=== PATIENT | female | born 1935 | race Caucasian/White ===

== ENCOUNTER → 2016-09-21 | Outpatient (CLI) | payer OTHER ==
[~2016-09-21] MED LIST: ASPI81TA28 PO; ATEN50TA8 PO; BRIM0.1S OPB; SIMV20TA2 PO; [UNRECOGNIZED DRUG - CODE] PO
--- NOTE | 2016-09-21 16:56 | MAMMOGRAPHY REPORT ---
BILATERAL DIGITAL SCREENING MAMMOGRAM WITH CAD: 09/21/2016 CLINICAL HISTORY: Routine screening. Patient has no complaints. TECHNIQUE: Current study was also evaluated with a Computer Aided Detection (CAD) system. Bilatera l CC and MLO views were obtained. COMPARISON: Comparison is made to exams dated: 08/14/2015 mammogram, 08/21/2014 mammogram, 4 mammogram, 08/07/2013 mammogram, 08/02/2012 mammogram, and 08/01/2011 mammogram - [facility]. BREAST COMPOSITION: The tissue of both breasts is heterogeneously dense, which may obscure small ma sses. FINDINGS: No suspicious masses, calcifications, or areas of architectural distortion are noted in e ither breast. There has been no significant interval change compared to prior exams. Bilateral leida gn vascular calcifications are again noted. Asymmetry in the left lateral breast on the cc view is stable compared to prior exams including the 2011 exam. IMPRESSION: ACR BI-RADS CATEGORY 2: BENIGN There is no mammographic evidence of malignancy. A 1 year screening mammogram is recommended. The p atient will receive written notification of the results. Approximately 10% of breast cancers are not detected with mammography. A negative mammographic repor t should not delay biopsy if a clinically suggestive mass is present. Chastity Alvarez M.D. /:09/21/2016 15:22:52 Food Aide: Estelita MCRAE(R)(Julieth)(BD), [facility] letter sent: Normal 1/2 BI-RADS Code: ACR BI-RADS Category 2: Benign
== END | disposition home or self-care (01) ==
LOC: C.MAMM 13:11
PROVIDERS: ATTEND Family Medicine
DX: Z12.31 Encounter for screening mammogram for malignant neoplasm of breast (principal)

== ENCOUNTER → 2017-11-30 | Outpatient (CLI) | payer OTHER ==
--- NOTE | 2017-12-01 07:20 | MAMMOGRAPHY REPORT ---
BILATERAL DIGITAL SCREENING MAMMOGRAM TOMOSYNTHESIS WITH CAD: 11/30/2017 CLINICAL HISTORY: Routine screening. TECHNIQUE: Breast tomosynthesis in addition to standard 2D mammography was performed. Current study was also evaluated with a Computer Aided Detection (CAD) system. COMPARISON: Comparison is made to exams dated: 09/21/2016 mammogram, 08/14/2015 mammogram, 08/11/2014 mammogram, 08/07/2013 mammogram, 08/02/2012 mammogram, and 08/01/2011 mammogram - [facility]. BREAST COMPOSITION: The tissue of both breasts is heterogeneously dense, which may obscure small mas ses. FINDINGS: No suspicious masses, calcifications, or areas of architectural distortion are noted in ei ther breast. No suspicious mass, architectural distortion or cluster of microcalcifications is seen. IMPRESSION: ACR BI-RADS CATEGORY 1: NEGATIVE There is no mammographic evidence of malignancy. A 1 year screening mammogram is recommended. The pa tient will receive written notification of the results. Approximately 10% of breast cancers are not detected with mammography. A negative mammographic report should not delay biopsy if a clinically suggestive mass is present. Chastity jewell/penrafi:11/30/2017 15:40:33 Clinical Director: Mya MCRAE(R)(M), [facility] letter sent: Normal 1/2 BI-RADS Code: ACR BI-RADS Category 1: Negative
== END | disposition home or self-care (01) ==
LOC: C.MAMM 11:15
PROVIDERS: ATTEND Family Medicine
DX: Z12.31 Encounter for screening mammogram for malignant neoplasm of breast (principal)

== ENCOUNTER 2023-09-10 20:56 | Inpatient (IN) ==
--- OUTSIDE RECORDS SUMMARY | 2023-09-10 21:01 | External Medical Summary | Summary of Care ---
Author Name Unknown Organization [facility] Address [address] [place] [address] Phone [phone] Care Team Providers Care Floor Attendant Name Role Phone Ricardo Chen MD Primary Care Provider [phone]- [phone] Reason for Visit * Reason Comments eRx-Medication Refill Encounter Details Date Type Department Care Team Description 05/20/2023 Refill [facility] [address] [place] [address] Ricardo Chen MD [address] [place] [address] Dyslipidemia Allergies No known active allergiesdocumented as of this encounter (statuses as of 05/21/2023) Medications Medication Sig Dispensed Refills Start Date End Date Status ASPIRIN 81 MG PO TABS One tablet daily 0 Active fish oil concentrate (OMEGA-3) 1000 MG CAPSIndications:P t states she is currently taking 500 mg daily Take 1 Capsule by mouth once. 60 Cap 5 03/15/2016 Active Cholecalciferol (VITAMIN D) 1000 units TabletIndications :Vitamin D deficiency 2 per day 60 Tab 0 06/23/2017 Active Promethazine HCl 25 MG Oral Tablet (PHENERGAN) Take 1 tab by mouth every 12 hours as needed for nausea and headache 4 Tab 0 06/17/2020 Active Meclizine HCl 25 MG Oral Tablet (Antivert) Take 1 Tab by mouth 3 times a day as needed for Dizziness. 30 Tab 0 03/15/2021 Active Allopurinol 300 MG Oral Tablet (Zyloprim)Indicat ions:Gout, unspecified cause, unspecified chronicity, unspecified site TAKE BY MOUTH 1 TABLET IN THE MORNING. 90 Tablet 3 08/12/2022 Active Omeprazole 20 MG Oral Capsule Delayed Release (PriLOSEC)Indicat ions:Encounter for long-term (current) use of medications,Gastr oesophageal reflux disease without esophagitis TAKE BY MOUTH 1 CAPSULE IN THE MORNING. 90 Capsule 3 08/12/2022 Active Furosemide 20 MG Oral Tablet (Lasix) Take 1 Tablet by mouth in the morning. 90 Tablet 1 01/31/2023 Active Potassium Chloride ER 10 MEQ Oral Capsule Extended Release Take 1 Capsule by mouth in the morning. 90 Capsule 1 01/31/2023 Active Levothyroxine Sodium 50 MCG Oral Tablet (Levoxyl) TAKE 1 TABLET BY MOUTH EVERY DAY AT LEAST 30 MIN BEFORE BREAKFAST OR OTHER MEDICATION 90 Tablet 0 02/16/2023 Active Atenolol 25 MG Oral Tablet (Tenormin)Indicat ions:HTN, goal below 150/90 Take 1 Tablet by mouth in the morning and 1 Tablet in the evening. 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 09/21/2022 Type 2 diabetes mellitus with hemoglobin A1c goal of less than 8.0% 02/05/2021 Benign hypertension with stage 3b chroni c kidney disease 01/12/2021 Overview: Per CKD protocol Primary open-angle glaucoma, bilateral, moderate stage 10/04/2019 Gastroesophageal reflux disease without esophagitis 10/04/2019 Acquired hypothyroidism 07/04/2019 History of nonmelanoma skin cancer 02/05 Overview: BCC on the left nose 2015 Vitamin D deficiency 06/23/2017 High risk for fracture due to osteoporos is by DEXA scan 10/06/2015 HTN, goal below 150/90 09/08/2015 Dyslipidemia 09/08/2015 documented as of this encounter (statuses as of 05/21/2023) Resolved Problems Problem Noted Date Resolved Date Glaucoma 06/21/2022 01/23/2023 Chronic kidney disease, stage 3b 02/16/2021 09/22/2021 Overview: Per CKD protocol Duplicate Type 2 diabetes mellitus wit h stage 3b chronic kidney disease 01/12/2021 06/14/2021 Overview: Per CKD protocol Diabetes mellitus with stage 3 chronic kidney di sease 07/13/2020 01/14/2021 Overview: Per CKD protocol Type 2 diabetes mellitus with stage 3 chronic ki dney disease 07/16/2019 07/16/2020 Overview: Per CKD protocol Benign hypertension with chronic kidney disease, stage III 06/23/2017 01/14/2021 Overview: Per CKD protocol History of gout 06/23/2017 10/29/2018 Primary open-angle glaucoma, moderate stage 06/0502/20/2020 Overview: history Acute gout involving toe of left foot 12/20/2016 06/23/2017 Kidney disease, chronic, stage III (GFR 30-59 ml /min) 09/12/2016 12/15/2017 Overview: Per CKD protocol #1 documented as of this encounter (statuses as of 05/21/2023) Immunizations Name Administration Dates Next Due COVID-19 mRNA, LNP-s, No Pre serve, 2-Dose Series (Hidden Radio) 01/06/2021,12/16/2020 Pneumococcal Conjugate Vacc, 13 Valent (Prevnar) 12/15/2015 Pneumococcal Polysaccharide PPV23 (Pneumovax) Season Influenza, Quad, PF, Adjuvanted, 65+ Yrs, IM (FLUAD) 05/15/2020 Seasonal Influenza, PF, 6 mo ns & Above, IM , (Flulaval) 08/01/2018,06/23/2017 06/23/2018 Seasonal Influenza, Quadrivalent Hd (Fluzone Hd) 06/21/2022,05/27/2021 Seasonal Influenza, Quadrivalent, No Preserve, I M 06/17/2016,2015 Seasonal Influenza, Trivalent, Adjuvanted, 65+ y rs 07/04/2019 TD - Tetanus/Diptheria (ADULT) 03/30/2005 Varicella Zoster Vaccine (Adult) 06/04/2010 Zoster Vaccine Recombinant (Shingrix) 08/01/2018 ,03/27/2018 documented as of this encounter Social History Tobacco Use Types Packs/Day Years Used Date Smoking Tobacco: Never Smokeless Tobacco: Never Alcohol Use Standard Drinks/Week Comments No 0 (1 standard drink = 0.6 oz pur e alcohol) Food Insecurity Answer Date Recorded Within the past 12 months, y ou worried that your food would run out before you got money to buy more. Never true 07/16/2019 Within the past 12 months, t he food you bought just didn't last and you didn't have money to get more. Never true 07/16/2019 Sex Assigned at Date Recorded Female 11/22/2018 11:38 AM EDT Job Start Date Occupation Industry Not on file Not on file Not on file documented as of this encounter Miscellaneous Notes * Telephone Encounter - Alberto Dobbins RPh - 05/21/2023 2:36 PM EDT Signed Prescriptions: Disp Refills Atorvastatin Calcium 40 MG Oral Tablet (Li*90 Tab*1 Sig: TAKE 1 TABLET BY MOUTH EVERY DAY IN THE MORNINGAuthorizing Provider: RICARDO CHEN User: ALBERTO DOBBINS documented in this encounter Plan of Treatment Upcoming Encounters Date Type Specialty Care Team Description 08/16/2023 Office Visit Family Medicine Ricardo Chen MD [address] [place] [address] Health Maintenance Due Date Last Done Comments DTaP,Tdap,and Td Vaccines (1 - Tdap) 03/31/2005 03/30/2005 DIABETES-EYE EXAM 07/12/2012 07/12/2011, , 06/01/2011 *BISPHONATE OR OTHER ACCEPTABLE MEDICATION NEEDED FOR OSTEOPOROSIS (REFER TO SMARTSET #1146) 10/08/2015 COVID-19 Vaccine (3 - Pfizer series) 03/03/2021 01/06/2021, 12/16/2020 DXA Scan 08/31/2022 08/31/2020, 02/2018, 09/11/2015 Diabetic Foot Exam 03/21/2023 03/21/2022, 10/04/2019 Influenza Vaccine (FLU shot) (#1) 2023 06/21/2022, 05/27/2021, 05/15/2020, Additional history exists HbA1c 08/18/2023 02/16/2023, 03/04, 10/25/2021, Additional history exists Depression Screening 09/21/2023 09/21/2022 CKD HGB USE SMARTSET 06680 02/17/202402/16, 03/21/2022, 02/05/2021, Additional history exists CKD PHOS USE SMARTSET 49610 02/17/202402/02, 03/21/2022, 02/05/2021, Additional history exists TSH 02/17/2024 02/16/2023, 01/2023, 10/25/2021, Additional history exists Albumin/Creatinine Ratio 02/18/2024 02/17/2023, 03/04 Pneumococcal Vaccine: 65+ Years Completed 12/15/2015, 05/29/2001 Zoster Vaccines Completed 08/01/2018, 03/05, 06/04/2010 VITAMIN D LEVEL ONCE IN A LIFETIME-USE SMARTSET# 08143 Completed 03/21/2022, 02/05/2021, 03/02/2020, Additional history exists GARDASIL-HPV IMMUNIZATION SERIES Aged Out No longer eligible based on patient's age to complete this topic Hepatitis B Aged Out No longer eligi ble based on patient's age to complete this topic MENINGOCOCCAL (MENACTRA/MENVEO) Aged Out No longer eligible based on patient's age to complete this topic documented as of this encounter Medical Devices Not on filedocumented as of this encounter Visit Diagnoses Diagnosis Dyslipidemia Other and unspecified hyperlipidemia documented in this encounter Care Teams Floor Attendant Relationship Specialty Start Date End Date Ricardo Chen MD [address], [place] [phone] PCP - General Family Medicine 08/24/15 documented as of this encounter
--- OUTSIDE RECORDS SUMMARY | 2023-09-10 21:01 | External Medical Summary | Summary of Care ---
Author Name Unknown Organization [facility] Address [address] [place] [address] Phone [phone] Care Team Providers Care Sleeper Cutter Name Role Phone Ricardo Chen MD Primary Care Provider [phone]- [phone] Reason for Visit * Reason Comments eRx-Medication Refill Encounter Details Date Type Department Care Team ([facility] st Contact Info) Description 07/27/2023 Refill [facility] [address] [place] [address] Chano Guo MD [address] [place] [address] Allergies No known active allergiesdocumented as of this encounter (statuses as of 07/28/2023) Medications Medication Sig Dispensed Refills Start Date [...] THE MORNING. 90 Capsule 3 08/12/2022 Active Atenolol 25 MG Oral Tablet (Tenormin)Indicat [...] THE MORNING 90 Tablet 1 05/21/2023 Active Levothyroxine Sodium 50 MCG Oral Tablet (Levoxyl) TAKE 1 TABLET BY MOUTH EVERY DAY AT LEAST 30 MIN BEFORE BREAKFAST OR OTHER MEDICATION 90 Tablet 1 06/30/2023 Active Potassium Chloride ER 10 MEQ Oral Capsule Extended Release TAKE 1 CAPSULE BY MOUTH EVERY MORNING 90 Capsule 1 07/28/2023 Active Furosemide 20 MG Oral Tablet (Lasix) TAKE 1 TABLET BY MOUTH EVERY DAY IN THE MORNING 90 Tablet 1 07/28/2023 Active Furosemide 20 MG Oral Tablet (Lasix) Take 1 Tablet by mouth in the morning. 90 Tablet 1 01/31/2023 3 Discontinued Potassium Chloride ER 10 MEQ Oral Capsule Extended Release Take 1 Capsule by mouth in the morning. 90 Capsule 1 01/31/2023 3 Discontinued documented as of this encounter (statuses as of 07/28/2023) Active Problems Problem Noted Date Diagnosed Date Type 2 diabetes mellitus wit h stage 3b chronic kidney disease 09/21/2022 Type 2 diabetes mellitus wit h hemoglobin A1c goal of less than 8.0% 02/05/2021 Benign hypertension with stage 3b chronic kidney disease 01/12/2021 Overview: Per CKD protocol Primary open-angle glaucoma, bilateral, moderate stage 10/04/2019 Gastroesophageal reflux disease without esophagi tis 10/04/2019 Acquired hypothyroidism 07/04/2019 History of nonmelanoma skin cancer 02/05/2018 Overview: BCC on the left nose 2015 Vitamin D deficiency 06/23/2017 High risk for fracture due to osteoporosis by DE XA scan 10/06/2015 HTN, goal below 150/90 09/08/2015 Dyslipidemia 09/08/2015 documented as of this encounter (statuses as of 07/28/2023) Resolved Problems Problem Noted Date Diagnosed Date Resolved Date Glaucoma 06/21/2022 01/23/2023 Chronic kidney disease, stage 3b 02/16/2021 09/22/2021 Overview: Per CKD protocol Duplicate Type 2 diabetes mellitus wit h stage 3b chronic kidney disease 01/12/2021 06/14/2021 Overview: Per CKD protocol Diabetes mellitus with stage 3 chronic kidney disease 07/13/2020 01/14/2021 Overview: Per CKD protocol Type 2 diabetes mellitus wit h stage 3 chronic kidney disease 07/16/2019 07/16/2020 Overview: Per CKD protocol Benign hypertension with chr onic kidney disease, stage III 06/23/2017 01/14/2021 Overview: Per CKD protocol History of gout 06/23/2017 10/29/2018 Primary open-angle glaucoma, moderate stage 06/23/2017 02/20/2020 Overview: history Acute gout involving toe of left foot 12/20/2016 06/23/2017 Kidney disease, chronic, sta ge III (GFR 30-59 ml/min) 09/12/2016 12/15/2017 Overview: Per CKD protocol #1 documented as of this encounter (statuses as of 07/28/2023) Immunizations Name Administration Dates Next Due COVID-19 mRNA, LNP-s, No Pre serve, 2-Dose Series (Pfizer) 01/06/2021,12/16/2020 Pneumococcal Conjugate Vacc, 13 Valent (Prevnar) 12/15/2015 Pneumococcal Polysaccharide PPV23 (Pneumovax) SEASONAL INFLUENZA, PF, 6 M & Above, IM , (FLULAVAL or FLUZONE) 08/01/2018,06/23/2017 06/23/2018 Season Influenza, Quad, PF, Adjuvanted, 65+ Yrs, IM (FLUAD) 05/15/2020 Seasonal Influenza, Quadrivalent Hd (Fluzone Hd) 06/21/2022,05/27/2021 [...] drink = 0.6 oz pur e alcohol) PHQ-2 Answer Date Recorded PHQ Adult Total Score 0 09/21/2022 Hunger Vital Sign Answer Date Recorded Within the past 12 months, y ou worried that your food would run out before you got the money to buy more. Never true 05/11/20 23 Within the past 12 months, t he food you bought just didn't last and you didn't have money to get more. Never true 05/11/2023 Sex and Gender Information Value Date Recorded Sex Assigned at Female 11/22/2018 11:38 AM EDT Gender Identity Female 11/22/2018 11:38 AM EDT Sexual Orientation Straight 11/22/2018 11 :38 AM EDT Job Start Date Occupation Industry Not on file Not on file Not on file documented as of this encounter Miscellaneous Notes * Telephone Encounter - Jovanni Shrestha [facility] - 07/28/2023 10:38 AM EST Signed Prescriptions: Disp Refills Potassium Chloride ER 10 MEQ Oral Capsule *90 Cap*1 Sig: TAKE 1 CAPSULE BY MOUTH EVERY MORNINGAuthorizing Provider: RICARDO CHEN User: JOVANNI SHRESTHA Furosemide 20 MG Oral Tablet (Lasix) 90 Tab*1 Sig: TAKE 1 TABLET BY MOUTH EVERY DAY IN THE [facility]Authorizing Provider: RICARDO CHEN User: JOVANNI SHRESTHA documented in this encounter Plan of Treatment Upcoming Encounters Date Type Department Care Team (Late st Contact Info) Description 08/16/2023 9:20 AM EST Office Visit [facility] [address] [place] [address] Ricardo Chen MD [address] [place] [address] Health Maintenance Due Date Last Done Comments Hepatitis B (1 of 3 - Risk 3-dose series) 1995 DTaP,Tdap,and Td Vaccines (1 - Tdap) 03/31/2005 03/30/2005 Diabetic Eye Exam 07/12/2012 07/12/2011, , 06/01/2011 *BISPHONATE OR OTHER ACCEPTABLE MEDICATION NEEDED FOR OSTEOPOROSIS (REFER TO SMARTSET #1146) 10/08/2015 DXA Scan 08/31/2022 08/31/2020, 06/0 02/2018, 09/11/2015 Diabetic Foot Exam 03/21/2023 03/21/2022, 10/04/2019 COVID-19 Vaccine (3 - season) 2023 01/06/2021, 12/16/2020 Influenza Vaccine (FLU shot) (#1) 2023 06/21/2022, 05/27/2021, 05/15/2020, Additional history exists *NEPHROLOGY REFERRAL DUE TO RESISTANT HTN 05/31/2023 HbA1c 08/18/2023 02/16/2023, 03/04, 10/25/2021, Additional history exists Depression Screening 09/21/2023 09/21/2022 CKD HGB USE SMARTSET 07573 02/17/202402/16, 03/21/2022, 02/05/2021, Additional history exists CKD PHOS USE SMARTSET 12744 02/17/202402/02, 03/21/2022, 02/05/2021, Additional history exists TSH 02/17/2024 02/16/2023, 01/2023, 10/25/2021, Additional history exists Albumin/Creatinine Ratio 02/18/2024 02/17/2023, 03/04 Pneumococcal Vaccine: 65+ Years Completed 12/15/2015, 05/29/2001 Zoster Vaccines Completed 08/01/2018, 03/05, 06/04/2010 VITAMIN D LEVEL ONCE IN A LIFETIME-USE SMARTSET# 21336 Completed 03/21/2022, 02/05/2021, 03/02/2020, Additional history exists GARDASIL-HPV IMMUNIZATION SERIES Aged Out No longer eligible based on patient's age to complete this topic MENINGOCOCCAL (MENACTRA/MENVEO) Aged Out No longer eligible based on patient's age to complete this topic documented as of this encounter Medical Devices Not on filedocumented as of this encounter Care Teams Sleeper Cutter Relationship Specialty Start Date End Date Ricardo Chen MD [address] [place] [address] PCP - General Family Medicine 08/24/15 documented as of this encounter
--- OUTSIDE RECORDS SUMMARY | 2023-09-10 21:01 | External Medical Summary | Summary of Care ---
Author Name Unknown Organization [facility] Address [address] [place] [facility] [place] [address] Phone [phone] Care Team Providers Care Drawbridge Tender Name Role Phone Ricardo Guerra MD Primary Care Provider +1- [phone] Encounter Details Date Type Department Care Team (Late st Contact Info) Description 05/11/2023 Population Health External Data Unspecified Department Allergies No known active allergiesdocumented as of this encounter (statuses as of 07/17/2023) Medications Medication Sig Dispensed Refills Start Date End Date Status ASPIRIN 81 MG PO TABS One tablet daily 0 Active fish oil concentrate (OMEGA-3) 1000 MG CAPSIndications:Pt states she is currently taking 500 mg daily Take 1 Capsule by mouth once. 60 Cap 5 03/15/2016 Active Cholecalciferol (VITAMIN D) 1000 units TabletIndications:Vi tamin D deficiency 2 per day 60 Tab [...] 03/15/2021 Active Allopurinol 300 MG Oral Tablet (Zyloprim)Indication s:Gout, unspecified cause, unspecified chronicity, unspecified site TAKE BY MOUTH 1 TABLET IN THE MORNING. 90 Tablet 3 08/12/2022 Active Omeprazole 20 MG Oral Capsule Delayed Release (PriLOSEC)Indication s:Encounter for long-term (current) use of medications,Gastroes ophageal reflux disease without esophagitis TAKE BY MOUTH 1 CAPSULE IN THE MORNING. 90 Capsule 3 08/12/2022 Active Furosemide 20 MG Oral Tablet (Lasix) Take 1 Tablet by mouth in the morning. 90 Tablet 1 01/31/2023 Active Potassium Chloride ER 10 MEQ Oral Capsule Extended Release Take 1 Capsule by mouth in the morning. 90 Capsule 1 01/31/2023 Active Atenolol 25 MG Oral Tablet (Tenormin)Indication s:HTN, goal below 150/90 Take 1 Tablet by mouth in the morning and 1 Tablet in the evening. 180 Tablet 3 03/06/2023 Active Lisinopril-hydroCHLO ROthiazide 20-25 MG Oral TabletIndications:HT N, goal below 150/90 TAKE 1 TABLET BY MOUTH EVERY DAY 90 Tablet 3 04/06/2023 Active documented as of this encounter (statuses as of 07/17/2023) Active Problems Problem Noted Date Diagnosed Date [...] as of this encounter (statuses as of 07/17/2023) Resolved Problems Problem Noted Date Diagnosed Date [...] as of this encounter (statuses as of 07/17/2023) Immunizations Name Administration Dates Next Due COVID-19 mRNA, LNP-s, No Pre serve, 2-Dose Series ([employer]) 01/06/2021,12/16/2020 Pneumococcal Conjugate Vacc, 13 Valent (Prevnar) [...] 09/21/2022 Hunger Vital Sign Answer Date Recorded Worried About Running Out of Food in the Last Ye ar Never true 07/16/2019 Ran Out of Food in the Last Year Never true 07/16/2019 Sex and Gender Information Value Date Recorded Sex Assigned at Female 11/22/2018 11:38 AM EDT Gender Identity Female 11/22/2018 11:38 AM EDT Sexual Orientation Straight 11/22/2018 11 :38 AM EDT Job Start Date Occupation Industry Not on file Not on file Not on file documented as of this encounter Plan of Treatment Upcoming Encounters Date Type Department Care Team (Late st Contact Info) Description 08/16/2023 9:20 AM EST Office Visit [facility] [address] [place] [address] Ricardo Guerra MD [address] [place] [address] Health Maintenance Due Date Last Done Comments Hepatitis B (1 of 3 - Risk 3-dose series) 1995 DTaP,Tdap,and Td Vaccines (1 - Tdap) 03/31/2005 03/30/2005 Diabetic Eye Exam 07/12/2012 07/12/2011, , 06/01/2011 *BISPHONATE OR OTHER ACCEPTABLE MEDICATION NEEDED FOR OSTEOPOROSIS (REFER TO SMARTSET #1146) 10/08/2015 DXA Scan 08/31/2022 08/31/2020, 0602/2018, 09/11/2015 Diabetic Foot Exam 03/21/2023 03/21/2022, 10/04/2019 COVID-19 Vaccine ( - season) 2023 01/06/2021, 12/16/2020 Influenza Vaccine (FLU shot) (#1) 2023 06/21/2022, 05/27/2021, 05/15/2020, Additional history exists *NEPHROLOGY REFERRAL DUE TO RESISTANT HTN 05/31/2023 HbA1c 08/18/2023 02/16/2023, 03/04, 10/25/2021, Additional history exists Depression Screening 09/21/2023 09/21/2022 CKD HGB USE SMARTSET 38012 02/17/202402/16, 03/21/2022, 02/05/2021, Additional history exists CKD PHOS USE SMARTSET 51479 02/17/202402/02, 03/21/2022, 02/05/2021, Additional history exists TSH 02/17/2024 02/16/2023, 06/01/2023, 10/25/2021, Additional history exists Albumin/Creatinine Ratio 02/18/2024 02/17/2023, 03/04 Pneumococcal Vaccine: 65+ Years Completed 12/15/2015, 05/29/2001 Zoster Vaccines Completed 08/01/2018, 03/05, 06/04/2010 VITAMIN D LEVEL ONCE IN A LIFETIME-USE SMARTSET# 60483 Completed 03/21/2022, 02/05/2021, 03/02/2020, Additional history exists GARDASIL-HPV IMMUNIZATION SERIES Aged Out No longer eligible based on patient's age to complete this topic MENINGOCOCCAL (MENACTRA/MENVEO) Aged Out No longer eligible based on patient's age to complete this topic documented as of this encounter Medical Devices Not on filedocumented as of this encounter Care Teams Drawbridge Tender Relationship Specialty Start Date End Date Ricardo Guerra MD [address] [place] [address] PCP - General Family Medicine 08/24/15 documented as of this encounter
--- OUTSIDE RECORDS SUMMARY | 2023-09-10 21:01 | External Medical Summary | Summary of Care ---
Author Name Unknown Organization [facility] Address [address] [place] [address] Phone [phone] Care Team Providers Care Literacy Education Professor Name Role Phone Ricardo Chen MD Primary Care Provider +1- [phone] Reason for Visit * Reason Comments eRx-Medication Refill Encounter Details Date Type Department Care Team (Late st Contact Info) Description 08/20/2023 Refill [facility] [address] [place] [address] Ricardo Chen MD [address] [place] [address] Encounter for long-term (current) use of medications; Gastroesophageal reflux disease without esophagitis; Gout, unspecified cause, unspecified chronicity, unspecified site Allergies No known active allergiesdocumented as of this encounter (statuses as of 08/21/2023) Medications Medication Sig Dispensed Refills Start Date [...] for Dizziness. 30 Tab 0 03/15/2021 Active Atenolol 25 MG Oral Tablet (Tenormin)Indicat [...] THE MORNING 90 Tablet 1 07/28/2023 Active Omeprazole 20 MG Oral Capsule Delayed Release (PriLOSEC)Indicat ions:Encounter for long-term (current) use of medications,Gastr oesophageal reflux disease without esophagitis TAKE 1 CAPSULE BY MOUTH EVERY DAY IN THE MORNING 90 Capsule 1 08/21/2023 Active Allopurinol 300 MG Oral Tablet (Zyloprim)Indicat ions:Gout, unspecified cause, unspecified chronicity, unspecified site TAKE 1 TABLET BY MOUTH EVERY DAY IN THE MORNING 90 Tablet 1 08/21/2023 Active Allopurinol 300 MG Oral Tablet (Zyloprim)Indicat ions:Gout, unspecified cause, unspecified chronicity, unspecified site TAKE BY MOUTH 1 TABLET IN THE MORNING. 90 Tablet 3 08/12/2022 3 Discontinued Omeprazole 20 MG Oral Capsule Delayed Release (PriLOSEC)Indicat ions:Encounter for long-term (current) use of medications,Gastr oesophageal reflux disease without esophagitis TAKE BY MOUTH 1 CAPSULE IN THE MORNING. 90 Capsule 3 08/12/2022 3 Discontinued documented as of this encounter (statuses as of 08/21/2023) Active Problems Problem Noted Date Diagnosed Date [...] as of this encounter (statuses as of 08/21/2023) Resolved Problems Problem Noted Date Diagnosed Date [...] as of this encounter (statuses as of 08/21/2023) Immunizations Name Administration Dates Next Due COVID-19 mRNA, LNP-s, No Pre serve, 2-Dose Series (Pfizer) 01/06/2021,12/16/2020 Pneumococcal Conjugate Vacc, 13 Valent (Prevnar) 12/15/2015 Pneumococcal Polysaccharide PPV23 (Pneumovax) Season Influenza, Quad, PF, Adjuvanted, 65+ Yrs, IM (FLUAD) 05/15/2020 Seasonal Influenza, PF, 6 M & above, IM , (FluLaval or Fluzone) 08/01/2018,06/23/2017 06/23/2018 Seasonal Influenza, Quadrivalent Hd (Fluzone [...] encounter Miscellaneous Notes * Telephone Encounter - Maicol Babb, [facility] - 08/21/2023 10:28 AM ESTSigned Prescriptions: Disp Refills Omeprazole 20 MG Oral Capsule Delayed Rele*90 Cap*1 Sig: TAKE 1CAPSULE BY MOUTH EVERY DAY IN THE MORNINGAuthorizing Provider: RICARDO CHEN User: MAICOL BABB Allopurinol 300 MG Oral Tablet (Zyloprim) 90 Tab*1 Sig: TAKE 1 TABLET BY MOUTH EVERY DAY IN THE MORNINGAuthorizing Provider: RICARDO CHEN User: MAICOL BABB documented in this encounter Plan of Treatment Upcoming Encounters Date Type Department Care Team (Late st Contact Info) Description 10/31/2023 6:00 PM EST Office Visit [facility] [address] [place] [address] Ricardo Chen MD [address] [place] [address] Health Maintenance Due Date Last [...] Screening 09/21/2023 09/21/2022 CKD HGB USE SMARTSET 06686 02/17/202402/16, 03/21/2022, 02/05/2021, Additional history exists CKD PHOS USE SMARTSET 44918 02/17/202402/02, 03/21/2022, 02/05/2021, Additional history exists TSH 02/17/2024 02/16/2023, 01/2023, 10/25/2021, Additional history exists Albumin/Creatinine Ratio 02/18/2024 02/17/2023, 03/04 Pneumococcal Vaccine: 65+ Years Completed 12/15/2015, 05/29/2001 Zoster Vaccines Completed 08/01/2018, 03/05, 06/04/2010 VITAMIN D LEVEL ONCE IN A LIFETIME-USE SMARTSET# 22620 Completed 03/21/2022, 02/05/2021, 03/02/2020, Additional history exists GARDASIL-HPV IMMUNIZATION SERIES Aged Out No longer eligible based on patient's age to complete this topic MENINGOCOCCAL (MENACTRA/MENVEO) Aged Out No longer eligible based on patient's age to complete this topic documented as of this encounter Medical Devices Not on filedocumented as of this encounter Visit Diagnoses Diagnosis Encounter for long-term (current) use of medications Encounter for long-term (current) use of other medications Gastroesophageal reflux disease without esophagitis Esophageal reflux Gout, unspecified cause, unspecified chronicity, unspecified site documented in this encounter Care Teams Literacy Education Professor Relationship Specialty Start Date End Date Ricardo Chen MD [address] [place] [address] PCP - General Family Medicine 08/24/15 documented as of this encounter
--- OUTSIDE RECORDS SUMMARY | 2023-09-10 21:01 | External Medical Summary | Summary of Care ---
Author Name Unknown Organization [facility] Address [address] [place] [address] Phone [phone] Care Team Providers Care Power Saw Mechanic Name Role Phone Ricardo Guerra MD Primary Care Provider [phone]- [phone] Encounter Details Date Type Department Care Team Description [facility] [address] [place] [address] Vin Moya MD [address] [place] [address] Arachnoid cyst* Allergies No known active allergiesdocumented as of this encounter (statuses as of 04/10/2023) Medications Medication Sig Dispensed Refills Start Date End Date Status ASPIRIN 81 MG PO TABS One tablet daily 0 Active fish oil concentrate (OMEGA-3) 1000 MG CAPSIndications:Pt states she is currently taking 500 mg daily Take 1 Capsule by mouth once. 60 Cap 5 03/15/2016 Active Cholecalciferol (VITAMIN D) 1000 units TabletIndications:V itamin D deficiency 2 per day 60 Tab [...] 03/15/2021 Active Allopurinol 300 MG Oral Tablet (Zyloprim)Indicatio ns:Gout, unspecified cause, unspecified chronicity, unspecified site TAKE BY MOUTH 1 TABLET IN THE MORNING. 90 Tablet 3 08/12/2022 Active Omeprazole 20 MG Oral Capsule Delayed Release (PriLOSEC)Indicatio ns:Encounter for long-term (current) use of medications,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 TAKE BY MOUTH 1 CAPSULE IN THE MORNING. 90 Capsule 3 08/12/2022 Active Atorvastatin Calcium 40 MG Oral Tablet (Lipitor)Indication s:Dyslipidemia TAKE 1 TABLET BY MOUTH EVERY DAY IN THE MORNING 90 Tablet 1 11/21/2022 Active Furosemide 20 MG Oral Tablet (Lasix) [...] 02/16/2023 Active Atenolol 25 MG Oral Tablet (Tenormin)Indicatio ns:HTN, goal below 150/90 Take 1 Tablet by mouth in the morning and 1 Tablet in the evening. 180 Tablet 3 03/06/2023 Active Lisinopril-hydroCHL OROthiazide 20-25 MG Oral TabletIndications:H TN, goal below 150/90 TAKE 1 TABLET BY MOUTH EVERY DAY 90 Tablet 3 04/06/2023 Active documented as of this encounter (statuses as of 04/10/2023) Active Problems Problem Noted Date Type 2 [...] as of this encounter (statuses as of 04/10/2023) Resolved Problems Problem Noted Date Resolved Date [...] as of this encounter (statuses as of 04/10/2023) Immunizations Name Administration Dates Next Due COVID-19 mRNA, LNP-s, No Pre serve, 2-Dose Series (Pfizer) 01/06/2021,12/16/2020 Pneumococcal Conjugate Vacc, 13 Valent (Prevnar) 12/15/2015 Pneumococcal Polysaccharide PPV23 (Pneumovax) Seasonal Influenza, Quadrivalent Hd (Fluzone Hd) 06/21/2022,05/27/2021 Seasonal Influenza, Quadriva lent, No Preserve, 6 Mons & Above, IM 08/01/2018,06/23/2017 06/23/2018 Seasonal Influenza, Quadriva lent, No Preserve, Adjuvanted, 65+ Yrs, IM 05/15/2020 Seasonal Influenza, Quadrivalent, No Preserve, I M [...] on file documented as of this encounter Progress Notes * Vin Moya MD - 04/10/2023 8:31 AM EDT After connecting to the patient via telephone, the patient was identified by name and date of . Patient was then informed that this was a telephone call only visit. The patient agreed to participate. Visit Disposition: Routine follow-up Total call duration was 5 minutes. NEUROSURGERY ATTENDING CLINIC NOTE Name: Raquel Purcell Date: 04/10/2023 Time: 8:32 AM Chief complaint: Left parietal arachnoid cyst Ricardo Guerra MD, thank you very much for referring Raquel Purcell to my clinic. As you recall she is a 87 year old female with an incidental finding on MRI a left parietal arachnoid cyst. At our previous in-person clinic visit, she was neurologically intact. We discussed that arachnoid cystsoften do not require treatment assuming that they do not progressively enlarge and cause neurologic symptoms. She obtained a repeat MRI which did not demonstrate any growth or change within the lesion. She states that she has no new neurologic symptoms, including headaches, speech difficulties, or right-sided weakness. 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 Nuñez REMOVE CATARACT, INSERT LENS PROSTH Right Eye--Dr. Carrasquillo Medications Current Outpatient Medications Medication Sig Dispense Refill ASPIRIN 81 MG PO TABS One tablet daily fish oil concentrate (OMEGA-3) 1000 MG CAPS Take 1 Capsule by mouth once. 60 Cap 5 Cholecalciferol (VITAMIN D) 1000 units Tablet 2 per day 60 Tab 0 Promethazine HCl 25 MG Oral Tablet (PHENERGAN) Take 1 tab by mouth every 12 hours as needed fornausea and headache 4 Tab 0 Meclizine HCl 25 MG Oral Tablet (Antivert) Take 1 Tab by mouth 3 times a day as needed for Dizziness. 30 Tab 0 Allopurinol 300 MG Oral Tablet (Zyloprim) TAKE BY MOUTH 1 TABLET IN THE MORNING. 90 Tablet 3 Omeprazole 20 MG Oral Capsule Delayed Release (PriLOSEC) TAKE BY MOUTH 1 CAPSULE IN THE MORNING. 90 Capsule 3 Atorvastatin Calcium 40 MG Oral Tablet (Lipitor) TAKE 1 TABLET BY MOUTH EVERY DAY IN THE MORNING 90 Tablet 1 Furosemide 20 MG Oral Tablet (Lasix) Take 1 Tablet by mouth in the morning. 90 Tablet 1 Potassium Chloride ER 10 MEQ Oral Capsule Extended Release Take 1 Capsule by mouth in the morning. 90 Capsule 1 Levothyroxine Sodium 50 MCG Oral Tablet (Levoxyl) TAKE 1 TABLET BY MOUTH EVERY DAY AT LEAST 30 MIN BEFORE BREAKFAST OR OTHER MEDICATION 90 Tablet 0 Atenolol 25 MG Oral Tablet (Tenormin) Take 1 Tablet by mouth in the morning and 1 Tablet in theevening. 180 Tablet 3 Lisinopril-hydroCHLOROthiazide 20-25 MG Oral Tablet TAKE 1 TABLET BY MOUTH EVERY DAY 90 Tablet 3 No current facility-administered medications for this visit. Allergies: Patient has no known allergies. Family Hx: Family History Problem Relation Age of Onset Eye Problems None Denies family hx of retinal problems Glaucoma None Cancer Brother Diabetes Sister Diabetes Brother Heart Disorder Mother Hypertension Mother Stroke Father Hx of TIA Social Hx: Social History Socioeconomic History Marital status: Spouse name: Not on file Number of children: Not on file Years of education: Not on file Highest education level: Not on file Occupational History Not on file Tobacco Use Smoking status: Never Smokeless tobacco: Never Vaping Use Vaping Use: Never used Substance and Sexual Activity Alcohol use: No Drug use: No Sexual activity: Not on file Other Topics Concern Not on file Social History Narrative Not on file Social Determinants of Health Financial Resource Strain: Not on file Food Insecurity: Not on file Transportation Needs: Not on file Physical Activity: Not on file Stress: Not on file Social Connections: Not on file Intimate Partner Violence: Not on file Housing Stability: Not on file Review of Systems Negative except as per HPI MRI BRAIN W WO CONTRAST Narrative: EXAM: MRI BRAIN W WO CONTRAST - 03/17/2023 HISTORY: 87 y/o F, Brain Cyst TECHNIQUE: Multisequence multiplanar MRI of the brain was performed prior to and following the intravenous administration of 6.5 cc Gadavist contrast. COMPARISON: MRI of the brain dated 02/17/2023 FINDINGS: There is redemonstration of a large extra-axial cystic mass along the left parietal convexity whichfollows CSF fluid on all sequences, 52 x 43 x 49 mm, previously 56 x 42 x 48 mm. There is mass effect upon the adjacent sulci and mild effacement of the left lateral ventricle. No midline shift. No associated abnormal enhancement or restricted diffusion. No acute infarct or hemorrhage. Scattered periventricular and subcortical T2/FLAIR hyperintense signal is nonspecific but likely the sequela chronic microvascular ischemic change. No abnormal enhancement. The ventricles and sulci are symmetric, but enlarged. No hydrocephalus or extra- axial fluid collections. No significant mucosal thickening. Mastoid cells are clear bilaterally. Impression: IMPRESSION: 1. No acute intracranial abnormality. 2. Redemonstration of large left parietal convexity arachnoid cyst, without significant change fromthe prior examination when allowing for differences in technique. Vital signs There were no vitals taken for this visit. Neurologic examination Alert and cooperative. No aphasia or dysarthria. Speech intact Remainder of neurological exam not performed due to phone interaction Assessment and plan Arachnoid cyst (Primary) 87-year-old female with an incidental finding of left parietal arachnoid cyst which is asymptomatic. We discussed signs and symptoms which might trigger concern for enlargement of this cyst, including speech difficulties, right-sided weakness, right facial droop. Acute onset of the symptoms would require emergent workup for stroke. However, an indolent course of progression would be concerning for symptom onset due to this lesion. We discussed a return clinic visit in 1 year's time with a repeat MRI to further evaluate. Vin Moya MD Staff Neurosurgeon Endovascular and Cerebrovascular Neurosurgery [facility] [place], [place] documented in this encounter Plan of Treatment Upcoming Encounters Date Type Specialty Care Team Description 08/16/2023 Office Visit Family Medicine Ricardo Guerra MD [facility] [address], [place] [id number] Health Maintenance Due Date Last Done Comments DTaP,Tdap,and Td Vaccines (1 - Tdap) 03/31/2005 03/30/2005 DIABETES-EYE EXAM 07/12/2012 07/12/2011, , 06/01/2011 *BISPHONATE OR OTHER ACCEPTABLE MEDICATION NEEDED FOR OSTEOPOROSIS (REFER TO SMARTSET #1146) 10/08/2015 COVID-19 Vaccine (3 - Pfizer series) 03/03/2021 01/06/2021, 12/16/2020 DXA Scan 08/31/2022 08/31/2020, 0602/2018, 09/11/2015 DIABETES-FOOT EXAM 03/21/2023 03/21/2022, 10/04/2019 Influenza Vaccine (FLU shot) (#1) 2023 06/21/2022, 05/27/2021, 05/15/2020, Additional history exists HbA1c 08/18/2023 02/16/2023, 03/04, 10/25/2021, Additional history exists Depression Screening, Annual for Pts 12 and Over 09/21/2023 09/21/2022 CKD HGB USE SMARTSET 82984 02/17/202402/16, 03/21/2022, 02/05/2021, Additional history exists CKD PHOS USE SMARTSET 90085 02/17/202402/02, 03/21/2022, 02/05/2021, Additional history exists TSH 02/17/2024 02/16/2023, 01/2023, 10/25/2021, Additional history exists Albumin/Creatinine Ratio 02/18/2024 02/17/2023, 03/04 Pneumococcal Vaccine: 65+ Years Completed 12/15/2015, 05/29/2001 Zoster Vaccines Completed 08/01/2018, 03/05, 06/04/2010 VITAMIN D LEVEL ONCE IN A LIFETIME-USE SMARTSET# 32277 Completed 03/21/2022, 02/05/2021, 03/02/2020, Additional history exists [...] as of this encounter Visit Diagnoses Diagnosis Arachnoid cyst- Primary Cerebral cysts documented in this encounter Care Teams Power Saw Mechanic Relationship Specialty Start Date End Date Ricardo Guerra MD [address] [place] [address] PCP - General Family Medicine 08/24/15 documented as of this encounter
--- OUTSIDE RECORDS SUMMARY | 2023-09-10 21:01 | External Medical Summary | Summary of Care ---
Author Name Unknown Organization [facility] Address [address] [place] [address] Phone [phone] Care Team Providers Care Director Consumer Affairs Name Role Phone Ricardo Chen MD Primary Care Provider +1- [phone] Reason for Visit * Reason Comments eRx-Medication Refill Encounter Details Date Type Department Care Team ([facility] st Contact Info) Description 06/30/2023 Refill [facility] [address] [place] [address] Ricardo Chen MD [address] [place] [address] Allergies No known active allergiesdocumented as of this encounter (statuses as of 06/30/2023) Medications Medication Sig Dispensed Refills Start Date [...] 01/31/2023 Active Atenolol 25 MG Oral Tablet (Tenormin)Indicat [...] OTHER MEDICATION 90 Tablet 1 06/30/2023 Active Levothyroxine Sodium 50 MCG Oral Tablet (Levoxyl) TAKE 1 TABLET BY MOUTH EVERY DAY AT LEAST 30 MIN BEFORE BREAKFAST OR OTHER MEDICATION 90 Tablet 0 02/16/2023 3 Discontinued documented as of this encounter (statuses as of 06/30/2023) Active Problems Problem Noted Date Diagnosed Date [...] as of this encounter (statuses as of 06/30/2023) Resolved Problems Problem Noted Date Diagnosed Date [...] as of this encounter (statuses as of 06/30/2023) Immunizations Name Administration Dates Next Due COVID-19 mRNA, LNP-s, No Pre serve, 2-Dose Series ([employer]) 01/06/2021,12/16/2020 Pneumococcal Conjugate Vacc, 13 Valent (Prevnar) [...] Recorded PHQ Adult Total Score 0 09/21/2022 Sex and Gender Information Value Date Recorded Sex Assigned at Female 11/22/2018 11:38 AM EDT Gender Identity Female 11/22/2018 11:38 AM EDT Sexual Orientation Straight 11/22/2018 11 :38 AM EDT Job Start Date Occupation Industry Not on file Not on file Not on file documented as of this encounter Miscellaneous Notes * Telephone Encounter - Miguelina Leblanc RPh - 06/30/2023 10:36 AM EDTSigned Prescriptions: Disp Refills Levothyroxine Sodium 50 MCG Oral Tablet (L*90 Tab*1 Sig: TAKE 1TABLET BY MOUTH EVERY DAY AT LEAST 30 MIN BEFORE BREAKFAST OR OTHER MEDICATIONAuthorizing Provider:RICARDO CHEN User: MIGUELINA LEBLANC documented in this encounter Plan of Treatment Upcoming Encounters Date Type Department Care Team (Late st Contact Info) Description 08/16/2023 9:20 AM EST Office Visit [facility] [address] [facility] [address] Ricardo Chen MD [address] [place] [address] Health Maintenance Due Date Last Done Comments Hepatitis B (1 of 3 - Risk 3-dose series) 1995 DTaP,Tdap,and Td Vaccines (1 - Tdap) 03/31/2005 03/30/2005 DIABETES-EYE EXAM 07/12/2012 07/12/2011, , 06/01/2011 *BISPHONATE OR OTHER ACCEPTABLE MEDICATION NEEDED FOR OSTEOPOROSIS (REFER TO SMARTSET #1146) 10/08/2015 DXA Scan 08/31/2022 08/31/2020, 02/2018, 09/11/2015 Diabetic Foot Exam 03/21/2023 03/21/2022, 10/04/2019 COVID-19 Vaccine ( season) 2023 01/06/2021, 12/16/2020 Influenza Vaccine (FLU shot) (#1) 2023 06/21/2022, 05/27/2021, 05/15/2020, Additional history exists *NEPHROLOGY REFERRAL DUE TO RESISTANT HTN 05/31/2023 HbA1c 08/18/2023 02/16/2023, 03/04, 10/25/2021, Additional history exists Depression Screening 09/21/2023 09/21/2022 CKD HGB USE SMARTSET 53687 02/17/202402/16, 03/21/2022, 02/05/2021, Additional history exists CKD PHOS USE SMARTSET 16774 02/17/202402/02, 03/21/2022, 02/05/2021, Additional history exists TSH 02/17/2024 02/16/2023, 06/0 01/2023, 10/25/2021, Additional history exists Albumin/Creatinine Ratio 02/18/2024 02/17/2023, 03/04 Pneumococcal Vaccine: 65+ Years Completed 12/15/2015, 05/29/2001 Zoster Vaccines Completed 08/01/2018, 03/05, 06/04/2010 VITAMIN D LEVEL ONCE IN A LIFETIME-USE SMARTSET# 61374 Completed 03/21/2022, 02/05/2021, 03/02/2020, Additional history exists GARDASIL-HPV IMMUNIZATION SERIES Aged Out No longer eligible based on patient's age to complete this topic MENINGOCOCCAL (MENACTRA/MENVEO) Aged Out No longer eligible based on patient's age to complete this topic documented as of this encounter Medical Devices Not on filedocumented as of this encounter Care Teams Director Consumer Affairs Relationship Specialty Start Date End Date Ricardo Chen MD [address] [place] [address] PCP - General Family Medicine 08/24/15 documented as of this encounter
--- OUTSIDE RECORDS SUMMARY | 2023-09-10 21:02 | External Medical Summary ---
Author Name Unknown Address Unknown Organization K01:[facility] [address] [place] [address] Laboratory Report Ordering Provider Test Date Status GUSTAVO INGRAM 03/21/2023 11:34:40 Final Observation Date Value Abnormality Reference (Units ) Status Magnesium 03/21/2023 11:34:40 1.4 Below low normal 1.5 -2.6 (mg/dL) Final Performing Location [facility] [address] [place] [address]
--- OUTSIDE RECORDS SUMMARY | 2023-09-10 21:02 | External Medical Summary | Summary of Care ---
Author Name Unknown Organization [facility] Address [address] [facility] [place] [address] Phone [phone] Care Team Providers Care Testing Consultant Name Role Phone Ricardo Guerra MD Primary Care Provider +1- [phone] Reason for Visit * Reason Onset Date Comments Blood Pressure Check 03/17/2023 03/17/23 LMT Encounter Details Date Type Department Care Team Description 03/17/2023 Telephone Family Practice [facility] [address] [place] [address] Rajan Pantoja MD [address] [place] [address] Blood Pressure Check (03/17/23 LMTR) Allergies No known active allergiesdocumented as of this encounter (statuses as of 03/21/2023) Medications Medication Sig Dispensed Refills Start Date [...] THE MORNING. 90 Capsule 3 08/12/2022 Active Lisinopril-hydroCHL OROthiazide 20-25 MG Oral TabletIndications:H TN, goal below 150/90 TAKE 1 TABLET BY MOUTH EVERY DAY 90 Tablet 1 10/13/2022 Active Atorvastatin Calcium 40 MG Oral Tablet [...] the evening. 180 Tablet 3 03/06/2023 Active documented as of this encounter (statuses as of 03/21/2023) Active Problems Problem Noted Date Type 2 [...] 02/05 Overview: BCC on the left nose 2016 Vitamin D deficiency 06/23/2017 High risk for fracture due to osteoporos is by DEXA scan 10/06/2015 HTN, goal below 150/90 09/08/2015 Dyslipidemia 09/08/2015 documented as of this encounter (statuses as of 03/21/2023) Resolved Problems Problem Noted Date Resolved Date [...] as of this encounter (statuses as of 03/21/2023) Immunizations Name Administration Dates Next Due COVID-19 [...] encounter Miscellaneous Notes * Telephone Encounter - Gunjan Farley LPN - 03/17/2023 4:46 PM EDT Provider to address: Ricardo Guerra MD Reason for Call: Blood Pressure Check (03/17/23 [facility]) Contact: Telephone Call Contact Type: Information Outcome: Patient is aware and verbalizes understanding. She does have BP cuff at home. She was unable to do her BP while on the phone she stated that the cuff was in the other room. She will take her BP and call back with a reading. Total Time including non face to face (minutes): 5 * Telephone Encounter - Madhavi Briggs LPN - 03/17/2023 1:47 PM EDT Provider to address: n/a Reason for Call: No chief complaint on file. Contact: Telephone Call Contact Type: Follow-up Outcome: Called, left message for patient to return call. Total Time including non face to face (minutes): 5 * Telephone Encounter - Ricardo Guerra MD - 03/17/2023 1:00 PM EDT Noted - thanks. Please contact pt t make sure that she is continuing to feel better. If she is able to check bp at home, can we make sure that it has improved? If she is not able to check at home, please offer a nurse visit for recheck in the clinic. * Telephone Encounter - Darlyn Rivas LPN - 03/17/2023 11:21 AM EDT Pt here at [facility] for MRI of brain w wo contrast. legal technician came into FP to get a nurse. legal technician stated that patient was shaky before the MRI, once she was in the MRI the shaking was worse. Theyfinished the MRI on patient and brought her over to Family Practice to be checked out. Vital signs were taken on patient. P-62, R-16, BP-192/86, 02-98% ra, BG-102. BP recheck was 193/81. Patient stated she was starting to feel better and her shakes were starting to go away. Patient drank water and ate a snack. After roughly 10 minutes patient reported she felt much better. After discussion with patients family and MRI staff, pt's family felt that this was related to anxiety and not the IV contrast since patient had these symptoms before an IV was placed. Patient stated she was very anxious tohave the MRI done because she is claustrophobic. Doc of the day (Dr. Pantoja) reviewed VS and stated that patient was okay to go if she was feeling back to normal. Pt stated she felt great and was okay with going home. Pt encouraged to follow up with PCP. documented in this encounter Plan of Treatment Upcoming Encounters Date Type Specialty Care Team Description 04/05/2023 Telemedicine Neurological Surgery Kayla Marrero PA-C [address] [facility] [place] [address] 08/16/2023 Office Visit Family Medicine Ricardo Guerra MD [address] [place] [address] Health Maintenance Due Date Last Done Comments DTaP,Tdap,and Td Vaccines (1 - Tdap) 03/31/2005 03/30/2005 DIABETES-EYE EXAM 07/12/2012 07/12/2011, , 06/01/2011 *BISPHONATE OR OTHER ACCEPTABLE MEDICATION NEEDED FOR OSTEOPOROSIS (REFER TO SMARTSET #1146) 10/08/2015 COVID-19 Vaccine (3 - Pfizer series) 03/03/2021 01/06/2021, 12/16/2020 DXA Scan 08/31/2022 08/31/2020, 02/2018, 09/11/2015 DIABETES-FOOT EXAM 03/21/2023 03/21/2022, 10/04/2019 Influenza Vaccine (FLU shot) (#1) 2023 06/21/2022, 05/27/2021, 05/15/2020, Additional history exists HbA1c 08/18/2023 02/16/2023, 03/04, 10/25/2021, Additional history exists Depression Screening, Annual for Pts 12 and Over 09/21/2023 09/21/2022 CKD HGB USE SMARTSET 36246 02/17/202402/16, 03/21/2022, 02/05/2021, Additional history exists CKD PHOS USE SMARTSET 52715 02/17/202402/02, 03/21/2022, 02/05/2021, Additional history exists TSH 02/17/2024 02/16/2023, 01/2023, 10/25/2021, Additional history exists Albumin/Creatinine Ratio 02/18/2024 02/17/2023, 03/04 Pneumococcal Vaccine: 65+ Years Completed 12/15/2015, 05/29/2001 Zoster Vaccines Completed 08/01/2018, 03/05, 06/04/2010 VITAMIN D LEVEL ONCE IN A LIFETIME-USE SMARTSET# 69620 Completed 03/21/2022, 02/05/2021, 03/02/2020, Additional history exists [...] filedocumented as of this encounter Care Teams Testing Consultant Relationship Specialty Start Date End Date Ricardo Guerra MD [address] [place] [address] PCP - General Family Medicine 08/24/15 documented as of this encounter
--- OUTSIDE RECORDS SUMMARY | 2023-09-10 21:02 | External Medical Summary | Summary of Care ---
Author Name Unknown Organization [facility] Address [address] [place] [address] Phone [phone] Care Team Providers Care Target Aircraft Technician Name Role Phone Ricardo Guerra MD Primary Care Provider +1- [phone] Encounter Details Date Type Department Care Team Description [facility] [address] [place] [address] Kayla Marrero PA-C [address] [place] [address] Arachnoid cyst* Allergies No known active allergiesdocumented as of this encounter (statuses as of 04/04/2023) Medications Medication Sig Dispensed Refills Start Date [...] as of this encounter (statuses as of 04/04/2023) Active Problems Problem Noted Date Type 2 [...] as of this encounter (statuses as of 04/04/2023) Resolved Problems Problem Noted Date Resolved Date [...] as of this encounter (statuses as of 04/04/2023) Immunizations Name Administration Dates Next Due COVID-19 [...] as of this encounter Progress Notes * Kayla Marrero PA-C - 04/04/2023 10:00 AM EDT PROGRESS NOTE - Cerebrovascular Surgery [facility] [address] After connecting to the patient via telephone, the patient was identified by name and date of . Patient was then informed that this was a telephone call only visit. The patient agreed to participate. Visit Disposition: Routine follow-up Total call duration was 10 minutes. Name: Raquel Purcell Date of service:04/04/2023 Time: 10:20 AM Primary Care Provider: Ricardo Guerra MD Referring Provider: Tamar Horton DO OUTPATIENT CONSULTATION Chief complaint: Arachnoid cyst History of Present Illness: Raquel Purcell is a 87 year old female that presents to the clinic via telephone appointment for further evaluation of a large left parietal arachnoid cyst. The arachnoid cyst was found incidentally during workup for headaches that caused some cognitive changes. Raquel does have a pertinent past medical history of previous skin cancer that was removed approximately 2 y ears ago. Patient and family believe that this can cancer was melanoma. She returns to the clinic today with an updated MRI with and without contrast that showed no underlying cancerous lesions or other abnormalities. During the phone call today both her and her family agree that she is doing much better than when she saw us in February. 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 She is currently taking 81 mg of aspirin daily. The patient denies DAILEY, nausea, vomiting, dizziness, double vision, numbness or tingling in the arms or legs, change in bowel or bladder, chest pain, and SOB. 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 Nuñez REMOVE CATARACT, INSERT LENS PROSTH Right Eye--Dr. Carrasquillo SOCIAL HISTORY: Social History Socioeconomic History Marital status: Spouse [...] on file Housing Stability: Not on file FAMILY HISTORY: Family History Problem Relation Age of Onset Eye Problems None Denies family hx of retinal problems Glaucoma None Cancer Brother Diabetes Sister Diabetes Brother Heart Disorder Mother Hypertension Mother Stroke Father Hx of TIA MEDICATIONS: Current Outpatient Medications Medication Sig Dispense Refill [...] CAPSULE IN THE MORNING. 90 Capsule 3 Lisinopril-hydroCHLOROthiazide 20-25 MG Oral Tablet TAKE 1 TABLET BY MOUTH EVERY DAY 90 Tablet 1 Atorvastatin Calcium 40 MG Oral Tablet (Lipitor) [...] 1 Tablet in theevening. 180 Tablet 3 No current facility-administered medications for this visit. 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 Limited due to telephone appointment No acute distress Awake, alert, oriented Respirations unlabored IMAGES: MRI brain without contrast 02/17/2023 IMPRESSION Large extra-axial CSF intensity mass along the left parietal convexity consistent with an arachnoidcyst. Extensive white matter signal abnormalities. These are nonspecific but most consistent with chronicsmall vessel disease in this age group. Other white matter abnormalities cannot be excluded. MRI Brain w/wo contrast 03/17/2023 IMPRESSION: 1. No acute intracranial abnormality. 2. Redemonstration of large left parietal convexity arachnoid cyst, without significant change fromthe prior examination when allowing for differences in technique. VISIT DIAGNOSIS/PRE-OP ORDERS: Arachnoid cyst (Primary) IMPRESSION: Raquel Purcell is a 87 year old female that presents to the clinic via telephone appointment for further evaluation of a large left parietal arachnoid cyst. The arachnoid cyst was found incidentally during workup for headaches that caused some cognitive changes. Raquel does have a pertinent past medical history of previous skin cancer that was removed approximately 2 years ago. Patient and family believe that this can cancer was melanoma. She returns to the clinic today with an updated MRI with and without contrast that showed no underlying cancerous lesions or other abnormalities. During the phone call today both her and her family agree that she is doing much better than when she saw us in February. 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 She is currently taking 81 mg of aspirin daily. PLAN: All questions and concerns addressed Imaging reviewed Return to clinic via phone with Dr. Moya on Monday April 10, 2023 Encouraged to call with any questions or concerns Patient to be discussed with Dr. Griffin Marrero PA-C [facility] [address] [facility] [place] [address] 04/04/2023 10:22 AM documented in this encounter Plan of Treatment Upcoming Encounters Date Type Specialty Care Team Description 04/10/2023 Telemedicine Neurological Surgery Vin Moya MD [address] [place] [address] 08/16/2023 Office Visit Family Medicine Oesterling, Ricardo R, MD [address] [place] [address] Health Maintenance Due Date Last Done Comments [...] Over 09/21/2023 09/21/2022 CKD HGB USE SMARTSET 47500 02/17/202402/16, 03/21/2022, 02/05/2021, Additional history exists CKD PHOS USE SMARTSET 45104 02/17/202402/02, 03/21/2022, 02/05/2021, Additional history exists TSH 02/17/2024 02/16/2023, 01/2023, 10/25/2021, Additional history exists Albumin/Creatinine Ratio 02/18/2024 02/17/2023, 03/04 Pneumococcal Vaccine: 65+ Years Completed 12/15/2015, 05/29/2001 Zoster Vaccines Completed 08/01/2018, 03/05, 06/04/2010 VITAMIN D LEVEL ONCE IN A LIFETIME-USE SMARTSET# 44495 Completed 03/21/2022, 02/05/2021, 03/02/2020, Additional history exists [...] cysts documented in this encounter Care Teams Target Aircraft Technician Relationship Specialty Start Date End Date Ricardo Guerra MD [address] [place] [address] PCP - General Family Medicine 08/24/15 documented as of this encounter
--- OUTSIDE RECORDS SUMMARY | 2023-09-10 21:02 | External Medical Summary | Summary of Care ---
Author Name Unknown Organization [facility] Address [address] [place] [address] Phone [phone] Care Team Providers Care City Designer Name Role Phone Ricardo Guerra MD Primary Care Provider +1- [phone] Reason for Visit * Reason Comments Outpatient Testing Encounter Details Date Type Department Care Team Description 03/21/2023 Laboratory Laboratory, [place] [address] [place] [address] [facility] [address] [place] [address] Hypomagnesemia Allergies No known active allergiesdocumented as of [...] Team Description 04/05/2023 Telemedicine Neurological Surgery Kayla Marrero, PA-C [address] [place] [address] 08/16/2023 Office Visit Family Medicine Ricardo Guerra MD [address] [place], [place] [address] Pending Results Name Type Priority Associated Diagnoses Date /Time MAGNESIUM Lab Routine Hypomagnesemia 03/21/2023 11:34 AM EDT Health Maintenance Due Date Last Done Comments [...] Over 09/21/2023 09/21/2022 CKD HGB USE SMARTSET 11451 02/17/202402/16, 03/21/2022, 02/05/2021, Additional history exists CKD PHOS USE SMARTSET 01242 02/17/202402/02, 03/21/2022, 02/05/2021, Additional history exists TSH 02/17/2024 02/16/2023, 01/2023, 10/25/2021, Additional history exists Albumin/Creatinine Ratio 02/18/2024 02/17/2023, 03/04 Pneumococcal Vaccine: 65+ Years Completed 12/15/2015, 05/29/2001 Zoster Vaccines Completed 08/01/2018, 03/05, 06/04/2010 VITAMIN D LEVEL ONCE IN A LIFETIME-USE SMARTSET# 59903 Completed 03/21/2022, 02/05/2021, 03/02/2020, Additional history exists [...] as of this encounter Visit Diagnoses Diagnosis Hypomagnesemia Disorders of magnesium metabolism documented in this encounter Care Teams City Designer Relationship Specialty Start Date End Date Ricardo Guerra MD [address] [place] [address] PCP - General Family Medicine 08/24/15 documented as of this encounter
--- OUTSIDE RECORDS SUMMARY | 2023-09-10 21:02 | External Medical Summary | Summary of Care ---
Author Name Unknown Organization [facility] Address [address] [place] [address] Phone [phone] Care Team Providers Care Hand Wrapper Operator Name Role Phone Juan Jose Chen MD Primary Care Provider +1- [phone] Reason for Visit * Reason Comments eRx-Medication Refill Encounter Details Date Type Department Care Team Description 04/05/2023 Refill [facility] [address] [place] [address] Juan Jose Chen MD [address] [place] [address] HTN, goal below 150/90 Allergies No known active allergiesdocumented as of this encounter (statuses as of 04/06/2023) Medications Medication Sig Dispensed Refills Start Date [...] EVERY DAY 90 Tablet 3 04/06/2023 Active Lisinopril-hydroC HLOROthiazide 20-25 MG Oral TabletIndications :HTN, goal below 150/90 TAKE 1 TABLET BY MOUTH EVERY DAY 90 Tablet 1 10/13/2022 3 Discontinued documented as of this encounter (statuses as of 04/06/2023) Active Problems Problem Noted Date Type 2 [...] as of this encounter (statuses as of 04/06/2023) Resolved Problems Problem Noted Date Resolved Date [...] as of this encounter (statuses as of 04/06/2023) Immunizations Name Administration Dates Next Due COVID-19 [...] encounter Miscellaneous Notes * Telephone Encounter - Juan Jose Chen MD - 04/06/2023 5:17 PM EDTSigned Prescriptions: Disp Refills Lisinopril-hydroCHLOROthiazide 20-25 MG Or*90 Tab*3 Sig: TAKE 1TABLET BY MOUTH EVERY DAYAuthorizing Provider: JUAN JOSE CHEN * Telephone Encounter - Steven Joy RPh - 04/06/2023 9:35 AM EDT Pending Prescriptions: Disp Refills Lisinopril-hydroCHLOROthiazide 20-25 MG Or*90 Tab*1 Sig: TAKE 1 TABLET BY MOUTH EVERY DAY * Telephone Encounter - Steven Joy [facility] - 04/06/2023 9:35 AM EDT Pending Prescriptions: Disp Refills Lisinopril-hydroCHLOROthiazide 20-25 MG Or*90 Tab*1 Sig: TAKE 1 TABLET BY MOUTH EVERY DAY * Telephone Encounter - Steven Joy [facility] - 04/06/2023 9:35 AM EDT Unable to authorize medication refills for pended medication(s) at this time. Part of the protocol criteria used for refill authorization was not satisfied. Patient needs creatinine within protocol parameters. Basic Panel Results: Results for orders placed or performed in visit on 02/20/23 BASIC METABOLIC PANEL Result Value Ref Range BUN 47 (H) 6 - 20 mg/dL Creatinine 1.4 (H) 0.5 - 1.0 mg/dL Estimated Glomerular Filtration Rate 35 (L) >=60 mL/min Sodium 136 135 - 146 mmol/L Potassium 3.5 3.5 - 5.1 mmol/L Chloride 97 (L) 98 - 107 mmol/L CO2 25 22 - 32 mmol/L Anion Gap 14 7 - 15 mmol/L Glucose 185 (H) 70 - 120 mg/dL Calcium 9.1 8.4 - 10.2 mg/dL Please approve if appropriate. Thanks, Steven Joy PharmD Clinical Pharmacist [facility](formerly telepharmacy) [phone] 04/06/2023, 9:35 AM * Telephone Encounter - KALPESH Watson Tech - 04/05/2023 12:27 PM EDT Did you pend patient's preferred pharmacy and medication before forwarding?yes Pharmacy: [id number] [id number] [facility] Pending Prescriptions: Disp Refills Lisinopril-hydroCHLOROthiazide 20-25 MG O*90 Tab*1 Sig: TAKE 1 TABLET BY MOUTH EVERY DAY Last Visit: 02/10/2023 (in office), 09/17/2020 (telemedicine) Next Visit: 08/16/2023 If no future appointments scheduled, and last appointment is greater than a year ago, please schedule patient for a follow-up appointment Last date the medication was ordered: 10/13/2022 Is this request for a controlled substance?No Urine Drug Screen:No results found for this or any previous visit. Patient Phone Numbers Labs: Lab Results Component Value Date/Time CREAT 1.4 (H) 03/21/2023 11:34 AM CREAT 1.4 (H) 06/17/2020 08:22 AM POTASSIUM 3.5 03/21/2023 11:34 AM POTASSIUM 4.5 06/17/2020 08:22 AM TSH 5.20 (H) 02/16/2023 12:00 PM TSH 1.05 10/04/2019 08:56 AM LDLCALC UNINTERPRETABLE RESULT 03/05/2019 09:41 AM LDLDIRECT 40 02/16/2023 12:00 PM LDLDIRECT 63 10/04/2019 08:56 AM ALT 23 09/21/2022 08:51 AM ALT 26 03/02/2020 09:49 AM HGBA1C 6.9 (H) 02/16/2023 12:00 PM HGBA1C 7.9 (H) 06/17/2020 08:22 AM documented in this encounter Plan of Treatment Upcoming Encounters Date Type Specialty Care Team Description 04/10/2023 Telemedicine Neurological Surgery Vin Moya MD [address] [place] [address] 08/16/2023 Office Visit Family Medicine Juan Jose Chen MD [address] [place] [address] Health Maintenance Due Date Last Done Comments [...] Over 09/21/2023 09/21/2022 CKD HGB USE SMARTSET 26204 02/17/202402/16, 03/21/2022, 02/05/2021, Additional history exists CKD PHOS USE SMARTSET 31175 02/17/202402/02, 03/21/2022, 02/05/2021, Additional history exists TSH 02/17/2024 02/16/2023, 060 01/2023, 10/25/2021, Additional history exists Albumin/Creatinine Ratio 02/18/2024 02/17/2023, 03/04 Pneumococcal Vaccine: 65+ Years Completed 12/15/2015, 05/29/2001 Zoster Vaccines Completed 08/01/2018, 03/05, 06/04/2010 VITAMIN D LEVEL ONCE IN A LIFETIME-USE SMARTSET# 46015 Completed 03/21/2022, 02/05/2021, 03/02/2020, Additional history exists [...] as of this encounter Visit Diagnoses Diagnosis HTN, goal below 150/90 documented in this encounter Care Teams Hand Wrapper Operator Relationship Specialty Start Date End Date Juan Jose Chen MD [address] [place] [address] PCP - General Family Medicine 08/24/15 documented as of this encounter
--- OUTSIDE RECORDS SUMMARY | 2023-09-10 21:02 | External Medical Summary ---
Author Name Unknown Address Unknown Organization K01:LABORATORY [facility] - [address] [place] [address] Laboratory Report Ordering Provider Test Date Status PETER ROSEN 03/21/2023 11:34:40 Final Observation Date Value Abnormality Reference (Units ) Status BUN 03/21/2023 11:34:40 47 Above high normal 6-20 (mg/dL) Final Creatinine 03/21/2023 11:34:40 1.4 Above high normal 0.5-1.0 (mg/dL) Final Glomerular filtration rate/1.73 sq M.predicted [Volume Rate/Area] in Serum, Plasma or Blood by Creatinine-based formula (CKD-EPI) 03/21/2023 11:34:40 35 Below low normal >=60 (mL/min) Final eGFR is calculated based on the CKD-EPI 2020 equation SODIUM 03/21/2023 11:34:40 136 135-146 (m mol/L) Final Potassium 03/21/2023 11:34:40 3.5 3.5-5.1 (m mol/L) Final Cl 03/21/2023 11:34:40 97 Below low normal 98- 107 (mmol/L) Final CO2 03/21/2023 11:34:40 25 22-32 (mmo l/L) Final Anion gap 03/21/2023 11:34:40 14 7-15 (mmol /L) Final Glucose 03/21/2023 11:34:40 185 Above high normal 70 -120 (mg/dL) Final Calcium 03/21/2023 11:34:40 9.1 8.4-10.2 ( mg/dL) Final Performing Location LABORATORY [facility] - [address] [place] [address]
[2023-09-10 21:34] LABS: Basophils # (auto) 0.05 K/uL (0.00-0.20); Basophils % (auto) 0.5 %; Eosinophils # (auto) 0.34 K/uL (0.00-0.50); Eosinophils % (auto) 3.2 %; Hematocrit (blood only) 34.1 % (37.0-47.0); Hemoglobin 11.5 g/dl (12.0-16.0); Immature Granulocytes # (auto) 0.06 K/uL (0.01-0.20); Immature Granulocytes % (auto) 0.6 %; Lymphocytes % (auto) 25.3 %; Mean Corpuscular Hemoglobin 32.3 pg (25.0-34.0); Mean Corpuscular Hgb Conc 33.7 g/dL (32.0-36.0); Mean Corpuscular Volume 95.8 fL (80.0-100.0); Mean Platelet Volume 10.6 fL (9.4-12.4); Monocytes # (auto) 0.86 K/uL (0.11-0.59); Monocytes % (auto) 8.1 %; Neutrophils # (auto) 6.66 K/uL (1.40-6.50); Neutrophils % (auto) 62.3 %; Platelet Count 308 K/uL (130-400); RDW Coefficient of Variation 14.3 % (11.5-14.5); RDW Standard Deviation 49.7 fL (36.4-46.3); Red Blood Count 3.56 M/uL (4.20-5.40); White Blood Count 10.67 K/ul (4.8-10.8)
[2023-09-10 21:46] LABS: Alanine Aminotransferase 17 U/L (7-52); Albumin Globulin Ratio 1.5 (0.9-2); Albumin Level 4.6 gm/dl (3.4-5.0); Alkaline Phosphatase 60 U/L (34-104); Anion Gap 10 (3-11); Aspartate Aminotransferase 29 U/L (13-39); BUN Creatinine Ratio 28.4 (10-20); Bilirubin,Total 0.4 mg/dl (0.2-1.0); Blood Urea Nitrogen 55 mg/dl (6-23); Calcium 9.6 mg/dl (8.6-10.3); Carbon Dioxide 25 mmol/L (21-32); Chloride 93 mmol/L (98-107); Est GFR (African American) 26.1 ml/min; Est GFR (Non-African American) 22.6 ml/min; Glucose 119 mg/dl (70-99(Fasting)); Potassium 4.4 mmol/L (3.5-5.1); Sodium 128 mmol/L (136-145); Total Protein 7.6 gm/dl (6.0-8.3)
[2023-09-10 22:04] LABS: Influenza A virus by PCR Negative (Neg); Influenza B virus by PCR Negative (Neg); RSV by PCR Negative (Neg); SARS CoV2 RNA(COVID-19) Ceph NEGATIVE (Negative)
--- NOTE | 2023-09-10 22:11 | CT Scan Report ---
Exam(s): CT HEAD Without Contrast EXAM: CT Head Without Intravenous Contrast CLINICAL HISTORY: Reason for exam: bee. TECHNIQUE: Axial computed tomography images of the head/brain without intravenous contrast. Automated exposure control was utilized for the study. A dose lowering technique was utilized adhering to the principles of ALARA. COMPARISON: 02/09/23 FINDINGS: Brain: Stable cystic extra-axial mass along the left parietal convexity measuring 5.4 x 3.3 x 3.8 cm, possibly convexity arachnoid cyst. Generalized parenchymal volume loss. Chronic small vessel ischemic changes. Alanis-white matter differentiation maintained. No acute intracranial hemorrhage, mass-effect, or edema. Ventricles: Unremarkable. No hydrocephalus. Bones/joints: Unremarkable. No acute fracture. Soft tissues: Unremarkable. Vasculature: Intracranial atherosclerosis. Sinuses: Unremarkable as visualized. No acute sinusitis. Mastoid air cells: Unremarkable as visualized. No mastoid effusion. Orbits: Right-sided intraocular lens replacement. IMPRESSION: No acute intracranial process. Electronically signed by: Aime Boland M.D. 09/10/23 22:10 PM
[2023-09-10] MEDS ORDERED: METOCLOPRAMIDE HCL INJ 5 MG/ML 2 ML VIAL IV ONE (22:20)
[2023-09-10] MEDS ORDERED: diphenhydrAMINE 50 MG/ML VIAL IV STA (22:20)
[2023-09-10] MEDS ORDERED: ACETAMINOPHEN 1,000 MG/100 ML VIAL IV STA (22:27)
[2023-09-10] MEDS ORDERED: SODIUM CHLORIDE 0.9% 1,000 ML IV SCH (22:30)
--- NOTE | 2023-09-10 23:00 | Emergency Department Note ---
History of Present Illness General Chief Complaint: Headache Stated Complaint: HEADACHE Time Seen by Provider: 09/10/23 21:29 History of Present Illness Provider complaint: + headache Time: 17:00 Onset description: + sudden Location: + diffuse Severity: moderate Maximum Pain Intensity: 8 Current Pain Intensity: 8 Quality: + throbbing and + dull Relieved By: + nothing Exacerbated By: + none Context: + occurred at rest; no recent head injury, no known CO exposure or no recent URI Associated symptoms: no fever, no nausea, no vomiting, no neck stiffness, no photophobia, no sensitivity to sound, no rash, no seizure, no eye pain, no eye redness, no syncope, no near syncope, no vision loss, no scotoma, no tingling, no numbness, no chest pain, no cough or no shortness of breath Home Medications Medication Instructions Recorded Confirmed Type atenolol 50 mg tablet 50 mg PO BID 07/14/19 02/07/23 History atorvastatin 40 mg tablet (Lipitor) 40 mg PO QAM 07/14/19 02/07/23 History levothyroxine 50 mcg tablet 50 mcg PO DAILYBB 07/14/19 02/07/23 History lisinopril 20 1 tab PO QAM 07/14/19 02/07/23 History mg-hydrochlorothiazide 25 mg tablet (Zestoretic) omega 6-yov-fvu-fish oil 1,000 mg 1 cap PO QAM 07/14/19 02/07/23 History (120 mg-180 mg) capsule (Fish Oil) omeprazole 20 mg capsule,delayed 20 mg PO QAM 07/14/19 02/07/23 History release allopurinol 300 mg tablet 300 mg PO QAM 12/18/22 02/07/23 History aspirin 81 mg tablet,delayed 81 mg PO DAILY 12/18/22 02/07/23 History release cholecalciferol (vitamin D3) 25 50 mcg PO DAILY 12/18/22 02/07/23 History mcg (1,000 unit) capsule (Vitamin D3) furosemide 20 mg tablet 20 mg PO QAM 02/07/23 02/07/23 History potassium chloride 10 mEq 10 meq PO QAM 02/07/23 02/07/23 History capsule,extended release Allergies Allergy/AdvReac Type Severity Reaction Status Date / Time No Known Allergies Allergy Verified 02/07/23 16:17 Past Med/Surg History Medical History Left-sided headache Thyroid disease Gout High blood pressure Social History Smoking Status: Never smoker Preferred Language: Lithuanian Feels Safe at Home: Yes Physical Exam Vital Signs Vital Signs - 24 hr 09/10/23 20:59 Temperature 36.9 C Temperature Source Temporal Artery Scan Pulse Rate 74 Pulse Rhythm Regular Pulse Strength Normal Respiratory Rate 20 Respiratory Effort / Characteristics Non-Labored Spontaneous Respiratory Depth Normal Blood Pressure 184/76 H Blood Pressure Mean 112 Blood Pressure Position Sitting Pulse Oximetry 94 Oxygen Delivery Method Room Air Sepsis Recent Fever Within 48 Hours No Sepsis New/Unexplained Change in Mental Status N/A Sepsis Action Taken by Nursing No Action Required Physical Exam HENT: Exam performed. -Head: Normocephalic and atraumatic. -Right Ear: External ear normal. No mastoid erythema -Left Ear: External ear normal. No mastoid erythema -Mouth/Throat: The oropharynx is clear and moist. No trismus in the jaw. No dental abscesses or uvula swelling. No oropharyngeal exudate or tonsillar abscesses. EYES: Conjunctivae and EOM are normal. Pupils are equal, round, and reactive to light. Right eye exhibits no discharge. Left eye exhibits no discharge. No scleral icterus. Funduscopic exam showed no AV nicking or papilledema bilaterally. NECK: Normal range of motion. Neck supple. No JVD present. No spinous process tenderness present. No rigidity. No tracheal deviation and normal range of motion present. No Brudzinski's sign and no Kernig's sign noted. CV: Normal rate, regular rhythm, normal heart sounds and intact distal pulses. There is no peripheral edema. Palpable radial pulses bue. PULM/CHEST: Effort normal and breath sounds normal. No respiratory distress. No stridor. She has no wheezes. She has no rales. MUSC/SKEL: Normal range of motion. There is no peripheral edema, tenderness or deformity. NEURO: She is alert and oriented to person, place, and time. She has normal strength. No cranial nerve deficit or sensory deficit. Coordination and gait normal. GCS eye subscore is 4. GCS verbal subscore is 5. GCS motor subscore is 6. Cerebellar tests wnl. No clonus. SKIN: Skin is warm and dry. She is not diaphoretic. PSYCH: She has a normal mood and affect. Behavior is normal. Judgment and thought content normal. Course Course 2128: The patient was evaluated in room D1A. A complete history and physical exam was performed 2234: Vital signs stable. CT of the head shows no acute intracranial process. CT of the head conducted within 6 hours of symptom onset and essentially ruling out SAH. Labs were conducted and incidentally the patient's creatinine is 1.91. EMR reviewed and the patient usually has normal creatinines. Daughter reports no history of any kidney disease. She does report that the patient does not drink enough fluid. Given the AVA, patient will need to be admitted. Ultrasound and urinalysis added. Patient is not reporting any abdominal pain flank pain dysuria or hematuria. No fevers. No abdominal or complaints to explain the patient's AVA. Spoke with [facility] hospitalist Dr. Lassiter Administered Medications Sodium Chloride (Nss) 1,000 mls @ 80 mls/hr IV .[id number] CLIFF Stop: 10/10/23 22:29 Last Admin: 09/10/23 22:39 Dose: 80 mls/hr Documented By: CARMITA Discontinued Medications Diphenhydramine HCl (Diphenhydramine 50 Mg/Ml Vial) 25 mg IV NOW STA Stop: 09/10/23 22:21 Last Admin: 09/10/23 22:41 Dose: Not Given Documented By: CARMITA Acetaminophen (Ofirmev) 1,000 mg in 100 mls @ 400 mls/hr IV NOW STA Stop: 09/10/23 22:41 Last Admin: 09/10/23 22:39 Dose: 400 mls/hr Documented By: CARMITA Metoclopramide HCl (Metoclopramide Hcl Inj 5 Mg/Ml 2 Ml Vial) 2.5 mg IV ONE ONE Stop: 09/10/23 22:21 Last Admin: 09/10/23 22:41 Dose: Not Given Documented By: CARMITA Medical Decision Making Laboratory Data Attestation: I reviewed the patient's lab results. 09/10/23 21:15 09/10/23 21:15 Lab Results 09/10/23 09/10/23 Range/Units 21:09 21:15 WBC 10.67 (4.8-10.8) K/ul RBC 3.56 L (4.20-5.40) M/uL Hgb 11.5 L (12.0-16.0) g/dl Hct 34.1 L (37.0-47.0) % MCV 95.8 (80.0-100.0) fL MCH 32.3 (25.0-34.0) pg MCHC 33.7 (32.0-36.0) g/dL RDW Std Deviation 49.7 H (36.4-46.3) fL RDW Coeff of Adolfo 14.3 (11.5-14.5) % Plt Count 308 (130-400) K/uL MPV 10.6 (9.4-12.4) fL Immature Gran % (Auto) 0.6 % Neut % (Auto) 62.3 % Lymph % (Auto) 25.3 % [place] % (Auto) 8.1 % Eos % (Auto) 3.2 % Baso % (Auto) 0.5 % Neut # (Auto) 6.66 H (1.40-6.50) K/uL Lymph # (Auto) 2.70 (1.20-3.40) K/uL [place] # (Auto) 0.86 H (0.11-0.59) K/uL Eos # (Auto) 0.34 (0.00-0.50) K/uL Baso # (Auto) 0.05 (0.00-0.20) K/uL Immature Gran # (Auto) 0.06 (0.01-0.20) K/uL Sodium 128 L (136-145) mmol/L Potassium 4.4 (3.5-5.1) mmol/L Chloride 93 L (98-107) mmol/L Carbon Dioxide 25 (21-32) mmol/L Anion Gap 10 (3-11) BUN 55 H (6-23) mg/dl Creatinine 1.94 H (0.6-1.2) mg/dl Est Cr Clr Drug Dosing Not Reportable Est GFR ( Amer) 26.1 ml/min Est GFR (Non-Af Amer) 22.6 ml/min BUN/Creatinine Ratio 28.4 H (10-20) Glucose 119 H (70-99(Fasting)) mg/dl Calcium 9.6 (8.6-10.3) mg/dl Total Bilirubin 0.4 (0.2-1.0) mg/dl AST 29 (13-39) U/L ALT 17 (7-52) U/L Alkaline Phosphatase 60 (34-104) U/L Total Protein 7.6 (6.0-8.3) gm/dl Albumin 4.6 (3.4-5.0) gm/dl Globulin 3.0 (2.5-4.0) gm/dl Albumin/Globulin Ratio 1.5 (0.9-2) SARS-CoV-2 (PCR) NEGATIVE (Negative) Influenza Type A (PCR) Negative (Neg) Influenza Type B (PCR) Negative (Neg) RSV (RT-PCR) Negative (Neg) Imaging Data Radiologist's Impression: Head CT 09/10/23 21:30 Exam(s): CT HEAD Without Contrast EXAM: CT Head Without Intravenous Contrast CLINICAL HISTORY: Reason for exam: bee. TECHNIQUE: Axial computed tomography images of the head/brain without intravenous contrast. Automated exposure control was utilized for the study. A dose lowering technique was utilized adhering to the principles of ALARA. COMPARISON: 02/09/23 FINDINGS: Brain: Stable cystic extra-axial mass along the left parietal convexity measuring 5.4 x 3.3 x 3.8 cm, possibly convexity arachnoid cyst. Generalized parenchymal volume loss. Chronic small vessel ischemic changes. Alanis-white matter differentiation maintained. No acute intracranial hemorrhage, mass-effect, or edema. Ventricles: Unremarkable. No hydrocephalus. Bones/joints: Unremarkable. No acute fracture. Soft tissues: Unremarkable. Vasculature: Intracranial atherosclerosis. Sinuses: Unremarkable as visualized. No acute sinusitis. Mastoid air cells: Unremarkable as visualized. No mastoid effusion. Orbits: Right-sided intraocular lens replacement. IMPRESSION: No acute intracranial process. Electronically signed by: Aime Boland M.D. 09/10/23 22:10 PM MDM Narrative Vital signs stable. CT of the head shows no acute intracranial process. CT of the head conducted within 6 hours of symptom onset and essentially ruling out SAH. Labs were conducted and incidentally the patient's creatinine is 1.91. EMR reviewed and the patient usually has normal creatinines. Daughter reports no history of any kidney disease. She does report that the patient does not drink enough fluid. Given the AVA, patient will need to be admitted. Ultrasound and urinalysis added. Patient is not reporting any abdominal pain flank pain dysuria or hematuria. No fevers. No abdominal or complaints to explain the patient's AVA. Spoke with [facility] hospitalist Dr. Lassiter Impression & Plan AVA (acute kidney injury), Headache Discharge Plan Visit Data Chief Complaint: Headache Stated Complaint: HEADACHE ED Provider: Willi Purvis Discharge Problem: AVA (acute kidney injury), Headache Patient Disposition: Admitted As Inpatient Forms Stand Alone Forms: My [facility] Prescriptions Prescriptions: No Action atorvastatin [Lipitor] 40 mg tablet 40 mg PO QAM levothyroxine 50 mcg tablet 50 mcg PO DAILYBB omeprazole 20 mg capsule,delayed release(DR/EC) 20 mg PO QAM lisinopril-hydrochlorothiazide [Zestoretic] 20-25 mg tablet 1 tab PO QAM atenolol 50 mg tablet 50 mg PO BID omega 3-qpa-ves-fish oil [Fish Oil] 1,000 mg (120 mg-180 mg) Capsule 1 cap PO QAM potassium chloride 10 mEq capsule, extended release 10 meq PO QAM furosemide 20 mg tablet 20 mg PO QAM aspirin 81 mg Tablet,Delayed Release (Dr/Ec) 81 mg PO DAILY allopurinol 300 mg tablet 300 mg PO QAM cholecalciferol (vitamin D3) [Vitamin D3] 25 mcg (1,000 unit) Capsule 50 mcg PO DAILY Referrals Referrals: iRcardo Guerra MD [Primary Care Provider] - Discharge Problem: Headache Qualifiers: Headache type: unspecified Headache chronicity pattern: unspecified pattern I ntractability: not intractable Qualified Code(s): R51.9 - Headache, unspecified
--- NOTE | 2023-09-10 23:33 | Ultrasound Report ---
Exam(s): US RENAL EXAM: US Retroperitoneal Limited, Renal CLINICAL HISTORY: Reason for exam: jackie. TECHNIQUE: Real-time limited ultrasound of the retroperitoneum with image documentation. COMPARISON: No relevant prior studies available. FINDINGS: Right kidney: Echogenic, atrophic right kidney measuring 8.9 cm. No hydronephrosis, mass, or stone. Multiple simple cysts, largest 1.8 cm; no further follow-up required. Left kidney: Echogenic, atrophic left kidney measuring 9.2 cm. Pelviectasis without denisse hydronephrosis. No mass or stone. Multiple simple cysts, largest 1.8 cm; no further follow-up required. Bladder: Urinary bladder appears unremarkable. Ureteral jets not visualized during the course of exam. IMPRESSION: Findings compatible with medical renal disease. No hydronephrosis. Electronically signed by: Aime Boland M.D. 09/10/23 23:32 PM
--- NOTE | 2023-09-11 02:23 | History & Physical Report ---
Date of Service September 11, 2023 Assessment & Plan (1) Headache: Plan: 88-year-old female with past medical history significant for type 2 diabetes, hyperlipidemia, hypothyroidism, CKD stage III, hypertension, GERD, primary open- angle glaucoma bilateral, who lives alone at home ambulates with a walker ,daughter lives close by was brought in because of headaches. Patient is somewhat hard of hearing. But answering appropriately. States she came for headache. Says headaches are better now. Denies any chest pain or shortness of breath. No cough. No fevers. No abdominal pain. Normal bowel and bladder movements. Daughter also says there was no recent illness of the patient. As per daughter patient is on soft diet. Headache started yesterday. Headaches CT head is okay Currently improving Tylenol as needed Patient has history of headaches in the past Workup showed arachnoid cyst Followed up with neurosurgery and MRI scan 03/2023 showed large left bilateral convexity arachnoid cyst without significant change from prior exams Will monitor AVA on CKD stage III Presented with creatinine 1.9 Baseline creatinine around 1 Holding Lasix with potassium supplements Holding lisinopril hydrochlorothiazide Renal ultrasound okay Getting gentle fluids Follow repeat labs Type 2 diabetes Not on medications Diabetic diet Insulin sliding scale Follow HbA1c levels Hypertension Continue atenolol Holding Lasix and lisinopril hydrochlorothiazide IV hydralazine as needed Will monitor Hypothyroidism On Synthyroid Follow TSH Hyperlipidemia On statin GERD On omeprazole DVT prophylaxis Heparin subcu Disposition Medical floor PT OT for discharge DVT prophylaxis. Full code if there is chance of recovery as per my discussion with the daughter (2) AVA (acute kidney injury): History of Present Illness Chief Complaint: Headaches Primary Care Provider: Ricardo Guerra MD 88-year-old female with past medical history significant for type 2 diabetes, hyperlipidemia, hypothyroidism, CKD stage III, hypertension, GERD, primary open- angle glaucoma bilateral, who lives alone at home ambulates with a walker ,daughter lives close by was brought in because of headaches. Patient is somewhat hard of hearing. But answering appropriately. States she came for headache. Says headaches are better now. Denies any chest pain or shortness of breath. No cough. No fevers. No abdominal pain. Normal bowel and bladder movements. Daughter also says there was no recent illness of the patient. As per daughter patient is on soft diet. Headache started yesterday. Past medical history. As mentioned above Past surgical history. EGD. Ligation of oviducts. Partial removal of eye fluid. Cataracts. Social history. . No smoking. No alcohol use. No drug use. Family history. Father had stroke. Mother had hypertension and heart disorder. Brother had cancer. Diabetes. Sister had diabetes. Allergies Allergy/AdvReac Type Severity Reaction Status Date / Time No Known Allergies Allergy Verified 02/07/23 16:17 Home Medications Medication Instructions Recorded Confirmed Type allopurinol 300 mg tablet 300 mg PO DAILY 09/11/23 09/11/23 History atenolol 25 mg tablet 25 mg PO BID 09/11/23 09/11/23 History atorvastatin 40 mg tablet 40 mg PO DAILY 09/11/23 09/11/23 History furosemide 20 mg tablet 20 mg PO DAILY 09/11/23 09/11/23 History levothyroxine 50 mcg tablet 50 mcg PO DAILY 09/11/23 09/11/23 History lisinopril 20 1 tab PO DAILY 09/11/23 09/11/23 History mg-hydrochlorothiazide 25 mg tablet omeprazole 20 mg capsule,delayed 20 mg PO DAILY 09/11/23 09/11/23 History release potassium chloride 10 mEq 10 meq PO DAILY 09/11/23 09/11/23 History capsule,extended release Past Med/Surg History Medical History Left-sided headache Thyroid disease Gout High blood pressure Social History Smoking Status: Never smoker Preferred Language: Maori Feels Safe at Home: Yes Review of Systems Review of Systems: All systems reviewed & are unremarkable except as noted in HPI & below Physical Exam Physical Exam: General- Not in distress. hard of hearing. Head- atraumatic Eyes- PERRL. ENT- oropharynx clear Neck- supple, no JVD. Lungs- clear to auscultation no wheezing or crackles Heart- regular rhythm; no murmur, no gallop. Abdomen- normal bowel sounds, soft, nontender, no distension. Extremities- no pretibial edema, no erythema seen. Neuro- alert, oriented PERRL,; no facial palsy; no dysarthria; obeys simple commands. Skin- warm & dry Results & Data Results & Data Vital Signs (Past 12 Hours) Vital Signs Temp Pulse Pulse Resp BP BP Pulse Ox 09/11/23 01:15 71 20 138/71 96 09/10/23 23:18 73 20 160/76 H 93 09/10/23 20:59 36.9 C 74 20 184/76 H 94 O2 Del Method O2 Flow Rate 09/11/23 01:15 Room Air 2 09/10/23 23:18 Room Air 09/10/23 20:59 Room Air Diagnostic Findings Laboratory Results WBC 10.67 K/ul (4.8-10.8) 09/10/23 21:15 RBC 3.56 M/uL (4.20-5.40) L 09/10/23 21:15 Hgb 11.5 g/dl (12.0-16.0) L 09/10/23 21:15 Hct 34.1 % (37.0-47.0) L 09/10/23 21:15 MCV 95.8 fL (80.0-100.0) 09/10/23 21:15 MCH 32.3 pg (25.0-34.0) 09/10/23 21:15 MCHC 33.7 g/dL (32.0-36.0) 09/10/23 21:15 RDW Std Deviation 49.7 fL (36.4-46.3) H 09/10/23 21:15 RDW Coeff of Adolfo 14.3 % (11.5-14.5) 09/10/23 21:15 Plt Count 308 K/uL (130-400) 09/10/23 21:15 MPV 10.6 fL (9.4-12.4) 09/10/23 21:15 Immature Gran % (Auto) 0.6 % 09/10/23 21:15 Neut % (Auto) 62.3 % 09/10/23 21:15 Lymph % (Auto) 25.3 % 09/10/23 21:15 [place] % (Auto) 8.1 % 09/10/23 21:15 Eos % (Auto) 3.2 % 09/10/23 21:15 Baso % (Auto) 0.5 % 09/10/23 21:15 Neut # (Auto) 6.66 K/uL (1.40-6.50) H 09/10/23 21:15 Lymph # (Auto) 2.70 K/uL (1.20-3.40) 09/10/23 21:15 [place] # (Auto) 0.86 K/uL (0.11-0.59) H 09/10/23 21:15 Eos # (Auto) 0.34 K/uL (0.00-0.50) 09/10/23 21:15 Baso # (Auto) 0.05 K/uL (0.00-0.20) 09/10/23 21:15 Immature Gran # (Auto) 0.06 K/uL (0.01-0.20) 09/10/23 21:15 Sodium 128 mmol/L (136-145) L 09/10/23 21:15 Potassium 4.4 mmol/L (3.5-5.1) 09/10/23 21:15 Chloride 93 mmol/L (98-107) L 09/10/23 21:15 Carbon Dioxide 25 mmol/L (21-32) 09/10/23 21:15 Anion Gap 10 (3-11) 09/10/23 21:15 BUN 55 mg/dl (6-23) H 09/10/23 21:15 Creatinine 1.94 mg/dl (0.6-1.2) H 09/10/23 21:15 Est Cr Clr Drug Dosing Not Reportable 09/10/23 21:15 Est GFR ( Amer) 26.1 ml/min 09/10/23 21:15 Est GFR (Non-Af Amer) 22.6 ml/min 09/10/23 21:15 BUN/Creatinine Ratio 28.4 (10-20) H 09/10/23 21:15 Glucose 119 mg/dl (70-99(Fasting)) H 09/10/23 21:15 Calcium 9.6 mg/dl (8.6-10.3) 09/10/23 21:15 Total Bilirubin 0.4 mg/dl (0.2-1.0) 09/10/23 21:15 AST 29 U/L (13-39) 09/10/23 21:15 ALT 17 U/L (7-52) 09/10/23 21:15 Alkaline Phosphatase 60 U/L (34-104) 09/10/23 21:15 Total Protein 7.6 gm/dl (6.0-8.3) 09/10/23 21:15 Albumin 4.6 gm/dl (3.4-5.0) 09/10/23 21:15 Globulin 3.0 gm/dl (2.5-4.0) 09/10/23 21:15 Albumin/Globulin Ratio 1.5 (0.9-2) 09/10/23 21:15 SARS-CoV-2 (PCR) NEGATIVE (Negative) 09/10/23 21:09 Influenza Type A (PCR) Negative (Neg) 09/10/23 21:09 Influenza Type B (PCR) Negative (Neg) 09/10/23 21:09 RSV (RT-PCR) Negative (Neg) 09/10/23 21:[address] 09/10/23 21:30 Exam(s): CT HEAD Without Contrast EXAM: CT Head Without Intravenous Contrast CLINICAL HISTORY: Reason for exam: bee. TECHNIQUE: Axial computed tomography images of the head/brain without intravenous contrast. Automated exposure control was utilized for the study. A dose lowering technique was utilized adhering to the principles of ALARA. COMPARISON: 02/09/23 FINDINGS: Brain: Stable cystic extra-axial mass along the left parietal convexity measuring 5.4 x 3.3 x 3.8 cm, possibly convexity arachnoid cyst. Generalized parenchymal volume loss. Chronic small vessel ischemic changes. Alanis-white matter differentiation maintained. No acute intracranial hemorrhage, mass-effect, or edema. Ventricles: Unremarkable. No hydrocephalus. Bones/joints: Unremarkable. No acute fracture. Soft tissues: Unremarkable. Vasculature: Intracranial atherosclerosis. Sinuses: Unremarkable as visualized. No acute sinusitis. Mastoid air cells: Unremarkable as visualized. No mastoid effusion. Orbits: Right-sided intraocular lens replacement. IMPRESSION: No acute intracranial process. Electronically signed by: Aime Boland M.D. 09/10/23 22:10 PM Renal Ultrasound 09/10/23 22:26 Exam(s): US RENAL EXAM: US Retroperitoneal Limited, Renal CLINICAL HISTORY: Reason for exam: ava. TECHNIQUE: Real-time limited ultrasound of the retroperitoneum with image documentation. COMPARISON: No relevant prior studies available. FINDINGS: Right kidney: Echogenic, atrophic right kidney measuring 8.9 cm. No hydronephrosis, mass, or stone. Multiple simple cysts, largest 1.8 cm; no further follow-up required. Left kidney: Echogenic, atrophic left kidney measuring 9.2 cm. Pelviectasis without denisse hydronephrosis. No mass or stone. Multiple simple cysts, largest 1.8 cm; no further follow-up required. Bladder: Urinary bladder appears unremarkable. Ureteral jets not visualized during the course of exam. IMPRESSION: Findings compatible with medical renal disease. No hydronephrosis. Electronically signed by: Aime Boland M.D. 09/10/23 23:32 PM Code Status & VTE Plan VTE Prophylaxis Plan VTE Prophylaxis will be ordered: Yes (1) Headache Headache chronicity pattern: unspecified pattern Headache type: unspecified Intractability: not intractable Qualified Code(s): R51.9 - Headache, unspecified
[2023-09-11] MEDS ORDERED: POLYETHYLENE (MIRALAX) 17 GM PACK PO PRN (02:54)
[2023-09-11] MEDS ORDERED: GLUCOSE 40% GEL 15 GM TUBE PO PRN (02:54)
[2023-09-11] MEDS ORDERED: CARBOHYDRATES FOR HYPOGLYCEMIA PO PRN (02:54)
[2023-09-11] MEDS ORDERED: GLUCOSE 10 TAB/TUBE PO PRN (02:54)
[2023-09-11] MEDS ORDERED: GLUCAGON FOR INJ 1 MG VIAL SQ PRN (02:54)
[2023-09-11] MEDS ORDERED: DEXTROSE 50% 50 ML SYRINGE IV PRN (02:54)
[2023-09-11] MEDS ORDERED: ACETAMINOPHEN 325 MG TAB PO PRN (02:54)
[2023-09-11] MEDS: SODIUM CHLORIDE 0.9% 1,000 ML IV SCH ×2 (03:52→16:50)
[2023-09-11 07:27] LABS: Basophils # (auto) 0.04 K/uL (0.00-0.20); Basophils % (auto) 0.4 %; Eosinophils # (auto) 0.06 K/uL (0.00-0.50); Eosinophils % (auto) 0.6 %; Hematocrit (blood only) 27.7 % (37.0-47.0); Hemoglobin 9.7 g/dl (12.0-16.0); Immature Granulocytes # (auto) 0.05 K/uL (0.01-0.20); Immature Granulocytes % (auto) 0.5 %; Lymphocytes # (auto) 2.92 K/uL (1.20-3.40); Lymphocytes % (auto) 27.7 %; Mean Corpuscular Hemoglobin 32.6 pg (25.0-34.0); Mean Platelet Volume 10.7 fL (9.4-12.4); Monocytes # (auto) 0.86 K/uL (0.11-0.59); Monocytes % (auto) 8.2 %; Neutrophils % (auto) 62.6 %; Platelet Count 245 K/uL (130-400); RDW Coefficient of Variation 14.1 % (11.5-14.5); RDW Standard Deviation 47.5 fL (36.4-46.3); Red Blood Count 2.98 M/uL (4.20-5.40); White Blood Count 10.53 K/ul (4.8-10.8)
[2023-09-11 07:39] LABS: BUN Creatinine Ratio 32.9 (10-20); Calcium 8.6 mg/dl (8.6-10.3); Creatinine Clr Calc Pharmacy 22.6 ml/min; Est GFR (African American) 34.3 ml/min; Est GFR (Non-African American) 29.6 ml/min; Magnesium 1.2 mg/dl (1.7-2.4); Potassium 4.2 mmol/L (3.5-5.1)
[2023-09-11 07:50] LABS: Estimated Average Glucose 163 mg/dl; Hemoglobin A1C 7.3 % (4.5-5.6)
[2023-09-11] MEDS: allopurinoL 300 MG TAB PO SCH (08:45)
[2023-09-11] MEDS: PANTOprazole 40 MG TAB PO SCH (08:45)
[2023-09-11] MEDS: ATORVASTATIN 40 MG TAB PO SCH (08:45)
[2023-09-11] MEDS: INSULIN ASPART PER UNIT CHARGE SC SCH ×4 (08:51→20:19)
[2023-09-11] MEDS: MAGNESIUM SULFATE / D5W 1 GM/100 ML BAG IV SCH ×3 (08:54→14:14)
[2023-09-11] MEDS ORDERED: ATENOLOL 25 MG TABLET PO SCH (09:00)
[2023-09-11] MEDS: LEVOTHYROXINE SODIUM 50 MCG TABLET PO SCH (11:40)
[2023-09-11 11:55] LABS: Appearance Urine Clear (Clear); Bilirubin Urine Negative (Negative); Blood Urine Negative (Negative); Color Urine Yellow; Glucose Urine UA Negative (Negative); Ketones Urine Negative (Negative); Leukocyte Esterase Urine Negative (Negative); Nitrite Urine Negative (Negative); Protein Urine Negative (Negative); Specific Gravity Urine 1.011 (1.000-1.030); Urobilinogen Urine Negative (Negative); pH Urine 6.5 (4.5-7.5)
--- NOTE | 2023-09-11 13:52 | Electrocardiogram Report ---
Test Reason : Blood Pressure : / mmHG Vent. Rate : 051 BPM Atrial Rate : 051 BPM P-R Int : 202 ms QRS Dur : 094 ms QT Int : 490 ms P-R-T Axes : 045 008 042 degrees QTc Int : 451 ms Sinus bradycardia with sinus arrhythmia Poor R wave progression, consider anterior [place] vs. lead placement vs. LVH Abnormal ECG When compared with ECG of 09-FEB-2023 10:51, Premature atrial complexes are no longer Present Criteria for Inferior infarct no longer present Confirmed by Steven Rivera ([id number]) on 09/11/2023 1:51:49 PM Referred By: REFERRED SELF Confirmed By:Steven Rivera
--- NOTE | 2023-09-11 14:33 | Cardiology Consultation ---
Date of Consultation September 11, 2023 Assessment & Plan (1) Bradycardia: -Currently patient is asymptomatic from a bradycardia standpoint but does note recent lightheadedness at home. She is on atenolol 25 mg twice daily for treatment of chronic hypertension along with lisinopril/HCTZ. For now we will hold the atenolol. Proceed with an echocardiogram to evaluate for underlying structural heart disease. Agree with admission to telemetry unit for further observation. Patient to be kept n.p.o. after midnight for possible pacemaker depending upon how her hospital stay develops. Questions answered to patient and her family's satisfaction. History of Present Illness Attending Physician: aDria Santana MD History of Present Illness Raquel Purcell is an 88-year-old female seen in cardiology consultation per the request of Dr. Santana for the evaluation of bradycardia. Patient is accompanied by her daughter and son-in-law at the bedside. She presents today with chief complaint of headache. On review of systems she notes occasional recent lightheadedness. At present she is sitting still, and is comfortable. At the time of my assessment at 2:15 PM in emergency department room C11 B the patient was comfortable. She states her headache was resolved. She denies any lightheadedness, chest pain or shortness of breath. Telemetry revealed sinus rhythm in the 50s at the time my assessment, however per review of telemetry, she has had occasional sinus bradycardia in the upper 30s to 40s, and had a brief episode down to 28 bpm at 12:39 PM. The patient denies any recent syncope. Allergies Allergy/AdvReac Type Severity Reaction Status Date / Time No Known Allergies Allergy Verified 02/07/23 16:17 Home Medications Medication Instructions Recorded Confirmed Type allopurinol 300 mg tablet 300 mg PO DAILY 09/11/23 09/11/23 History atenolol 25 mg tablet 25 mg PO BID 09/11/23 09/11/23 History atorvastatin 40 mg tablet 40 mg PO DAILY 09/11/23 09/11/23 History furosemide 20 mg tablet 20 mg PO DAILY 09/11/23 09/11/23 History levothyroxine 50 mcg tablet 50 mcg PO DAILY 09/11/23 09/11/23 History lisinopril 20 1 tab PO DAILY 09/11/23 09/11/23 History mg-hydrochlorothiazide 25 mg tablet omeprazole 20 mg capsule,delayed 20 mg PO DAILY 09/11/23 09/11/23 History release potassium chloride 10 mEq 10 meq PO DAILY 09/11/23 09/11/23 History capsule,extended release Patient History Medical History Left-sided headache Thyroid disease Gout High blood pressure Social History Smoking Status: Never smoker Preferred Language: [place] Feels Safe at Home: Yes Review of Systems Review of Systems: All systems reviewed & are unremarkable except as noted in HPI & below Physical Exam Constitutional: WD/WN, vitals as above Eyes: PERRL, conjunctivae normal, anicteric sclerae ENMT: Mouth: + edentulous Respiratory: normal respiratory effort, lungs clear to auscultation Cardiovascular: RRR, no murmur, no edema Neurologic: PERRL, EOMI, accommodation nl, no face palsy, no dysarthria Results & Data Vital Signs (Past 12 Hours) Vital Signs Pulse Pulse Resp BP Pulse Ox O2 Del Method O2 Flow Rate 09/11/23 10:11 27 L 09/11/23 10:06 65 20 163/75 H 95 Nasal Cannula 09/11/23 08:42 60 15 139/64 98 Nasal Cannula 2 09/11/23 08:12 61 09/11/23 03:00 67 14 150/68 H 97 Nasal Cannula 2 09/11/23 03:00 69 Laboratory Results Cardiac Enzymes 09/10/23 Range/Units 21:15 AST 29 (13-39) U/L CBC 09/10/23 09/11/23 Range/Units 21:15 06:56 WBC 10.67 10.53 (4.8-10.8) K/ul RBC 3.56 L 2.98 L (4.20-5.40) M/uL Hgb 11.5 L 9.7 L (12.0-16.0) g/dl Hct 34.1 L 27.7 L (37.0-47.0) % Plt Count 308 245 (130-400) K/uL Neut # (Auto) 6.66 H 6.60 H (1.40-6.50) K/uL Lymph # (Auto) 2.70 2.92 (1.20-3.40) K/uL [place] # (Auto) 0.86 H 0.86 H (0.11-0.59) K/uL Eos # (Auto) 0.34 0.06 (0.00-0.50) K/uL Baso # (Auto) 0.05 0.04 (0.00-0.20) K/uL Comprehensive Metabolic Panel 09/10/23 09/11/23 Range/Units 21:15 06:56 Sodium 128 L 130 L (136-145) mmol/L Potassium 4.4 4.2 (3.5-5.1) mmol/L Chloride 93 L 98 (98-107) mmol/L Carbon Dioxide 25 25 (21-32) mmol/L BUN 55 H 51 H (6-23) mg/dl Creatinine 1.94 H 1.55 H D (0.6-1.2) mg/dl Glucose 119 H 106 H (70-99(Fasting)) mg/dl Calcium 9.6 8.6 (8.6-10.3) mg/dl AST 29 (13-39) U/L ALT 17 (7-52) U/L Alkaline Phosphatase 60 (34-104) U/L Total Protein 7.6 (6.0-8.3) gm/dl Albumin 4.6 (3.4-5.0) gm/dl Diagnostic Findings EKG performed today 09/11/2023 at 9:58 AM and interpret independently: Sinus bradycardia with sinus arrhythmia at 51 bpm, first-degree AV block. Poor R wave progression noted in lead V3. Compared to the previous tracing performed 02/09/2023, sinus bradycardia at 56 bpm with PACs observed at that time. Summary of radiology report of CT of the brain performed 09/10/2023: Stable cystic extra-axial mass along the left parietal convexity measuring 5.4 x 3.3 x 3.8 cm possibly an arachnoid cyst. No acute intracranial process, with no significant change compared to prior CT dated 02/07/2023
--- NOTE | 2023-09-11 17:56 | Hospitalist Progress Note ---
Date of Service September 11, 2023 Assessment & Plan (1) Headache: Plan: 88-year-old female with past medical history significant for type 2 diabetes, hyperlipidemia, hypothyroidism, CKD stage III, hypertension, GERD, primary open- angle glaucoma bilateral, who lives alone at home ambulates with a walker ,daughter lives close by was brought in because of headaches. Patient is somewhat hard of hearing. But answering appropriately. States she came for headache. Says headaches are better now. Denies any chest pain or shortness of breath. No cough. No fevers. No abdominal pain. Normal bowel and bladder movements. Daughter also says there was no recent illness of the patient. As per daughter patient is on soft diet. Headache started yesterday. Acute bradycardia arrhythmia Heart rate went down as low as 29 EKG did not show sinus bradycardia with arrhythmia Patient remains asymptomatic Appreciate cardiology input and recommendation Echo of the heart showed: Moderate concentric LVH, LV wall motion is normal, LV systolic function is normal with EF 60 to 65%, mild to moderate mitral regurgitation, grade 1 diastolic dysfunction, pulmonary artery systolic pressure is estimated to be 51 mmHg. Will monitor overnight and and decide pacemaker requirements Headaches-admitted with headache without any neurological symptoms CT head is okay Currently improving Tylenol as needed Patient has history of headaches in the past Workup showed arachnoid cyst Followed up with neurosurgery and MRI scan 03/2023 showed large left bilateral convexity arachnoid cyst without significant change from prior exams Headache seems to be improving AVA on CKD stage III Presented with creatinine 1.9 Baseline creatinine around 1 Holding Lasix with potassium supplements Holding lisinopril hydrochlorothiazide Renal ultrasound okay Getting gentle fluids Creatinine shows minimal improvement at 1.55 from 1.94 Strongly advised to drink more fluid-sinew intravenous fluid as well Type 2 diabetes Not on medications Diabetic diet Insulin sliding scale Follow HbA1c levels-remains mildly elevated and 7.3 Hypertension Continue atenolol Holding Lasix and lisinopril hydrochlorothiazide IV hydralazine as needed Will monitor Hypothyroidism On Synthyroid Follow TSH Hyperlipidemia On statin GERD On omeprazole DVT prophylaxis Heparin subcu Disposition Medical floor PT OT for discharge DVT prophylaxis. Full code if there is chance of recovery as per my discussion with the daughter Discussed with the daughter and the son (2) AVA (acute kidney injury): Admission and Anticipated Discharge Date Admission Date: September 11, 2023 Subjective 09/11/2023 The patient was seen and examined in emergency room in presence of the family members She was admitted with headache which is subsiding Her headache is bifrontal and does not have any other associated neurological symptoms with it Denies any chest pain or palpitation She was noted to have bradycardia as low as around 29 without any symptoms EKG showed sinus bradycardia arrhythmia Review of Systems Review of Systems: All systems reviewed and are unremarkable except as noted below Physical Exam Physical Exam: Lying in bed comfortably Constitutional: well developed, well nourished, + ill appearing and + obese Eyes: PERRL, conjunctivae normal, anicteric sclerae ENMT: external ear and nose normal, oropharynx normal Neck: trachea midline, no thyromegaly Respiratory: no respiratory distress Auscultation: + diminished lung sounds and + crackles (Minimal crackles at the bases) Cardiovascular: Rate/Rhythm: regular rate, regular rhythm and + bradycardic Heart Sounds: normal S1 and normal S2 Extremities: no edema Gastrointestinal (Abdomen): Inspection/Auscultation: normal bowel sounds; abdomen not distended Percussion/Palpation: abdomen soft; abdomen nontender Musculoskeletal: No acute arthritis involving any of the joint Neurologic: normal touch/pain/proprioception; + does not move all extremities and no focal motor deficits Lymphatic: no cervical or axillary lymphadenopathy Results & Data Results & Data Vital Signs (Past 12 Hours) Vital Signs Pulse Pulse Resp BP BP Pulse Ox O2 Del Method 09/11/23 17:00 151/67 H 09/11/23 17:00 45 L 16 96 09/11/23 16:30 46 L 13 98 09/11/23 16:00 39 L 17 09/11/23 16:00 124/62 09/11/23 15:59 34 L 15 09/11/23 15:30 44 L 16 09/11/23 15:00 36 L 13 09/11/23 15:00 154/70 H 09/11/23 14:30 46 L 21 97 09/11/23 14:01 132/53 L 09/11/23 14:01 32 L 15 09/11/23 14:00 36 L 19 09/11/23 13:30 46 L 18 09/11/23 13:01 94/70 L 09/11/23 13:01 56 L 18 09/11/23 13:00 39 L 19 09/11/23 12:30 43 L 18 96 09/11/23 12:00 141/68 H 09/11/23 12:00 51 L 13 95 09/11/23 11:46 131/69 09/11/23 11:46 51 L 15 94 09/11/23 11:30 59 L 18 99 09/11/23 11:00 56 L 16 09/11/23 10:30 58 L 13 93 09/11/23 10:11 27 L 09/11/23 10:06 65 20 163/75 H 95 Nasal Cannula 09/11/23 10:00 55 L 16 09/11/23 09:59 163/75 H 09/11/23 09:59 48 L 17 09/11/23 09:30 52 L 18 09/11/23 09:00 60 14 09/11/23 08:42 60 15 139/64 98 Nasal Cannula 09/11/23 08:41 139/64 09/11/23 08:41 61 18 99 09/11/23 08:30 61 14 99 09/11/23 08:12 61 09/11/23 08:00 60 15 96 09/11/23 07:30 63 17 95 09/11/23 07:00 69 16 99 O2 Flow Rate 09/11/23 17:00 09/11/23 17:00 09/11/23 16:30 09/11/23 16:00 09/11/23 16:00 09/11/23 15:59 09/11/23 15:30 09/11/23 15:00 09/11/23 15:00 09/11/23 14:30 09/11/23 14:01 09/11/23 14:01 09/11/23 14:00 09/11/23 13:30 09/11/23 13:01 09/11/23 13:01 09/11/23 13:00 09/11/23 12:30 09/11/23 12:00 09/11/23 12:00 09/11/23 11:46 09/11/23 11:46 09/11/23 11:30 09/11/23 11:00 09/11/23 10:30 09/11/23 10:11 09/11/23 10:06 09/11/23 10:00 09/11/23 09:59 09/11/23 09:59 09/11/23 09:30 09/11/23 09:00 09/11/23 08:42 2 09/11/23 08:41 09/11/23 08:41 09/11/23 08:30 09/11/23 08:12 09/11/23 08:00 09/11/23 07:30 09/11/23 07:00 Laboratory Results Short CBC 09/10/23 09/11/23 Range/Units 21:15 06:56 WBC 10.67 10.53 (4.8-10.8) K/ul Hgb 11.5 L 9.7 L (12.0-16.0) g/dl Hct 34.1 L 27.7 L (37.0-47.0) % Plt Count 308 245 (130-400) K/uL BMP 09/10/23 09/11/23 21:15 06:56 Sodium 128 L 130 L Potassium 4.4 4.2 Chloride 93 L 98 Carbon Dioxide 25 25 BUN 55 H 51 H Creatinine 1.94 H 1.55 H D Glucose 119 H 106 H Calcium 9.6 8.6 Liver Function 09/10/23 Range/Units 21:15 Total Bilirubin 0.4 (0.2-1.0) mg/dl AST 29 (13-39) U/L ALT 17 (7-52) U/L Alkaline Phosphatase 60 (34-104) U/L Albumin 4.6 (3.4-5.0) gm/dl Urine 09/11/23 Range/Units Unknown Urine Color Yellow Urine Appearance Clear (Clear) Urine pH 6.5 (4.5-7.5) Ur Specific [place] 1.011 (1.000-1.030) Urine Protein Negative (Negative) Urine Glucose (UA) Negative (Negative) Medications Administered Current Inpatient Medications Acetaminophen (Acetaminophen 325 Mg Tab) 650 mg PO Q4H PRN PRN Reason: pain/fever Stop: 10/11/23 02:53 Allopurinol (Allopurinol 300 Mg Tab) 300 mg PO DAILY [facility] Stop: 10/11/23 08:59 Last Admin: 09/11/23 08:45 Dose: 300 mg Atenolol (Atenolol 25 Mg Tablet) 25 mg PO BID [facility] Stop: 10/11/23 08:59 Last Admin: 09/11/23 08:45 Dose: 25 mg Atorvastatin Calcium (Atorvastatin 40 Mg Tab) 40 mg PO DAILY [facility] Stop: 10/11/23 08:59 Last Admin: 09/11/23 08:45 Dose: 40 mg Dextrose (Dextrose 50% 50 Ml Syringe) 25 - 50 ml IV UD PRN; Protocol PRN Reason: Hypoglycemia Protocol Stop: 10/11/23 02:53 Glucagon (Glucagon For Inj 1 Mg Vial) 1 mg SQ UD PRN; Protocol PRN Reason: Hypoglycemia Protocol Stop: 10/11/23 02:53 Glucose (Glucose 10 Tab/Tube) 4 - 8 tab PO UD PRN; Protocol PRN Reason: Hypoglycemia Treatment Stop: 10/11/23 02:53 Glucose (Glucose 40% Gel 15 Gm Tube) 15 - 30 gm PO UD PRN; Protocol PRN Reason: Hypoglycemia Protocol Stop: 10/11/23 02:53 Hydralazine HCl (Hydralazine Hcl 20 Mg/Ml Vial) 5 mg IV Q6H PRN PRN Reason: Hypertension PRN SBP > 170 Stop: 10/11/23 07:42 Sodium Chloride (Nss) 1,000 mls @ 75 mls/hr IV .[id number] [facility] Stop: 10/11/23 02:53 Last Admin: 09/11/23 16:50 Dose: 75 mls/hr Insulin Aspart (Insulin Aspart Per Unit Charge) 0 units SC ACHS [facility] Stop: 10/11/23 07:29 Last Admin: 09/11/23 16:40 Dose: Not Given Levothyroxine Sodium (Levothyroxine Sodium 50 Mcg Tablet) 50 mcg PO DAILYBB [facility] Stop: 10/11/23 06:29 Last Admin: 09/11/23 11:40 Dose: Not Given Miscellaneous (Carbohydrates For Hypoglycemia ) 15 - 30 gm PO UD PRN PRN Reason: Hypoglycemia Protocol Stop: 10/11/23 02:53 Pantoprazole Sodium (Pantoprazole 40 Mg Tab) 40 mg PO DAILY [facility] Stop: 10/11/23 08:59 Last Admin: 09/11/23 08:45 Dose: 40 mg Polyethylene Glycol (Polyethylene (Miralax) 17 Gm Pack) 17 gm PO DAILY PRN PRN Reason: Constipation Stop: 10/11/23 02:53 (1) Headache Headache chronicity pattern: unspecified pattern Headache type: unspecified Intractability: not intractable Qualified Code(s): R51.9 - Headache, unspecified
[2023-09-12 03:41] LABS: Appearance Urine Clear (Clear); Bacteria Urine Automated Negative (Negative); Bilirubin Urine Negative (Negative); Blood Urine Negative (Negative); Cast Urine Automated 0 /lpf (0-5); Color Urine Yellow; Glucose Urine UA Negative (Negative); Ketones Urine Negative (Negative); Leukocyte Esterase Urine Trace (Negative); Nitrite Urine Negative (Negative); Protein Urine Negative (Negative); RBC Urine Automated 0-4 /hpf (0-4); Urobilinogen Urine Negative (Negative)
[2023-09-12] MEDS: SODIUM CHLORIDE 0.9% 1,000 ML IV SCH ×2 (05:42→20:12)
[2023-09-12] MEDS: LEVOTHYROXINE SODIUM 50 MCG TABLET PO SCH (06:05)
[2023-09-12 06:38] LABS: Basophils # (auto) 0.05 K/uL (0.00-0.20); Basophils % (auto) 0.6 %; Eosinophils # (auto) 0.56 K/uL (0.00-0.50); Eosinophils % (auto) 6.3 %; Hematocrit (blood only) 30.4 % (37.0-47.0); Hemoglobin 10.3 g/dl (12.0-16.0); Immature Granulocytes # (auto) 0.04 K/uL (0.01-0.20); Immature Granulocytes % (auto) 0.5 %; Lymphocytes # (auto) 2.93 K/uL (1.20-3.40); Lymphocytes % (auto) 33.2 %; Mean Corpuscular Hemoglobin 32.6 pg (25.0-34.0); Mean Corpuscular Hgb Conc 33.9 g/dL (32.0-36.0); Mean Corpuscular Volume 96.2 fL (80.0-100.0); Mean Platelet Volume 10.5 fL (9.4-12.4); Monocytes # (auto) 0.96 K/uL (0.11-0.59); Monocytes % (auto) 10.9 %; Neutrophils # (auto) 4.28 K/uL (1.40-6.50); Neutrophils % (auto) 48.5 %; Platelet Count 240 K/uL (130-400); RDW Coefficient of Variation 14.3 % (11.5-14.5); RDW Standard Deviation 49.7 fL (36.4-46.3); Red Blood Count 3.16 M/uL (4.20-5.40); White Blood Count 8.82 K/ul (4.8-10.8)
[2023-09-12 06:55] LABS: BUN Creatinine Ratio 30.4 (10-20); Calcium 8.7 mg/dl (8.6-10.3); Creatinine Clr Calc Pharmacy 30.6 ml/min; Est GFR (African American) 50.8 ml/min; Est GFR (Non-African American) 43.8 ml/min; Magnesium 1.7 mg/dl (1.7-2.4); Phosphorus 2.9 mg/dl (2.5-4.9); Potassium 4.1 mmol/L (3.5-5.1)
[2023-09-12] MEDS: ATORVASTATIN 40 MG TAB PO SCH (08:16)
[2023-09-12] MEDS: PANTOprazole 40 MG TAB PO SCH (08:16)
[2023-09-12] MEDS: allopurinoL 300 MG TAB PO SCH (08:17)
[2023-09-12] MEDS: INSULIN ASPART PER UNIT CHARGE SC SCH ×4 (09:12→20:12)
--- NOTE | 2023-09-12 09:39 | Cardiology Progress Note ---
Date of Service September 12, 2023 Assessment & Plan (1) Bradycardia: Plan: -Sinus bradycardia with heart rates in the 30s noted transiently on 09/11/2023 at 12-12:30 PM. Patient without symptoms at that time other than headache, but does have a vague recent history of dizziness. -Patient has not had any low blood pressure episodes. -Atenolol as well as her other antihypertensives have been held on presentation. -Continue to hold atenolol -No indication for pacemaker at present. Will continue to observe for she increases her activity off of atenolol. -Consider resuming lisinopril/HCTZ. -Advance diet. Admission and Anticipated Discharge Date Admission Date: September 11, 2023 Subjective Patient seen in cardiology follow-up. She notes feeling well. She states her headache is completely resolved. Telemetry reveals sinus bradycardia in the 50s at present. The lowest heart rate she had overnight last night was 45 bpm while sleeping. Physical Exam Constitutional: WD/WN, vitals as above Eyes: PERRL, conjunctivae normal, anicteric sclerae ENMT: Mouth: + edentulous Respiratory: normal respiratory effort, lungs clear to auscultation Cardiovascular: RRR, no murmur, no edema Neurologic: PERRL, EOMI, accommodation nl, no face palsy, no dysarthria Results & Data Vital Signs (Past 12 Hours) Vital Signs Temp Pulse Pulse Resp BP BP Pulse Ox 09/12/23 08:04 36.8 C 54 L 16 156/73 H 93 09/12/23 07:16 49 L 09/12/23 02:33 36.7 C 52 L 16 150/70 H 91 09/11/23 23:23 36.8 C 57 L 16 176/78 H 95 09/11/23 23:23 09/11/23 23:02 56 L 09/11/23 22:57 36.8 C 57 L 16 176/68 H 95 O2 Del Method 09/12/23 08:04 Room Air 09/12/23 07:16 09/12/23 02:33 Room Air 09/11/23 23:23 Room Air 09/11/23 23:23 Room Air 09/11/23 23:02 09/11/23 22:57 Room Air Diagnostic Findings Transthoracic echocardiogram performed 09/11/2023: Mild concentric left ventricular hypertrophy, normal LV wall motion LV ejection fraction in the range of 60- 65% Mild to moderate mitral gravitation Pulmonary artery systolic pressure mildly elevated at 51 mmHg. Grade 1 diastolic dysfunction
--- NOTE | 2023-09-12 14:58 | Hospitalist Progress Note ---
Date of Service September 12, 2023 Assessment & Plan (1) Headache: Plan: 88-year-old female with past medical history significant for type 2 diabetes, hyperlipidemia, hypothyroidism, CKD stage III, hypertension, GERD, primary open- angle glaucoma bilateral, who lives alone at home ambulates with a walker ,daughter lives close by was brought in because of headaches. Patient is somewhat hard of hearing. But answering appropriately. States she came for headache. Says headaches are better now. Denies any chest pain or shortness of breath. No cough. No fevers. No abdominal pain. Normal bowel and bladder movements. Daughter also says there was no recent illness of the patient. As per daughter patient is on soft diet. Headache started yesterday. Acute bradycardia arrhythmia Heart rate went down as low as 29 EKG did not show sinus bradycardia with arrhythmia Patient remains asymptomatic Appreciate cardiology input and recommendation Echo of the heart showed: Moderate concentric LVH, LV wall motion is normal, LV systolic function is normal with EF 60 to 65%, mild to moderate mitral regurgitation, grade 1 diastolic dysfunction, pulmonary artery systolic pressure is estimated to be 51 mmHg. Will monitor overnight and and decide pacemaker requirements The monitor did not show any bradycardia arrhythmia Discussed with supervisor stave cutting-no requirement of any pacemaker Will discontinue atenolol Will get PT OT evaluation and possible discharge tomorrow Headaches-admitted with headache without any neurological symptoms CT head is okay Currently improving Tylenol as needed Patient has history of headaches in the past Workup showed arachnoid cyst Followed up with neurosurgery and MRI scan 03/2023 showed large left bilateral convexity arachnoid cyst without significant change from prior exams Headache is completely gone AVA on CKD stage III Presented with creatinine 1.9 Baseline creatinine around 1 Holding Lasix with potassium supplements Holding lisinopril hydrochlorothiazide Renal ultrasound okay Getting gentle fluids Creatinine shows minimal improvement at 1.55 from 1.94 Strongly advised to drink more fluid-sinew intravenous fluid as well With hydration creatinine has been normalized Strongly advised to drink more fluid Type 2 diabetes Not on medications Diabetic diet Insulin sliding scale Follow HbA1c levels-remains mildly elevated and 7.3 Hypertension Continue atenolol Holding Lasix and lisinopril hydrochlorothiazide IV hydralazine as needed Will monitor Hypothyroidism On Synthyroid Follow TSH Hyperlipidemia On statin GERD On omeprazole DVT prophylaxis Heparin subcu Disposition Medical floor PT OT for discharge DVT prophylaxis. Full code if there is chance of recovery as per my discussion with the daughter Discussed with the daughter and the son (2) AVA (acute kidney injury): Admission and Anticipated Discharge Date Admission Date: September 11, 2023 Subjective 09/11/2023 The patient was seen and examined in emergency room in presence of the family members She was admitted with headache which is subsiding Her headache is bifrontal and does not have any other associated neurological s ymptoms with it Denies any chest pain or palpitation She was noted to have bradycardia as low as around 29 without any symptoms EKG showed sinus bradycardia arrhythmia 09/12/2023 The patient was seen and examined in medical telemetry unit She has been feeling much better and denies any more headache No more bradycardia arrhythmia she does not need any pacemaker now Her atenolol was stopped completely Review of Systems Review of Systems: All systems reviewed and are unremarkable except as noted below Physical Exam Physical Exam: Lying in bed comfortably Constitutional: well developed, well nourished, + ill appearing and + obese Eyes: PERRL, conjunctivae normal, anicteric sclerae ENMT: external ear and nose normal, oropharynx normal Neck: trachea midline, no thyromegaly Respiratory: no respiratory distress Auscultation: + diminished lung sounds and + crackles (Minimal crackles at the bases) Cardiovascular: Rate/Rhythm: regular rate, regular rhythm and + bradycardic Heart Sounds: normal S1 and normal S2 Extremities: no edema Gastrointestinal (Abdomen): Inspection/Auscultation: normal bowel sounds; abdomen not distended Percussion/Palpation: abdomen soft; abdomen nontender Neurologic: normal touch/pain/proprioception; + does not move all extremities and no focal motor deficits Lymphatic: no cervical or axillary lymphadenopathy Results & Data Results & Data Vital Signs (Past 12 Hours) Vital Signs Temp Pulse Pulse Resp BP Pulse Ox O2 Del Method 09/12/23 13:03 36.8 C 72 16 150/64 H 96 Room Air 09/12/23 08:04 36.8 C 54 L 16 156/73 H 93 Room Air 09/12/23 07:16 49 L Laboratory Results Short CBC 09/12/23 Range/Units 06:06 WBC 8.82 (4.8-10.8) K/ul Hgb 10.3 L (12.0-16.0) g/dl Hct 30.4 L (37.0-47.0) % Plt Count 240 (130-400) K/uL BMP 09/12/23 06:06 Sodium 134 L Potassium 4.1 Chloride 103 Carbon Dioxide 25 BUN 34 H Creatinine 1.12 D Glucose 92 Calcium 8.7 Urine 09/12/23 Range/Units 03:28 Urine Color Yellow Urine Appearance Clear (Clear) Urine pH 7.0 (4.5-7.5) Ur Specific [place] 1.010 (1.000-1.030) Urine Protein Negative (Negative) Urine Glucose (UA) Negative (Negative) Medications Administered Current Inpatient Medications Acetaminophen (Acetaminophen 325 Mg Tab) 650 mg PO Q4H PRN PRN Reason: pain/fever Stop: 10/11/23 02:53 Allopurinol (Allopurinol 300 Mg Tab) 300 mg PO DAILY [facility] Stop: 10/11/23 08:59 Last Admin: 09/12/23 08:17 Dose: 300 mg Atenolol (Atenolol 25 Mg Tablet) 25 mg PO BID [facility] Stop: 10/11/23 08:59 Last Admin: 09/11/23 08:45 Dose: 25 mg Atorvastatin Calcium (Atorvastatin 40 Mg Tab) 40 mg PO DAILY [facility] Stop: 10/11/23 08:59 Last Admin: 09/12/23 08:16 Dose: 40 mg Dextrose (Dextrose 50% 50 Ml Syringe) 25 - 50 ml IV UD PRN; Protocol PRN Reason: Hypoglycemia Protocol Stop: 10/11/23 02:53 Glucagon (Glucagon For Inj 1 Mg Vial) 1 mg SQ UD PRN; Protocol PRN Reason: Hypoglycemia Protocol Stop: 10/11/23 02:53 Glucose (Glucose 10 Tab/Tube) 4 - 8 tab PO UD PRN; Protocol PRN Reason: Hypoglycemia Treatment Stop: 10/11/23 02:53 Glucose (Glucose 40% Gel 15 Gm Tube) 15 - 30 gm PO UD PRN; Protocol PRN Reason: Hypoglycemia Protocol Stop: 10/11/23 02:53 Hydralazine HCl (Hydralazine Hcl 20 Mg/Ml Vial) 5 mg IV Q6H PRN PRN Reason: Hypertension PRN SBP > 170 Stop: 10/11/23 07:42 Sodium Chloride (Nss) 1,000 mls @ 75 mls/hr IV .[id number] [facility] Stop: 10/11/23 02:53 Last Admin: 09/12/23 05:42 Dose: 75 mls/hr Insulin Aspart (Insulin Aspart Per Unit Charge) 0 units SC ACHS [facility] Stop: 10/11/23 07:29 Last Admin: 09/12/23 13:03 Dose: Not Given Levothyroxine Sodium (Levothyroxine Sodium 50 Mcg Tablet) 50 mcg PO DAILYBB [facility] Stop: 10/11/23 06:29 Last Admin: 09/12/23 06:05 Dose: 50 mcg Miscellaneous (Carbohydrates For Hypoglycemia ) 15 - 30 gm PO UD PRN PRN Reason: Hypoglycemia Protocol Stop: 10/11/23 02:53 Pantoprazole Sodium (Pantoprazole 40 Mg Tab) 40 mg PO DAILY [facility] Stop: 10/11/23 08:59 Last Admin: 09/12/23 08:16 Dose: 40 mg Polyethylene Glycol (Polyethylene (Miralax) 17 Gm Pack) 17 gm PO DAILY PRN PRN Reason: Constipation Stop: 10/11/23 02:53 (1) Headache Headache chronicity pattern: unspecified pattern Headache type: unspecified Intractability: not intractable Qualified Code(s): R51.9 - Headache, unspecified
[2023-09-12] MEDS: hydrALAZINE HCL 20 MG/ML VIAL IV PRN (17:40)
[2023-09-13] MEDS: hydrALAZINE HCL 20 MG/ML VIAL IV PRN (02:51)
[2023-09-13] MEDS: LEVOTHYROXINE SODIUM 50 MCG TABLET PO SCH (04:57)
[2023-09-13 07:52] LABS: BUN Creatinine Ratio 29.3 (10-20); Calcium 8.4 mg/dl (8.6-10.3); Creatinine Clr Calc Pharmacy 42.1 ml/min; Est GFR (Non-African American) 63.9 ml/min; Magnesium 1.3 mg/dl (1.7-2.4); Potassium 3.8 mmol/L (3.5-5.1)
[2023-09-13] MEDS: SODIUM CHLORIDE 0.9% 1,000 ML IV SCH (08:33)
[2023-09-13] MEDS: INSULIN ASPART PER UNIT CHARGE SC SCH ×4 (08:36→21:54)
[2023-09-13] MEDS: ATORVASTATIN 40 MG TAB PO SCH (08:55)
[2023-09-13] MEDS: MAGNESIUM SULFATE / D5W 1 GM/100 ML BAG IV SCH ×2 (08:55→12:31)
[2023-09-13] MEDS: PANTOprazole 40 MG TAB PO SCH (08:55)
[2023-09-13] MEDS: allopurinoL 300 MG TAB PO SCH (08:55)
[2023-09-13] MEDS: MAGNESIUM OXIDE 400 MG TAB PO SCH ×2 (08:56→22:08)
--- NOTE | 2023-09-13 14:06 | Cardiology Progress Note ---
Date of Service September 13, 2023 Assessment & Plan (1) Bradycardia: Plan: -Sinus bradycardia with heart rates in the 30s noted transiently on 09/11/2023 at 12-12:30 PM. Patient without symptoms at that time other than headache, but does have a vague recent history of dizziness. -At 10:30 this am patient had brief episode of sinus bradycardia with rates in the 40s, with occasional junctional beats. At present at 2 pm, SR in the 60s noted on telemetry. -I spoke to pt and her nurse, and pt did not have any subjective symptoms of bradycardia this am. -Pt still reluctant to have a pacemaker, and at present , I am not sure it is indicated. -I was unable to reach pt's daughter by phone x 1 try on 09/12/23. I tried again on 09/13/23. -Atenolol held this admission / DC'd from orders -BP stable. Agree with Magnesium supplementation -Add back lisinopril first , then HCTZ. Perhaps no furosemide at DC. Admission and Anticipated Discharge Date Admission Date: September 11, 2023 Subjective Raquel is seen in cardiology follow up of bradycardia. She is sitting in the bedside chair and notes no subjective complaints. Physical Exam Constitutional: WD/WN, vitals as above Eyes: PERRL, conjunctivae normal, anicteric sclerae ENMT: Mouth: + edentulous Respiratory: normal respiratory effort, lungs clear to auscultation Cardiovascular: RRR, no murmur, no edema Neurologic: PERRL, EOMI, accommodation nl, no face palsy, no dysarthria Results & Data Vital Signs (Past 12 Hours) Vital Signs Temp Pulse Pulse Resp BP BP Pulse Ox 09/13/23 11:24 37.2 C 66 18 139/71 95 09/13/23 07:57 36.8 C 56 L 17 154/54 H 96 09/13/23 07:14 49 L 09/13/23 02:40 36.7 C 57 L 16 175/68 H 92 O2 Del Method 09/13/23 11:24 Room Air 09/13/23 07:57 Room Air 09/13/23 07:14 09/13/23 02:40 Room Air
--- NOTE | 2023-09-13 15:39 | Communication Note ---
Date of Service: September 13, 2023 Spoke to pt together with her daughter and son. Family is very concerns with recent dizziness at home which is likely related to the recently observed bradycardia. Pt family elect to proceed with pacemaker which will be on 09/15/23.
--- NOTE | 2023-09-13 16:17 | Hospitalist Progress Note ---
Date of Service September 13, 2023 Assessment & Plan (1) Bradycardia: Plan: per admitting service notes with addendum: (1) Headache: Plan: 88-year-old female with past medical history significant for type 2 diabetes, hyperlipidemia, hypothyroidism, CKD stage III, hypertension, GERD, primary open- angle glaucoma bilateral, who lives alone at home ambulates with a walker ,daughter lives close by was brought in because of headaches. Patient is somewhat hard of hearing. But answering appropriately. States she came for headache. Says headaches are better now. Denies any chest pain or shortness of breath. No cough. No fevers. No abdominal pain. Normal bowel and bladder movements. Daughter also says there was no recent illness of the patient. As per daughter patient is on soft diet. Headache started yesterday. ACUTE BRADYCARDIA Heart rate went down as low as 29 EKG did not show sinus bradycardia with arrhythmia Patient remains asymptomatic Appreciate cardiology input and recommendation Echo of the heart showed: Moderate concentric LVH, LV wall motion is normal, LV systolic function is normal with EF 60 to 65%, mild to moderate mitral regurgitation, grade 1 diastolic dysfunction, pulmonary artery systolic pressure is estimated to be 51 mmHg. Will monitor overnight and and decide pacemaker requirements The monitor did not show any bradycardia arrhythmia Discussed with needle maker-no requirement of any pacemaker Will discontinue atenolol Will get PT OT evaluation and possible discharge tomorrow 09/13 for Pacemaker placement on September 15 Atenolol discontinued Headaches-admitted with headache without any neurological symptoms CT head is okay Currently improving Tylenol as needed Patient has history of headaches in the past Workup showed arachnoid cyst Followed up with neurosurgery and MRI scan 03/2023 showed large left bilateral convexity arachnoid cyst without significant change from prior exams Headache is completely gone 09/13 resolved AVA ON CKD STAGE III Presented with creatinine 1.9 Baseline creatinine around 1 Holding Lasix with potassium supplements Holding lisinopril hydrochlorothiazide Renal ultrasound okay Getting gentle fluids Creatinine shows minimal improvement at 1.55 from 1.94 Strongly advised to drink more fluid-sinew intravenous fluid as well With hydration creatinine has been normalized Strongly advised to drink more fluid 1/10 crea back to baseline TYPE 2 DIABETES Not on medications Diabetic diet Insulin sliding scale Follow HbA1c levels-remains mildly elevated and 7.3 HYPERTENSION Continue atenolol Holding Lasix and lisinopril hydrochlorothiazide IV hydralazine as needed Will monitor HYPOTHYROIDISM On Synthroid Follow TSH HYPERLIPIDEMIA On statin GERD On omeprazole DVT prophylaxis Heparin subcu Disposition Medical floor PT OT for discharge Admission and Anticipated Discharge Date Admission Date: September 11, 2023 Subjective ff up for bradycardia, etc seen resting in chair, comfortable children at bedside no chest pain, dyspnea, palpitations, dizziness was having HR 30s in the morning denies dizziness, presyncope no other new symptoms Review of Systems Review of Systems: all noted and negative except for above Physical Exam Physical Exam: General- oriented x 2, not in distress, speaks in sentences with no effort or accessory muscle use Eyes- anicteric Neck- no JVD Lungs- clear breath sounds bilaterally, no crackles/wheezing Heart- normal rate, regular rhythm; no murmurs Abdomen- normal bowel sounds, nondistended, soft, nontender Extremities- no pretibial edema, no calf tenderness Neuro- alert, oriented x 2; no gross focal neurologic deficits Skin- warm & dry Results & Data Results & Data Vital Signs (Past 12 Hours) Vital Signs Temp Pulse Pulse Resp BP BP Pulse Ox 09/13/23 11:24 37.2 C 66 18 139/71 95 09/13/23 07:57 36.8 C 56 L 17 154/54 H 96 09/13/23 07:14 49 L O2 Del Method 09/13/23 11:24 Room Air 09/13/23 07:57 Room Air 09/13/23 07:14 all noted and reviewed including below
[2023-09-14] MEDS: LEVOTHYROXINE SODIUM 50 MCG TABLET PO SCH (06:11)
[2023-09-14] MEDS: INSULIN ASPART PER UNIT CHARGE SC SCH ×4 (08:33→20:20)
[2023-09-14] MEDS: ATORVASTATIN 40 MG TAB PO SCH (09:13)
[2023-09-14] MEDS: MAGNESIUM OXIDE 400 MG TAB PO SCH ×2 (09:13→20:21)
[2023-09-14] MEDS: allopurinoL 300 MG TAB PO SCH (09:13)
[2023-09-14] MEDS: PANTOprazole 40 MG TAB PO SCH (09:13)
[2023-09-14 09:48] LABS: BUN Creatinine Ratio 23.1 (10-20); Calcium 8.9 mg/dl (8.6-10.3); Creatinine Clr Calc Pharmacy 38.1 ml/min; Est GFR (African American) 65.3 ml/min; Est GFR (Non-African American) 56.3 ml/min; Magnesium 1.6 mg/dl (1.7-2.4); Potassium 3.9 mmol/L (3.5-5.1)
[2023-09-14] MEDS: lisinopril 20 MG TAB PO SCH (09:52)
--- NOTE | 2023-09-14 13:46 | Cardiology Progress Note ---
Date of Service September 14, 2023 Assessment & Plan (1) Bradycardia: Plan: -Sinus node dysfunction. -Plan for permanent pacemaker 09/15/2023 -Continue to hold atenolol. -Antihypertensives held at discharge. Lisinopril reinitiated today as her blood pressures have rebounded and are now hypertensive. May need to reinitiate her HCTZ next. NPO after Midnight. Admission and Anticipated Discharge Date Admission Date: September 11, 2023 Subjective Patient seen in cardiology follow-up. No complaints at present. Sinus rhythm in the 50s to 60s noted for the most part, however transient bradycardia down to the 30s with appearance of sinus arrhythmia observed earlier today. No acute symptoms. Physical Exam Constitutional: WD/WN, vitals as above Eyes: PERRL, conjunctivae normal, anicteric sclerae ENMT: Mouth: + edentulous Respiratory: normal respiratory effort, lungs clear to auscultation Cardiovascular: RRR, no murmur, no edema Neurologic: PERRL, EOMI, accommodation nl, no face palsy, no dysarthria Results & Data Vital Signs (Past 12 Hours) Vital Signs Temp Pulse Pulse Resp BP Pulse Ox O2 Del Method 09/14/23 11:44 36.8 C 64 20 181/80 H 99 Room Air 09/14/23 07:52 36.7 C 59 L 20 164/83 H 95 Room Air 09/14/23 07:44 Room Air 09/14/23 07:22 49 L 09/14/23 04:00 36.7 C 67 18 162/75 H 93 Room Air
--- NOTE | 2023-09-14 14:20 | Hospitalist Progress Note ---
Date of Service September 14, 2023 Assessment & Plan (1) Bradycardia: Plan: per admitting service notes with addendum: (1) Headache: Plan: 88-year-old female with past medical history significant for type 2 diabetes, hyperlipidemia, hypothyroidism, CKD stage III, hypertension, GERD, primary open- angle glaucoma bilateral, who lives alone at home ambulates with a walker ,daughter lives close by was brought in because of headaches. Patient is somewhat hard of hearing. But answering appropriately. States she came for headache. Says headaches are better now. Denies any chest pain or shortness of breath. No cough. No fevers. No abdominal pain. Normal bowel and bladder movements. Daughter also says there was no recent illness of the patient. As per daughter patient is on soft diet. Headache started yesterday. ACUTE BRADYCARDIA Heart rate went down as low as 29 EKG did not show sinus bradycardia with arrhythmia Patient remains asymptomatic Appreciate cardiology input and recommendation Echo of the heart showed: Moderate concentric LVH, LV wall motion is normal, LV systolic function is normal with EF 60 to 65%, mild to moderate mitral regurgitation, grade 1 diastolic dysfunction, pulmonary artery systolic pressure is estimated to be 51 mmHg. Will monitor overnight and and decide pacemaker requirements The monitor did not show any bradycardia arrhythmia Discussed with facility administrator-no requirement of any pacemaker Will discontinue atenolol Will get PT OT evaluation and possible discharge tomorrow 09/14 for Pacemaker placement on September 15 Atenolol discontinued Headaches-admitted with headache without any neurological symptoms CT head is okay Currently improving Tylenol as needed Patient has history of headaches in the past Workup showed arachnoid cyst Followed up with neurosurgery and MRI scan 03/2023 showed large left bilateral convexity arachnoid cyst without significant change from prior exams Headache is completely gone 09/14 resolved AVA ON CKD STAGE III Presented with creatinine 1.9 Baseline creatinine around 1 Holding Lasix with potassium supplements Holding lisinopril hydrochlorothiazide Renal ultrasound okay Getting gentle fluids Creatinine shows minimal improvement at 1.55 from 1.94 Strongly advised to drink more fluid-sinew intravenous fluid as well With hydration creatinine has been normalized Strongly advised to drink more fluid 09/14 crea back to baseline TYPE 2 DIABETES Not on medications Diabetic diet Insulin sliding scale Follow HbA1c levels-remains mildly elevated and 7.3 HYPERTENSION Continue atenolol Lisinopril resumed Holding Lasix and hydrochlorothiazide IV hydralazine as needed Will monitor HYPOTHYROIDISM On Synthroid HYPERLIPIDEMIA On statin GERD On omeprazole DVT prophylaxis Heparin subcu Disposition lives at home PT OT Admission and Anticipated Discharge Date Admission Date: September 11, 2023 Subjective ff up for bradycardia, etc seen resting in bed, comfortable in good spirits no chest pain, dyspnea, palpitations, dizziness no other new symptoms Review of Systems Review of Systems: all noted and negative except for above Physical Exam Physical Exam: General- oriented x 3, not in distress, speaks in sentences with no effort or accessory muscle use Eyes- anicteric Neck- no JVD Lungs- clear breath sounds bilaterally Heart- normal rate, regular rhythm; no murmurs Abdomen- normal bowel sounds, nondistended, soft, nontender Extremities- no pretibial edema, no calf tenderness Neuro- alert, oriented x 3; no gross focal neurologic deficits Skin- warm & dry Results & Data Results & Data Vital Signs (Past 12 Hours) Vital Signs Temp Pulse Pulse Resp BP Pulse Ox O2 Del Method 09/14/23 11:44 36.8 C 64 20 181/80 H 99 Room Air 09/14/23 07:52 36.7 C 59 L 20 164/83 H 95 Room Air 09/14/23 07:44 Room Air 09/14/23 07:22 49 L 09/14/23 04:00 36.7 C 67 18 162/75 H 93 Room Air all noted and reviewed including below
[2023-09-14 15:43] LABS: Thyroid Stimulating Hormone 4.106 uIu/ml (0.300-4.500)
[2023-09-15] MEDS: LEVOTHYROXINE SODIUM 50 MCG TABLET PO SCH (06:11)
[2023-09-15] MEDS ORDERED: BUPIVACAINE 0.25% PF 30 ML VIAL ONE (06:58)
[2023-09-15] MEDS ORDERED: LIDOCAINE 1% LOCAL 20 ML VIAL ONE (06:58)
[2023-09-15] MEDS ORDERED: VANCOMYCIN HCL 1000MG/20ML VIAL ONE (06:58)
[2023-09-15] MEDS ORDERED: WATER, STERILE FOR INJ 10 ML VIAL ONE (06:58)
[2023-09-15] MEDS ORDERED: MIDAZOLAM HCL 5 MG/ML 1 ML VIAL ONE (07:43)
[2023-09-15] MEDS ORDERED: fentaNYL citrate PF 100 MCG/2 ML VIAL ONE (07:44)
[2023-09-15] MEDS ORDERED: ceFAZolin 330 MG/ML 1 GM VIAL ONE (07:45)
--- NOTE | 2023-09-15 08:10 | History & Physical Bridge Note ---
Date of Service September 15, 2023 History & Physical Bridge Note I have examined the patient, reviewed the History & Physical and in the interval since the performance of the History & Physical I have noted the following changes of clinical significance: pt with irreversible symptomatic sinus bradycardia-recommend a dual chamber pacemaker; discussed the risks and the procedure with the patient and her daughter-they expressed an understanding and consents signed.
--- NOTE | 2023-09-15 08:11 | Pre Anesthesia Assessment ---
Date of Service September 15, 2023 Pre Sedation Assessment Vital Signs Temp Pulse Pulse Resp BP BP Pulse Ox 09/15/23 07:39 83 18 194/93 H 97 09/15/23 03:55 36.7 C 64 18 162/86 H 95 09/14/23 23:47 54 L 09/14/23 22:32 36.9 C 55 L 18 160/74 H 99 09/14/23 19:00 36.9 C 66 18 171/80 H 96 09/14/23 15:32 36.9 C 65 20 184/79 H 96 09/14/23 15:10 65 09/14/23 11:44 36.8 C 64 20 181/80 H 99 O2 Del Method 09/15/23 07:39 Room Air 09/15/23 03:55 Room Air 09/14/23 23:47 09/14/23 22:32 Room Air 09/14/23 19:00 Room Air 09/14/23 15:32 Room Air 09/14/23 15:10 09/14/23 11:44 Room Air Cardiovascular RRR, no murmur, no edema Respiratory normal respiratory effort, lungs clear to auscultation Pre-Sedation Airway Assessment Smoking Status: Never smoker Hx Sleep Apnea: No Short, Thick Neck: No Thyromental Distance: > or= 3.5 Finger Breadths Oral Cavity: + WNL Mallampati Class: II ASA: ASA3 NPO Status Date of Last Intake of Fluids: 09/14/23 Time of Last Intake of Fluids: 22:00 Date of Last Intake of Solid Food: 09/14/23 Time of Last Intake of Solid Foods: 22:00 Procedure Planning Contraindications for Sedation: none Current Medications Reviewed: Yes Notes The planned sedation has been discussed with the patient. Informed Consent was obtained. I have identified the patient, determined the appropriateness of sedation and have assessed the patient immediately prior to the procedure. All medicine(s) and interventions are by my order.
--- NOTE | 2023-09-15 09:42 | Post Anesthesia Assessment ---
Date of Service September 15, 2023 Post Sedation Assessment Vital Signs Temp Pulse Pulse Resp BP BP Pulse Ox 09/15/23 07:39 83 18 194/93 H 97 09/15/23 03:55 36.7 C 64 18 162/86 H 95 09/14/23 23:47 54 L 09/14/23 22:32 36.9 C 55 L 18 160/74 H 99 09/14/23 19:00 36.9 C 66 18 171/80 H 96 09/14/23 15:32 36.9 C 65 20 184/79 H 96 09/14/23 15:10 65 09/14/23 11:44 36.8 C 64 20 181/80 H 99 O2 Del Method 09/15/23 07:39 Room Air 09/15/23 03:55 Room Air 09/14/23 23:47 09/14/23 22:32 Room Air 09/14/23 19:00 Room Air 09/14/23 15:32 Room Air 09/14/23 15:10 09/14/23 11:44 Room Air Recovery Score Activity: Moves 4 extremities Respiration: Deep Breath/Cough Circulation: +/-20% PreAnes Value Consciousness: Fully Awake Oxygen Saturation: > 92% On Room Air Discharge Sedation Level of Care: Fast Track Phase II Post Sedation Plan On clinical assessment, the patient appears to have tolerated the sedation without complications. Patient is recovering as anticipated. Patient will continue to be monitored by nursing and may be discharged when sedation discharge criteria are met per below protocol. Upon Completions of procedure up to 15 minutes continue every 5 minute vital signs and the P.A.R. score; then discharge to a Phase I or Fast Track to Phase II per the following guidelines: * Discharge Patient to appropriate Phase II area if PAR is 8 or greater or return to pre- procedure baseline. The post - procedure orders will be as directed. * If PAR score is less than 8 or not return to pre-procedure baseline then patient will follow Phase I monitoring till PAR is reached for Phase II. The Phase I may be done in procedure room or may call to secure a Phase I area. * If naloxone or flumazenil are used for reversal, hold in Phase I for continued monitoring from when last reversal dose was given for a minimum of 60 minutes or longer pending the nurse and/or physician discretion of patient condition before discharge to Phase II. Please call the Sedation Physician to re-evaluate and complete post-note for discharge to Phase II area. Do NOT discharge from procedure sedation or Phase 1 until post- sedation evaluation note is complete by procedure /sedation MD Sedation Discharge Instructions to be given to the patient at discharge to home.
--- NOTE | 2023-09-15 09:52 | Operative Report ---
Post Operative Report DICTATED BY:Stephany Castrejon D.O. DATE OF PROCEDURE: 09/15/2023. PREOPERATIVE DIAGNOSES: SSS/irreversible symptomatic sinus bradycardia POSTOPERATIVE DIAGNOSIS: Same PROCEDURE: A dual-chamber rate responsive permanent pacemaker and intracardiac electrogram His bundle recordings, along with a peripheral venogram under fluoroscopic guidance. SURGEON: Stephany Castrejon DO ASSISTANTS: None. ANESTHESIA: Monitored conscious sedation administered under my supervision by Candido De Santiago. Start time 8:32, end time 9:39, a total of 3 mg of Versed and 75 mcg of fentanyl. INTRAVENOUS FLUIDS: 75 mL. CONTRAST: 12 mL. ANTIBIOTICS: 1 grams of Ancef. ADDITIONAL MEDICATIONS: N/A BLOOD LOSS: 50 mL. URINE OUTPUT: Not applicable. SPECIMENS: None. FINDINGS: See below. DRAINS: None. COMPLICATIONS: None. CONDITION: Stable. INDICATIONS: This is a 88-year-old female who has a past medical history HTN, HLD, Gout, hypothyroidism. She was admitted to [facility] and continued to have irreversible symptomatic sinus bradycardia so she was recommended a ppm prior to hospital discharge. CONSENT: Consent was obtained prior to the patient going into the electrophysiology lab. The patient was informed of the risks, benefits, and alternatives to the procedure. Risks include, but not limited to, sudden cardiac , cardiac arrhythmias, cerebrovascular accident, myocardial infarction, injury to his blood vessels, chamber of the heart and lung, bleeding and infection. The patient understood these risks and agreed to the procedure as planned. Informed consent was obtained. DESCRIPTION OF PROCEDURE: The patient was brought into electrophysiology lab in a fasting state. She was connected to continuous cardiac monitoring. A timeout was performed to ensure the patient's identity and procedure correctly. She was prepped and draped in the left infraclavicular space in normal surgical standard fashion. Monitored conscious sedation was given throughout the procedure for the patient's comfort level. [place] precautions were maintained throughout the procedure. Prophylactic antibiotics were given prior to incision. A 20 mL of 1% lidocaine and bupivacaine mixture were given in the left deltopectoral groove. An incision was made in the left deltopectoral groove. Blunt dissection was performed down to the pectoralis muscle. Then, using blunt dissection over the pectoralis muscle within the pectoral fascia, a pacemaker pocket was created. Then, a peripheral venogram was performed to identify the axillary vein. Venous axillary access was obtained through a needlestick without any problems. A guidewire was inserted without any resistance. A 6-Chilean sheath was inserted over the guidewire without any resistance. Dilator was removed and a second guidewire was inserted through the sheath to allow for retained venous access. Then a 9 [place]an sheath was inserted over one of the guidewires. The guidewire and dilator were removed. Then, the [employer]visor 3D medium sheath was inserted through the 9-Chilean sheath over a Glidewire into the right ventricle. The Glidewire and dilator were removed. Then, the left bundle lead was advanced through the sheath and intracardiac electrogram His bundle recordings were performed when the camera was in PETERSON 10. Once I found where the His bundle is, see below for results, I then moved the camera to PETERSON 30 and marked where the His bundle was on my fluoroscopy screen. I came down about 2 cm from this in a line that would extend out to the apex and then started coming on pacing. Once I found an area where I had a nice W formed pace complex in my lead V1, I then moved the camera to [place] 30. Then the helix was extended into the septum. Then the helix locking tool was placed. Then the lead was screwed further into the septum while pacing by giving slow clockwise turns. The paced complex changed to a nice R' in V1 and the pacing stim to peak QRS in V6 was good. I then gave contrast through the sheath to see how far the lead was into the septum and then I slit the [employer] Supervisor 3D medium sheath under fluoroscopic guidance and left the 9-Chilean sheath in while I positioned the right atrial lead. A 6-Chilean sheath was inserted over the retained guidewire, the guidewire and dilator removed. The right atrial lead was then advanced into right atrium and positioned into right atrial appendage under fluoroscopic guidance. There was adequate pacing and sensing thresholds and no diaphragmatic stimulation with high output pacing. The 6-Chilean sheath was peeled away and the lead was fixated to the pectoralis muscle using 0 silk suture. The 9-Chilean sheath around the left bundle lead was peeled away and the lead was fixated to pectoralis muscle using 0 silk suture. The pocket was flushed with copious amounts of vancomycin and saline wash and inspected for hemostasis. The leads were then attached to the pulse generator making sure the pins were in appropriate position, passed set screws, and set screws were all tightened. Pulse generator was then placed in the pocket, making sure the leads were lying flat beneath the device. The incision was closed in a 3-layer fashion using 2-0 Vicryl interrupted suture, followed by 3-0 Vicryl interrupted suture, followed by 4-0 Monocryl running stitch. Then a primaseal dressing was placed EQUIPMENT: 1. Pulse generator is a A [employer] Pleasure MRI Model Number [id number] SN: [id number]. 2. Right atrial lead, Heredia SJM Tendril STS 8TC SN: [id number] 3. Left bundle lead, Heredia SJM Tendril STS 8TC SN: [id number] INTRAPROCEDURAL FINDINGS: 1. Intracardiac electrogram His bundle recordings, AH is 74 milliseconds, HV is 80 milliseconds. 2. Right atrial lead, P waves 3.4 millivolts, impedance 680 ohms, threshold 1.1 volts at 0.4 milliseconds. 3. Left bundle lead, R waves 8.3 millivolts, impedance 680 ohms, threshold 0.8 volts at 0.4 milliseconds. FINAL MEASUREMENTS THROUGH THE DEVICE: 1. Right atrial lead, P waves 4.7 millivolts, impedance 780 ohms, threshold 0.75 volt at 0.4 milliseconds. 2. Left bundle lead, R waves 6.9 millivolts, impedance 630 ohms, threshold 0.5 volts at 0.4 milliseconds. FINAL PARAMETERS: DDD 60/120, right atrial amplitude 3.5 volts, pulse width 0.4 milliseconds, sensitivity 0.5 millivolts. Left bundle lead amplitude 3.5 volts, pulse width 0.4 milliseconds, sensitivity 2 millivolts. IMPRESSION: Successful dual chamber rate responsive permanent pacemaker under fluoroscopic guidance along with peripheral venogram and intracardiac electrogram His bundle recordings, all under fluoroscopic guidance secondary to SSS/irreversible symptomatic sinus bradycardia. PLAN: Monitor the patient post-procedure. A 12-lead ECG, chest x-ray. She is not to lift the left elbow or left shoulder for 1 month. She cannot lift more than 10 pounds with the left arm for 2 weeks. She is to keep the dressing on and dry until his wound check next week.
--- NOTE | 2023-09-15 13:58 | XRay Report ---
SINGLE VIEW CHEST CLINICAL HISTORY: Pacemaker implantation. FINDINGS: An AP, portable, upright chest radiograph is compared to study dated 02/07/2023. The examinat ion is degraded by portable technique and apical lordotic positioning. A 2-lead cardiac pacemaker has been implanted. Leads project over the right atrial appendage and the right ventricle. The heart is enlarged noting atherosclerotic calcification of the thoracic aorta. The pulmonary vasculature is non congested. Chronic reticular thickening similar to previous. There is bibasilar scarring/atelectasis. No airspace consolidation or large pleural effusion is identified. No pneumothorax is seen. The skel etal structures are osteopenic. The bony thorax is grossly intact. IMPRESSION: 1. A 2-lead cardiac pacemaker has been implanted as above. No pneumothorax is identified post procedu re. 2. Cardiomegaly without radiographic evidence of congestive failure. 3. No airspace consolidation or pleural effusion is identified. ACT 112: Negative or not required by law. Electronically signed by: Reid Tucker M.D. 09/15/2023 1:57 PM
--- NOTE | 2023-09-15 14:51 | Electrocardiogram Report ---
Test Reason : Blood Pressure : / mmHG Vent. Rate : 073 BPM Atrial Rate : 073 BPM P-R Int : 164 ms QRS Dur : 108 ms QT Int : 452 ms P-R-T Axes : 051 010 022 degrees QTc Int : 497 ms Normal sinus rhythm Possible Old Inferior infarct , age undetermined Poor R wave progression, consider anterior MA vs. lead placement vs. LVH Abnormal ECG When compared with ECG of 11-SEP-2023 09:58, Borderline criteria for Inferior infarct are now Present Confirmed by Steven Rivera ([id number]) on 09/15/2023 2:50:39 PM Referred By: REFERRED SELF Confirmed By:Steven Rivera
[2023-09-15] MEDS: INSULIN ASPART PER UNIT CHARGE SC SCH ×4 (15:02→22:56)
[2023-09-15] MEDS: allopurinoL 300 MG TAB PO SCH (15:05)
[2023-09-15] MEDS: ATORVASTATIN 40 MG TAB PO SCH (15:05)
[2023-09-15] MEDS: PANTOprazole 40 MG TAB PO SCH (15:05)
[2023-09-15] MEDS: MAGNESIUM OXIDE 400 MG TAB PO SCH ×2 (15:05→20:46)
[2023-09-15] MEDS: lisinopril 20 MG TAB PO SCH (15:05)
[2023-09-15] MEDS: hydroCHLOROthiazide 25 MG TAB PO SCH (15:06)
--- NOTE | 2023-09-15 18:45 | Hospitalist Progress Note ---
Date of Service September 15, 2023 Assessment & Plan (1) Bradycardia: Plan: per admitting service notes with addendum: (1) Headache: Plan: 88-year-old female with past medical history significant for type 2 diabetes, hyperlipidemia, hypothyroidism, CKD stage III, hypertension, GERD, primary open- angle glaucoma bilateral, who lives alone at home ambulates with a walker ,daughter lives close by was brought in because of headaches. Patient is somewhat hard of hearing. But answering appropriately. States she came for headache. Says headaches are better now. Denies any chest pain or shortness of breath. No cough. No fevers. No abdominal pain. Normal bowel and bladder movements. Daughter also says there was no recent illness of the patient. As per daughter patient is on soft diet. Headache started yesterday. ACUTE BRADYCARDIA Heart rate went down as low as 29 EKG did not show sinus bradycardia with arrhythmia Patient remains asymptomatic Appreciate cardiology input and recommendation Echo of the heart showed: Moderate concentric LVH, LV wall motion is normal, LV systolic function is normal with EF 60 to 65%, mild to moderate mitral regurgitation, grade 1 diastolic dysfunction, pulmonary artery systolic pressure is estimated to be 51 mmHg. Will monitor overnight and and decide pacemaker requirements The monitor did not show any bradycardia arrhythmia Discussed with polishing wheel repairer-no requirement of any pacemaker Will discontinue atenolol Will get PT OT evaluation and possible discharge tomorrow 09/14 for Pacemaker placement on September 15 Atenolol discontinued 09/15 s/p pacemaker placement stable overall continue to monitor Headaches-admitted with headache without any neurological symptoms CT head is okay Currently improving Tylenol as needed Patient has history of headaches in the past Workup showed arachnoid cyst Followed up with neurosurgery and MRI scan 03/2023 showed large left bilateral convexity arachnoid cyst without significant change from prior exams Headache is completely gone 09/15 resolved AVA ON CKD STAGE III Presented with creatinine 1.9 Baseline creatinine around 1 Holding Lasix with potassium supplements Holding lisinopril hydrochlorothiazide Renal ultrasound okay Getting gentle fluids Creatinine shows minimal improvement at 1.55 from 1.94 Strongly advised to drink more fluid-sinew intravenous fluid as well With hydration creatinine has been normalized Strongly advised to drink more fluid 09/15 crea back to baseline TYPE 2 DIABETES Not on medications Diabetic diet Insulin sliding scale Follow HbA1c levels-remains mildly elevated and 7.3 HYPERTENSION Continue atenolol Lisinopril resumed HCTZ resumed monitor closely HYPOTHYROIDISM On Synthroid HYPERLIPIDEMIA On statin GERD On omeprazole DVT prophylaxis Heparin subcu Disposition hopefully can be discharged tomorrow Admission and Anticipated Discharge Date Admission Date: September 11, 2023 Subjective ff up for sinus bradycardia, etc s/p pacemaker placement resting in bed, comfortable states she feels fine overall no chest pain, dyspnea, palpitations, dizziness no other symptoms Review of Systems Review of Systems: all noted and negative except for above Physical Exam Physical Exam: General- oriented x 3, not in distress, speaks in sentences with no effort or accessory muscle use Eyes- anicteric Neck- no JVD Lungs- clear BS BL, no rales/wheezing Heart- normal rate, regular rhythm; no murmurs pacemaker site: no hematoma, bleeding Abdomen- normal bowel sounds, nondistended, soft, nontender Extremities- no pretibial edema, no calf tenderness Neuro- alert, oriented x 3; no gross focal neurologic deficits Skin- warm & dry Results & Data Results & Data Vital Signs (Past 12 Hours) Vital Signs Pulse Resp BP Pulse Ox O2 Del Method 09/15/23 15:15 60 18 167/52 H 97 Room Air 09/15/23 14:45 60 18 177/95 H 97 Room Air 09/15/23 14:15 60 18 159/71 H 97 Room Air 09/15/23 13:45 60 18 161/79 H 97 Room Air 09/15/23 13:15 61 18 164/90 H 97 Room Air 09/15/23 12:45 64 18 147/71 H 97 Room Air 09/15/23 12:30 66 18 146/82 H 97 Room Air 09/15/23 12:15 71 18 176/76 H 97 Room Air 09/15/23 12:00 69 18 121/98 97 Room Air 09/15/23 11:45 76 18 163/101 H 97 Room Air 09/15/23 11:30 73 18 142/96 H 97 Room Air 09/15/23 11:15 60 18 166/89 H 97 Room Air 09/15/23 11:00 60 18 157/87 H 96 Room Air 09/15/23 10:43 64 18 142/81 H 96 Room Air 09/15/23 10:30 60 18 163/98 H 97 Room Air 09/15/23 10:15 74 14 164/72 H 93 Room Air 09/15/23 09:59 77 14 157/81 H 93 Room Air 09/15/23 07:39 83 18 194/93 H 97 Room Air all noted and reviewed including below
--- NOTE | 2023-09-15 18:48 | Cardiology Progress Note ---
Date of Service September 15, 2023 Assessment & Plan (1) Bradycardia: Plan: -Sinus node dysfunction. Patient underwent implantation of a dual-chamber rate responsive pacemaker for symptomatic bradycardia, [employer]ia device. Post procedure chest x-ray within normal limits. Plan for discharge to home 09/16/2023 feeling well. Wound check, device clinic follow-up arranged. Admission and Anticipated Discharge Date Admission Date: September 11, 2023 Subjective Patient seen in cardiology follow-up, feeling well post pacemaker. Telemetry reveals sinus rhythm in 60s to 70s with occasional atrial pacing. Physical Exam Constitutional: WD/WN, vitals as above Eyes: PERRL, conjunctivae normal, anicteric sclerae ENMT: Mouth: + edentulous Respiratory: normal respiratory effort, lungs clear to auscultation Cardiovascular: RRR, no murmur, no edema Neurologic: PERRL, EOMI, accommodation nl, no face palsy, no dysarthria Results & Data Vital Signs (Past 12 Hours) Vital Signs Pulse Resp BP Pulse Ox O2 Del Method 09/15/23 15:15 60 18 167/52 H 97 Room Air 09/15/23 14:45 60 18 177/95 H 97 Room Air 09/15/23 14:15 60 18 159/71 H 97 Room Air 09/15/23 13:45 60 18 161/79 H 97 Room Air 09/15/23 13:15 61 18 164/90 H 97 Room Air 09/15/23 12:45 64 18 147/71 H 97 Room Air 09/15/23 12:30 66 18 146/82 H 97 Room Air 09/15/23 12:15 71 18 176/76 H 97 Room Air 09/15/23 12:00 69 18 121/98 97 Room Air 09/15/23 11:45 76 18 163/101 H 97 Room Air 09/15/23 11:30 73 18 142/96 H 97 Room Air 09/15/23 11:15 60 18 166/89 H 97 Room Air 09/15/23 11:00 60 18 157/87 H 96 Room Air 09/15/23 10:43 64 18 142/81 H 96 Room Air 09/15/23 10:30 60 18 163/98 H 97 Room Air 09/15/23 10:15 74 14 164/72 H 93 Room Air 09/15/23 09:59 77 14 157/81 H 93 Room Air 09/15/23 07:39 83 18 194/93 H 97 Room Air Diagnostic Findings Post procedure chest x-ray performed 09/15/2023, no pneumothorax, no pulmonary congestion
[2023-09-16] MEDS: LEVOTHYROXINE SODIUM 50 MCG TABLET PO SCH (05:38)
[2023-09-16] MEDS: INSULIN ASPART PER UNIT CHARGE SC SCH ×2 (09:03→11:45)
[2023-09-16] MEDS: hydroCHLOROthiazide 25 MG TAB PO SCH (09:04)
[2023-09-16] MEDS: PANTOprazole 40 MG TAB PO SCH (09:04)
[2023-09-16] MEDS: allopurinoL 300 MG TAB PO SCH (09:04)
[2023-09-16] MEDS: lisinopril 20 MG TAB PO SCH (09:04)
[2023-09-16] MEDS: ATORVASTATIN 40 MG TAB PO SCH (09:04)
[2023-09-16] MEDS: MAGNESIUM OXIDE 400 MG TAB PO SCH (09:04)
--- NOTE | 2023-09-16 11:27 | Cardiology Progress Note ---
Date of Service September 16, 2023 Assessment & Plan (1) Bradycardia: Plan: (2) MRI safe cardiac pacemaker in situ: Plan Dual-chamber pacemaker implanted without complication 09/15/2023. No evidence of pneumothorax per postprocedural chest x-ray. Continue current medications including lisinopril, hydrochlorothiazide, and atorvastatin. Outpatient wound check and device interrogation scheduled. No further inpatient cardiac testing or intervention recommended at this time. Patient may be discharged from a cardiovascular perspective. Admission and Anticipated Discharge Date Admission Date: September 11, 2023 Subjective Patient seen and examined at the bedside. Feeling well today. Dual-chamber pacemaker implanted yesterday without complication. Telemetry reveals sinus rhythm and atrial pacing at 60 bpm. Patient reports mild left shoulder discomfort. No significant ecchymosis or hematoma. Denies chest pain, heaviness, or shortness of breath. Review of Systems Review of Systems: All systems reviewed & are unremarkable except as noted in Subjective Physical Exam Constitutional: well nourished; no acute distress Respiratory: no respiratory distress and no labored breathing Auscultation: lungs clear to auscultation bilaterally; no crackles, no rales, no rhonchi and no wheezes Cardiovascular: Rate/Rhythm: regular rate and regular rhythm Heart Sounds: normal S1 and normal S2; no murmur Extremities: no edema Gastrointestinal (Abdomen): Inspection/Auscultation: abdomen normal to inspection; abdomen not distended Percussion/Palpation: abdomen soft; abdomen nontender, no guarding and abdomen not rigid Neurologic: CN's II-XI intact bilaterally and moves all extremities; no focal motor deficits Results & Data Vital Signs (Past 12 Hours) Vital Signs Temp Pulse Pulse Resp BP BP Pulse Ox 09/16/23 10:40 37.1 C 66 17 154/68 H 92 09/16/23 07:42 67 09/16/23 07:20 37.2 C 72 18 144/74 H 93 09/16/23 03:00 36.6 C 71 16 136/73 96 O2 Del Method 09/16/23 10:40 Room Air 09/16/23 07:42 09/16/23 07:20 Room Air 09/16/23 03:00 Room Air Laboratory Results Intake and Output 09/15/23 09/16/23 09/16/23 22:59 06:59 14:59 Other: # Unmeasured Voids 1 2 Weight 65.9 kg Weight Measurement Method Built in [facility]
--- NOTE | 2023-09-16 19:38 | Discharge Summary ---
Discharge Summary Date of Service September 16, 2023 Notes For Next Care Provider Medication Changes From Visit Atenolol discontinued Lasix changed to as needed Admission HPI Per Admitting Provider 88-year-old female with past medical history significant for type 2 diabetes, hyperlipidemia, hypothyroidism, CKD stage III, hypertension, GERD, primary open- angle glaucoma bilateral, who lives alone at home ambulates with a walker ,daughter lives close by was brought in because of headaches. Patient is somewhat hard of hearing. But answering appropriately. States she came for he adache. Says headaches are better now. Denies any chest pain or shortness of breath. No cough. No fevers. No abdominal pain. Normal bowel and bladder movements. Daughter also says there was no recent illness of the patient. As per daughter patient is on soft diet. Headache started yesterday. Past medical history. As mentioned above Past surgical history. EGD. Ligation of oviducts. Partial removal of eye fluid. Cataracts. Social history. . No smoking. No alcohol use. No drug use. Family history. Father had stroke. Mother had hypertension and heart disorder. Brother had cancer. Diabetes. Sister had diabetes. Admission Exam Per Admitting Provider General- Not in distress. hard of hearing. Head- atraumatic Eyes- PERRL. ENT- oropharynx clear Neck- supple, no JVD. Lungs- clear to auscultation no wheezing or crackles Heart- regular rhythm; no murmur, no gallop. Abdomen- normal bowel sounds, soft, nontender, no distension. Extremities- no pretibial edema, no erythema seen. Neuro- alert, oriented PERRL,; no facial palsy; no dysarthria; obeys simple commands. Skin- warm & dry Principal Dx & Hospital Course #1 = Principal Diagnosis (1) Bradycardia: per admitting service notes with addendum: (1) Headache: Plan: 88-year-old female with past medical history significant for type 2 diabetes, hyperlipidemia, hypothyroidism, CKD stage III, hypertension, GERD, primary open- angle glaucoma bilateral, who lives alone at home ambulates with a walker ,daughter lives close by was brought in because of headaches. Patient is somewhat hard of hearing. But answering appropriately. States she came for headache. Says headaches are better now. Denies any chest pain or shortness of breath. No cough. No fevers. No abdominal pain. Normal bowel and bladder movements. Daughter also says there was no recent illness of the patient. As per daughter patient is on soft diet. Headache started yesterday. ACUTE BRADYCARDIA Heart rate went down as low as 29 EKG did not show sinus bradycardia with arrhythmia Echo of the heart showed: Moderate concentric LVH, LV wall motion is normal, LV systolic function is normal with EF 60 to 65%, mild to moderate mitral r egurgitation, grade 1 diastolic dysfunction, pulmonary artery systolic pressure is estimated to be 51 mmHg. 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 09/15 s/p pacemaker placement Remains stable overall Atenolol discontinued Pacemaker check in 1 week at cardiology clinic Headaches-admitted with headache without any neurological symptoms CT head: Workup showed arachnoid cyst Followed up with neurosurgery and MRI scan 03/2023 showed large left bilateral convexity arachnoid cyst without significant change from prior exams Resolved AVA ON CKD STAGE III Presented with creatinine 1.9 Baseline creatinine around 1 Renal ultrasound okay Given IV fluids 09/15 crea back to baseline TYPE 2 DIABETES Not on medications Diabetic diet Follow HbA1c levels-remains mildly elevated and 7.3 Outpatient follow-up HYPERTENSION Continue lisinopril, HCTZ HYPOTHYROIDISM On Synthroid HYPERLIPIDEMIA On statin GERD On omeprazole Discharge home PCP follow-up in 1 week Cardiology follow-up in 1 week Discharge Exam General- oriented x 3, not in distress, speaks in sentences with no effort or accessory muscle use Eyes- anicteric Neck- no JVD Lungs- clear breath sounds bilaterally, no rales/wheezes Heart- normal rate, regular rhythm; no murmurs Pacemaker site: No hematoma, bleeding Abdomen- normal bowel sounds, nondistended, soft, nontender Extremities- no pretibial edema, no calf tenderness Neuro- alert, oriented x 3; no gross focal neurologic deficits Skin- warm & dry Updated Medication List Medication Instructions Recorded Confirmed Type allopurinol 300 mg tablet 300 mg PO DAILY 09/11/23 09/11/23 History atorvastatin 40 mg tablet 40 mg PO DAILY 09/11/23 09/11/23 History levothyroxine 50 mcg tablet 50 mcg PO DAILY 09/11/23 09/11/23 History lisinopril 20 1 tab PO DAILY 09/11/23 09/11/23 History mg-hydrochlorothiazide 25 mg tablet omeprazole 20 mg capsule,delayed 20 mg PO DAILY 09/11/23 09/11/23 History release furosemide 20 mg tablet 20 mg PO DAILY PRN leg swelling 09/16/23 09/11/23 Rx #30 tabs magnesium oxide 400 mg (241.3 mg 400 mg PO BID 7 days #14 tabs 09/16/23 Rx magnesium) tablet potassium chloride 10 mEq 10 meq PO DAILY PRN take with 09/16/23 09/11/23 Rx capsule,extended release Lasix #30 caps Hospital Stay Data Consultations 09/10/23 22:31 ED Decision to Admit Stat 09/11/23 13:28 Consult Cardiology Routine Procedures Performed Operation Date: 09/15/23 08:00 Actual Procedures p Pacer with A/V Leads (Dual) - DO sophia Flaherty Bundle of his Recording - DO sophia Flaherty Venogram, Unilateral - Stephany Castrejon DO Diagnostic Imagining Performed Laboratory Results WBC 8.82 K/ul (4.8-10.8) 09/12/23 06:06 RBC 3.16 M/uL (4.20-5.40) L 09/12/23 06:06 Hgb 10.3 g/dl (12.0-16.0) L 09/12/23 06:06 Hct 30.4 % (37.0-47.0) L 09/12/23 06:06 MCV 96.2 fL (80.0-100.0) 09/12/23 06:06 MCH 32.6 pg (25.0-34.0) 09/12/23 06:06 MCHC 33.9 g/dL (32.0-36.0) 09/12/23 06:06 RDW Std Deviation 49.7 fL (36.4-46.3) H 09/12/23 06:06 RDW Coeff of Adolfo 14.3 % (11.5-14.5) 09/12/23 06:06 Plt Count 240 K/uL (130-400) 09/12/23 06:06 MPV 10.5 fL (9.4-12.4) 09/12/23 06:06 Immature Gran % (Auto) 0.5 % 09/12/23 06:06 Neut % (Auto) 48.5 % 09/12/23 06:06 Lymph % (Auto) 33.2 % 09/12/23 06:06 [place] % (Auto) 10.9 % 09/12/23 06:06 Eos % (Auto) 6.3 % 09/12/23 06:06 Baso % (Auto) 0.6 % 09/12/23 06:06 Neut # (Auto) 4.28 K/uL (1.40-6.50) 09/12/23 06:06 Lymph # (Auto) 2.93 K/uL (1.20-3.40) 09/12/23 06:06 [place] # (Auto) 0.96 K/uL (0.11-0.59) H 09/12/23 06:06 Eos # (Auto) 0.56 K/uL (0.00-0.50) H 09/12/23 06:06 Baso # (Auto) 0.05 K/uL (0.00-0.20) 09/12/23 06:06 Immature Gran # (Auto) 0.04 K/uL (0.01-0.20) 09/12/23 06:06 ESR 9 mm/hr (0-30) 09/11/23 06:56 Sodium 130 mmol/L (136-145) L 09/14/23 09:06 Potassium 3.9 mmol/L (3.5-5.1) 09/14/23 09:06 Chloride 99 mmol/L (98-107) 09/14/23 09:06 Carbon Dioxide 23 mmol/L (21-32) 09/14/23 09:06 Anion Gap 8 (3-11) 09/14/23 09:06 BUN 21 mg/dl (6-23) 09/14/23 09:06 Creatinine 0.91 mg/dl (0.6-1.2) 09/14/23 09:06 Est Cr Clr Drug Dosing 38.1 ml/min 09/14/23 09:06 Est GFR ( Amer) 65.3 ml/min 09/14/23 09:06 Est GFR (Non-Af Amer) 56.3 ml/min 09/14/23 09:06 BUN/Creatinine Ratio 23.1 (10-20) H 09/14/23 09:06 Glucose 130 mg/dl (70-99(Fasting)) H 09/14/23 09:06 POC Glucose 96 mg/dl (70-99) 09/16/23 11:11 Estimat Average Glucose 163 mg/dl 09/11/23 06:56 Hemoglobin A1c 7.3 % (4.5-5.6) H 09/11/23 06:56 Calcium 8.9 mg/dl (8.6-10.3) 09/14/23 09:06 Phosphorus 2.9 mg/dl (2.5-4.9) 09/12/23 06:06 Magnesium 1.6 mg/dl (1.7-2.4) L 09/14/23 09:06 Total Bilirubin 0.4 mg/dl (0.2-1.0) 09/10/23 21:15 AST 29 U/L (13-39) 09/10/23 21:15 ALT 17 U/L (7-52) 09/10/23 21:15 Alkaline Phosphatase 60 U/L (34-104) 09/10/23 21:15 Total Protein 7.6 gm/dl (6.0-8.3) 09/10/23 21:15 Albumin 4.6 gm/dl (3.4-5.0) 09/10/23 21:15 Globulin 3.0 gm/dl (2.5-4.0) 09/10/23 21:15 Albumin/Globulin Ratio 1.5 (0.9-2) 09/10/23 21:15 TSH 4.106 uIu/ml (0.300-4.500) 09/14/23 09:06 Urine Color Yellow 09/12/23 03:28 Urine Appearance Clear (Clear) 09/12/23 03:28 Urine pH 7.0 (4.5-7.5) 09/12/23 03:28 Ur Specific [place] 1.010 (1.000-1.030) 09/12/23 03:28 Urine Protein Negative (Negative) 09/12/23 03:28 Urine Glucose (UA) Negative (Negative) 09/12/23 03:28 Urine Ketones Negative (Negative) 09/12/23 03:28 Urine Blood Negative (Negative) 09/12/23 03:28 Urine Nitrite Negative (Negative) 09/12/23 03:28 Urine Bilirubin Negative (Negative) 09/12/23 03:28 Urine Urobilinogen Negative (Negative) 09/12/23 03:28 Ur Leukocyte Esterase Trace (Negative) H 09/12/23 03:28 Urine WBC (Auto) 1-5 /hpf (0-5) 09/12/23 03:28 Urine RBC (Auto) 0-4 /hpf (0-4) 09/12/23 03:28 U Hyaline Cast (Auto) 0 /lpf (0-5) 09/12/23 03:28 U Epithel Cells (Auto) 5-10 /lpf (0-5) H 09/12/23 03:28 Urine Bacteria (Auto) Negative (Negative) 09/12/23 03:28 SARS-CoV-2 (PCR) NEGATIVE (Negative) 09/10/23 21:09 Influenza Type A (PCR) Negative (Neg) 09/10/23 21:09 Influenza Type B (PCR) Negative (Neg) 09/10/23 21:09 RSV (RT-PCR) Negative (Neg) 09/10/23 21:[address] 09/10/23 21:30 Exam(s): CT HEAD Without Contrast EXAM: CT Head Without Intravenous Contrast CLINICAL HISTORY: Reason for exam: bee. TECHNIQUE: Axial computed tomography images of the head/brain without intravenous contrast. Automated exposure control was utilized for the study. A dose lowering technique was utilized adhering to the principles of ALARA. COMPARISON: 02/09/23 FINDINGS: Brain: Stable cystic extra-axial mass along the left parietal convexity measuring 5.4 x 3.3 x 3.8 cm, possibly convexity arachnoid cyst. Generalized parenchymal volume loss. Chronic small vessel ischemic changes. Alanis-white matter differentiation maintained. No acute intracranial hemorrhage, mass-effect, or edema. Ventricles: Unremarkable. No hydrocephalus. Bones/joints: Unremarkable. No acute fracture. Soft tissues: Unremarkable. Vasculature: Intracranial atherosclerosis. Sinuses: Unremarkable as visualized. No acute sinusitis. Mastoid air cells: Unremarkable as visualized. No mastoid effusion. Orbits: Right-sided intraocular lens replacement. IMPRESSION: No acute intracranial process. Electronically signed by: Aime Boland M.D. 09/10/23 22:10 PM Renal Ultrasound 09/10/23 22:26 Exam(s): US RENAL EXAM: US Retroperitoneal Limited, Renal CLINICAL HISTORY: Reason for exam: ava. TECHNIQUE: Real-time limited ultrasound of the retroperitoneum with image documentation. COMPARISON: No relevant prior studies available. FINDINGS: Right kidney: Echogenic, atrophic right kidney measuring 8.9 cm. No hydronephrosis, mass, or stone. Multiple simple cysts, largest 1.8 cm; no further follow-up required. Left kidney: Echogenic, atrophic left kidney measuring 9.2 cm. Pelviectasis without denisse hydronephrosis. No mass or stone. Multiple simple cysts, largest 1.8 cm; no further follow-up required. Bladder: Urinary bladder appears unremarkable. Ureteral jets not visualized during the course of exam. IMPRESSION: Findings compatible with medical renal disease. No hydronephrosis. Electronically signed by: Aime Boland M.D. 09/10/23 23:32 PM Chest X-Ray 09/15/23 12:00 SINGLE VIEW CHEST CLINICAL HISTORY: Pacemaker implantation. FINDINGS: An AP, portable, upright chest radiograph is compared to study dated 02/07/2023. The examination is degraded by portable technique and apical lordotic positioning. A 2-lead cardiac pacemaker has been implanted. Leads project over the right atrial appendage and the right ventricle. The heart is enlarged noting atherosclerotic calcification of the thoracic aorta. The pulmonary vasculature is noncongested. Chronic reticular thickening similar to previous. There is bibasilar scarring/atelectasis. No airspace consolidation or large pleural effusion is identified. No pneumothorax is seen. The skeletal structures are osteopenic. The bony thorax is grossly intact. IMPRESSION: 1. A 2-lead cardiac pacemaker has been implanted as above. No pneumothorax is identified post procedure. 2. Cardiomegaly without radiographic evidence of congestive failure. 3. No airspace consolidation or pleural effusion is identified. ACT 112: Negative or not required by law. Electronically signed by: Reid Tucker M.D. 09/15/2023 1:57 PM Pending Results Patient Have Any Pending Studies at Discharge: No Discharge Instructions Given to Patient (Per Discharging Provider) STOP ATENOLOL THIS CAN CAUSE SLOW HEART RATE. Use Lasix only as needed for leg swelling. Continue the rest of her usual medications PLEASE CALL YOUR PRIMARY CARE PHYSICIAN OR RETURN TO THE ER IF WITH WORSENING OF SYMPTOMS, INCLUDING Dizziness, weakness, lightheadedness, chest pain, shortness of breath, palpitations, etc. FOLLOW UP WITH PRIMARY CARE PHYSICIAN OUTLINED ABOVE. FOLLOW-UP WITH THE MEDICAL MANAGEMENT TRAINER IN 1 WEEK FOR PACEMAKER CHECK. THE CLINIC WILL BE CALLING YOU SOON FOR THE APPOINTMENT Total Time Total Time Spent Total Time Spent (In Minutes): >30 minutes
== END 2023-09-16 15:41 | disposition home or self-care (01) | DRG 982 ==
LOC: ED 20:56 → SUATTDRO 09-11 01:59 → EDINP 09-11 01:59 → 2N 09-11 02:54 → 2E 09-15 15:56

== ENCOUNTER 2023-09-21 16:19 | Inpatient (IN) ==
--- NOTE | 2023-09-21 16:29 | Emergency Department Note ---
History of Present Illness General Chief complaint: Cardiac Assessment Stated complaint: PALPITATIONS Time Seen by Provider: 09/21/23 16:20 History of Present Illness 88-year-old female presents to the emergency department via EMS reportedly had palpitations that started at noon today. Patient states they started while she was at rest. Patient denies any chest pain shortness of breath nausea vomiting diarrhea. Patient of note had a pacemaker placed on the 15 September 2023. Patient denies any current shortness of breath denies chest pain denies any other complaints. There are no other mitigating or alleviating factors. Per EMS she was given 4 baby aspirin prior to hospital arrival Home Medications Medication Instructions Recorded Confirmed Type allopurinol 300 mg tablet 300 mg PO DAILY 09/11/23 09/21/23 History atorvastatin 40 mg tablet 40 mg PO DAILY 09/11/23 09/21/23 History levothyroxine 50 mcg tablet 50 mcg PO DAILY 09/11/23 09/21/23 History lisinopril 20 1 tab PO DAILY 09/11/23 09/21/23 History mg-hydrochlorothiazide 25 mg tablet omeprazole 20 mg capsule,delayed 20 mg PO DAILY 09/11/23 09/21/23 History release magnesium oxide 400 mg (241.3 mg 400 mg PO BID 7 days #14 tabs 09/16/23 09/21/23 Rx magnesium) tablet furosemide 20 mg tablet 20 mg PO DAILY 09/21/23 09/21/23 History potassium chloride 10 mEq 10 meq PO DAILY 09/21/23 09/21/23 History capsule,extended release Allergies Allergy/AdvReac Type Severity Reaction Status Date / Time No Known Allergies Allergy Verified 09/21/23 17:16 Past Med/Surg History Medical History (Updated 09/21/23 @ 18:56 by Naeem Davis DO) Pacemaker CKD (chronic kidney disease) Palpitations Left-sided headache Thyroid disease Gout High blood pressure Social History Smoking Status: Never smoker Hx Alcohol Use: No Hx Substance Use: No Preferred Language: Maori Communication Ability: Effective Cheese Cutter Required: No Beliefs That Will Affect Care: None Current Living Situation: Alone Feels Safe at Home: Yes Assistive Devices: Glasses and Walker Review of Systems A total of 10 systems reviewed and were otherwise negative Cardiovascular: + palpitations Physical Exam Vital Signs Vital Signs - 24 hr 09/21/23 16:28 09/21/23 16:47 09/21/23 17:16 Temperature 36.8 C Temperature Source Temporal Artery Scan Pulse Rate 116 H 101 H 98 H Pulse Rate [Apical] Pulse Rhythm Regular Pulse Rhythm [Apical] Pulse Strength [Apical] Respiratory Rate 19 20 Respiratory Effort / Characteristics Non-Labored Spontaneous Respiratory Depth Normal Respiratory Pattern Blood Pressure 200/99 H Blood Pressure [Right Arm] Blood Pressure Mean 132 Blood Pressure Mean [Right Arm] Blood Pressure Position [Right Arm] Pulse Oximetry 97 95 Oxygen Delivery Method Room Air Room Air Sepsis Recent Fever Within 48 Hours No Sepsis New/Unexplained Change in Mental Status No Sepsis Action Taken by Nursing No Action Required 09/21/23 17:16 09/21/23 17:16 Temperature Temperature Source Pulse Rate Pulse Rate [Apical] 98 H Pulse Rhythm Pulse Rhythm [Apical] Regular Pulse Strength [Apical] Normal Respiratory Rate 20 Respiratory Effort / Characteristics Non-Labored Spontaneous Respiratory Depth Normal Respiratory Pattern Regular Blood Pressure Blood Pressure [Right Arm] 173/91 H Blood Pressure Mean Blood Pressure Mean [Right Arm] 118 Blood Pressure Position [Right Arm] Semi-fowlers Pulse Oximetry 95 Oxygen Delivery Method Room Air Room Air Sepsis Recent Fever Within 48 Hours Sepsis New/Unexplained Change in Mental Status Sepsis Action Taken by Nursing GENERAL: Patient is awake alert in no acute distress patient is resting comfortably and showing no signs of anxiety EYES: The conjunctivae are clear. The pupils are round and reactive. EARS, NOSE, MOUTH AND THROAT: The nose is without any evidence of any deformity. Mucous membranes are moist. Tongue is midline. NECK: The neck is nontender and supple. RESPIRATORY: Normal respiratory effort is noted there is no evidence of wheezing rhonchi or rales Chest exam reveals a new pacemaker pocket present with an area of ecchymosis there is no drainage from the site CARDIOVASCULAR: Regular rate and rhythm noted there no murmurs rubs or gallops normal S1 normal S2. GASTROINTESTINAL: The abdomen is soft. Abdomen is nontender. BACK: No midline tenderness or or step-off noted range of motion in flexion extension as well as rotation no signs of muscle spasm noted MUSCULOSKELETAL/EXTREMITIES: There is no evidence of gross deformity full range of motion is noted in the hips and shoulders. SKIN: There is no obvious evidence of any rash. There are no petechiae, pallor or cyanosis noted. NEUROLOGIC: Patient is awake alert and oriented x2 strength is symmetric Course Reevaluation(s) Reevaluation #1: Patient is resting in no distress on repeat examination. Time: 18:00 Consultations Consultation #1: Case was discussed with the [facility] for admission Time: 18:55 Medical Decision Making Medical Records Attestation: I reviewed the patient's medical records. Home Medications Current Medication List: was personally reviewed by me Laboratory Data Attestation: I reviewed the patient's lab results. Lab results interpreted by me patient has a mild leukocytosis, patient has a mildly elevated troponin 09/21/23 16:30 09/21/23 16:30 Lab Results 09/21/23 Range/Units 16:30 WBC 12.36 H (4.8-10.8) K/ul RBC 3.18 L (4.20-5.40) M/uL Hgb 10.3 L (12.0-16.0) g/dl Hct 29.5 L (37.0-47.0) % MCV 92.8 (80.0-100.0) fL MCH 32.4 (25.0-34.0) pg MCHC 34.9 (32.0-36.0) g/dL RDW Std Deviation 47.7 H (36.4-46.3) fL RDW Coeff of Adolfo 13.9 (11.5-14.5) % Plt Count 275 (130-400) K/uL MPV 10.2 (9.4-12.4) fL Immature Gran % (Auto) 0.3 % Neut % (Auto) 63.3 % Lymph % (Auto) 20.2 % [place] % (Auto) 12.7 % Eos % (Auto) 3.1 % Baso % (Auto) 0.4 % Neut # (Auto) 7.82 H (1.40-6.50) K/uL Lymph # (Auto) 2.50 (1.20-3.40) K/uL [place] # (Auto) 1.57 H (0.11-0.59) K/uL Eos # (Auto) 0.38 (0.00-0.50) K/uL Baso # (Auto) 0.05 (0.00-0.20) K/uL Immature Gran # (Auto) 0.04 (0.01-0.20) K/uL PT 10.9 (9.0-12.0) Seconds INR 1.0 (0.9-1.1) APTT 33 H (21-31) Seconds PTT Ratio 1.2 Sodium 130 L (136-145) mmol/L Potassium 3.9 (3.5-5.1) mmol/L Chloride 95 L (98-107) mmol/L Carbon Dioxide 26 (21-32) mmol/L Anion Gap 9 (3-11) BUN 25 H (6-23) mg/dl Creatinine 1.11 (0.6-1.2) mg/dl Est Cr Clr Drug Dosing 31.8 ml/min Est GFR ( Amer) 51.3 ml/min Est GFR (Non-Af Amer) 44.3 ml/min BUN/Creatinine Ratio 22.5 H (10-20) Glucose 130 H (70-99(Fasting)) mg/dl Calcium 9.1 (8.6-10.3) mg/dl Total Bilirubin 0.6 (0.2-1.0) mg/dl AST 20 (13-39) U/L ALT 14 (7-52) U/L Alkaline Phosphatase 64 (34-104) U/L Troponin I High Sens 31.2 H (0-14) pg/ml Total Protein 7.0 (6.0-8.3) gm/dl Albumin 4.0 (3.4-5.0) gm/dl Globulin 3.0 (2.5-4.0) gm/dl Albumin/Globulin Ratio 1.3 (0.9-2) Imaging Data Attestation: I personally reviewed and interpreted this imaging study as follows: My Impression: Chest x-ray interpreted by me the pacemaker is in good position the wires are intact there is no pneumothorax there is no obvious infiltrate Radiologist's Impression: Chest X-Ray 09/21/23 16:21 SINGLE VIEW CHEST CLINICAL HISTORY: Atypical chest pain FINDINGS: An AP, portable, upright chest radiograph is compared to study dated 09/15/2023. The examination is degraded by portable technique and patient rotation. A 2-lead cardiac pacemaker is unchanged in position. The heart is enlarged noting atherosclerotic calcification of the thoracic aorta. The pulmonary vasculature is noncongested. Chronic interstitial thickening similar to previous. There is mild bibasilar scarring/atelectasis. The lungs and pleural spaces are otherwise clear. No pneumothorax is seen. The skeletal structures are osteopenic. The bony thorax is grossly intact. IMPRESSION: 1. Cardiomegaly and cardiac pacemaker without radiographic evidence of congestive failure. 2. No airspace consolidation or large pleural effusion is identified.. ACT 112: Negative or not required by law. Electronically signed by: Reid Tucker M.D. 09/21/2023 5:13 PM ECG Data Attestation: I personally reviewed and interpreted this ECG as follows: Additional Comments: EKG interpreted by me, sinus tachycardia rate of 113 age-indeterminate inferior wall SC, left axis deviation, no obvious ST segment elevation or depression Telemetry was ordered by me, interpreted as sinus tachycardia rate of 107 MDM Narrative Medical decision making differential diagnosis includes cardiac dysrhythmia, pacemaker dysfunction, electrolyte abnormality, metabolic derangement, anxiety Plan is to check labs, EKG, chest x-ray I have reviewed the cardiology notes of 09/15/[address] Brandt in which the patient received a dual-chamber pacemaker it is an [employer] brand for sinus node dysfunction and bradycardia Patient has a heart score 4 Will admit the patient for an elevated troponin tachycardia and post pacemaker insertion Case was discussed with the [facility] hospitalist for admission Impression & Plan Chest pain, Palpitations Discharge Plan Visit Data Chief Complaint: Cardiac Assessment Stated Complaint: PALPITATIONS ED Provider: Naeem Davis Discharge Problem: Chest pain, Palpitations Patient Disposition: Admitted As Inpatient Forms Stand Alone Forms: My [facility] Prescriptions Prescriptions: No Action atorvastatin 40 mg tablet 40 mg PO DAILY levothyroxine 50 mcg tablet 50 mcg PO DAILY omeprazole 20 mg capsule,delayed release(DR/EC) 20 mg PO DAILY lisinopril-hydrochlorothiazide 20-25 mg tablet 1 tab PO DAILY allopurinol 300 mg tablet 300 mg PO DAILY magnesium oxide 400 mg (241.3 mg magnesium) Tablet 400 mg PO BID 7 Days Qty: 14 0RF potassium chloride 10 mEq capsule, extended release 10 meq PO DAILY furosemide 20 mg tablet 20 mg PO DAILY Referrals Referrals: Ricardo Guerra MD [Primary Care Provider] -
[2023-09-21 16:56] LABS: Basophils # (auto) 0.05 K/uL (0.00-0.20); Basophils % (auto) 0.4 %; Eosinophils # (auto) 0.38 K/uL (0.00-0.50); Eosinophils % (auto) 3.1 %; Hematocrit (blood only) 29.5 % (37.0-47.0); Hemoglobin 10.3 g/dl (12.0-16.0); Immature Granulocytes # (auto) 0.04 K/uL (0.01-0.20); Immature Granulocytes % (auto) 0.3 %; Lymphocytes % (auto) 20.2 %; Mean Corpuscular Hemoglobin 32.4 pg (25.0-34.0); Mean Corpuscular Hgb Conc 34.9 g/dL (32.0-36.0); Mean Corpuscular Volume 92.8 fL (80.0-100.0); Mean Platelet Volume 10.2 fL (9.4-12.4); Monocytes # (auto) 1.57 K/uL (0.11-0.59); Monocytes % (auto) 12.7 %; Neutrophils # (auto) 7.82 K/uL (1.40-6.50); Neutrophils % (auto) 63.3 %; Platelet Count 275 K/uL (130-400); RDW Coefficient of Variation 13.9 % (11.5-14.5); RDW Standard Deviation 47.7 fL (36.4-46.3); Red Blood Count 3.18 M/uL (4.20-5.40); White Blood Count 12.36 K/ul (4.8-10.8)
[2023-09-21 17:08] LABS: Albumin Globulin Ratio 1.3 (0.9-2); BUN Creatinine Ratio 22.5 (10-20); Bilirubin,Total 0.6 mg/dl (0.2-1.0); Calcium 9.1 mg/dl (8.6-10.3); Creatinine Clr Calc Pharmacy 31.8 ml/min; Est GFR (African American) 51.3 ml/min; Est GFR (Non-African American) 44.3 ml/min; Potassium 3.9 mmol/L (3.5-5.1)
[2023-09-21 17:14] LABS: Troponin I High Sensitivity 31.2 pg/ml (0-14)
--- NOTE | 2023-09-21 17:15 | XRay Report ---
SINGLE VIEW CHEST CLINICAL HISTORY: Atypical chest pain FINDINGS: An AP, portable, upright chest radiograph is compared to study dated 09/15/2023. The examina tion is degraded by portable technique and patient rotation. A 2-lead cardiac pacemaker is unchanged in position. The heart is enlarged noting atherosclerotic calcification of the thoracic aorta. The pu lmonary vasculature is noncongested. Chronic interstitial thickening similar to previous. There is mi ld bibasilar scarring/atelectasis. The lungs and pleural spaces are otherwise clear. No pneumothorax is seen. The skeletal structures are osteopenic. The bony thorax is grossly intact. IMPRESSION: 1. Cardiomegaly and cardiac pacemaker without radiographic evidence of congestive failure. 2. No airspace consolidation or large pleural effusion is identified.. ACT 112: Negative or not required by law. Electronically signed by: Reid Tucker M.D. 09/21/2023 5:13 PM
[2023-09-21 17:29] LABS: Partial Thromboplastin Ratio 1.2; Partial Thromboplastin Time 33 Seconds (21-31); Prothrombin Time 10.9 Seconds (9.0-12.0)
[2023-09-21] MEDS ORDERED: ONDANSETRON INJ 2 MG/ML 2 ML VIAL IV PRN (17:58)
[2023-09-21] MEDS ORDERED: ALUMINUM/MAGNESIUM SUSP 30 ML UDC PO PRN (17:58)
[2023-09-21] MEDS ORDERED: POLYETHYLENE (MIRALAX) 17 GM PACK PO PRN (17:58)
[2023-09-21] MEDS ORDERED: MAGNESIUM HYDROXIDE SUSP 30 ML UDC PO PRN (17:58)
[2023-09-21] MEDS ORDERED: ACETAMINOPHEN 325 MG TAB PO PRN (17:58)
--- NOTE | 2023-09-21 18:01 | History & Physical Report ---
Date of Service September 21, 2023 Assessment & Plan (1) Palpitations: (2) Pacemaker: (3) Diarrhea: (4) High blood pressure: (5) Thyroid disease: (6) CKD (chronic kidney disease): Plan Ms. Purcell is an 88 year old female that presented to the ED with complaints of dizziness and chest pain that radiated to her back that started today at noon while she was eating lunch and lasted until her arrival in the ED. She also reports having liquid diarrhea twice today. 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 Today, EMS provided ASA x4. ECG in the ED ST 113 without ischemia. Mild leukocytosis 12.36, Troponin 31.2. CXR was negative for acute cardiopulmonary disease; pacer wires are present and intact. Most recent ECHO 09/2023: EF 60-65%, mild to moderate MR, Grade I DDX, normal LV wall motion. Patient denies DAILEY, current chest pain, N/V/D, hematochezia, dysuria, abdominal pain or tenderness, recent falls or trauma. Denies tobacco, alcohol use, or recreational drug use. She is sitting upright in her hospital bed in no apparent distress. She is [place], but able to answer all questions appropriately. Will admit patient for further review of interrogation of pacemaker, trending of troponin, hold Lasix, NPO after midnight, Check stool for infection, including CD, and Cardiology consultation. 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/bradycardia Received ASA x4 via EMS; currently chest pain and palpitation free ECG ST without ischemia Initial Troponin 31.2; do not suspect ACS; will trend Troponin Most recent ECHO 09/2023: EF 60-65%, mild to moderate MR, Grade I DDX, normal LV wall motion CXR negative for acute cardiopulmonary disease; pacer wires are present and intact Interrogation of pacer done in ED; awaiting results NPO after [place] Cardiology consult placed Diarrhea: Acute Occured x2 today Will check stool culture and CD HTN: Chronic Takes Lisinopril/HCTZ; continue Takes Lasix and K+ supplements; hold for now HLD: Chronic Takes Atorvastatin;continue Hypothyroidism: Chronic Takes Levothyroxine;continue GERD: Chronic Takes Omeprazole;continue Disposition: PCP: Dr. Guerra Code Status: Full Code VTE Prophylaxis: Teds and SCDs for now I spent a total of 87 minutes coordinating, documenting, and providing care for this patient excluding time spent in the performance of separately billed services. All of the aforementioned completed while collaborating with the assigned attending physician for a full treatment plan. Please see their addendum for further details. History of Present Illness Chief Complaint: chest pain Primary Care Provider: Ricardo Guerra MD Ms. Purcell is an 88 year old female that presented to the ED with complaints of dizziness and pain in the back that started today at noon while she was eating lunch and lasted until her arrival in the ED. She also reports having liquid diarrhea twice today. 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 Today, EMS provided ASA x4. ECG in the ED ST 113 without ischemia. Mild leukocytosis 12.36, Troponin 31.2. CXR was negative for acute cardiopulmonary disease; pacer wires are present and intact. Most recent ECHO 09/2023: EF 60-65%, mild to moderate MR, Grade I DDX, normal LV wall motion. Patient denies DAILEY, current chest pain, N/V/D, hematochezia, dysuria, abdominal pain or tenderness, recent falls or trauma. Denies tobacco, alcohol use, or recreational drug use. She is sitting upright in her hospital bed in no apparent distress. She is [place], but able to answer all questions appropriately. Will admit patient for further review of interrogation of pacemaker, trending of troponin, hold Lasix, NPO after midnight, Check stool for infection, including CD, and Cardiology consultation. Patient will be admitted for further evaluation and management. Please see A/P for further details. Allergies Allergy/AdvReac Type Severity Reaction Status Date / Time No Known Allergies Allergy Verified 09/21/23 17:16 Home Medications Medication Instructions Recorded Confirmed Type allopurinol 300 mg tablet 300 mg PO DAILY 09/11/23 09/21/23 History atorvastatin 40 mg tablet 40 mg PO DAILY 09/11/23 09/21/23 History levothyroxine 50 mcg tablet 50 mcg PO DAILY 09/11/23 09/21/23 History lisinopril 20 1 tab PO DAILY 09/11/23 09/21/23 History mg-hydrochlorothiazide 25 mg tablet omeprazole 20 mg capsule,delayed 20 mg PO DAILY 09/11/23 09/21/23 History release magnesium oxide 400 mg (241.3 mg 400 mg PO BID 7 days #14 tabs 09/16/23 09/21/23 Rx magnesium) tablet furosemide 20 mg tablet 20 mg PO DAILY 09/21/23 09/21/23 History potassium chloride 10 mEq 10 meq PO DAILY 09/21/23 09/21/23 History capsule,extended release Past Med/Surg History Medical History (Updated 09/21/23 @ 19:25 by MARIANO Chaudhari) Diarrhea Pacemaker CKD (chronic kidney disease) Palpitations Left-sided headache Thyroid disease Gout High blood pressure Social History Smoking Status: Never smoker Hx Alcohol Use: No Hx Substance Use: No Preferred Language: Portuguese Communication Ability: Effective 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 Art's addendum for physical examination Results & Data Results & Data Vital Signs (Past 12 Hours) Vital Signs Temp Pulse Pulse Resp BP BP Pulse Ox 09/21/23 17:16 98 H 20 173/91 H 95 09/21/23 17:16 09/21/23 17:16 98 H 20 95 09/21/23 16:47 101 H 09/21/23 16:28 36.8 C 116 H 19 200/99 H 97 O2 Del Method 09/21/23 17:16 Room Air 09/21/23 17:16 Room Air 09/21/23 17:16 Room Air 09/21/23 16:47 09/21/23 16:28 Room Air Laboratory Results Short CBC 09/21/23 Range/Units 16:30 WBC 12.36 H (4.8-10.8) K/ul Hgb 10.3 L (12.0-16.0) g/dl Hct 29.5 L (37.0-47.0) % Plt Count 275 (130-400) K/uL BMP 09/21/23 16:30 Sodium 130 L Potassium 3.9 Chloride 95 L Carbon Dioxide 26 BUN 25 H Creatinine 1.11 Glucose 130 H Calcium 9.1 Liver Function 09/21/23 Range/Units 16:30 Total Bilirubin 0.6 (0.2-1.0) mg/dl AST 20 (13-39) U/L ALT 14 (7-52) U/L Alkaline Phosphatase 64 (34-104) U/L Albumin 4.0 (3.4-5.0) gm/dl Diagnostic Findings Chest X-Ray 09/21/23 16:21 SINGLE VIEW CHEST CLINICAL HISTORY: Atypical chest pain FINDINGS: An AP, portable, upright chest radiograph is compared to study dated 09/15/2023. The examination is degraded by portable technique and patient rotation. A 2-lead cardiac pacemaker is unchanged in position. The heart is enlarged noting atherosclerotic calcification of the thoracic aorta. The pulmonary vasculature is noncongested. Chronic interstitial thickening similar to previous. There is mild bibasilar scarring/atelectasis. The lungs and pleural spaces are otherwise clear. No pneumothorax is seen. The skeletal structures are osteopenic. The bony thorax is grossly intact. IMPRESSION: 1. Cardiomegaly and cardiac pacemaker without radiographic evidence of congestive failure. 2. No airspace consolidation or large pleural effusion is identified.. ACT 112: Negative or not required by law. Electronically signed by: Reid Tucker M.D. 09/21/2023 5:13 PM Code Status & VTE Plan Code Status Full code in the event of cardiac or respiratory arrest VTE Prophylaxis Plan VTE Prophylaxis will be ordered: Yes Supervising Physician Co-Signing Physician Notes 88 year old woman with h/o type 2 diabetes, hyperlipidemia, hypothyroidism, CKD stage III, hypertension, GERD, primary open-angle glaucoma bilateral, recent PPM on 09/15/23 that presented to the ED with complaints of dizziness and pain in the back of her shoulders that started today at noon while she was eating lunch and lasted until her arrival in the ED Reported an episode of diarrhea before episode started and another afterwards General: Elderly woman in no distress Eyes: PERRL, conjunctivae normal, not pale, anicteric sclerae, EOM intact bilaterally ENMT: +hearing deficits, Has hearing aid Respiratory: Normal respiratory effort, no respiratory distress, lungs clear to auscultation, no crackles and no wheezes Cardiovascular: RRR S1 S2 Chest: Clean dressing over PPM site Gastrointestinal (Abdomen): Abdomen is not distended, soft, non-tender to palpation, no guarding, no palpable hepatosplenomegaly, normal bowel sounds Musculoskeletal: No pedal edema Neurologic: Alert and oriented x 3, No focal weakness, sensation grossly intact Psychiatric: Euthymic affect Labs notable for WBC of 12, Hb 10.3, Na 130, trop 31.2 EKG reviewed. Showed sinus tachycardia Trend trop No complaints at this time NPO PMN Interrogate PPM Cards consult Stool test if diarrhea recurs I spent a total of 45 minutes coordinating, documenting and providing care for this patient excluding time spent in performance of separately billed services
--- OUTSIDE RECORDS SUMMARY | 2023-09-22 03:46 | External Medical Summary | Summary of Care ---
Author Name Unknown Organization [facility] Address [address] [facility] [place] [address] Phone [phone] Care Team Providers Care Dye Penetrant Testing Technician Name Role Phone Ricardo Guerra MD Primary Care Provider +1- [phone] Reason for Visit * Reason Onset Date Comments Advice 09/19/2023 Encounter Details Date Type Department Care Team ([facility] st Contact Info) Description 09/19/2023 Telephone Cardiology [place] [address] [place] [address] Stephany Castrejon, [address] [place] [place] [address] Advice Allergies No known active allergiesdocumented as of this encounter (statuses as of 09/20/2023) Medications Medication Sig Dispensed Refills Start Date [...] for Dizziness. 30 Tab 0 03/15/2021 Active Lisinopril-hydroC HLOROthiazide 20-25 MG Oral TabletIndications [...] THE MORNING 90 Tablet 1 08/21/2023 Active Atenolol 25 MG Oral Tablet (Tenormin)Indicat ions:HTN, goal below 150/90 Take 1 Tablet by mouth in the morning and 1 Tablet in the evening. 180 Tablet 3 03/06/2023 4 Discontinue d(Adverse reaction) documented as of this encounter (statuses as of 09/20/2023) Active Problems Problem Noted Date Diagnosed Date Type 2 diabetes mellitus wit h stage 3b chronic kidney disease, without long-term current use of insulin 09/19/2023 Type 2 diabetes mellitus wit h stage [...] as of this encounter (statuses as of 09/20/2023) Resolved Problems Problem Noted Date Diagnosed Date [...] as of this encounter (statuses as of 09/20/2023) Immunizations Name Administration Dates Next Due COVID-19 mRNA, LNP-s, No Pre serve, 2-Dose Series (Chatosity) 01/06/2021,12/16/2020 Pneumococcal Conjugate Vacc, 13 Valent (Prevnar) [...] encounter Miscellaneous Notes * Telephone Encounter - Claudia Jones OSA - 09/20/2023 11:22 AM EST Spoke with Pt, wound check scheduled for 09/22. * Telephone Encounter - Dayana Alamo LPN - 09/19/2023 2:55 PM EST Pacer placed 09/15/23. Does not have 1 week f/u wound check on schedule. Please assist pt. Attempted to call dtr Diana back and confirm pt does need f/u visit. No answer, voice mail box was full. Unable to leave message. * Telephone Encounter - Lena Mak OSA - 09/19/2023 9:18 AM EST Person calling: Luli Relationship to patient: dtr Number to return call: Home phone Reason for call: dtr was asking when will appt follow up be for after getting pacemaker placed on Monday pt was asking how soon she needs to be seen after Provider Name:Dr Castrejon Thank you RAYMUNDO Pena documented in this encounter Plan of Treatment Upcoming Encounters Date Type Department Care Team (Late st Contact Info) Description 09/22/2023 11:15 AM EST Cardiac Studies Cardiology, [facility] [address] [place] [address] [facility] [address] [facility] [place] [address] 09/29/2023 10:45 AM EST Office Visit Cardiology, [facility] [address] [facility] [place] [address] Stephany Castrejon, DO [address] [place], [place] [address] [address] 10/31/2023 6:00 PM EST Office Visit [facility] [address] [facility] [phone] Ricardo Guerra MD [address] [facility] [place] [address] Health Maintenance Due Date Last Done Comments [...] Screening 09/21/2023 09/21/2022 CKD HGB USE SMARTSET 67073 02/17/202402/16, 03/21/2022, 02/05/2021, Additional history exists CKD PHOS USE SMARTSET 88069 02/17/202402/02, 03/21/2022, 02/05/2021, Additional history exists TSH 02/17/2024 02/16/2023, 0601/2023, 10/25/2021, Additional history exists Albumin/Creatinine Ratio 02/18/2024 02/17/2023, 03/04 Pneumococcal Vaccine: 65+ Years Completed 12/15/2015, 05/29/2001 Zoster Vaccines Completed 08/01/2018, 03/05, 06/04/2010 VITAMIN D LEVEL ONCE IN A LIFETIME-USE SMARTSET# [id number] Completed 03/21/2022, 02/05/2021, 03/02/2020, Additional history exists GARDASIL-HPV IMMUNIZATION SERIES Aged Out No longer eligible based on patient's age to complete this topic MENINGOCOCCAL (MENACTRA/MENVEO) Aged Out No longer eligible based on patient's age to complete this topic documented as of this encounter Medical Devices Not on filedocumented as of this encounter Care Teams Dye Penetrant Testing Technician Relationship Specialty Start Date End Date Ricardo Guerra MD [address] [place] [address] PCP - General Family Medicine 08/24/15 documented as of this encounter
--- OUTSIDE RECORDS SUMMARY | 2023-09-22 03:46 | External Medical Summary | Summary of Care ---
Author Name Unknown Organization [facility] Address [address] [place] [address] Phone [phone] Care Team Providers Care Wood Last Maker Name Role Phone Ricardo Guerra MD Primary Care Provider +1- [phone] Reason for Referral * Evaluate & Treat - Unlimited Visits (Within 10 days (routine)) - Authorized Specialty Diagnoses / Procedures Referred By Contact Referred To Contact Cardiovascular Medicine / Cardiology Diagnoses Bradycardia S/P placement of cardiac pacemaker Ricardo Guerra MD [address] [place] [address] Referral ID Status Reason Start Date Expiration Date Visits Requested Visits Authorized [id number] Authorized Specialty Services Required 09/19/2023 999 999 Question Answer Referral Priority Within 10 days (routine) Where should this appointment be scheduled? [facility] To which of the following clinics are you referring your patient? Arrhythmia/Electrophysiology Clinic * Evaluate & Treat - Unlimited Visits (Within 30 days (routine)) - Authorized Specialty Diagnoses / Procedures Referred By Contac t Referred To Contact Physical Therapy / Physical Medicine And Rehab Diagnoses Generalized weakness Ambulatory dysfunction Ricardo Guerra MD [address] [place] [address] Referral ID Status Reason Start Date Expiration Date Visits Requested Visits Authorized [id number] Authorized Specialty Services Required 09/19/2023 999 999 Question Answer Referral Priority Within 30 days (routine) Where should this appointment be scheduled? [facility] Reason for Visit * Reason Onset Date Comments Hospital Follow-Up Hospital Follow-Up 09/19/2023 Encounter Details Date Type Department Care Team (Late st Contact Info) Description 09/19/2023 11:00 AM EST [facility] [address] [facility] [address] Ricardo Guerra MD [address] [place] [facility] [place] [address] Bradycardia*; S/P placement of cardiac pacemaker; Generalized weakness; Ambulatory dysfunction; Type 2 diabetes mellitus with stage 3b chronic kidney disease, without long-term current use of insulin (HCC); Benign hypertension with stage 3b chronic kidney disease (HCC); Primary open-angle glaucoma, bilateral, moderate stage; Acquired hypothyroidism; High risk for fracture due to osteoporosis by DEXA scan; Dyslipidemia; Hospital discharge follow-up Allergies No known active allergiesdocumented as of this encounter (statuses as of 09/19/2023) Medications Medication Sig Dispensed Refills Start Date [...] as of this encounter (statuses as of 09/19/2023) Active Problems Problem Noted Date Diagnosed Date [...] as of this encounter (statuses as of 09/19/2023) Resolved Problems Problem Noted Date Diagnosed Date [...] as of this encounter (statuses as of 09/19/2023) Immunizations Name Administration Dates Next Due COVID-19 mRNA, LNP-s, No Pre serve, 2-Dose Series (WTFast) 01/06/2021,12/16/2020 Pneumococcal Conjugate Vacc, 13 Valent (Prevnar) [...] Date Smoking Tobacco: Never Smokeless Tobacco: Never Tobacco Cessation:Counseling Given: Not Answered Alcohol Use Standard Drinks/Week Comments No 0 [...] on file documented as of this encounter Last Filed Vital Signs Vital Sign Reading Time Taken Comments Blood Pressure 142/78 09/19/2023 11:04 AM EST Pulse 115 09/19/2023 11:04 AM EST Temperature 35.9 C (96.6 F) 09/19/2023 11:[address] Respiratory Rate 16 09/19/2023 11:04 AM EST Oxygen Saturation 96% 09/19/2023 11:04 AM EST Inhaled Oxygen Concentration - - Weight - - Height 157.5 cm (5' 2") 09/19/2023 11:04 AM EST Body Mass Index - - documented in this encounter Progress Notes * Ricardo Guerra MD - 09/19/2023 12:59 PM EST Subjective: Raquel Purcell is a 88 year old female here today for Chief Complaint Patient presents with Hospital Follow-Up Hospital Follow-Up Patient presents for hospital follow-up. [facility] through September 16, 2023. She was taken to the emergency department because of difficulties with headaches. CT scan of the brain revealed known arachnoid cyst but no new or acute issues. While in the emergency department on the lodging house keeper she was bradycardic down to 29 beats per minute. She was admitted for further evaluation and treatment. Seen by Cardiology. Had a pacemaker placed. No apparent complications. Atenolol was held. Kidney function was initially elevated but improved her baseline by discharge. Other than holding the atenolol, no changes made to medication. She was evaluated by Physical therapy and felt that she did not need any further therapy on discharge. Patient and daughter both believeshe needs to significantly improve her strength. She does not feel safe or comfortable ambulating. She is afraid she is going to fall. She does use a walker for assistance. They are requesting physical therapy in the home. She is home bound related to her conditions. Also need follow-up with Cardiology to be arranged. She does feel better since the pacemaker placement. Past Medical History: Diagnosis Date Dyslipidemia, goal to be determined HTN, goal to be determined Past Surgical History: Procedure Laterality Date EGD, FLEXIBLE, DIAGNOSTIC 04/27/2015 chiara Acevedo /ESOPHAGOGASTRODUODENOSCOPY (EGD), FLEXIBLE, TRANSORAL, DIAGNOSTIC performed byDebbie Skinner DO at ENDOSCOPY [facility] IMPLANT DENTURE EDENTULOUS LIGATE/CUT OVIDUCT(S) PARTIAL REMOVAL OF EYE FLUID 06/13/2011 23G PPV/MP/EL/SF6 for FTMH w/ lattice and operculated hole OD, Dr. Nuñez REMOVE CATARACT, INSERT LENS PROSTH Right Eye--Dr. Carrasquillo Review of patient's allergies indicates: No Known Allergies Current Outpatient Medications Medication Sig Dispense Refill [...] for nausea and headache 4 Tab 0 Meclizine HCl 25 MG Oral Tablet (Antivert) Take 1 Tab by mouth 3 times a day as needed for Dizziness. 30 Tab 0 Lisinopril-hydroCHLOROthiazide 20-25 MG Oral Tablet TAKE 1 TABLET BY MOUTH EVERY DAY 90 Tablet 3 Atorvastatin Calcium 40 MG Oral Tablet (Lipitor) TAKE 1 TABLET BY MOUTH EVERY DAY IN THE MORNING 90Tablet 1 Levothyroxine Sodium 50 MCG Oral Tablet (Levoxyl) TAKE 1 TABLET BY MOUTH EVERY DAY AT LEAST 30 MIN BEFORE BREAKFAST OR OTHER MEDICATION 90 Tablet 1 Potassium Chloride ER 10 MEQ Oral Capsule Extended Release TAKE 1 CAPSULE BY MOUTH EVERY MORNING 90Capsule 1 Furosemide 20 MG Oral Tablet (Lasix) TAKE 1 TABLET BY MOUTH EVERY DAY IN THE MORNING 90 Tablet 1 Omeprazole 20 MG Oral Capsule Delayed Release (PriLOSEC) TAKE 1 CAPSULE BY MOUTH EVERY DAY IN THE MORNING 90 Capsule 1 Allopurinol 300 MG Oral Tablet (Zyloprim) TAKE 1 TABLET BY MOUTH EVERY DAY IN THE MORNING 90 Tablet1 No current facility-administered medications for this visit. Objective: BP 142/78 | Pulse 115 | Temp 35.9 C (96.6 F) (Temporal Artery) | Resp 16 | Ht 1.575 m (5' 2") | SpO2 96% | BMI 26.52 kg/m | BSA 1.7 m GEN: NAD HEENT: Benign NECK: Supple with no LAD, TM, JVD CHEST: CTA B CV: RRR ABD: Soft, NT/ND, No HSM, NABS EXT: No c,c,e Assessment and Plan: Bradycardia (Primary) S/P placement of cardiac pacemaker - CARDIOLOGY REFERRAL OP -doing better. Call for new or worsening symptoms. Generalized weakness Ambulatory dysfunction - PHYSICAL THERAPY REFERRAL OP Type 2 diabetes mellitus with stage 3b chronic kidney disease, without long-term current use of insulin (HCC) Benign hypertension with stage 3b chronic kidney disease (HCC) Primary open-angle glaucoma, bilateral, moderate stage Acquired hypothyroidism High risk for fracture due to osteoporosis by DEXA scan Dyslipidemia -stable, continue all same treatments Hospital discharge follow-up - DISCH MED RECON CUR MED LIS Check-out note: Should see cardiology for hosp follow up and pacemaker placement end of this week or next week. Would like PT in the home. If [facility] can work with pt, please set up. If they cannot, send back to me for Home Health Nursing referral. 40 min with pt and documentation Ricardo Guerra MD documented in this encounter Nursing Notes * Sho Overton CCMA - 09/19/2023 11:04 AM EST Raquel Purcell is a 88 year old female who presents today for Chief Complaint Patient presents with Hospital Follow-Up documented in this encounter Plan of Treatment Upcoming Encounters Date Type Department Care Team (Late st Contact Info) Description 10/31/2023 6:00 PM EST Office Visit [facility] [address] [place] [address] Ricardo Guerra MD [address] [place] [address] Scheduled Referrals Name Type Priority Associated Diagnoses Orde r Schedule PHYSICAL THERAPY REFERRAL OP Referral Within 30 days (routine) Generalized weakness Ambulatory dysfunction Ordered: 09/19/2023 CARDIOLOGY REFERRAL OP Referral Within 10 days (routine) Bradycardia S/P placement of cardiac pacemaker Ordered: 09/19/2023 Health Maintenance Due Date Last Done Comments [...] Screening 09/21/2023 09/21/2022 CKD HGB USE SMARTSET 57836 02/17/202402/16, 03/21/2022, 02/05/2021, Additional history exists CKD PHOS USE SMARTSET 57055 02/17/202402/02, 03/21/2022, 02/05/2021, Additional history exists TSH 02/17/2024 02/16/2023, 06/0 01/2023, 10/25/2021, Additional history exists Albumin/Creatinine Ratio 02/18/2024 02/17/2023, 03/04 Pneumococcal Vaccine: 65+ Years Completed 12/15/2015, 05/29/2001 Zoster Vaccines Completed 08/01/2018, 03/05, 06/04/2010 VITAMIN D LEVEL ONCE IN A LIFETIME-USE SMARTSET# [id number] Completed 03/21/2022, 02/05/2021, 03/02/2020, Additional history exists GARDASIL-HPV IMMUNIZATION SERIES Aged Out No longer eligible based on patient's age to complete this topic MENINGOCOCCAL (MENACTRA/MENVEO) Aged Out No longer eligible based on patient's age to complete this topic documented as of this encounter Medical Devices Not on filedocumented as of this encounter Visit Diagnoses Diagnosis Bradycardia- Primary Other specified cardiac dysrhythmias S/P placement of cardiac pacemaker Cardiac pacemaker in situ Generalized weakness Other malaise and fatigue Ambulatory dysfunction Type 2 diabetes mellitus with stage 3b chronic kidney disease, without long-term current use of insulin (HCC) Benign hypertension with stage 3b chronic kidney disease (HCC) Primary open-angle glaucoma, bilateral, moderate stage Acquired hypothyroidism Unspecified hypothyroidism High risk for fracture due to osteoporosis by DEXA scan Osteoporosis, unspecified Dyslipidemia Other and unspecified hyperlipidemia Hospital discharge follow-up Other follow-up examination documented in this encounter Care Teams Wood Last Maker Relationship Specialty Start Date End Date Ricardo Guerra MD [address] [place] [address] PCP - General Family Medicine 08/24/15 documented as of this encounter
--- OUTSIDE RECORDS SUMMARY | 2023-09-22 03:46 | External Medical Summary | Summary of Care ---
Author Name Unknown Organization [facility] Address [address] [facility] [place] [address] Phone [phone] Care Team Providers Care Grades 1 6 Tutor Name Role Phone Ricardo Guerra MD Primary Care Provider +1- [phone] Encounter Details Date Type Department Care Team (Late st Contact Info) Description 09/11/2023 Result Scan Unspecified Department Uriah Brandt, DO [address] [place] [address] <No scans attached> Allergies No known active allergiesdocumented as of this encounter (statuses as of 09/13/2023) Medications Medication Sig Dispensed Refills Start Date [...] 03/15/2021 Active Atenolol 25 MG Oral Tablet (Tenormin)Indicatio [...] medications,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 TAKE 1 CAPSULE BY MOUTH EVERY DAY IN THE MORNING 90 Capsule 1 08/21/2023 Active Allopurinol 300 MG Oral Tablet (Zyloprim)Indicatio ns:Gout, unspecified cause, unspecified chronicity, unspecified site TAKE 1 TABLET BY MOUTH EVERY DAY IN THE MORNING 90 Tablet 1 08/21/2023 Active documented as of this encounter (statuses as of 09/13/2023) Active Problems Problem Noted Date Diagnosed Date [...] as of this encounter (statuses as of 09/13/2023) Resolved Problems Problem Noted Date Diagnosed Date [...] as of this encounter (statuses as of 09/13/2023) Immunizations Name Administration Dates Next Due COVID-19 mRNA, LNP-s, No Pre serve, 2-Dose Series ([employer] Plan) 01/06/2021,12/16/2020 Pneumococcal Conjugate Vacc, 13 Valent (Prevnar) [...] Description 10/31/2023 6:00 PM EST Office Visit [facility] [address] [place] [address] Ricardo Guerra MD [address] [place] [facility] [place] [address] Health Maintenance Due Date Last Done Comments [...] Screening 09/21/2023 09/21/2022 CKD HGB USE SMARTSET 34810 02/17/202402/16, 03/21/2022, 02/05/2021, Additional history exists CKD PHOS USE SMARTSET 57197 02/17/202402/02, 03/21/2022, 02/05/2021, Additional history exists TSH 02/17/2024 02/16/2023, 01/2023, 10/25/2021, Additional history exists Albumin/Creatinine Ratio 02/18/2024 02/17/2023, 03/04 Pneumococcal Vaccine: 65+ Years Completed 12/15/2015, 05/29/2001 Zoster Vaccines Completed 08/01/2018, 03/05, 06/04/2010 VITAMIN D LEVEL ONCE IN A LIFETIME-USE SMARTSET# [id number] Completed 03/21/2022, 02/05/2021, 03/02/2020, Additional history exists GARDASIL-HPV IMMUNIZATION SERIES Aged Out No longer eligible based on patient's age to complete this topic MENINGOCOCCAL (MENACTRA/MENVEO) Aged Out No longer eligible based on patient's age to complete this topic documented as of this encounter Medical Devices Not on filedocumented as of this encounter Procedures Procedure Name Priority Date/Time Associated Diagnosis Comments ECHOCARDIOLOGY SCANNED RESULT 09/11/2023 documented in this encounter Results * ECHOCARDIOLOGY SCANNED RESULT (09/11/2023) 09/11/2023 Uriah Brandt DO ECHOCARDIOLOGY documented in this encounter Care Teams Grades 1 6 Tutor Relationship Specialty Start Date End Date Ricardo Guerra MD [address] [place] [address] PCP - General Family Medicine 08/24/15 documented as of this encounter
--- OUTSIDE RECORDS SUMMARY | 2023-09-22 03:46 | External Medical Summary | Summary of Care ---
Author Name Unknown Organization [facility] Address [address] [facility] [place] [address] Phone [phone] Care Team Providers Care Bariatric Program Coordinator Name Role Phone Ricardo Guerra MD Primary Care Provider +1- [phone] Encounter Details Date Type Department Care Team (Late st Contact Info) Description 09/18/2023 Orders Only Cardiology [place] [address] [place] [address] Stephany Castrejon, [address] [facility] [place] [id number] Allergies No known active allergiesdocumented as of this encounter (statuses as of 09/18/2023) Medications Medication Sig Dispensed Refills Start Date [...] as of this encounter (statuses as of 09/18/2023) Active Problems Problem Noted Date Diagnosed Date [...] as of this encounter (statuses as of 09/18/2023) Resolved Problems Problem Noted Date Diagnosed Date [...] as of this encounter (statuses as of 09/18/2023) Immunizations Name Administration Dates Next Due COVID-19 [...] Description 09/19/2023 11:00 AM EST Office Visit [facility] [place] [address] [facility] [place] [address] Ricardo Guerra MD [address] [place] [address] 10/31/2023 6:00 PM EST Office Visit [facility] [place] [address] [place] [phone] Ricardo Guerra MD [address] [facility] [place] [address] Pending Results Name Type Priority Associated Diagnoses Date /Time XR CHEST 1 VIEW Medical Imaging Routine 09/04 Health Maintenance Due Date Last Done Comments [...] Screening 09/21/2023 09/21/2022 CKD HGB USE SMARTSET 86438 02/17/202402/16, 03/21/2022, 02/05/2021, Additional history exists CKD PHOS USE SMARTSET 17083 02/17/202402/02, 03/21/2022, 02/05/2021, Additional history exists TSH 02/17/2024 02/16/2023, 01/2023, 10/25/2021, Additional history exists Albumin/Creatinine Ratio 02/18/2024 02/17/2023, 03/04 Pneumococcal Vaccine: 65+ Years Completed 12/15/2015, 05/29/2001 Zoster Vaccines Completed 08/01/2018, 03/05, 06/04/2010 VITAMIN D LEVEL ONCE IN A LIFETIME-USE SMARTSET# [id number] Completed 03/21/2022, 02/05/2021, 03/02/2020, Additional history exists GARDASIL-HPV IMMUNIZATION SERIES Aged Out No longer eligible based on patient's age to complete this topic MENINGOCOCCAL (MENACTRA/MENVEO) Aged Out No longer eligible based on patient's age to complete this topic documented as of this encounter Medical Devices Not on filedocumented as of this encounter Care Teams Bariatric Program Coordinator Relationship Specialty Start Date End Date Ricardo Guerra MD [address] [place] [facility] [facility] [place] [address] PCP - General Family Medicine 08/24/15 documented as of this encounter
--- OUTSIDE RECORDS SUMMARY | 2023-09-22 03:46 | External Medical Summary | Summary of Care ---
Author Name Unknown Organization [facility] Address [address] [facility] [place] [address] Phone [phone] Care Team Providers Care Marketing Designer Name Role Phone Ricardo Guerra MD Primary Care Provider +1- [phone] Reason for Visit * Reason Onset Date Comments Advice 09/19/2023 Encounter Details Date Type Department Care Team ([facility] st Contact Info) Description 09/19/2023 Telephone Cardiology [place] [address] [place] [address] Stephany Castrejon, [address] [place] [address] Advice Allergies No known [...] 02/05/2018 Overview: BCC on the left nose 2016 [...] encounter Miscellaneous Notes * Telephone Encounter - Lena Mak OSA [...] Description 09/19/2023 11:00 AM EST Office Visit [facility] [address] [facility] [place] [address] Ricardo [facility]erra MD [address] [facility] [address] 10/31/2023 6:00 PM EST Office Visit [facility] [address] [facility] [place] [address] Ricardo Guerra MD [address] [facility] [address] Health Maintenance Due Date Last Done [...] Screening 09/21/2023 09/21/2022 CKD HGB USE SMARTSET 98707 02/17/202402/16, 03/21/2022, 02/05/2021, Additional history exists CKD PHOS USE SMARTSET 72416 02/17/202402/02, 03/21/2022, 02/05/2021, Additional history exists TSH 02/17/2024 02/16/2023, 01/2023, 10/25/2021, Additional history exists Albumin/Creatinine Ratio 02/18/2024 02/17/2023, 03/04 Pneumococcal Vaccine: 65+ Years Completed 12/15/2015, 05/29/2001 Zoster Vaccines Completed 08/01/2018, 03/05, 06/04/2010 VITAMIN D LEVEL ONCE IN A LIFETIME-USE SMARTSET# [id number] Completed 03/21/2022, 02/05/2021, 03/02/2020, Additional history exists GARDASIL-HPV IMMUNIZATION SERIES Aged Out No longer eligible based on patient's age to complete this topic MENINGOCOCCAL (MENACTRA/MENVEO) Aged Out No longer eligible based on patient's age to complete this topic documented as of this encounter Medical Devices Not on filedocumented as of this encounter Care Teams Marketing Designer Relationship Specialty Start Date End Date Ricardo Guerra MD [address] [place] [address] PCP - General Family Medicine 08/24/15 documented as of this encounter
--- OUTSIDE RECORDS SUMMARY | 2023-09-22 03:46 | External Medical Summary | Summary of Care ---
Author Name Unknown Organization [facility] Address [address] [facility] [place] [address] Phone [phone] Care Team Providers Care Line Driver Name Role Phone Ricardo Guerra MD Primary Care Provider +1- [phone] Reason for Visit * Reason Onset Date Comments Advice 09/19/2023 Encounter Details Date Type Department Care Team ([facility] st Contact Info) Description 09/19/2023 Telephone Cardiology [place] [address] [place] [address] Stephany Castrejon, [address] [place] [address] Advice Allergies No known [...] mRNA, LNP-s, No Pre serve, 2-Dose Series (Discera) 01/06/2021,12/16/2020 Pneumococcal Conjugate Vacc, 13 Valent (Prevnar) [...] Description 10/31/2023 6:00 PM EST Office Visit [facility] [address] [place] [facility] [address] Ricardo Guerra MD [address] [place] [facility] [place] [address] Health Maintenance Due Date Last Done [...] Screening 09/21/2023 09/21/2022 CKD HGB USE SMARTSET 20649 02/17/202402/16, 03/21/2022, 02/05/2021, Additional history exists CKD PHOS USE SMARTSET 55555 02/17/202402/02, 03/21/2022, 02/05/2021, Additional history exists TSH 02/17/2024 02/16/2023, 01/2023, 10/25/2021, Additional history exists Albumin/Creatinine Ratio 02/18/2024 02/17/2023, 03/04 Pneumococcal Vaccine: 65+ Years Completed 12/15/2015, 05/29/2001 Zoster Vaccines Completed 08/01/2018, 03/05, 06/04/2010 VITAMIN D LEVEL ONCE IN A LIFETIME-USE SMARTSET# [id number] Completed 03/21/2022, 02/05/2021, 03/02/2020, Additional history exists GARDASIL-HPV IMMUNIZATION SERIES Aged Out No longer eligible based on patient's age to complete this topic MENINGOCOCCAL (MENACTRA/MENVEO) Aged Out No longer eligible based on patient's age to complete this topic documented as of this encounter Medical Devices Not on filedocumented as of this encounter Care Teams Line Driver Relationship Specialty Start Date End Date Ricardo Guerra MD [address] [place] [address] PCP - General Family Medicine 08/24/15 documented as of this encounter
--- OUTSIDE RECORDS SUMMARY | 2023-09-22 03:46 | External Medical Summary | Summary of Care ---
Author Name Unknown Organization [facility] Address [address] [facility] [place] [address] Phone [phone] Care Team Providers Care Gang Sawyer Name Role Phone Ricardo Guerra MD Primary Care Provider +1- [phone] Reason for Visit * Reason Onset Date Comments Advice 09/19/2023 Encounter Details Date Type Department Care Team ([facility] st Contact Info) Description 09/19/2023 Telephone Cardiology [place] Banks [address] [place] [address] Stephany Castrejon, [address] [place] [address] Advice Allergies No known [...] mRNA, LNP-s, No Pre serve, 2-Dose Series (Taulia) 01/06/2021,12/16/2020 Pneumococcal Conjugate Vacc, 13 Valent (Prevnar) [...] encounter Miscellaneous Notes * Telephone Encounter - Dayana Alamo LPN [...] Description 10/31/2023 6:00 PM EST Office Visit [facility] [address] [place] [address] Ricardo Guerra MD [address] [place] [address] Health Maintenance Due Date Last [...] Screening 09/21/2023 09/21/2022 CKD HGB USE SMARTSET 32090 02/17/202402/16, 03/21/2022, 02/05/2021, Additional history exists CKD PHOS USE SMARTSET 24408 02/17/202402/02, 03/21/2022, 02/05/2021, Additional history exists TSH 02/17/2024 02/16/2023, 01/2023, 10/25/2021, Additional history exists Albumin/Creatinine Ratio 02/18/2024 02/17/2023, 03/04 Pneumococcal Vaccine: 65+ Years Completed 12/15/2015, 05/29/2001 Zoster Vaccines Completed 08/01/2018, 03/05, 06/04/2010 VITAMIN D LEVEL ONCE IN A LIFETIME-USE SMARTSET# [id number] Completed 03/21/2022, 02/05/2021, 03/02/2020, Additional history exists GARDASIL-HPV IMMUNIZATION SERIES Aged Out No longer eligible based on patient's age to complete this topic MENINGOCOCCAL (MENACTRA/MENVEO) Aged Out No longer eligible based on patient's age to complete this topic documented as of this encounter Medical Devices Not on filedocumented as of this encounter Care Teams Gang Sawyer Relationship Specialty Start Date End Date Ricardo Guerra MD [address] [place] [address] PCP - General Family Medicine 08/24/15 documented as of this encounter
--- OUTSIDE RECORDS SUMMARY | 2023-09-22 03:46 | External Medical Summary | Summary of Care ---
Author Name Unknown Organization [facility] Address [address] [facility] [place] [address] Phone [phone] Care Team Providers Care Order Selector Name Role Phone Ricardo Guerra MD Primary Care Provider +1- [phone] Reason for Visit * Reason Onset Date Comments Advice 09/19/2023 Encounter Details Date Type Department Care Team ([facility] st Contact Info) Description 09/19/2023 Telephone Cardiology [place] [address] [place] [address] Stephany Castrejon, [address] [place] [address] Advice Allergies No known [...] mRNA, LNP-s, No Pre serve, 2-Dose Series ([employer]) 01/06/2021,12/16/2020 Pneumococcal Conjugate Vacc, 13 Valent (Prevnar) [...] encounter Miscellaneous Notes * Telephone Encounter - Lnea Mak OSA - 09/19/2023 9:18 AM EST [...] Upcoming Encounters Date Type Department Care Team ([facility] Contact Info) Description 10/31/2023 6:00 PM EST Office Visit [facility] [place] [address] [place] [address] Ricardo Guerra MD [address] [facility] [place] [id number] Health Maintenance Due Date Last Done Comments [...] Screening 09/21/2023 09/21/2022 CKD HGB USE SMARTSET 37496 02/17/202402/16, 03/21/2022, 02/05/2021, Additional history exists CKD PHOS USE SMARTSET 56524 02/17/202402/02, 03/21/2022, 02/05/2021, Additional history exists TSH 02/17/2024 02/16/2023, 01/2023, 10/25/2021, Additional history exists Albumin/Creatinine Ratio 02/18/2024 02/17/2023, 03/04 Pneumococcal Vaccine: 65+ Years Completed 12/15/2015, 05/29/2001 Zoster Vaccines Completed 08/01/2018, 03/05, 06/04/2010 VITAMIN D LEVEL ONCE IN A LIFETIME-USE SMARTSET# [id number] Completed 03/21/2022, 02/05/2021, 03/02/2020, Additional history exists GARDASIL-HPV IMMUNIZATION SERIES Aged Out No longer eligible based on patient's age to complete this topic MENINGOCOCCAL (MENACTRA/MENVEO) Aged Out No longer eligible based on patient's age to complete this topic documented as of this encounter Medical Devices Not on filedocumented as of this encounter Care Teams Order Selector Relationship Specialty Start Date End Date Ricardo Guerra MD [address] [place] [address] PCP - General Family Medicine 08/24/15 documented as of this encounter
[2023-09-22] MEDS: LEVOTHYROXINE SODIUM 50 MCG TABLET PO SCH (05:40)
[2023-09-22 06:21] LABS: Hematocrit (blood only) 27.6 % (37.0-47.0); Hemoglobin 9.7 g/dl (12.0-16.0); Mean Corpuscular Hemoglobin 32.4 pg (25.0-34.0); Mean Corpuscular Hgb Conc 35.1 g/dL (32.0-36.0); Mean Corpuscular Volume 92.3 fL (80.0-100.0); Mean Platelet Volume 9.9 fL (9.4-12.4); Platelet Count 266 K/uL (130-400); RDW Coefficient of Variation 13.7 % (11.5-14.5); RDW Standard Deviation 46.5 fL (36.4-46.3); Red Blood Count 2.99 M/uL (4.20-5.40); White Blood Count 9.72 K/ul (4.8-10.8)
[2023-09-22 06:43] LABS: Albumin Globulin Ratio 1.4 (0.9-2); Albumin Level 3.6 gm/dl (3.4-5.0); BUN Creatinine Ratio 22.9 (10-20); Bilirubin,Total 0.5 mg/dl (0.2-1.0); Calcium 8.8 mg/dl (8.6-10.3); Est GFR (African American) 52.5 ml/min; Est GFR (Non-African American) 45.3 ml/min; Globulin 2.6 gm/dl (2.5-4.0); Magnesium 1.4 mg/dl (1.7-2.4); Potassium 3.9 mmol/L (3.5-5.1); Total Protein 6.2 gm/dl (6.0-8.3)
[2023-09-22] MEDS ORDERED: MAGNESIUM SULFATE / D5W 1 GM/100 ML BAG IV SCH (07:00)
[2023-09-22] MEDS: MAGNESIUM SULFATE / D5W 1 GM/100 ML BAG IV SCH ×4 (08:39→13:12)
[2023-09-22] MEDS: ATORVASTATIN 40 MG TAB PO SCH (08:41)
[2023-09-22] MEDS: PANTOprazole 40 MG TAB PO SCH (08:41)
[2023-09-22] MEDS: allopurinoL 300 MG TAB PO SCH (08:41)
[2023-09-22] MEDS ORDERED: LISINOPRIL/HCTZ 20/25MG 1 TAB PO SCH (09:00)
[2023-09-22] MEDS ORDERED: METOPROLOL SUCC 25MG EXT REL TAB PO ONE (10:25)
--- NOTE | 2023-09-22 12:25 | Cardiology Consultation ---
Date of Consultation September 22, 2023 Assessment & Plan (1) Paroxysmal atrial fibrillation: (2) HTN (hypertension): (3) MRI safe cardiac pacemaker in situ: Plan 88-year-old female presenting with palpitations. Pacemaker interrogation demonstrates paroxysmal atrial fibrillation. Echocardiogram revealing preserved LV systolic function, no evidence of pericardial effusion. Recommend addition of beta-edita therapy and oral anticoagulation with Eliquis. Risk vs benefit of oral anticoagulation discussed with patient at bedside and daughter via telephone. She will receive first dose of Eliquis this afternoon. With BID dosing starting 1/20 in AM. Minimally elevated high-sensitivity troponin in the setting of recent pacemaker implantation. Patient denies chest pain or anginal symptoms. No ischemic ECG changes or regional wall motion abnormality per echocardiogram. History of Present Illness Reason for Consultation: Palpitations status post pacemaker insertion Requesting Physician: Jennifer QUINTANA Attending Physician: Atilio Galeano MD History of Present Illness 88-year-old female presented to the emergency department due to palpitations. Reports intermittent palpitations described as irregular heartbeats over the past 48 hours. Yesterday, the episode of palpitations was sustained which scared her. She told her daughter about symptoms who prompted her to come to the ER. Asymptomatic since arrival. Telemetry reveals sinus rhythm. Pacemaker recently implanted 09/15/2023 due to sick sinus syndrome. Patient treated with atenolol prior to hospitalization, however, beta-edita was not restarted at discharge. Pacemaker interrogation revealing paroxysmal atrial fibrillation. Allergies Allergy/AdvReac Type Severity Reaction Status Date / Time No Known Allergies Allergy Verified 09/21/23 17:16 Home Medications Medication Instructions Recorded Confirmed Type allopurinol 300 mg tablet 300 mg PO DAILY 09/11/23 09/21/23 History atorvastatin 40 mg tablet 40 mg PO DAILY 09/11/23 09/21/23 History levothyroxine 50 mcg tablet 50 mcg PO DAILY 09/11/23 09/21/23 History lisinopril 20 1 tab PO DAILY 09/11/23 09/21/23 History mg-hydrochlorothiazide 25 mg tablet omeprazole 20 mg capsule,delayed 20 mg PO DAILY 09/11/23 09/21/23 History release magnesium oxide 400 mg (241.3 mg 400 mg PO BID 7 days #14 tabs 09/16/23 09/21/23 Rx magnesium) tablet furosemide 20 mg tablet 20 mg PO DAILY 09/21/23 09/21/23 History potassium chloride 10 mEq 10 meq PO DAILY 09/21/23 09/21/23 History capsule,extended release Patient History Medical History Diarrhea Pacemaker CKD (chronic kidney disease) Palpitations Left-sided headache Thyroid disease Gout High blood pressure Social History Smoking Status: Never smoker Hx Alcohol Use: No Hx Substance Use: No Preferred Language: Uruguayan Communication Ability: Effective Distribution Center Supervisor Required: No Beliefs That Will Affect Care: None Current Living Situation: Family Current Living Situation Comment: daughter stays with pt Feels Safe at Home: Yes Safety Concerns: Feels Safe At This Time Assistive Devices: Walker Assistive Devices Comment: walker at home Review of Systems Review of Systems: All systems reviewed & are unremarkable except as noted in Subjective Physical Exam Constitutional: well nourished; no acute distress Respiratory: normal respiratory effort; no respiratory distress and no labored breathing Auscultation: lungs clear to auscultation bilaterally; no crackles, no rales, no rhonchi and no wheezes Cardiovascular: Rate/Rhythm: regular rate and regular rhythm Heart Sounds: normal S1, normal S2 and + murmur (1/6 midsystolic murmur heard at the left sternal border) Vessels: radial pulses present; no JVD Gastrointestinal (Abdomen): Inspection/Auscultation: abdomen normal to inspection; abdomen not distended and + abnormal bowel sounds Percussion/Pa lpation: abdomen soft; abdomen nontender, no guarding and abdomen not rigid Neurologic: CN's II-XI intact bilaterally and moves all extremities; no focal motor deficits Results & Data Vital Signs (Past 12 Hours) Vital Signs Temp Pulse Pulse Resp BP Pulse Ox O2 Del Method 09/22/23 11:17 36.6 C 68 18 164/67 H 94 Room Air 09/22/23 07:40 36.6 C 78 18 172/71 H 95 Room Air 09/22/23 06:40 74 09/22/23 04:13 36.8 C 72 20 148/73 H 94 Room Air 09/22/23 01:38 36.7 C 70 20 157/63 H 98 Room Air Laboratory Results Cardiac Enzymes 0109/21/23 09/21/23 Range/Units 16:30 19:14 22:38 AST 20 (13-39) U/L Troponin I High Sens 31.2 H 46.1 H D 50.3 H* (0-14) pg/ml 09/22/23 09/22/23 Range/Units 05:52 07:43 AST 15 (13-39) U/L Troponin I High Sens 38.1 H D (0-14) pg/ml Coagulation 09/21/23 Range/Units 16:30 PT 10.9 (9.0-12.0) Seconds APTT 33 H (21-31) Seconds CBC 09/21/23 09/22/23 Range/Units 16:30 05:52 WBC 12.36 H 9.72 (4.8-10.8) K/ul RBC 3.18 L 2.99 L (4.20-5.40) M/uL Hgb 10.3 L 9.7 L (12.0-16.0) g/dl Hct 29.5 L 27.6 L (37.0-47.0) % Plt Count 275 266 (130-400) K/uL Neut # (Auto) 7.82 H (1.40-6.50) K/uL Lymph # (Auto) 2.50 (1.20-3.40) K/uL [place] # (Auto) 1.57 H (0.11-0.59) K/uL Eos # (Auto) 0.38 (0.00-0.50) K/uL Baso # (Auto) 0.05 (0.00-0.20) K/uL Comprehensive Metabolic Panel 09/21/23 09/22/23 Range/Units 16:30 05:52 Sodium 130 L 130 L (136-145) mmol/L Potassium 3.9 3.9 (3.5-5.1) mmol/L Chloride 95 L 95 L (98-107) mmol/L Carbon Dioxide 26 28 (21-32) mmol/L BUN 25 H 25 H (6-23) mg/dl Creatinine 1.11 1.09 (0.6-1.2) mg/dl Glucose 130 H 100 H (70-99(Fasting)) mg/dl Calcium 9.1 8.8 (8.6-10.3) mg/dl AST 20 15 (13-39) U/L ALT 14 12 (7-52) U/L Alkaline Phosphatase 64 47 (34-104) U/L Total Protein 7.0 6.2 (6.0-8.3) gm/dl Albumin 4.0 3.6 (3.4-5.0) gm/dl Intake and Output 09/21/23 09/22/23 09/22/23 22:59 06:59 14:59 Intake Total 100 / 100 138.334 / 138.334 Balance 100 / 100 138.334 / 138.334 Intake: IV 138.334 / 138.334 Magnesium Sulfate / D5w 1 gm In 138.334 / 138.334 100 ml @ 50 mls/hr IV Q2H [facility] Rx#:[id number] Oral 100 / 100 Other: Other Intake Source sips Weight 64.909 kg 66.9 kg 66.088 kg Weight Measurement Method Built in [facility] Built in [facility] Patient Weight 09/23/23 06:59 Weight 66.088 kg (2) HTN (hypertension) Hypertension type: primary hypertension Qualified Code(s): I10 - Essential (primary) hypertension
--- NOTE | 2023-09-22 14:14 | Hospitalist Progress Note ---
Date of Service September 22, 2023 Assessment & Plan (1) Paroxysmal atrial fibrillation: (2) Palpitations: (3) Pacemaker: (4) Diarrhea: (5) High blood pressure: (6) Thyroid disease: (7) CKD (chronic kidney disease): Plan Ms. Purcell is an 88 year old female that presented to the ED with complaints of palpitation, dizziness and chest pain. 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 T Paroxysmal A-fib History of sick sinus syndrome status post pacemaker in September 15, 2023 Demand ischemia Patient presents with palpitations, dizziness and chest pain dual-chamber pacemaker implanted without complication 09/15/2023 after experiencing SSS/bradycardia Pacemaker interrogation shows paroxysmal atrial fibrillation High sensitive troponin elevated with flat trend Echocardiogram shows EF of 60 to 65%. CXR personally reviewed negative for acute cardiopulmonary disease; pacer wires are present and intact Started on metoprolol as per cardiology recommendation. Also on Eliquis for stroke prophylaxis. Sent to the pharmacy to check on the murdock. Diarrhea: Acute Multiple episode on the day of the admission Will follow-up on the stool culture and C. difficile. No diarrhea presently HTN: Chronic Takes Lisinopril/HCTZ; will discontinue hydrochlorothiazide due to hyponatremia and with addition of metoprolol. Takes Lasix and K+ supplements; hold for now HLD: Chronic Takes Atorvastatin;continue Hypothyroidism: Chronic Takes Levothyroxine;continue GERD: Chronic Takes Omeprazole;continue Disposition: PCP: Dr. Guerra Code Status: Full Code VTE Prophylaxis: Eliquis Dispositionpatient admitted to the hospital with paroxysmal atrial fibrillation. Continue to monitor on telemetry overnight. Possible DC in a.m. depending on clinical status. Time spent evaluating patient, direct bedside care, chart review, placing orders, interpretation of diagnostic studies, discussion with consultants, patie nt, and family members, as well as other required patient management activities is 50 minutes Please note the above document was generated using voice recognition software. It may contain grammatical, syntax or spelling errors. Any formal questions or concerns about the content, text or information contained within the body of this dictation should be directly addressed to the provider for clarification Admission and Anticipated Discharge Date Admission Date: September 21, 2023 Subjective Patient seen and examined at bedside. Comfortable; not in distress. Denies palpitation today. Denies fever, chills, chest pain, shortness of breath, abdominal pain or urinary symptoms. No significant overnight events Review of Systems Review of Systems: All systems reviewed & are unremarkable except as noted in Subjective Physical Exam Physical Exam: Constitutional: WD/WN, vitals as above, NAD, sitting up in bed, pleasant, conversing easily Respiratory: normal respiratory effort, lungs clear to auscultation, no wheeze, rales, rhonchi. Normal insp/exp effort, no accessory muscle use Cardiovascular: RRR, no murmur, no edema Vessels: no JVD or carotid bruit Chest: Pacemaker site dressing looks clean dry and intact. Abdomen: normal bowel sounds, soft, nontender, no hepatosplenomegaly Musculoskeletal: no cyanosis or clubbing, extremities motor strength 5/5 Skin: no rashes, warm and dry normal turgor Neurologic: PERRL, EOMI, accommodation nl, no face palsy, no dysarthria CN's II- XI intact bilaterally and moves all extremities Psychiatric: A+Ox3, euthymic affect Results & Data Results & Data Vital Signs (Past 12 Hours) Vital Signs Temp Pulse Pulse Resp BP Pulse Ox O2 Del Method 09/22/23 11:17 36.6 C 68 18 164/67 H 94 Room Air 09/22/23 07:40 36.6 C 78 18 172/71 H 95 Room Air 09/22/23 06:40 74 09/22/23 04:13 36.8 C 72 20 148/73 H 94 Room Air
[2023-09-22] MEDS ORDERED: APIXABAN 5 MG TABLET PO ONE (16:00)
[2023-09-22] MEDS: METOPROLOL SUCC 25MG EXT REL TAB PO SCH (20:20)
[2023-09-23] MEDS: LEVOTHYROXINE SODIUM 50 MCG TABLET PO SCH (06:00)
--- NOTE | 2023-09-23 06:49 | Electrocardiogram Report ---
Test Reason : Blood Pressure : / mmHG Vent. 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 rate has increased BY 40 BPM QRS axis Shifted left Minimal criteria for Anterior infarct are now Present Questionable change in initial forces of Inferior leads Confirmed by Adis Up ([id number]) on 09/23/2023 6:48:21 AM Referred By: Confirmed By:Adis Up
--- NOTE | 2023-09-23 06:50 | Electrocardiogram Report ---
Test Reason : Blood Pressure : / mmHG Vent. Rate : 086 BPM Atrial Rate : 086 BPM P-R Int : 168 ms QRS Dur : 098 ms QT Int : 404 ms P-R-T Axes : 044 -06 022 degrees QTc Int : 484 ms Sinus rhythm with occasional Premature ventricular complexes Incomplete right bundle branch block Possible Inferior infarct (cited on or before 14-JUL-2019) Prolonged QT Abnormal ECG When compared with ECG of 21-SEP-2023 16:28, Premature ventricular complexes are now Present Minimal criteria for Anterior infarct are no longer Present Confirmed by Adis Up ([id number]) on 09/23/2023 6:49:55 AM Referred By: REFERRED SELF Confirmed By:Adis Up
--- NOTE | 2023-09-23 07:08 | Electrocardiogram Report ---
Test Reason : Blood Pressure : / mmHG Vent. Rate : 080 BPM Atrial Rate : 080 BPM P-R Int : 174 ms QRS Dur : 096 ms QT Int : 416 ms P-R-T Axes : 057 -27 018 degrees QTc Int : 479 ms Normal sinus rhythm Incomplete right bundle branch block possible Inferior infarct (cited on or before 14-JUL-2019) Abnormal ECG When compared with ECG of 22-SEP-2023 05:35, (unconfirmed) Premature ventricular complexes are no longer Present Confirmed by Ronny Yeh ([id number]) on 09/23/2023 7:08:08 AM Referred By: REFERRED SELF Confirmed By:Ian Yeh
--- NOTE | 2023-09-23 07:18 | Electrocardiogram Report ---
Test Reason : Blood Pressure : / mmHG Vent. Rate : 067 BPM Atrial Rate : 067 BPM P-R Int : 192 ms QRS Dur : 098 ms QT Int : 452 ms P-R-T Axes : 054 -08 020 degrees QTc Int : 477 ms Normal sinus rhythm Possible Inferior infarct (cited on or before 14-JUL-2019) Abnormal ECG When compared with ECG of 22-SEP-2023 20:05, (unconfirmed) No significant change was found Confirmed by Ronny Yeh ([id number] on 09/23/2023 7:18:00 AM Referred By: REFERRED SELF Confirmed By:Ian Yeh
[2023-09-23] MEDS: PANTOprazole 40 MG TAB PO SCH (08:28)
[2023-09-23] MEDS: allopurinoL 300 MG TAB PO SCH (08:28)
[2023-09-23] MEDS: ATORVASTATIN 40 MG TAB PO SCH (08:28)
[2023-09-23] MEDS: METOPROLOL SUCC 25MG EXT REL TAB PO SCH (08:28)
[2023-09-23] MEDS ORDERED: lisinopril 20 MG TAB PO SCH (09:00)
[2023-09-23] MEDS ORDERED: APIXABAN 5 MG TABLET PO SCH (09:00)
[2023-09-23 09:35] LABS: Basophils # (auto) 0.06 K/uL (0.00-0.20); Basophils % (auto) 0.7 %; Eosinophils # (auto) 0.65 K/uL (0.00-0.50); Eosinophils % (auto) 7.1 %; Hematocrit (blood only) 33.2 % (37.0-47.0); Immature Granulocytes # (auto) 0.04 K/uL (0.01-0.20); Immature Granulocytes % (auto) 0.4 %; Lymphocytes # (auto) 2.82 K/uL (1.20-3.40); Mean Corpuscular Hemoglobin 31.9 pg (25.0-34.0); Mean Corpuscular Hgb Conc 33.1 g/dL (32.0-36.0); Mean Corpuscular Volume 96.2 fL (80.0-100.0); Mean Platelet Volume 9.9 fL (9.4-12.4); Monocytes % (auto) 8.8 %; Neutrophils # (auto) 4.73 K/uL (1.40-6.50); Platelet Count 348 K/uL (130-400); RDW Coefficient of Variation 14.2 % (11.5-14.5); RDW Standard Deviation 49.4 fL (36.4-46.3); Red Blood Count 3.45 M/uL (4.20-5.40)
[2023-09-23 09:43] LABS: BUN Creatinine Ratio 24.8 (10-20); Calcium 9.6 mg/dl (8.6-10.3); Est GFR (African American) 54.9 ml/min; Est GFR (Non-African American) 47.4 ml/min
--- NOTE | 2023-09-23 11:30 | Discharge Summary ---
Date of Service September 23, 2023 Admission HPI Per Admitting Provider Ms. Purcell is an 88 year old female that presented to the ED with complaints of dizziness and pain in the back that started today at noon while she was eating lunch and lasted until her arrival in the ED. She also reports having liquid diarrhea twice today. 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 Today, EMS provided ASA x4. ECG in the ED ST 113 without ischemia. Mild leukocytosis 12.36, Troponin 31.2. CXR was negative for acute cardiopulmonary disease; pacer wires are present and intact. Most recent ECHO 09/2023: EF 60-65%, mild to moderate MR, Grade I DDX, normal LV wall motion. Patient denies DAILEY, current chest pain, N/V/D, hematochezia, dysuria, abdominal pain or tenderness, recent falls or trauma. Denies tobacco, alcohol use, or recreational drug use. She is sitting upright in her hospital bed in no apparent distress. She is KAW, but able to answer all questions appropriately. Will admit patient for further review of interrogation of pacemaker, trending of troponin, hold Lasix, NPO after midnight, Check stool for infection, including CD, and Cardiology consultation. Patient will be admitted for further evaluation and management. Please see A/P for further details. Admission Exam Per Admitting Provider General: Elderly woman in no distress Eyes: PERRL, conjunctivae normal, not pale, anicteric sclerae, EOM intact bilaterally ENMT: +hearing deficits, Has hearing aid Respiratory: Normal respiratory effort, no respiratory distress, lungs clear to auscultation, no crackles and no wheezes Cardiovascular: RRR S1 S2 Chest: Clean dressing over PPM site Gastrointestinal (Abdomen): Abdomen is not distended, soft, non-tender to palpation, no guarding, no palpable hepatosplenomegaly, normal bowel sounds Musculoskeletal: No pedal edema Neurologic: Alert and oriented x 3, No focal weakness, sensation grossly intact Psychiatric: Euthymic affect Principal Diagnosis Paroxysmal atrial fibrillation Discharge Exam Constitutional: WD/WN, vitals as above, NAD, sitting up in bed, pleasant, conversing easily Respiratory: normal respiratory effort, lungs clear to auscultation, no wheeze, rales, rhonchi. Normal insp/exp effort, no accessory muscle use Cardiovascular: RRR, no murmur, no edema Vessels: no JVD or carotid bruit Chest: Pacemaker site dressing looks clean dry and intact. Abdomen: normal bowel sounds, soft, nontender, no hepatosplenomegaly Musculoskeletal: no cyanosis or clubbing, extremities motor strength 5/5 Skin: no rashes, warm and dry normal turgor Neurologic: PERRL, EOMI, accommodation nl, no face palsy, no dysarthria CN's II- XI intact bilaterally and moves all extremities Psychiatric: A+Ox3, euthymic affect Discharge Data Allergies Allergy/AdvReac Type Severity Reaction Status Date / Time No Known Allergies Allergy Verified 09/21/23 17:16 Consultations 09/21/23 17:57 ED Decision to Admit Stat 09/22/23 08:00 Consult Cardiology Routine Hospital Course (1) Paroxysmal atrial fibrillation: (2) Palpitations: (3) Pacemaker: (4) Diarrhea: (5) High blood pressure: (6) Thyroid disease: (7) CKD (chronic kidney disease): Plan Ms. Purcell is an 88 year old female that presented to the ED with complaints of palpitation, dizziness and chest pain. 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 Paroxysmal A-fib History of sick sinus syndrome status post pacemaker in September 15, 2023 Demand ischemia Patient presents with palpitations, dizziness and chest pain dual-chamber pacemaker implanted without complication 09/15/2023 after experiencing SSS/bradycardia Pacemaker interrogation shows episodes paroxysmal atrial fibrillation High sensitive troponin elevated with flat trend Echocardiogram shows EF of 60 to 65%. CXR personally reviewed negative for acute cardiopulmonary disease; pacer wires are present and intact During the hospitalization, patient was started on metoprolol succinate 25 mg twice daily as recommended by cardiology. Patient was also started on Eliquis 5 mg twice daily for stroke prophylaxis. Lisinoprilhydrochlorothiazide was discontinued as patient has hyponatremia. A new prescription for lisinopril 20 mg was sent to the pharmacy. Discharge instructions were discussed with the daughter over the phone. Patient to follow-up with PCP and obtain BMP to monitor on sodium level as outpatient. Please note the above document was generated using voice recognition software. It may contain grammatical, syntax or spelling errors. Any formal questions or concerns about the content, text or information contained within the body of this dictation should be directly addressed to the provider for clarification Total Time Total Time Spent Total Time Spent (In Minutes): 45 Total Time Includes: Examination of the Patient, Discharge Planning, Medication Reconciliation, Communication With Other Providers and Other Discharge Plan Discharge Items Reason For Visit: CHEST PAIN Discharge Diagnosis: Atrial fibrillation with RVR Activity: Resume your previous activity Non-emergency contact: Primary Care Provider Call non-emergency contact if: you have any medication questions and your symptoms worsen Follow-up/Referrals: Ricardo Guerra MD [Primary Care Provider] - (Date & Time 09/28/2023 11:20 AM Provider Ricardo Guerra MD Department [facility] ) Stephany Castrejon DO [Physician] - (Date & Time 09/29/2023 10:45 AM Provider Stephany Castrejon DO Department Cardiology, [facility] ) Diet: Regular Addtl Attending Provider Instructions: You were admitted to the hospital due to palpitation. Interrogation of the pacemaker showed that you have irregular heart rhythm called atrial fibrillation. You were evaluated by cardiology during the hospitalization. The following medication changes are done: 1) start taking metoprolol 25 mg twice a day(morning and night). It will help control the heart rate. 2) start taking Eliquis 5 mg twice a day(morning and night). This is a blood thinner. It is used to prevent stroke in patient with atrial fibrillation 3) stop taking lisinoprilhydrochlorothiazide as your sodium level is on the lower side. A new prescription of lisinopril is sent to your pharmacy. An appointment is set up with your primary care doctor for September 28, 2023. Please obtain BMP to monitor your sodium level. Pending Studies at Discharge: No Stand-Alone Forms: My [employer]™, Smoking Cessation Medications and DC Order Prescriptions: New Eliquis 5 mg Tablet 5 mg PO BID Qty: 60 0RF lisinopril 20 mg Tablet 20 mg PO DAILY Qty: 30 0RF metoprolol succinate 25 mg Tablet Extended Release 24 Hr 25 mg PO BID Qty: 60 0RF Continued atorvastatin 40 mg tablet 40 mg PO DAILY levothyroxine 50 mcg tablet 50 mcg PO DAILY omeprazole 20 mg capsule,delayed release(DR/EC) 20 mg PO DAILY allopurinol 300 mg tablet 300 mg PO DAILY magnesium oxide 400 mg (241.3 mg magnesium) Tablet 400 mg PO BID 7 Days Qty: 14 0RF potassium chloride 10 mEq capsule, extended release 10 meq PO DAILY furosemide 20 mg tablet 20 mg PO DAILY Discontinued lisinopril-hydrochlorothiazide 20-25 mg tablet 1 tab PO DAILY Admission Data Admit Date/Time: 09/21/23 17:58 Attending Provider: Atilio Galeano Admit Provider: Ana Cristina Art I. Primary Care Provider: Ricardo Guerra Other Providers: Ana Cristina Art I.; Jack Horton
== END 2023-09-23 13:57 | disposition home or self-care (01) | DRG 310 ==
LOC: ED 16:19 → SUATTDRO 17:58 → EDINP 17:58 → 2N 21:15

== ENCOUNTER 2023-09-24 13:02 | Inpatient (IN) ==
--- NOTE | 2023-09-24 13:43 | XRay Report ---
XR chest 1V portable CLINICAL HISTORY: confusion, dizziness, infect? COMPARISON STUDY: Chest radiograph September 21, 2023. FINDINGS: A dual-lead left subclavian pacer is in place. There is no pneumothorax or pleural effusion . No consolidation is identified to suggest pneumonia. Linear left basilar densities favor atelectasi s. No evidence for pulmonary edema. IMPRESSION: No acute cardiopulmonary findings. ACT 112: Negative or not required by law. Electronically signed by: Dre Arceo M.D. 09/24/2023 1:41 PM
--- NOTE | 2023-09-24 13:49 | Emergency Department Note ---
Impression & Plan Acute hyponatremia, A-fib, Weakness ED Provider Note NAME: JASPREET TOLENTINO AGE: 88 SEX: F : 1935 ARRIVES VIA: Ambulance INFORMANT: Patient ED PROVIDER(S): Darrius Antonio DO CHIEF COMPLAINT: lightheaded HPI: Patient is an 88-year-old female who presents to the ER for feeling lightheaded. She notes that it started around 11 and lasted for short period of time. She notes it was worse when she laid flat. Is better when she is up moving around. She denies any headache or change in vision. No chest pain or shortness of breath. No nausea, vomiting, or diarrhea. She did feel weak. She denies any focal weakness in her arms or legs. No other exacerbating or remitting factors. Daughter notes that patient did complain earlier of palpitations but patient is now denying this per the daughter. ADDITIONAL HISTORY OBTAINED: Per HPI Chronic Medical/Social Conditions Affecting Care: Per HPI PAST MEDICAL HISTORY:See Below PAST SURGICAL HISTORY:See Below FAMILY HISTORY:See Below SOCIAL HISTORY:See Below HOME MEDICATIONS:See Below ALLERGIES:See Below VITALS:See Below PHYSICAL EXAMINATION: GENERAL: Sitting up in bed, alert, well appearing, well nourished, no distress, non-toxic EYE EXAM: normal conjunctiva. PERRL and EOM's intact. OROPHARYNX: no exudate, no erythema, lips, buccal mucosa, and tongue normal and mucous membranes are moist NECK: supple, no nuchal rigidity, no adenopathy, non-tender LUNGS: Clear to auscultation. Normal chest wall mechanics HEART: no murmurs, S1 normal and S2 normal ABDOMEN: abdomen soft, non-tender, normo-active bowel sounds, no masses, no rebound or guarding. BACK: Back is symmetrical on inspection and there is no deformity, no midline tenderness, no CVA tenderness. SKIN: no rashes and no bruising UPPER EXTREMITIES: upper extremities are grossly normal. LOWER EXTREMITIES: No pitting edema. NEURO EXAM: Normal sensorium, cranial nerves II-XII intact, normal speech, no weakness of arms, no weakness of legs. No drift. Finger to nose intact. Gross sensation intact. MEDICAL DECISION MAKING: Patient is a 88-year-old female who presents ER for above-stated complaint. IV was established blood was obtained. Labs show no significant leukocytosis. Mild anemia 10.8. INR unremarkable. BMP with mild hyponatremia at 127. Creatinine 1.27 up from baseline of 1. Mag slightly low at 1.6. LFTs troponin was negative. Pro-Da was normal. Pacemaker was interrogated and patient had short episode of A-fib earlier today. Patient was given IV fluids. CT head was negative. Chest x-ray unremarkable. Discussed with the hospitalist for further evaluation and observation. Updated family. They expressed understanding. Consults/Care Managements Discussions: Per [facility] Triage Nursing notes reviewed. Limited review of prior medical records performed Vital Signs: reviewed and remarkable for no significant abnormalities Differential diagnosis: Infection, dehydration, metabolic abnormality, hypo/hyperglycemia, electrolyte disturbance, anemia, hypoxia, cardiac sources, intracerebral event, toxicologic, neurologic, as well as other pathologies. ER treatment provided: See below Diagnostics interpreted by me include EKG and cardiac monitoring as listed below: -Cardiac Monitoring: An order was placed for continuous cardiac monitoring. The monitor shows a rate of 70 with sinus rhythm. -ECG: Sinus rhythm rate 94 Normal axis T wave inversion lead I through III Nonspecific ST wave changes in the inferior leads QTc 4 7 -Laboratory studies:Interpreted by me as stated above in MDM and shown below. 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 Required: No Beliefs That Will Affect Care: None Current Living Situation: Family Current Living Situation Comment: daughter stays with pt Feels Safe at Home: Yes Assistive Devices: Walker Allergies Allergies Allergy/AdvReac Type Severity Reaction Status Date / Time No Known Allergies Allergy Verified 09/21/23 17:16 Home Meds Home Medications Medication Instructions Recorded Confirmed allopurinol 300 mg tablet 300 mg PO DAILY 09/11/23 09/24/23 atorvastatin 40 mg tablet 40 mg PO DAILY 09/11/23 09/24/23 levothyroxine 50 mcg tablet 50 mcg PO DAILY 09/11/23 09/24/23 omeprazole 20 mg capsule,delayed 20 mg PO DAILY 09/11/23 09/24/23 release furosemide 20 mg tablet 20 mg PO DAILY 09/21/23 09/24/23 potassium chloride 10 mEq 10 meq PO DAILY 09/21/23 09/24/23 capsule,extended release Previous Rx's Medication Instructions Recorded apixaban 5 mg tablet (Eliquis) 5 mg PO BID #60 tabs 09/22/23 lisinopril 20 mg tablet 20 mg PO DAILY #30 tabs 09/23/23 metoprolol succinate 25 mg 25 mg PO BID #60 tabs 09/23/23 tablet,extended release 24 hr Results & Data (ED) Vital Signs Vital Signs - 24 hr 09/24/23 13:14 09/24/23 15:33 09/24/23 17:00 Temperature 36.6 C Temperature Source Temporal Artery Scan Pulse Rate 62 60 67 Pulse Rate [Apical] Respiratory Rate 20 Respiratory Effort / Characteristics Non-Labored Respiratory Depth Normal Blood Pressure 135/70 Blood Pressure [Right Arm] Blood Pressure Mean 91 Blood Pressure Mean [Right Arm] Pulse Oximetry 98 97 Oxygen Delivery Method Room Air Sepsis Recent Fever Within 48 Hours No Sepsis New/Unexplained Change in Mental Status No Sepsis Action Taken by Nursing No Action Required 09/24/23 17:00 09/24/23 17:06 Temperature Temperature Source Pulse Rate Pulse Rate [Apical] 67 Respiratory Rate 22 Respiratory Effort / Characteristics Respiratory Depth Blood Pressure Blood Pressure [Right Arm] 147/79 H Blood Pressure Mean Blood Pressure Mean [Right Arm] 101 Pulse Oximetry 97 97 Oxygen Delivery Method Room Air Sepsis Recent Fever Within 48 Hours Sepsis New/Unexplained Change in Mental Status Sepsis Action Taken by Nursing Laboratory Data 09/24/23 13:50 09/24/23 13:50 Lab Results 09/24/23 09/24/23 09/24/23 Range/Units 13:50 14:35 14:36 WBC 9.02 (4.8-10.8) K/ul RBC 3.40 L (4.20-5.40) M/uL Hgb 10.8 L (12.0-16.0) g/dl Hct 32.4 L (37.0-47.0) % MCV 95.3 (80.0-100.0) fL MCH 31.8 (25.0-34.0) pg MCHC 33.3 (32.0-36.0) g/dL RDW Std Deviation 49.3 H (36.4-46.3) fL RDW Coeff of Adolfo 14.0 (11.5-14.5) % Plt Count 354 (130-400) K/uL MPV 9.7 (9.4-12.4) fL Immature Gran % (Auto) 0.4 % Neut % (Auto) 67.0 % Lymph % (Auto) 20.0 % Jerauld % (Auto) 7.8 % Eos % (Auto) 4.1 % Baso % (Auto) 0.7 % Neut # (Auto) 6.05 (1.40-6.50) K/uL Lymph # (Auto) 1.80 (1.20-3.40) K/uL Jerauld # (Auto) 0.70 H (0.11-0.59) K/uL Eos # (Auto) 0.37 (0.00-0.50) K/uL Baso # (Auto) 0.06 (0.00-0.20) K/uL Immature Gran # (Auto) 0.04 (0.01-0.20) K/uL PT Cancelled 11.6 INR Cancelled 1.1 APTT Cancelled 35 H PTT Ratio Cancelled 1.2 Sodium 127 L (136-145) mmol/L Potassium 4.1 (3.5-5.1) mmol/L Chloride 92 L (98-107) mmol/L Carbon Dioxide 27 (21-32) mmol/L Anion Gap 8 (3-11) BUN 36 H (6-23) mg/dl Creatinine 1.27 H (0.6-1.2) mg/dl Est Cr Clr Drug Dosing Not Reportable Est GFR ( Amer) 43.6 ml/min Est GFR (Non-Af Amer) 37.6 ml/min BUN/Creatinine Ratio 28.3 H (10-20) Glucose 127 H (70-99(Fasting)) mg/dl Osmolality 275 L (280-300) mOsm/kg Calcium 9.7 (8.6-10.3) mg/dl Phosphorus 4.4 (2.5-4.9) mg/dl Magnesium 1.6 L (1.7-2.4) mg/dl Total Bilirubin 0.4 (0.2-1.0) mg/dl AST 19 (13-39) U/L ALT 13 (7-52) U/L Alkaline Phosphatase 56 (34-104) U/L Troponin I High Sens 13.3 (0-14) pg/ml Total Protein 7.3 (6.0-8.3) gm/dl Albumin 4.1 (3.4-5.0) gm/dl Globulin 3.2 (2.5-4.0) gm/dl Albumin/Globulin Ratio 1.3 (0.9-2) Procalcitonin < 0.05 (0-0.5) ng/ml 09/24/23 Range/Units 17:03 WBC (4.8-10.8) K/ul RBC (4.20-5.40) M/uL Hgb (12.0-16.0) g/dl Hct (37.0-47.0) % MCV (80.0-100.0) fL MCH (25.0-34.0) pg MCHC (32.0-36.0) g/dL RDW Std Deviation (36.4-46.3) fL RDW Coeff of Adolfo (11.5-14.5) % Plt Count (130-400) K/uL MPV (9.4-12.4) fL Immature Gran % (Auto) % Neut % (Auto) % Lymph % (Auto) % Jerauld % (Auto) % Eos % (Auto) % Baso % (Auto) % Neut # (Auto) (1.40-6.50) K/uL Lymph # (Auto) (1.20-3.40) K/uL Jerauld # (Auto) (0.11-0.59) K/uL Eos # (Auto) (0.00-0.50) K/uL Baso # (Auto) (0.00-0.20) K/uL Immature Gran # (Auto) (0.01-0.20) K/uL PT INR APTT PTT Ratio Sodium (136-145) mmol/L Potassium (3.5-5.1) mmol/L Chloride (98-107) mmol/L Carbon Dioxide (21-32) mmol/L Anion Gap (3-11) BUN (6-23) mg/dl Creatinine (0.6-1.2) mg/dl Est Cr Clr Drug Dosing Est GFR ( Amer) ml/min Est GFR (Non-Af Amer) ml/min BUN/Creatinine Ratio (10-20) Glucose (70-99(Fasting)) mg/dl Osmolality (280-300) mOsm/kg Calcium (8.6-10.3) mg/dl Phosphorus 4.7 (2.5-4.9) mg/dl Magnesium (1.7-2.4) mg/dl Total Bilirubin (0.2-1.0) mg/dl AST (13-39) U/L ALT (7-52) U/L Alkaline Phosphatase (34-104) U/L Troponin I High Sens (0-14) pg/ml Total Protein (6.0-8.3) gm/dl Albumin (3.4-5.0) gm/dl Globulin (2.5-4.0) gm/dl Albumin/Globulin Ratio (0.9-2) Procalcitonin (0-0.5) ng/ml Administered Medications Magnesium Sulfate/Dextrose (Magnesium Sulfate / D5w) 1 gm in 100 mls @ 50 mls/hr IV Q2H CLIFF Stop: 09/24/23 19:59 Last Admin: 09/24/23 17:37 Dose: 100 mls/hr Documented By: Infusion: 09/24/23 17:37 Dose: Infused Documented By: Admin: 09/24/23 16:34 Dose: 100 mls/hr Documented By: NKECHI Imaging Data Radiologist's Impression: Chest X-Ray 09/24/23 13:16 XR chest 1V portable CLINICAL HISTORY: confusion, dizziness, infect? COMPARISON STUDY: Chest radiograph September 21, 2023. FINDINGS: A dual-lead left subclavian pacer is in place. There is no pneumothorax or pleural effusion. No consolidation is identified to suggest pneumonia. Linear left basilar densities favor atelectasis. No evidence for pulmonary edema. IMPRESSION: No acute cardiopulmonary findings. ACT 112: Negative or not required by law. Electronically signed by: Dre Arceo M.D. 09/24/2023 1:[address] 09/24/23 13:47 CT head/brain wo con CLINICAL HISTORY: lightheaded Technique: Contiguous axial CT images of the head were acquired from the base of the skull to the vertex without intravenous contrast administration. Images were viewed in brain, subdural and bone windows. Automated dose lowering techniques and/or adjustment according to patient size were utilized for this exam. Comparison: Comparison is made to CT abdomen 09/10/2023 Findings: Areas of decreased attenuation are present in the periventricular and subcortical white matter bilaterally consistent with small vessel ischemic disease. Generalized cerebral atrophy with commensurate enlargement of the ventricles, sulci, and cisterns is also present. There is no acute intracranial hemorrhage or evidence of acute territorial infarction. No shift of the midline structures, mass effect, or extra-axial abnormalities are shown. Atherosclerotic calcifications are present in the intracranial segments of the internal carotid arteries. 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 Imaged portions of the paranasal sinuses and mastoid air cells are clear. The orbits appear normal. There are no acute fractures of the calvaria or scalp swelling. Impression: No acute intracranial hemorrhage, no evidence of acute territorial infarction or other acute intracranial disease process. ACT 112: Negative or not required by law. Electronically signed by: Teddy Joaquin M.D. 09/24/2023 2:54 PM Discharge Plan Visit Data Chief Complaint: Weakness Stated Complaint: WEAKNESS, DIZZINESS ED Provider: Darrius Antonio Discharge Problem: Acute hyponatremia, A-fib, Weakness Forms Stand Alone Forms: My [facility] Prescriptions Prescriptions: No Action atorvastatin 40 mg tablet 40 mg PO DAILY levothyroxine 50 mcg tablet 50 mcg PO DAILY omeprazole 20 mg capsule,delayed release(DR/EC) 20 mg PO DAILY allopurinol 300 mg tablet 300 mg PO DAILY potassium chloride 10 mEq capsule, extended release 10 meq PO DAILY furosemide 20 mg tablet 20 mg PO DAILY Eliquis 5 mg Tablet 5 mg PO BID Qty: 60 0RF lisinopril 20 mg Tablet 20 mg PO DAILY Qty: 30 0RF metoprolol succinate 25 mg Tablet Extended Release 24 Hr 25 mg PO BID Qty: 60 0RF Referrals Referrals: Ricardo Guerra MD [Primary Care Provider] - Discharge Problem: A-fib Qualifiers: Atrial fibrillation type: unspecified Qualified Code(s): I48.91 - Unspecified atrial fibrillation
[2023-09-24 14:00] LABS: Basophils # (auto) 0.06 K/uL (0.00-0.20); Basophils % (auto) 0.7 %; Eosinophils # (auto) 0.37 K/uL (0.00-0.50); Eosinophils % (auto) 4.1 %; Hematocrit (blood only) 32.4 % (37.0-47.0); Hemoglobin 10.8 g/dl (12.0-16.0); Immature Granulocytes # (auto) 0.04 K/uL (0.01-0.20); Immature Granulocytes % (auto) 0.4 %; Mean Corpuscular Hemoglobin 31.8 pg (25.0-34.0); Mean Corpuscular Hgb Conc 33.3 g/dL (32.0-36.0); Mean Corpuscular Volume 95.3 fL (80.0-100.0); Mean Platelet Volume 9.7 fL (9.4-12.4); Monocytes % (auto) 7.8 %; Neutrophils # (auto) 6.05 K/uL (1.40-6.50); Platelet Count 354 K/uL (130-400); RDW Standard Deviation 49.3 fL (36.4-46.3); White Blood Count 9.02 K/ul (4.8-10.8)
[2023-09-24 14:23] LABS: Alanine Aminotransferase 13 U/L (7-52); Albumin Globulin Ratio 1.3 (0.9-2); Albumin Level 4.1 gm/dl (3.4-5.0); Alkaline Phosphatase 56 U/L (34-104); Anion Gap 8 (3-11); Aspartate Aminotransferase 19 U/L (13-39); BUN Creatinine Ratio 28.3 (10-20); Bilirubin,Total 0.4 mg/dl (0.2-1.0); Blood Urea Nitrogen 36 mg/dl (6-23); Calcium 9.7 mg/dl (8.6-10.3); Carbon Dioxide 27 mmol/L (21-32); Chloride 92 mmol/L (98-107); Est GFR (African American) 43.6 ml/min; Est GFR (Non-African American) 37.6 ml/min; Globulin 3.2 gm/dl (2.5-4.0); Glucose 127 mg/dl (70-99(Fasting)); Magnesium 1.6 mg/dl (1.7-2.4); Potassium 4.1 mmol/L (3.5-5.1); Sodium 127 mmol/L (136-145); Total Protein 7.3 gm/dl (6.0-8.3)
[2023-09-24 14:30] LABS: Troponin I High Sensitivity 13.3 pg/ml (0-14)
--- NOTE | 2023-09-24 14:55 | CT Scan Report ---
CT head/brain wo con CLINICAL HISTORY: lightheaded Technique: Contiguous axial CT images of the head were acquired from the base of the skull to the veronika waldemar without intravenous contrast administration. Images were viewed in brain, subdural and bone [facility]. Automated dose lowering techniques and/or adjustment according to patient size were utilized for this exam. Comparison: Comparison is made to CT abdomen 09/10/2023 Findings: Areas of decreased attenuation are present in the periventricular and subcortical white matter bilate rally consistent with small vessel ischemic disease. Generalized cerebral atrophy with commensurate e nlargement of the ventricles, sulci, and cisterns is also present. There is no acute intracranial hem orrhage or evidence of acute territorial infarction. No shift of the midline structures, mass effect, or extra-axial abnormalities are shown. Atherosclerotic calcifications are present in the intracran ial segments of the internal carotid arteries. 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 Imaged portions of the paranasal sinuses and mastoid air cells are clear. The orbits appear normal. There are no acute fractures of the calvaria or scalp swelling. Impression: No acute intracranial hemorrhage, no evidence of acute territorial infarction or other acute intracra nial disease process. ACT 112: Negative or not required by law. Electronically signed by: Teddy Joaquin M.D. 09/24/2023 2:54 PM
[2023-09-24 15:22] LABS: INR 1.1 (0.9-1.1); Partial Thromboplastin Ratio 1.2; Partial Thromboplastin Time 35 Seconds (21-31); Prothrombin Time 11.6 Seconds (9.0-12.0)
[2023-09-24] MEDS ORDERED: ONDANSETRON INJ 2 MG/ML 2 ML VIAL IV PRN (15:29)
[2023-09-24] MEDS ORDERED: ACETAMINOPHEN 325 MG TAB PO PRN (15:29)
[2023-09-24] MEDS ORDERED: MAGNESIUM HYDROXIDE SUSP 30 ML UDC PO PRN (15:29)
[2023-09-24] MEDS ORDERED: POLYETHYLENE (MIRALAX) 17 GM PACK PO PRN (15:29)
[2023-09-24] MEDS ORDERED: ALUMINUM/MAGNESIUM SUSP 30 ML UDC PO PRN (15:29)
--- NOTE | 2023-09-24 15:36 | History & Physical Report ---
Date of Service September 24, 2023 Assessment & Plan (1) Paroxysmal atrial fibrillation: (2) HTN (hypertension): (3) Pacemaker: (4) AVA (acute kidney injury): (5) Hypomagnesemia: (6) Hyponatremia: Plan Ms. Purcell is an 88 year old female that presented to the ED with complaints of lightheadedness. She was recently discharged from the hospital on 09/23 after a 2 night admission for evaluation of dizziness and chest pain and was found to be in atrial fibrillation. She was in the bathroom between 10-11AM and stated that she was feeling dizzy. She went to brush her teeth and she reported feeling lightheaded without dizziness with palpitations. 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 Most recent ECHO 09/2023: EF 60-65%, mild to moderate MR, Grade I DDX, normal LV wall motion. Additional PMH includes: pAF, HTN, HLD, Gout, and GERD. No leukocytosis, mild creatinine elevated 1.27 (baseline 1.03-1.09). Troponin negative. Mg+ 1.6. Na+ 127. Pt is sitting in her bed in no apparent distress. She is able to answer questions appropriately. Education provided as to what can occur while you are having palpitations. Will admit for paroxysmal atrial fibrillation with cardiology evaluation with review of pacer interrogation along with repletion of magnesium and further work up of hyponatremia with obtaining serum osmo, urine and sodium osmolality. pAF: Palpitations: Acute dual-chamber pacemaker implanted without complication 09/15/2023 after experiencing SSS/bradycardia Received ASA x4 via EMS; currently chest pain and palpitation freECG without ischemia Initial Troponin 13.3; do not suspect ACS; will trend Troponin Most recent ECHO 09/22/2023: EF 60-65%, mild to moderate TR/MR, Grade I DDX, normal LV wall motion CXR negative for acute cardiopulmonary disease Head CT: negative Just started on Eliquis prior to discharge in recent days; continue Takes Metoprolol; Continue Cardiology consult placed for re-involvement and further review of interrogation. Hyponatremia: Acute Serum 127 Will obtain serum osmolality Will check Urine Osmo and Urine Na+ AVA: Acute Serum creatinine 1.27; baseline 1.03 Consult Nephrology for further evaluation Hypomagnesemia: Acute Mg+ 1.6; replace with 2 G and recheck in AM HTN: Chronic Takes Lisinopril; hold for now until AM lab work reviewed Takes Lasix and K+ supplements; hold for now and review after AM lab work reviewed HLD: Chronic Takes Atorvastatin;continue Hypothyroidism: Chronic Takes Levothyroxine;continue GERD: Chronic Takes Omeprazole;continue Disposition: PCP: Dr. Guerra Code Status: Full Code VTE Prophylaxis: On Shahana I spent a total of 87 minutes coordinating, documenting, and providing care for this patient excluding time spent in the performance of separately billed services. All of the aforementioned completed while collaborating with the assigned attending physician for a full treatment plan. Please see their addendu m for further details. History of Present Illness Chief Complaint: lightheadedness Primary Care Provider: Ricardo Guerra MD Ms. Purcell is an 88 year old female that presented to the ED with complaints of lightheadedness. She was recently discharged from the hospital on 09/23 after a 2 night admission for evaluation of dizziness and chest pain and was found to be in atrial fibrillation. She was in the bathroom between 10-11AM and stated that she was feeling dizzy. She went to brush her teeth and she reported feeling lightheaded without dizziness with palpitations. 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 Most recent ECHO 09/2023: EF 60-65%, mild to moderate MR, Grade I DDX, normal LV wall motion. Additional PMH includes: pAF, HTN, HLD, Gout, and GERD. No leukocytosis, mild creatinine elevated 1.27 (baseline 1.03-1.09). Troponin negative. Mg+ 1.6. Na+ 127. Patient denies DAILEY, current chest pain, N/V/D, hematochezia, dysuria, abdominal pain or tenderness, recent falls or trauma. Denies tobacco, alcohol use, or recreational drug use. She is sitting upright in her hospital bed in no apparent distress. She is [place], but able to answer all questions appropriately. Pt is sitting in her bed in no apparent distress. She is able to answer questions appropriately. Education provided as to what can occur while you are having palpitations. Will admit for paroxysmal atrial fibrillation with cardiology evaluation with review of pacer interrogation along with repletion of magnesium and further work up of hyponatremia with obtaining serum osmo, urine and sodium osmolality. Patient will be admitted for further evaluation and management. Please see A/P for further details. Allergies Allergy/AdvReac Type Severity Reaction Status Date / Time No Known Allergies Allergy Verified 09/21/23 17:16 Home Medications Medication Instructions Recorded Confirmed Type allopurinol 300 mg tablet 300 mg PO DAILY 09/11/23 09/24/23 History atorvastatin 40 mg tablet 40 mg PO DAILY 09/11/23 09/24/23 History levothyroxine 50 mcg tablet 50 mcg PO DAILY 09/11/23 09/24/23 History omeprazole 20 mg capsule,delayed 20 mg PO DAILY 09/11/23 09/24/23 History release furosemide 20 mg tablet 20 mg PO DAILY 09/21/23 09/24/23 History potassium chloride 10 mEq 10 meq PO DAILY 09/21/23 09/24/23 History capsule,extended release apixaban 5 mg tablet (Eliquis) 5 mg PO BID #60 tabs 09/22/23 09/24/23 Rx lisinopril 20 mg tablet 20 mg PO DAILY #30 tabs 09/23/23 09/24/23 Rx metoprolol succinate 25 mg 25 mg PO BID #60 tabs 09/23/23 09/24/23 Rx tablet,extended release 24 hr Past Med/Surg History Medical History (Updated 09/24/23 @ 17:04 by MARIANO Chaudhari) Hyponatremia Hypomagnesemia Diarrhea Pacemaker CKD (chronic kidney disease) Palpitations Left-sided headache Thyroid disease Gout High blood pressure Social History Smoking Status: Never smoker Hx Alcohol Use: No Hx Substance Use: No Preferred Language: Senegalese Communication Ability: Effective Summer Internship Required: No Beliefs That Will Affect Care: None Current Living Situation: Family Current Living Situation Comment: daughter stays with pt Feels Safe at Home: Yes Assistive Devices: Walker Review of Systems Review of Systems: Neuro: (-) Falls, trauma, slurred speech HEENT: (-) DAILEY, dizziness, dysphagia, visual or auditory changes (+) lightheadedness CV: (-) CP, palpitations, swelling Resp: (-) SOB GI: (-) appetite changes, N/V/D, bowel changes : (-) urinary changes Skin: (-) rashes Psych: (-) anxiety, depression Physical Exam Physical Exam: See Dr. Art's addendum for physical examination findings Results & Data Results & Data Vital Signs (Past 12 Hours) Vital Signs Temp Pulse Resp BP Pulse Ox O2 Del Method 09/24/23 13:14 36.6 C 62 20 135/70 98 Room Air Laboratory Results Short CBC 09/24/23 Range/Units 13:50 WBC 9.02 (4.8-10.8) K/ul Hgb 10.8 L (12.0-16.0) g/dl Hct 32.4 L (37.0-47.0) % Plt Count 354 (130-400) K/uL BMP 09/24/23 13:50 Sodium 127 L Potassium 4.1 Chloride 92 L Carbon Dioxide 27 BUN 36 H Creatinine 1.27 H Glucose 127 H Calcium 9.7 Liver Function 09/24/23 Range/Units 13:50 Total Bilirubin 0.4 (0.2-1.0) mg/dl AST 19 (13-39) U/L ALT 13 (7-52) U/L Alkaline Phosphatase 56 (34-104) U/L Albumin 4.1 (3.4-5.0) gm/dl Diagnostic Findings Chest X-Ray 09/24/23 13:16 XR chest 1V portable CLINICAL HISTORY: confusion, dizziness, infect? COMPARISON STUDY: Chest radiograph September 21, 2023. FINDINGS: A dual-lead left subclavian pacer is in place. There is no pneumothorax or pleural effusion. No consolidation is identified to suggest pneumonia. Linear left basilar densities favor atelectasis. No evidence for pulmonary edema. IMPRESSION: No acute cardiopulmonary findings. ACT 112: Negative or not required by law. Electronically signed by: Dre Arceo M.D. 09/24/2023 1:[address] 09/24/23 13:47 CT head/brain wo con CLINICAL HISTORY: lightheaded Technique: Contiguous axial CT images of the head were acquired from the base of the skull to the vertex without intravenous contrast administration. Images were viewed in brain, subdural and bone windows. Automated dose lowering techniques and/or adjustment according to patient size were utilized for this exam. Comparison: Comparison is made to CT abdomen 09/10/2023 Findings: Areas of decreased attenuation are present in the periventricular and subcortical white matter bilaterally consistent with small vessel ischemic disease. Generalized cerebral atrophy with commensurate enlargement of the ventricles, sulci, and cisterns is also present. There is no acute intracranial hemorrhage or evidence of acute territorial infarction. No shift of the midline structures, mass effect, or extra-axial abnormalities are shown. Atherosclerotic calcifications are present in the intracranial segments of the internal carotid arteries. 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 Imaged portions of the paranasal sinuses and mastoid air cells are clear. The orbits appear normal. There are no acute fractures of the calvaria or scalp swelling. Impression: No acute intracranial hemorrhage, no evidence of acute territorial infarction or other acute intracranial disease process. ACT 112: Negative or not required by law. Electronically signed by: Teddy Joaquin M.D. 09/24/2023 2:54 PM Code Status & VTE Plan Code Status Full Code in the event of cardiac or respiratory arrest VTE Prophylaxis Plan VTE Prophylaxis will be ordered: Yes Supervising Physician Co-Signing Physician Notes 88 year old woman with h/o type 2 diabetes, hyperlipidemia, hypothyroidism, CKD stage III, hypertension, GERD, primary open-angle glaucoma bilateral, recent PPM on 09/15/23, recent hospitalization from 09/21/23 to 09/23/23 and managed for pAfib that presented to the ED with complaints of dizziness while cleaning up in the bathroom this morning. Daughter at bedside reported patient had complained of palpitation before that. Patient reports she does not recall now Dizziness lasted some minutes Denied chest pain, SOB, nausea, vomiting Reported one episode of loose stool earlier this AM. Non bloody On exam, General: Elderly woman in no distress Eyes: PERRL, conjunctivae normal, not pale, anicteric sclerae, EOM intact bilaterally ENMT: External ear and nose normal, oropharynx normal, hearing aid in situ Respiratory: Normal respiratory effort, no respiratory distress, lungs clear to auscultation, no crackles and no wheezes Cardiovascular: RRR S1 S2 Gastrointestinal (Abdomen): Abdomen is not distended, soft, non-tender to palpation, no guarding, no palpable hepatosplenomegaly, normal bowel sounds Musculoskeletal: No pedal edema Neurologic: Alert and oriented x 3, No focal weakness, sensation grossly intact Psychiatric: Alert and oriented x 3, euthymic affect Labs notable for Na 127, Cr 1.27, Mg 1.6, Hb 10.[address] head did not show any acute abnormalities Dizziness Hyponatremia AVA Hypomagnesemia Dizziness may be due to paroxysmal Afib based on history Currently sinus Continue home eliquis and metoprolol succinate started during recent hospitaliza tion Hold lasix and lisinopril for today until repeat BMP Cards consult. Interrogate PPM Check serum osm, Uosm, Franca Replete hypomagnesemia Nephro consult to help manage hyponatremia Agree with plans as detailed by Jennifer QUINTANA I spent a total of 40 minutes coordinating, documenting and providing care for this patient excluding time spent in performance of separately billed services (2) HTN (hypertension) Hypertension type: primary hypertension Qualified Code(s): I10 - Essential (primary) hypertension
[2023-09-24 16:05] LABS: Phosphorus 4.4 mg/dl (2.5-4.9)
[2023-09-24] MEDS: MAGNESIUM SULFATE / D5W 1 GM/100 ML BAG IV SCH ×2 (16:34→17:37)
[2023-09-24] MEDS: METOPROLOL SUCC 25MG EXT REL TAB PO SCH (21:19)
[2023-09-24] MEDS: APIXABAN 5 MG TABLET PO SCH (21:19)
[2023-09-24 21:45] LABS: Appearance Urine Clear (Clear); Bacteria Urine Automated Negative (Negative); Bilirubin Urine Negative (Negative); Blood Urine Negative (Negative); Color Urine Yellow; Glucose Urine UA Negative (Negative); Ketones Urine Negative (Negative); Leukocyte Esterase Urine Trace (Negative); Nitrite Urine Negative (Negative); Protein Urine Negative (Negative); RBC Urine Automated 0-4 /hpf (0-4); Specific Gravity Urine 1.007 (1.000-1.030); Urobilinogen Urine Negative (Negative)
[2023-09-25] MEDS: LEVOTHYROXINE SODIUM 50 MCG TABLET PO SCH (05:31)
[2023-09-25 07:31] LABS: Hematocrit (blood only) 26.8 % (37.0-47.0); Hemoglobin 9.6 g/dl (12.0-16.0); Mean Corpuscular Hemoglobin 32.5 pg (25.0-34.0); Mean Corpuscular Hgb Conc 35.8 g/dL (32.0-36.0); Mean Corpuscular Volume 90.8 fL (80.0-100.0); Mean Platelet Volume 9.9 fL (9.4-12.4); Platelet Count 351 K/uL (130-400); RDW Coefficient of Variation 13.7 % (11.5-14.5); RDW Standard Deviation 45.9 fL (36.4-46.3); Red Blood Count 2.95 M/uL (4.20-5.40); White Blood Count 8.16 K/ul (4.8-10.8)
[2023-09-25 07:54] LABS: Albumin Globulin Ratio 1.3 (0.9-2); Albumin Level 3.6 gm/dl (3.4-5.0); BUN Creatinine Ratio 30.8 (10-20); Bilirubin,Total 0.4 mg/dl (0.2-1.0); Calcium 9.4 mg/dl (8.6-10.3); Creatinine Clr Calc Pharmacy 31.8 ml/min; Est GFR (African American) 53.7 ml/min; Est GFR (Non-African American) 46.3 ml/min; Globulin 2.7 gm/dl (2.5-4.0); Magnesium 1.8 mg/dl (1.7-2.4); Potassium 3.9 mmol/L (3.5-5.1); Total Protein 6.3 gm/dl (6.0-8.3)
--- NOTE | 2023-09-25 08:16 | Cardiology Consultation ---
Date of Consultation September 25, 2023 Assessment & Plan (1) Paroxysmal atrial fibrillation: (2) SSS (sick sinus syndrome): (3) Pacemaker: Plan IMPRESSION: 88 year old female admitted for lightheadedness, possibly orthostatic mediated, but could also be symptomatic with PAF. Tele has not revealed any atrial fibrillation, primarily sinus/paced in the 60s. Blood pressures controlled. PLAN: Paroxysmal atrial fibrillation: -Maintaining SR on tele-- Continue metoprolol succinate 25 mg BID, consider increase if more PAF seen. -Continue Eliquis 5 mg BID for stroke prevention -Monitor renal function and electrolytes, maintain potassium of 4.0 and mag of 2.0-- supplement provided this am. Hypertension: -Appropriate control-- continue Lisinopril 20 mg daily SSS s/p PPM: Appropriate function on device interrogation this admission. Will need to establish with our outpatient device clinic. Case discussed with Dr. Brandt-- -Further recommendations pending his assessment. I spent a total of 40 minutes on the date of service in preparation, delivery, and documentation of the care provided to the patient excluding any time spent in the performance of separately billed services. MARIANO Torres Department of Cardiology, [facility] This chart was completed in part utilizing Speech Voice Recognition Software. Grammatical errors, random word insertions, pronoun errors, and incomplete sentences are an occasional consequence of this system due to software limitations, ambient noise, and hardware issues. Any formal questions or concerns about the content, text, or information contained within the body of this dictation should be directly addressed to the provider for clarification. Supervising Physician Co-Signing Physician Notes Supervising Physician Attestation: I have personally performed a history and physical examination on the patient. I agree with the physician assistant director of financial aid's findings and plan as documented with the following additions. Subjective: Patient without acute complaint at the time my assessment. Daughter at the bedside whom I had met during her initial hospital stay earlier this month. Telemetry reveals sinus rhythm in the 60s with occasional atrial pacing. Exam: Left infraclavicular device pocket clean dry and intact, no erythema Data: Device interrogation reveals normal function with no additional A-fib episodes. EKG 09/24/2023 1337 and interpret independently: Sinus rhythm at 65 bpm incomplete right bundle branch block, age-indeterminate inferior infarct pattern noted which is a chronic finding Assessment and Plan: Dizziness, with stable blood pressure and heart rates noted. Mild hyponatremia -- Nephrology input noted and appreciated. Continue to avoid thiazide diuretics. -- Continue metoprolol succinate 25 mg twice daily, Eliquis 5 mg twice daily. Blood pressure levels acceptable. --Patient to remain in the hospital for further follow-up of hyponatremia. No further cardiac testing felt to be indicated at present. DVT prophylaxis: Shahana Aguayo spent a total of 20 minutes on the date of service in preparation, delivery, and documentation of the care provided to this patient, excluding any time spent in the performance of separately billed services. Uriah Brandt, History of Present Illness Reason for Consultation: Lightheadedness/paroxysmal atrial fibrillation Requesting Physician: Esvin perea Attending Physician: Atilio Galeano MD History of Present Illness 88-year-old female who initially presented to [facility] emergency department on 09/24/2023 due to concerns regarding lightheadedness. Pacemaker was interrogated revealing ongoing episodes of PAT vs PAF, one episode specifically on 09/24/2023. Previously admitted from 09/21 to 09/23 due to similar complaints. Per records-- Pacemaker interrogation revealed episodes of paroxysmal atrial fibrillation. Patient was started on metoprolol succinate 25 mg twice daily as well as Eliquis for stroke prophylaxis (09/23/2023). Lab work showed hyponatremia and hydrochlorothiazide was discontinued. Patient was discharged home on Lisinopril 20 mg daily. Most recent ECHO 09/22/2023: EF 60-65%, mild TR/MR, Grade I diastolic dysfunction, normal LV wall motion. Left atrium mildly dilated. Right atrium normal in size. Labs: Mild anemia with a hemoglobin averaging between 9.5 and 10.5, Ongoing hyponatremia, 128. Normal creatinine of 1.07. Potassium 3.9. Mag 1.8. Head CT without acute findings. Upon entrance into the room patient resting in the chair. No acute complaints. No further episodes of lightheadedness. No palpitations. Denies chest pain or shortness of breath. No orthopnea, PND, or increased lower extremity edema. No fever, chills, cough, hematochezia, melena, or hemoptysis. Tele: SR/Paced 60s. No PAF Past medical history: Paroxysmal atrial fibrillation Sick sinus syndrome status post dual-chamber permanent pacemaker 09/15/2023 ([employer] device) Hypertension CKD stage III Type 2 diabetes Allergies Allergy/AdvReac Type Severity Reaction Status Date / Time No Known Allergies Allergy Verified 09/21/23 17:16 Home Medications Medication Instructions Recorded Confirmed Type allopurinol 300 mg tablet 300 mg PO DAILY 09/11/23 09/24/23 History atorvastatin 40 mg tablet 40 mg PO DAILY 09/11/23 09/24/23 History levothyroxine 50 mcg tablet 50 mcg PO DAILY 09/11/23 09/24/23 History omeprazole 20 mg capsule,delayed 20 mg PO DAILY 09/11/23 09/24/23 History release furosemide 20 mg tablet 20 mg PO DAILY 09/21/23 09/24/23 History potassium chloride 10 mEq 10 meq PO DAILY 09/21/23 09/24/23 History capsule,extended release apixaban 5 mg tablet (Eliquis) 5 mg PO BID #60 tabs 09/22/23 09/24/23 Rx lisinopril 20 mg tablet 20 mg PO DAILY #30 tabs 09/23/23 09/24/23 Rx metoprolol succinate 25 mg 25 mg PO BID #60 tabs 09/23/23 09/24/23 Rx tablet,extended release 24 hr Patient History Medical History Hyponatremia Hypomagnesemia Diarrhea Pacemaker CKD (chronic kidney disease) Palpitations Left-sided headache Thyroid disease Gout High blood pressure Social History Smoking Status: Never smoker Hx Alcohol Use: No Hx Substance Use: No Preferred Language: St Helen[place] Communication Ability: Effective Thread Checker Required: No Beliefs That Will Affect Care: None Current Living Situation: Alone Current Living Situation Comment: daughter lives next door Other Information That Helps Us Care for You: No Feels Safe at Home: Yes Safety Concerns: Feels Safe At This Time Assistive Devices: Walker Review of Systems Review of Systems: All systems reviewed & are unremarkable except as noted in HPI & below Physical Exam Constitutional: WD/WN, vitals as above [place] Neck: normal visual inspection and trachea midline Respiratory: normal respiratory effort, lungs clear to auscultation Cardiovascular: RRR, no murmur, no edema Heart Sounds: normal S1, normal S2 and + murmur (faint systolic murmur ) Vessels: no JVD Extremities: no edema Chest (Breasts): Chest: + pacemaker (left chest, incision healing- no evidence of infection ) Gastrointestinal (Abdomen): normal bowel sounds, soft, nontender, no h epatosplenomegaly Skin: no rashes, warm and dry Psychiatric: Orientation: alert and oriented x 3 (Hard of hearing ) Results & Data Vital Signs (Past 12 Hours) Vital Signs Temp Pulse Pulse Resp BP Pulse Ox O2 Del Method 09/25/23 02:58 37 C 68 16 125/65 97 Room Air 09/24/23 23:49 74 09/24/23 23:00 36.6 C 84 16 164/64 H 95 Room Air Laboratory Results Cardiac Enzymes 09/24/23 09/25/23 Range/Units 13:50 06:45 AST 19 15 (13-39) U/L Troponin I High Sens 13.3 (0-14) pg/ml Coagulation 09/24/23 09/24/23 Range/Units 13:50 14:35 PT Cancelled 11.6 APTT Cancelled 35 H CBC 09/24/23 09/25/23 Range/Units 13:50 06:45 WBC 9.02 8.16 (4.8-10.8) K/ul RBC 3.40 L 2.95 L (4.20-5.40) M/uL Hgb 10.8 L 9.6 L (12.0-16.0) g/dl Hct 32.4 L 26.8 L (37.0-47.0) % Plt Count 354 351 (130-400) K/uL Neut # (Auto) 6.05 (1.40-6.50) K/uL Lymph # (Auto) 1.80 (1.20-3.40) K/uL [place] # (Auto) 0.70 H (0.11-0.59) K/uL Eos # (Auto) 0.37 (0.00-0.50) K/uL Baso # (Auto) 0.06 (0.00-0.20) K/uL Comprehensive Metabolic Panel 09/24/23 09/25/23 Range/Units 13:50 06:45 Sodium 127 L 128 L (136-145) mmol/L Potassium 4.1 3.9 (3.5-5.1) mmol/L Chloride 92 L 94 L (98-107) mmol/L Carbon Dioxide 27 26 (21-32) mmol/L BUN 36 H 33 H (6-23) mg/dl Creatinine 1.27 H 1.07 (0.6-1.2) mg/dl Glucose 127 H 104 H (70-99(Fasting)) mg/dl Calcium 9.7 9.4 (8.6-10.3) mg/dl AST 19 15 (13-39) U/L ALT 13 11 (7-52) U/L Alkaline Phosphatase 56 46 (34-104) U/L Total Protein 7.3 6.3 (6.0-8.3) gm/dl Albumin 4.1 3.6 (3.4-5.0) gm/dl Intake and Output 09/24/23 09/25/23 09/25/23 22:59 06:59 14:59 Intake Total 200 / 650 450 / 650 Output Total 500 / 500 Balance 200 / 150 -50 / 150 Intake: IV 200 / 200 Magnesium Sulfate / D5w 1 gm In 200 / 200 100 ml @ 50 mls/hr IV Q2H [facility] Rx#:[id number] Oral 450 / 450 Output: Urine 500 / 500 Other: # Unmeasured Voids 1 Weight 62.7 kg 63.6 kg Weight Measurement Method Standing Scale
[2023-09-25] MEDS: METOPROLOL SUCC 25MG EXT REL TAB PO SCH ×2 (09:36→21:20)
[2023-09-25] MEDS: allopurinoL 300 MG TAB PO SCH (09:36)
[2023-09-25] MEDS: PANTOprazole 40 MG TAB PO SCH (09:36)
[2023-09-25] MEDS: APIXABAN 5 MG TABLET PO SCH ×2 (09:37→21:20)
[2023-09-25] MEDS: ATORVASTATIN 40 MG TAB PO SCH (09:37)
[2023-09-25] MEDS ORDERED: MAGNESIUM OXIDE 400 MG TAB PO ONE (09:48)
[2023-09-25] MEDS ORDERED: POTASSIUM CHLORIDE CRTAB 20 MEQ TABCR PO STA (09:48)
[2023-09-25] MEDS ORDERED: MAGNESIUM OXIDE 400 MG TAB PO SCH (10:00)
--- NOTE | 2023-09-25 10:00 | Nephrology Consultation ---
Date of Consultation September 25, 2023 Assessment & Plan (1) Hyponatremia: (2) Hypomagnesemia: Has Mild Hyponatremia. HCTZ stopped Just few days ago so still not totally cleared out of system yet. very poor oral Intake of Solid food. urine osm is still somewhat high for the low Na. Will do FFR of 1200 ml per day. No need of Lasix for now. also no need of NS. Will follow Definitely do not use HCTZ. K and mag is better today but she will need some baseline Supplement. Creat also slightly better today. I and O charting. History of Present Illness Reason for Consultation: Hyponatremia Attending Physician: Atilio Galeano MD History of Present Illness 88/F presented to the ED with lightheadedness right after she was discharged. Does not appear she had fall though. She was recently discharged from the hospital on 09/23 after a 2 night admission for evaluation of dizziness and chest pain and was found to be in atrial fibrillation. Patient recently had a dual- chamber pacemaker implanted without complication 09/15/2023 after experiencing SSS/bradycardia. Most recent ECHO 09/2023: EF 60-65%, mild to moderate MR, normal LV wall motion. Na around 130. previous admission HCTZ was stopped and started on Lasix. na today 128. urine osm 259 amd urine na 60 She appears stable. NO resp Distress and has Paced rhythm ROS--hard to obtain. very hard of hearing and with mask Cannot understand much. Physical Exam Constitutional: well nourished; no acute distress Respiratory: normal respiratory effort; no respiratory distress and no labored breathing Auscultation: lungs clear to auscultation bilaterally; no crackles, no rales, no rhonchi and no wheezes Cardiovascular: Rate/Rhythm: regular rate and regular rhythm Heart Sounds: normal S1, normal S2 and + murmur (1/6 midsystolic murmur heard at the left sternal border) Vessels: radial pulses present; no JVD Gastrointestinal (Abdomen): Inspection/Auscultation: abdomen normal to inspection; abdomen not distended and + abnormal bowel sounds Percussion/Palpation: abdomen soft; abdomen nontender, no guarding and abdomen not rigid Neurologic: CN's II-XI intact bilaterally and moves all extremities; no focal motor deficits Allergies Allergy/AdvReac Type Severity Reaction Status Date / Time No Known Allergies Allergy Verified 01/18/24 17:16 Home Medications Medication Instructions Recorded Confirmed Type allopurinol 300 mg tablet 300 mg PO DAILY 09/11/23 09/24/23 History atorvastatin 40 mg tablet 40 mg PO DAILY 09/11/23 09/24/23 History levothyroxine 50 mcg tablet 50 mcg PO DAILY 09/11/23 09/24/23 History omeprazole 20 mg capsule,delayed 20 mg PO DAILY 09/11/23 09/24/23 History release furosemide 20 mg tablet 20 mg PO DAILY 09/21/23 09/24/23 History potassium chloride 10 mEq 10 meq PO DAILY 09/21/23 09/24/23 History capsule,extended release apixaban 5 mg tablet (Eliquis) 5 mg PO BID #60 tabs 09/22/23 09/24/23 Rx lisinopril 20 mg tablet 20 mg PO DAILY #30 tabs 09/23/23 09/24/23 Rx metoprolol succinate 25 mg 25 mg PO BID #60 tabs 09/23/23 09/24/23 Rx tablet,extended release 24 hr Patient History Medical History Hyponatremia Hypomagnesemia Diarrhea Pacemaker CKD (chronic kidney disease) Palpitations Left-sided headache Thyroid disease Gout High blood pressure Social History Smoking Status: Never smoker Hx Alcohol Use: No Hx Substance Use: No Preferred Language: Belarusian Communication Ability: Effective 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
--- NOTE | 2023-09-25 13:42 | Hospitalist Progress Note ---
Date of Service September 25, 2023 Assessment & Plan (1) Paroxysmal atrial fibrillation: (2) HTN (hypertension): (3) Pacemaker: (4) AVA (acute kidney injury): (5) Hypomagnesemia: (6) Hyponatremia: Plan Ms. Purcell is an 88 year old female that presented to the ED with complaints of lightheadedness. She was recently discharged from the hospital on 09/23 after a 2 night admission for evaluation of dizziness and chest pain and was found to be in atrial fibrillation. She was in the bathroom between 10-11AM and stated that she was feeling dizzy. Paroxysmal atrial fibrillation Palpitations: Recent admission with palpitation. Interrogation of the device revealed paroxysmal A-fib; was started on metoprolol 25 mg. Most recent ECHO 09/22/2023: EF 60-65%, mild to moderate TR/MR, Grade I DDX, normal LV wall motion CXR negative for acute cardiopulmonary disease Head CT: negative Appreciate cardiology's input; no repeat episode of paroxysmal atrial fibrillation. Continue on metoprolol and Eliquis Obtain orthostatic blood pressure Hyponatremia: Serum 127 on admission Hydrochlorothiazide was discontinued last admission due to mild hyponatremia. Urine osmolarity on the lower side with high urine sodium. Started on fluid restriction as per nephrology. BMP daily AVA: Acute Serum creatinine 1.27; baseline 1.03 Avoid nephrotoxic agent Hypomagnesemia: Mag of 1.6 on admission, repleted HTN: Chronic Lisinopril and Lasix. Currently on hold HLD: Chronic Takes Atorvastatin;continue Hypothyroidism: Chronic Takes Levothyroxine;continue GERD: Chronic Takes Omeprazole;continue Disposition: PCP: Dr. Guerra Code Status: Full Code VTE Prophylaxis: On Eliquis Dispositionthis is patient's third hospitalization since the start of the year. Obtain PT OT. Might need rehab. Time spent evaluating patient, direct bedside care, chart review, placing orders, interpretation of diagnostic studies, discussion with consultants, patient, and family members, as well as other required patient management activities is 50 minutes Please note the above document was generated using voice recognition software. It may contain grammatical, syntax or spelling errors. Any formal questions or concerns about the content, text or information contained within the body of this dictation should be directly addressed to the provider for clarification Admission and Anticipated Discharge Date Admission Date: September 24, 2023 Subjective Patient seen and examined at bedside. Comfortable; not in distress. Denies fever, chills, chest pain, shortness of breath, abdominal pain or urinary symptoms. No significant overnight events Denies dizziness at the moment. Review of Systems Review of Systems: All systems reviewed & are unremarkable except as noted in Subjective Results & Data Results & Data Vital Signs (Past 12 Hours) Vital Signs Temp Pulse Resp BP Pulse Ox O2 Del Method 09/25/23 12:31 36.9 C 62 16 129/66 97 Room Air 09/25/23 08:08 36.7 C 52 L 16 140/70 94 Room Air 09/25/23 02:58 37 C 68 16 125/65 97 Room Air (2) HTN (hypertension) Hypertension type: primary hypertension Qualified Code(s): I10 - Essential (primary) hypertension
--- NOTE | 2023-09-25 14:17 | Electrocardiogram Report ---
Test Reason : Blood Pressure : / mmHG Vent. Rate : 065 BPM Atrial Rate : 065 BPM P-R Int : 184 ms QRS Dur : 098 ms QT Int : 450 ms P-R-T Axes : 047 -12 028 degrees QTc Int : 468 ms Normal sinus rhythm Incomplete right bundle branch block possible Inferior infarct (cited on or before 14-JUL-2019) Abnormal ECG When compared with ECG of 23-SEP-2023 05:58, No significant change was found Confirmed by Ronny Yeh ([id number]) on 09/25/2023 2:16:51 PM Referred By: REFERRED SELF Confirmed By:Ian Yeh
[2023-09-26] MEDS: LEVOTHYROXINE SODIUM 50 MCG TABLET PO SCH (06:09)
[2023-09-26 07:24] LABS: Basophils # (auto) 0.05 K/uL (0.00-0.20); Basophils % (auto) 0.7 %; Eosinophils # (auto) 0.71 K/uL (0.00-0.50); Eosinophils % (auto) 9.3 %; Hematocrit (blood only) 26.8 % (37.0-47.0); Hemoglobin 9.5 g/dl (12.0-16.0); Immature Granulocytes # (auto) 0.03 K/uL (0.01-0.20); Immature Granulocytes % (auto) 0.4 %; Lymphocytes # (auto) 2.81 K/uL (1.20-3.40); Lymphocytes % (auto) 36.8 %; Mean Corpuscular Hemoglobin 32.2 pg (25.0-34.0); Mean Corpuscular Hgb Conc 35.4 g/dL (32.0-36.0); Mean Corpuscular Volume 90.8 fL (80.0-100.0); Monocytes # (auto) 0.81 K/uL (0.11-0.59); Monocytes % (auto) 10.6 %; Neutrophils # (auto) 3.22 K/uL (1.40-6.50); Neutrophils % (auto) 42.2 %; Platelet Count 341 K/uL (130-400); RDW Coefficient of Variation 13.7 % (11.5-14.5); RDW Standard Deviation 45.1 fL (36.4-46.3); Red Blood Count 2.95 M/uL (4.20-5.40); White Blood Count 7.63 K/ul (4.8-10.8)
[2023-09-26 07:49] LABS: BUN Creatinine Ratio 32.1 (10-20); Calcium 9.1 mg/dl (8.6-10.3); Creatinine Clr Calc Pharmacy 31.6 ml/min; Est GFR (African American) 52.5 ml/min; Est GFR (Non-African American) 45.3 ml/min
[2023-09-26] MEDS: APIXABAN 5 MG TABLET PO SCH ×2 (09:03→20:21)
[2023-09-26] MEDS: PANTOprazole 40 MG TAB PO SCH (09:03)
[2023-09-26] MEDS: METOPROLOL SUCC 25MG EXT REL TAB PO SCH ×2 (09:03→20:21)
[2023-09-26] MEDS: ATORVASTATIN 40 MG TAB PO SCH (09:04)
[2023-09-26] MEDS: allopurinoL 300 MG TAB PO SCH (09:04)
--- NOTE | 2023-09-26 09:52 | Nephrology Progress Note ---
Date of Service September 26, 2023 Assessment & Plan Admission and Anticipated Discharge Date Admission Date: September 24, 2023 Subjective Assessment & Plan (1) Hyponatremia: (2) Hypomagnesemia: Has Mild Hyponatremia. HCTZ stopped Just few days ago so still not totally cleared out of system yet. very poor oral Intake of Solid food. urine osm is still somewhat high for the low Na. Will do FFR of 1200 ml per day. na went down to 126. So will give urea-na 15 bid. Also give 1000 ml NS for solute/fluid load chased by lasix 40 bid to lower urine osm. Kcl 20 bid also. Check BMP again in AM. Sometime na just never goes up unless they eat more solid food. S--No new issues. Barely eating anything. Physical Exam Constitutional: well nourished; no acute distress Respiratory: normal respiratory effort; no respiratory distress and no labored breathing Auscultation: lungs clear to auscultation bilaterally; no crackles, no rales, no rhonchi and no wheezes Cardiovascular: Rate/Rhythm: regular rate and regular rhythm Heart Sounds: normal S1, normal S2 and + murmur (1/6 midsystolic murmur heard at the left sternal border) Vessels: radial pulses present; no JVD Gastrointestinal (Abdomen): Inspection/Auscultation: abdomen normal to inspection; abdomen not distended and + abnormal bowel sounds Percussion/Palpation: abdomen soft; abdomen nontender, no guarding and abdomen not rigid Neurologic: CN's II-XI intact bilaterally and moves all extremities; no focal motor deficits Results & Data Vital Signs (Past 12 Hours) Vital Signs Temp Pulse Pulse Resp BP Pulse Ox O2 Del Method 09/26/23 07:33 36.8 C 59 L 18 149/74 H 94 Room Air 09/26/23 04:13 37.0 C 62 18 112/58 L 96 Room Air 09/25/23 23:49 36.9 C 62 18 125/67 94 Room Air 09/25/23 23:22 64
[2023-09-26] MEDS: SODIUM CHLORIDE 0.9% 1,000 ML IV SCH ×2 (10:23→22:58)
[2023-09-26] MEDS: FUROSEMIDE 40 MG/4 ML VIAL IV SCH ×2 (10:24→17:35)
[2023-09-26] MEDS: POTASSIUM CHLORIDE CRTAB 20 MEQ TABCR PO SCH ×2 (10:24→20:21)
[2023-09-26] MEDS: UREA (UREA-NA) 15 GM PACK PO SCH ×2 (10:24→20:21)
--- NOTE | 2023-09-26 13:02 | Hospitalist Progress Note ---
Date of Service September 26, 2023 Assessment & Plan (1) Paroxysmal atrial fibrillation: (2) HTN (hypertension): (3) Pacemaker: (4) AVA (acute kidney injury): (5) Hypomagnesemia: (6) Hyponatremia: Plan Ms. Purcell is an 88 year old female that presented to the ED with complaints of lightheadedness. She was recently discharged from the hospital on 09/23 after a 2 night admission for evaluation of dizziness and chest pain and was found to be in atrial fibrillation. She was in the bathroom between 10-11AM and stated that she was feeling dizzy. Paroxysmal atrial fibrillation Palpitations: Recent admission with palpitation. Interrogation of the device revealed paroxysmal A-fib; was started on metoprolol 25 mg. Most recent ECHO 09/22/2023: EF 60-65%, mild to moderate TR/MR, Grade I DDX, normal LV wall motion CXR negative for acute cardiopulmonary disease Head CT: negative No repeat episode of paroxysmal atrial fibrillation. Cardiology recommends to continue on metoprolol and Eliquis. Orthostatic blood pressure within normal limits. Hyponatremia: Serum 127 on admission Hydrochlorothiazide was discontinued last admission due to mild hyponatremia. Urine osmolarity on the lower side with high urine sodium. Discussed with nephrology;increase fluid restriction to 1200 cc. Oral urea 15 g twice daily. 1 L normal saline followed by 40 mg Lasix twice daily. Continue to monitor BMP daily AVA: Acute Serum creatinine 1.27; baseline 1.03 Down trended back to baseline Avoid nephrotoxic agent Hypomagnesemia: Mag of 1.6 on admission, repleted HTN: Chronic Lisinopril and Lasix. Currently on hold HLD: Chronic Takes Atorvastatin;continue Hypothyroidism: Chronic Takes Levothyroxine;continue GERD: Chronic Takes Omeprazole;continue Disposition: PCP: Dr. Guerra Code Status: Full Code VTE Prophylaxis: On Eliquis Dispositionthis is patient's third hospitalization since the start of the year. PT OT evaluation ordered. Patient prefers to go back home with her daughter at discharge. Time spent evaluating patient, direct bedside care, chart review, placing orders, interpretation of diagnostic studies, discussion with consultants, patient, and family members, as well as other required patient management activities is 50 minutes Please note the above document was generated using voice recognition software. It may contain grammatical, syntax or spelling errors. Any formal questions or concerns about the content, text or information contained within the body of this dictation should be directly addressed to the provider for clarification Admission and Anticipated Discharge Date Admission Date: September 24, 2023 Subjective Patient seen and examined at bedside. She is comfortably sitting up on the bed; not in distress. She denies dizziness, palpitation or chest pain. Telemetry does not show any episode of atrial fibrillation. Review of Systems Review of Systems: All systems reviewed & are unremarkable except as noted in Subjective Physical Exam Physical Exam: Constitutional: WD/WN, vitals as above, NAD, sitting up in bed, pleasant, conversing easily Respiratory: normal respiratory effort, lungs clear to auscultation, no wheeze, rales, rhonchi. Normal insp/exp effort, no accessory muscle use Cardiovascular: RRR, no murmur, no edema Vessels: no JVD or carotid bruit Chest: Pacemaker site dressing looks clean dry and intact. Abdomen: normal bowel sounds, soft, nontender, no hepatosplenomegaly Musculoskeletal: no cyanosis or clubbing, extremities motor strength 5/5 Skin: no rashes, warm and dry normal turgor Neurologic: PERRL, EOMI, accommodation nl, no face palsy, no dysarthria CN's II- XI intact bilaterally and moves all extremities Psychiatric: A+Ox3, euthymic affect Results & Data Results & Data Vital Signs (Past 12 Hours) Vital Signs Temp Pulse Pulse Resp BP Pulse Ox O2 Del Method 09/26/23 11:08 36.7 C 62 18 125/70 92 Room Air 09/26/23 07:33 36.8 C 59 L 18 149/74 H 94 Room Air 09/26/23 07:30 74 09/26/23 04:13 37.0 C 62 18 112/58 L 96 Room Air (2) HTN (hypertension) Hypertension type: primary hypertension Qualified Code(s): I10 - Essential (primary) hypertension
[2023-09-27] MEDS: LEVOTHYROXINE SODIUM 50 MCG TABLET PO SCH (05:56)
[2023-09-27 06:57] LABS: Basophils # (auto) 0.07 K/uL (0.00-0.20); Basophils % (auto) 0.7 %; Eosinophils # (auto) 0.64 K/uL (0.00-0.50); Eosinophils % (auto) 6.3 %; Hematocrit (blood only) 28.5 % (37.0-47.0); Hemoglobin 9.6 g/dl (12.0-16.0); Immature Granulocytes # (auto) 0.06 K/uL (0.01-0.20); Immature Granulocytes % (auto) 0.6 %; Lymphocytes # (auto) 2.88 K/uL (1.20-3.40); Lymphocytes % (auto) 28.2 %; Mean Corpuscular Hemoglobin 31.8 pg (25.0-34.0); Mean Corpuscular Hgb Conc 33.7 g/dL (32.0-36.0); Mean Corpuscular Volume 94.4 fL (80.0-100.0); Mean Platelet Volume 9.9 fL (9.4-12.4); Monocytes # (auto) 1.02 K/uL (0.11-0.59); Neutrophils # (auto) 5.54 K/uL (1.40-6.50); Neutrophils % (auto) 54.2 %; Platelet Count 357 K/uL (130-400); RDW Standard Deviation 48.1 fL (36.4-46.3); Red Blood Count 3.02 M/uL (4.20-5.40); White Blood Count 10.21 K/ul (4.8-10.8)
[2023-09-27 07:31] LABS: Calcium 8.9 mg/dl (8.6-10.3); Potassium 3.9 mmol/L (3.5-5.1)
[2023-09-27 07:38] LABS: BUN Creatinine Ratio 59.1 (10-20); Creatinine Clr Calc Pharmacy 29.7 ml/min; Est GFR (African American) 49.2 ml/min; Est GFR (Non-African American) 42.4 ml/min
[2023-09-27] MEDS: allopurinoL 300 MG TAB PO SCH (08:03)
[2023-09-27] MEDS: POTASSIUM CHLORIDE CRTAB 20 MEQ TABCR PO SCH ×2 (08:03→20:31)
[2023-09-27] MEDS: APIXABAN 5 MG TABLET PO SCH ×2 (08:03→20:32)
[2023-09-27] MEDS: PANTOprazole 40 MG TAB PO SCH (08:03)
[2023-09-27] MEDS: METOPROLOL SUCC 25MG EXT REL TAB PO SCH ×2 (08:04→20:32)
[2023-09-27] MEDS: UREA (UREA-NA) 15 GM PACK PO SCH ×2 (08:04→20:31)
[2023-09-27] MEDS: ATORVASTATIN 40 MG TAB PO SCH (08:04)
[2023-09-27] MEDS: FUROSEMIDE 40 MG/4 ML VIAL IV SCH ×2 (08:09→15:59)
[2023-09-27] MEDS: SODIUM CHLORIDE 0.9% 1,000 ML IV SCH ×2 (10:05→22:41)
--- NOTE | 2023-09-27 10:49 | Nephrology Progress Note ---
Date of Service September 27, 2023 Assessment & Plan Admission and Anticipated Discharge Date Admission Date: September 24, 2023 Subjective Assessment & Plan (1) Hyponatremia: (2) Hypomagnesemia: Has Mild Hyponatremia. HCTZ stopped Just few days ago so still not totally cleared out of system yet. very poor oral Intake of Solid food. urine osm is still somewhat high for the low Na. Will do FFR of 1200 ml per day. na went up overnight Continue urea-na 15 bid but will have to stop tomorrow given the rise in BUN Continue NS at 80 /hr and Continue lasix 40 bid to lower urine osm. Kcl 20 bid also. Check BMP again in AM. S--No new issues. Barely eating anything. na did go up though Physical Exam Constitutional: well nourished; no acute distress Respiratory: normal respiratory effort; no respiratory distress and no labored breathing Auscultation: lungs clear to auscultation bilaterally; no crackles, no rales, no rhonchi and no wheezes Cardiovascular: Rate/Rhythm: regular rate and regular rhythm Heart Sounds: normal S1, normal S2 and + murmur (1/6 midsystolic murmur heard at the left sternal border) Vessels: radial pulses present; no JVD Gastrointestinal (Abdomen): Inspection/Auscultation: abdomen normal to inspect ion; abdomen not distended and + abnormal bowel sounds Percussion/Palpation: abdomen soft; abdomen nontender, no guarding and abdomen not rigid Neurologic: CN's II-XI intact bilaterally and moves all extremities; no focal motor deficits Results & Data Vital Signs (Past 12 Hours) Vital Signs Temp Pulse Pulse Resp BP Pulse Ox O2 Del Method 09/27/23 10:12 Room Air 09/27/23 08:10 36.8 C 59 L 16 166/69 H 96 Room Air 09/27/23 07:45 60 09/27/23 04:55 60 09/27/23 04:20 36.8 C 61 18 120/55 L 93 Room Air 09/27/23 00:09 36.9 C 60 18 120/67 95 Room Air
--- NOTE | 2023-09-27 13:15 | Hospitalist Progress Note ---
Date of Service September 27, 2023 Assessment & Plan (1) Paroxysmal atrial fibrillation: (2) HTN (hypertension): (3) Pacemaker: (4) AVA (acute kidney injury): (5) Hypomagnesemia: (6) Hyponatremia: Plan Ms. Purcell is an 88yoF with PMHx significant for type 2 diabetes, hyperlip idemia, hypothyroidism, CKD stage III, hypertension, GERD, primary open-angle glaucoma bilateral, recent PPM on 09/15/23 who presented to the ED with complaints of lightheadedness/dizziness. She was recently discharged from the hospital on 09/23 after a 2 night admission for evaluation of dizziness and chest pain and was found to be in atrial fibrillation. Paroxysmal atrial fibrillation SSS s/p pacemaker placement Dizziness/Lightheadedness Pacemaker placed in 09/15/2023. Pt with recent admission with palpitations where pacemaker was interrogated. Interrogation of the device on then revealed paroxysmal A-fib; was started on metoprolol 25 mg BID and Eliquis 5mg BID for anticoagulation. This admission presenting with lightheadedness/dizziness. Most recent ECHO 09/22/2023: EF 60-65%, mild to moderate TR/MR, Grade I Diastolic dysfunction, normal LV wall motion CXR this admission negative for acute cardiopulmonary disease Head CT: negative in setting of lightheadedness/dizziness. Pacemaker interrogated once more this admission: No repeat episodes of paroxysmal atrial fibrillation. Cardiology recommended continuing metoprolol and Eliquis. No further cardiac testing needed. Orthostatic vitals within normal limits. Anemia, chronic Pt with noted anemia Hgb drop from approximately 11 to 9.6 currently Normocytic Anemia workup (Iron panel, b12 and folate levels ordered) Consider transfusion for hgb of 8 + symptoms or hgb<7 Continue to monitor hgb with AM labs Hyponatremia: Sodium 127 on admission Hydrochlorothiazide was discontinued last admission due to hyponatremia Nephrology consulted- appreciate recs -fluid restriction to 1200 cc. -Oral urea 15 g twice daily, considering d/c in setting of increased BUN. -1 L normal saline followed by 40 mg Lasix twice daily. -KCl 20mEq BID Continue to monitor BMP daily AVA: Serum creatinine elevated to 1.27 on admission, baseline 1.03 Avoid nephrotoxic agents/contrast as able Holding home lisinopril, on lasix with fluids as noted above Cr currently within normal limits Continue to monitor Hypomagnesemia: Mag of 1.6 on admission Replete as needed Diarrhea Pt with complaints of multiple episodes of soft stools Low suspicion for c diff at this time as per pt description not watery, test ordered Loperamide prn HTN: On home regimen of Lisinopril and Lasix Avoid thiazide medications in setting of chronic hyponatremia Lisinopril currently on hold, on lasix with fluids as noted above Continue to monitor HLD: On Atorvastatin;continue Hypothyroidism: On Levothyroxine;continue GERD: On Omeprazole; continue Diet: HH/Fluid restriction/easy to chew Code Status: Full Code VTE Prophylaxis: On Eliquis Dispositionthis is patient's third hospitalization since the start of the year. PT OT evaluation ordered. Patient prefers to go back home with her daughter at discharge, [facility] Admission and Anticipated Discharge Date Admission Date: September 24, 2023 Subjective States that she has been having very frequent episodes of diarrhea and she is very concerned about it. States that it is related to one of her medications but unsure of the name. States it is more soft than watery. Otherwise denied acute concerns, states no more episodes of dizziness. Review of Systems Review of Systems: All systems reviewed & are unremarkable except as noted in Subjective Physical Exam Physical Exam: General: Alert. No acute distress Psych: Appropriate mood and affect Neuro: tongue protrudes with speech, some dysarthria HEENT: NC/AT CV: Irregular Resp: Breath sounds clear bilaterally, no increased effort of breathing. Abdomen: Soft, nontender, nondistended. Extremities: Trace edema in lower extremities bilaterally. Results & Data Results & Data Vital Signs (Past 12 Hours) Vital Signs Temp Pulse Pulse Resp BP Pulse Ox O2 Del Method 09/27/23 11:50 36.6 C 72 16 150/73 H 94 Room Air 09/27/23 10:12 Room Air 09/27/23 08:10 36.8 C 59 L 16 166/69 H 96 Room Air 09/27/23 07:45 60 09/27/23 04:55 60 09/27/23 04:20 36.8 C 61 18 120/55 L 93 Room Air (2) HTN (hypertension) Hypertension type: primary hypertension Qualified Code(s): I10 - Essential (primary) hypertension
[2023-09-27] MEDS ORDERED: LOPERAMIDE HCL 2 MG CAP PO PRN (17:02)
[2023-09-28] MEDS: LEVOTHYROXINE SODIUM 50 MCG TABLET PO SCH (05:05)
[2023-09-28 06:51] LABS: Hematocrit (blood only) 27.2 % (37.0-47.0); Hemoglobin 9.4 g/dl (12.0-16.0); Mean Corpuscular Hemoglobin 31.6 pg (25.0-34.0); Mean Corpuscular Hgb Conc 34.6 g/dL (32.0-36.0); Mean Corpuscular Volume 91.6 fL (80.0-100.0); Mean Platelet Volume 9.7 fL (9.4-12.4); Platelet Count 346 K/uL (130-400); RDW Coefficient of Variation 13.9 % (11.5-14.5); RDW Standard Deviation 46.5 fL (36.4-46.3); Red Blood Count 2.97 M/uL (4.20-5.40); White Blood Count 8.15 K/ul (4.8-10.8)
[2023-09-28 07:16] LABS: BUN Creatinine Ratio 65.4 (10-20); Creatinine Clr Calc Pharmacy 25.5 ml/min; Est GFR (African American) 41.3 ml/min; Est GFR (Non-African American) 35.6 ml/min; Magnesium 1.2 mg/dl (1.7-2.4); Phosphorus 3.6 mg/dl (2.5-4.9); Potassium 3.8 mmol/L (3.5-5.1)
[2023-09-28 07:35] LABS: Ferritin 140.7 ng/ml (8-388)
[2023-09-28 07:41] LABS: Folate (Folic Acid),Ser orPlas 11.34 ng/ml (>5.38)
[2023-09-28] MEDS: ATORVASTATIN 40 MG TAB PO SCH (08:01)
[2023-09-28] MEDS: POTASSIUM CHLORIDE CRTAB 20 MEQ TABCR PO SCH (08:01)
[2023-09-28] MEDS: APIXABAN 5 MG TABLET PO SCH ×2 (08:01→20:44)
[2023-09-28] MEDS: PANTOprazole 40 MG TAB PO SCH (08:01)
[2023-09-28] MEDS: UREA (UREA-NA) 15 GM PACK PO SCH (08:02)
[2023-09-28] MEDS: FUROSEMIDE 40 MG/4 ML VIAL IV SCH (08:02)
[2023-09-28] MEDS: allopurinoL 300 MG TAB PO SCH (08:02)
[2023-09-28] MEDS: METOPROLOL SUCC 25MG EXT REL TAB PO SCH ×2 (08:02→20:44)
[2023-09-28] MEDS ORDERED: MAGNESIUM CHLORIDE W/CALCIUM 64MG DELAYED REL TAB PO SCH (10:00)
--- NOTE | 2023-09-28 10:36 | Nephrology Progress Note ---
Date of Service September 28, 2023 Assessment & Plan Admission and Anticipated Discharge Date Admission Date: September 24, 2023 Subjective Assessment & Plan (1) Hyponatremia: (2) Hypomagnesemia: Has Mild Hyponatremia. HCTZ stopped Just few days ago so still not totally cleared out of system yet. very poor oral Intake of Solid food. urine osm is still somewhat high for the low Na. Will Continue FFR of 1200 ml per day. na went up overnight and now 135 Would like to see how she does without any lasix, urea or NS. stop all Check BMP again in AM as long as > 130 Should be ok to discharge S--No new issues. Barely eating anything. na did go up though Physical Exam Constitutional: well nourished; no acute distress Respiratory: normal respiratory effort; no respiratory distress and no labored breathing Auscultation: lungs clear to auscultation bilaterally; no crackles, no rales, no rhonchi and no wheezes Cardiovascular: Rate/Rhythm: regular rate and regular rhythm Heart Sounds: normal S1, normal S2 and + murmur (1/6 midsystolic murmur heard at the left sternal border) Vessels: radial pulses present; no JVD Gastrointestinal (Abdomen): Inspection/Auscultation: abdomen normal to inspection; abdomen not distended and + abnormal bowel sounds Percussion/Palpation: abdomen soft; abdomen nontender, no guarding and abdomen not rigid Neurologic: CN's II-XI intact bilaterally and moves all extremities; no focal motor deficits Results & Data Vital Signs (Past 12 Hours) Vital Signs Temp Pulse Pulse Resp BP Pulse Ox O2 Del Method 09/28/23 07:50 36.6 C 61 16 129/69 93 Room Air 09/28/23 06:01 60 09/28/23 04:04 36.6 C 60 18 121/68 96 Room Air 09/28/23 02:23 622 H 09/27/23 23:29 36.8 C 62 18 104/60 97 Room Air
[2023-09-28] MEDS: MAGNESIUM SULFATE / D5W 1 GM/100 ML BAG IV SCH ×3 (11:38→15:30)
[2023-09-28] MEDS: MAGNESIUM OXIDE 400 MG TAB PO SCH ×2 (11:38→20:44)
--- NOTE | 2023-09-28 16:25 | Hospitalist Progress Note ---
Date of Service September 28, 2023 Assessment & Plan (1) Paroxysmal atrial fibrillation: (2) HTN (hypertension): (3) Pacemaker: (4) AVA (acute kidney injury): (5) Hypomagnesemia: (6) Hyponatremia: Plan Ms. Purcell is an 88yoF with PMHx significant for type 2 diabetes, hyperlip idemia, hypothyroidism, CKD stage III, hypertension, GERD, primary open-angle glaucoma bilateral, recent PPM on 09/15/23 who presented to the ED with complaints of lightheadedness/dizziness. She was recently discharged from the hospital on 09/23 after a 2 night admission for evaluation of dizziness and chest pain and was found to be in atrial fibrillation. Paroxysmal atrial fibrillation SSS s/p pacemaker placement Dizziness/Lightheadedness Pacemaker placed on 09/15/2023 Pt with recent admission with palpitations where pacemaker was interrogated. Interrogation of the device on then revealed paroxysmal A-fib; was started on metoprolol 25 mg BID and Eliquis 5mg BID for anticoagulation. This admission presenting with lightheadedness/dizziness. Most recent ECHO 09/22/2023: EF 60-65%, mild to moderate TR/MR, Grade I Diastolic dysfunction, normal LV wall motion CXR this admission negative for acute cardiopulmonary disease Head CT: negative in setting of lightheadedness/dizziness. Pacemaker interrogated once more this admission: No repeat episodes of paroxysmal atrial fibrillation. Cardiology recommended continuing metoprolol and Eliquis. No further cardiac testing needed. Orthostatic vitals within normal limits. Anemia, chronic Pt with noted anemia Hgb drop from approximately 11 to 9.6 currently Normocytic Anemia workup (Iron panel, b12 and folate levels ordered)- iron, folate and b12 levels wnl Consider transfusion for hgb of 8 + symptoms or hgb<7 Continue to monitor hgb with AM labs Hyponatremia: Sodium 127 on admission Hydrochlorothiazide was discontinued last admission due to hyponatremia Nephrology consulted- appreciate recs. Was treated with the following: -fluid restriction to 1200 cc. -Oral urea 15 g twice daily, considering d/c in setting of increased BUN. -1 L normal saline followed by 40 mg Lasix twice daily. -KCl 20mEq BID 09/28- Sodium 134, nephrology holding above regimen, can consider discharge if sodium remains >130 Continue to monitor BMP daily AVA: Serum creatinine elevated to 1.27 on admission, baseline 1.03 Avoid nephrotoxic agents/contrast as able Holding home lisinopril, was on lasix with fluids as noted above Cr currently slightly elevated on 09/28 Continue to monitor Hypomagnesemia: Mag of 1.6 on admission Replete as needed Diarrhea Pt with complaints of multiple episodes of soft stools Low suspicion for c diff at this time as per pt description not watery, test ordered Loperamide prn HTN: On home regimen of Lisinopril and Lasix Avoid thiazide medications in setting of chronic hyponatremia Lisinopril currently on hold, on lasix with fluids as noted above Continue to monitor HLD: On Atorvastatin;continue Hypothyroidism: On Levothyroxine;continue GERD: On Omeprazole; continue Diet: HH/Fluid restriction/easy to chew Code Status: Full Code VTE Prophylaxis: On Eliquis Dispositionthis is patient's third hospitalization since the start of the year. PT OT evaluation ordered. Patient prefers to go back home with her daughter at discharge, [facility]. Admission and Anticipated Discharge Date Admission Date: September 24, 2023 Subjective Was seen with daughter and friend at bedside. She stated that the diarrhea had resolved. Eating and drinking well. Review of Systems Review of Systems: All systems reviewed & are unremarkable except as noted in Subjective Physical Exam Physical Exam: General: Alert. No acute distress Psych: Appropriate mood and affect Neuro: tongue protrudes with speech, some dysarthria HEENT: NC/AT CV: Irregular Resp: Breath sounds clear bilaterally, no increased effort of breathing. Abdomen: Soft, nontender, nondistended. Extremities: Trace edema in lower extremities bilaterally. Results & Data Results & Data Vital Signs (Past 12 Hours) Vital Signs Temp Pulse Pulse Resp BP Pulse Ox O2 Del Method 09/28/23 16:17 36.7 C 60 16 135/78 96 Room Air 09/28/23 11:26 36.5 C 60 16 140/69 99 Room Air 09/28/23 07:50 36.6 C 61 16 129/69 93 Room Air 09/28/23 06:01 60 (2) HTN (hypertension) Hypertension type: primary hypertension Qualified Code(s): I10 - Essential (primary) hypertension
[2023-09-29] MEDS: LEVOTHYROXINE SODIUM 50 MCG TABLET PO SCH (05:41)
[2023-09-29 06:43] LABS: Hematocrit (blood only) 29.6 % (37.0-47.0); Mean Corpuscular Hemoglobin 31.8 pg (25.0-34.0); Mean Corpuscular Hgb Conc 33.8 g/dL (32.0-36.0); Mean Corpuscular Volume 94.3 fL (80.0-100.0); Mean Platelet Volume 9.7 fL (9.4-12.4); Platelet Count 404 K/uL (130-400); RDW Coefficient of Variation 14.2 % (11.5-14.5); RDW Standard Deviation 48.7 fL (36.4-46.3); Red Blood Count 3.14 M/uL (4.20-5.40); White Blood Count 9.88 K/ul (4.8-10.8)
[2023-09-29 07:24] LABS: BUN Creatinine Ratio 60.1 (10-20); Calcium 9.8 mg/dl (8.6-10.3); Creatinine Clr Calc Pharmacy 24.7 ml/min; Est GFR (African American) 39.5 ml/min; Est GFR (Non-African American) 34.1 ml/min; Magnesium 2.1 mg/dl (1.7-2.4); Phosphorus 3.7 mg/dl (2.5-4.9); Potassium 4.4 mmol/L (3.5-5.1)
[2023-09-29] MEDS: ATORVASTATIN 40 MG TAB PO SCH (08:12)
[2023-09-29] MEDS: METOPROLOL SUCC 25MG EXT REL TAB PO SCH (08:12)
[2023-09-29] MEDS: PANTOprazole 40 MG TAB PO SCH (08:12)
[2023-09-29] MEDS: APIXABAN 5 MG TABLET PO SCH (08:12)
[2023-09-29] MEDS: allopurinoL 300 MG TAB PO SCH (08:12)
[2023-09-29] MEDS: MAGNESIUM OXIDE 400 MG TAB PO SCH (08:12)
--- NOTE | 2023-09-29 09:05 | Nephrology Progress Note ---
Date of Service September 29, 2023 Assessment & Plan Admission and Anticipated Discharge Date Admission Date: September 24, 2023 Subjective Assessment & Plan (1) Hyponatremia: (2) Hypomagnesemia: Has Mild Hyponatremia. HCTZ stopped Just few days ago so still not totally cleared out of system yet. very poor oral Intake of Solid food. urine osm is still somewhat high for the low Na. Will raise the FFR to 1500 per day. na went up overnight and now 137 No urea or Salt tab or lasix. NO HCTZ ever. repeat renal panel next week at PCP office. nephrology follow up only if NA is l ow on that BMP S--No new issues. Barely eating anything. na did go up though Physical Exam Constitutional: well nourished; no acute distress Respiratory: normal respiratory effort; no respiratory distress and no labored breathing Auscultation: lungs clear to auscultation bilaterally; no crackles, no rales, no rhonchi and no wheezes Cardiovascular: Rate/Rhythm: regular rate and regular rhythm Heart Sounds: normal S1, normal S2 and + murmur (1/6 midsystolic murmur heard at the left sternal border) Vessels: radial pulses present; no JVD Gastrointestinal (Abdomen): Inspection/Auscultation: abdomen normal to inspection; abdomen not distended and + abnormal bowel sounds Percussion/Palpation: abdomen soft; abdomen nontender, no guarding and abdomen not rigid Neurologic: CN's II-XI intact bilaterally and moves all extremities; no focal motor deficits Results & Data Vital Signs (Past 12 Hours) Vital Signs Temp Pulse Resp BP Pulse Ox O2 Del Method 09/29/23 07:50 36.6 C 67 18 147/68 H 95 Room Air 09/29/23 04:00 36.6 C 60 18 121/65 96 Room Air 09/28/23 22:00 36.5 C 60 20 125/72 98 Room Air
--- NOTE | 2023-09-29 15:04 | Discharge Summary ---
Discharge Summary Date of Service September 29, 2023 Notes For Next Care Provider Please ensure follow up with cardiology Please ensure follow up with Nephrology Please monitor electrolytes and kidney function after discharge Nephrology recommending repeat BMP in 1 week at PCP follow up Medication Changes From Visit Started on Magnesium Oxide 400mg BID Stop Lasix per Nephrology recs, associated potassium supplement also discontinu ed Holding Lisinopril in setting of AVA on discharge, per Nephrology AVA will stabilize and can resume once kidney function back to normal. Consider po iron every other day supplementation in setting of chronic anemia and low normal iron levels Admission HPI Per Admitting Provider Ms. Purcell is an 88 year old female that presented to the ED with complaints of lightheadedness. She was recently discharged from the hospital on 09/23 after a 2 night admission for evaluation of dizziness and chest pain and was found to be in atrial fibrillation. She was in the bathroom between 10-11AM and stated that she was feeling dizzy. She went to brush her teeth and she reported feeling lightheaded without dizziness with palpitations. 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 Most recent ECHO 09/2023: EF 60-65%, mild to moderate MR, Grade I DDX, normal LV wall motion. Additional PMH includes: pAF, HTN, HLD, Gout, and GERD. No leukocytosis, mild creatinine elevated 1.27 (baseline 1.03-1.09). Troponin negative. Mg+ 1.6. Na+ 127. Patient denies DAI[place], current chest pain, N/V/D, hematochezia, dysuria, abdominal pain or tenderness, recent falls or trauma. Denies tobacco, alcohol use, or recreational drug use. She is sitting upright in her hospital bed in no apparent distress. She is [place], but able to answer all questions appropriately. Pt is sitting in her bed in no apparent distress. She is able to answer questions appropriately. Education provided as to what can occur while you are having palpitations. Will admit for paroxysmal atrial fibrillation with cardiology evaluation with review of pacer interrogation along with repletion of magnesium and further work up of hyponatremia with obtaining serum osmo, urine and sodium osmolality. Patient will be admitted for further evaluation and management. Please see A/P for further details. Admission Exam Per Admitting Provider General: Elderly woman in no distress Eyes: PERRL, conjunctivae normal, not pale, anicteric sclerae, EOM intact bilaterally ENMT: External ear and nose normal, oropharynx normal, hearing aid in situ Respiratory: Normal respiratory effort, no respiratory distress, lungs clear to auscultation, no crackles and no wheezes Cardiovascular: RRR S1 S2 Gastrointestinal (Abdomen): Abdomen is not distended, soft, non-tender to palpation, no guarding, no palpable hepatosplenomegaly, normal bowel sounds Musculoskeletal: No pedal edema Neurologic: Alert and oriented x 3, No focal weakness, sensation grossly intact Psychiatric: Alert and oriented x 3, euthymic affect Principal Dx & Hospital Course #1 = Principal Diagnosis (1) Paroxysmal atrial fibrillation: (2) HTN (hypertension): (3) Pacemaker: (4) AVA (acute kidney injury): (5) Hypomagnesemia: (6) Hyponatremia: Plan Ms. Purcell is an 88yoF with PMHx significant for type 2 diabetes, hyperlipidemia, hypothyroidism, CKD stage III, hypertension, GERD, primary open- angle glaucoma bilateral, recent PPM on 09/15/23 who presented to the ED with complaints of lightheadedness/dizziness. She was recently discharged from the hospital on 09/23 after a 2 night admission for evaluation of dizziness and chest pain and was found to be in atrial fibrillation. Paroxysmal atrial fibrillation SSS s/p pacemaker placement Dizziness/Lightheadedness Pacemaker placed on 09/15/2023 Pt with recent admission with palpitations where pacemaker was interrogated. Interrogation of the device during that previous admission then revealed paroxysmal A-fib; was started on metoprolol 25 mg BID and Eliquis 5mg BID for anticoagulation. This admission presenting with lightheadedness/dizziness. Most recent ECHO 09/22/2023: EF 60-65%, mild to moderate TR/MR, Grade I Diastolic dysfunction, normal LV wall motion CXR this admission negative for acute cardiopulmonary disease Head CT: negative in setting of lightheadedness/dizziness. Pacemaker interrogated once more this admission: No repeat episodes of paroxysmal atrial fibrillation. Orthostatic vitals within normal limits. Cardiology recommended continuing metoprolol and Eliquis. No further cardiac testing needed. Pt discharged home- provided PT script. Anemia, chronic Pt with noted anemia, chronic Hgb drop from approximately 11 on 09/10/23 to 9.6 to 10.0 on discharge Anemia workup (Iron panel, b12 and folate levels ordered) iron of 38 (low normal), folate and b12 levels wnl Continue to monitor hemoglobin Consider po iron every other day supplementation in setting of chronic anemia and low normal iron levels Hyponatremia: Sodium 127 on admission Hydrochlorothiazide was discontinued last admission due to hyponatremia- per nephrology Nephrology consulted- appreciate recs. Was treated with the following: -fluid restriction to 1200 cc, oral urea 15 g twice daily, 1 L normal saline followed by 40 mg Lasix twice daily, KCl 20mEq BID On discharge, Nephrology recommending: -1500 fluid restriction -No urea or Salt tabs or lasix. -"No Hydrochlorothiazide ever" -repeat renal panel next week at PCP office. Please repeat BMP at PCP follow up Nephrology follow up encouraged as well AVA: Serum creatinine elevated to 1.27 on admission, baseline 1.03 Avoid nephrotoxic agents/contrast as able Holding home lisinopril, was on lasix with fluids as noted above. Discontinued on discharge Cr elevated on discharge at 1.38, please continue to hold lisinopril until Cr normalizes Per Nephrology, they anticipate that creatinine will stabilize after discharge Please repeat BMP at PCP follow up Nephrology follow up encouraged as well Hypomagnesemia: Mag of 1.6 on admission Repeatedly low during hospitalization despite supplementation Likely due to ppi use Discharged on magnesium oxide supplements PCP follow up for continued monitoring, was 2.1 on discharge Diarrhea Pt with complaints of multiple episodes of soft stools Low suspicion for c diff at this time as per pt description not watery Loperamide prn Currently resolved HTN: On home regimen of Lisinopril and Lasix Avoid thiazide medications in setting of chronic hyponatremia Lasix discontinued on discharge per nephrology recs, lisinopril held in setting of AVA with pcp/nephrology followup as to when to resume. Blood pressure within normal limits- day of discharge 126/70 Continue to monitor BP after discharge HLD: On Atorvastatin;continue Hypothyroidism: On Levothyroxine;continue GERD: On Omeprazole; continue Discharge Exam General: Alert. No acute distress Psych: Appropriate mood and affect Neuro: tongue protrudes with speech, some dysarthria HEENT: NC/AT CV: Irregular Resp: Breath sounds clear bilaterally, no increased effort of breathing. Abdomen: Soft, nontender, nondistended. Extremities: Trace edema in lower extremities bilaterally. Updated Medication List Medication Instructions Recorded Confirmed Type allopurinol 300 mg tablet 300 mg PO DAILY 09/11/23 09/24/23 History atorvastatin 40 mg tablet 40 mg PO DAILY 09/11/23 09/24/23 History levothyroxine 50 mcg tablet 50 mcg PO DAILY 09/11/23 09/24/23 History omeprazole 20 mg capsule,delayed 20 mg PO DAILY 09/11/23 09/24/23 History release apixaban 5 mg tablet (Eliquis) 5 mg PO BID #60 tabs 09/22/23 09/24/23 Rx lisinopril 20 mg tablet 20 mg PO DAILY #30 tabs 09/23/23 09/24/23 Rx metoprolol succinate 25 mg 25 mg PO BID #60 tabs 09/23/23 09/24/23 Rx tablet,extended release 24 hr magnesium oxide 400 mg (241.3 mg 400 mg PO BID #60 tabs 09/29/23 Rx magnesium) tablet Hospital Stay Data Consultations 09/24/23 15:17 ED Decision to Admit Stat 09/25/23 08:00 Consult Cardiology Routine Consult Nephrology Routine Diagnostic Imagining Performed 09/24/23 13:47 CT head/brain wo con Stat Chest X-Ray 09/24/23 13:16 XR chest 1V portable CLINICAL HISTORY: confusion, dizziness, infect? COMPARISON STUDY: Chest radiograph September 21, 2023. FINDINGS: A dual-lead left subclavian pacer is in place. There is no pneumothorax or pleural effusion. No consolidation is identified to suggest pneumonia. Linear left basilar densities favor atelectasis. No evidence for pulmonary edema. IMPRESSION: No acute cardiopulmonary findings. ACT 112: Negative or not required by law. Electronically signed by: Dre Arceo M.D. 09/24/2023 1:[address] 09/24/23 13:47 CT head/brain wo con CLINICAL HISTORY: lightheaded Technique: Contiguous axial CT images of the head were acquired from the base of the skull to the vertex without intravenous contrast administration. Images were viewed in brain, subdural and bone windows. Automated dose lowering techniques and/or adjustment according to patient size were utilized for this exam. Comparison: Comparison is made to CT abdomen 09/10/2023 Findings: Areas of decreased attenuation are present in the periventricular and subcortical white matter bilaterally consistent with small vessel ischemic disease. Generalized cerebral atrophy with commensurate enlargement of the ventricles, sulci, and cisterns is also present. There is no acute intracranial hemorrhage or evidence of acute territorial infarction. No shift of the midline structures, mass effect, or extra-axial abnormalities are shown. Atherosclerotic calcifications are present in the intracranial segments of the internal carotid arteries. 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 Imaged portions of the paranasal sinuses and mastoid air cells are clear. The orbits appear normal. There are no acute fractures of the calvaria or scalp swelling. Impression: No acute intracranial hemorrhage, no evidence of acute territorial infarction or other acute intracranial disease process. ACT 112: Negative or not required by law. Electronically signed by: Teddy Joaquin M.D. 09/24/2023 2:54 PM Discharge Instructions Given to Patient (Per Discharging Provider) Ms. Purcell, You were admitted with concerning dizziness/lightheadedness and you were noted to have very low sodium levels and an anemia. The dizziness/ lightheadedness resolved and your sodium levels are now back up. The kiln repairer advised that you can be discharged home. Your kidney function was slightly up but the kiln repairer advised that this would stabilize. Please keep close follow up with your primary care provider and Nephrology after discharge. They would like bloodwork to be done in 1 week at your primary care provider follow up to continue to monitor. Your anemia was stable. Your iron levels were normal but on the lower end. Consider taking a home iron tablet supplement every other day to help with that. Your folate and b12 levels were normal. We thought your symptoms were related to your heart but you were seen by cardiology and they noted that your pacemaker was functioning appropriately. Please keep follow up with cardiology as well after discharge. Please take the magnesium supplements you are being discharged home with to help your magnesium levels. Your primary care provider can help with checking your levels. Other changes were made to your medications, noted below. Your kiln repairer wants you to stop Lasix and the potassium you take with it. Please hold and do not take your home lisinopril until you follow up with your primary care provider to ensure your kidney function is back to normal. Once again, please keep close follow up with your primary care provider and specialists (Nephrology and Cardiology) after discharge. Please do not hesitate to come back to the emergency room if your symptoms worsen or return. It was a pleasure taking care of you while you were here. Total Time Total Time Spent Total Time Spent (In Minutes): > 30 minutes
== END 2023-09-29 16:19 | disposition home health service (06) | DRG 309 ==
LOC: ED 13:02 → SUATTDRO 15:29 → 2N 15:29
DX: E78.5 Hyperlipidemia, unspecified; K21.9 Gastro-esophageal reflux disease without esophagitis; I12.9 Hypertensive chronic kidney disease with stage 1 through stage 4 chronic kidney disease, or unspecified chronic kidney disease; I48.0 Paroxysmal atrial fibrillation; N18.30 Chronic kidney disease, stage 3 unspecified; Z95.0 Presence of cardiac pacemaker; E87.1 Hypo-osmolality and hyponatremia; N17.9 Acute kidney failure, unspecified; D64.9 Anemia, unspecified; E83.42 Hypomagnesemia; M10.9 Gout, unspecified

== ENCOUNTER 2023-11-08 20:27 | Inpatient (IN) ==
[2023-11-08 22:09] LABS: Basophils # (auto) 0.05 K/uL (0.00-0.20); Basophils % (auto) 0.6 %; Eosinophils # (auto) 0.16 K/uL (0.00-0.50); Eosinophils % (auto) 1.8 %; Hematocrit (blood only) 37.3 % (37.0-47.0); Immature Granulocytes # (auto) 0.06 K/uL (0.01-0.20); Immature Granulocytes % (auto) 0.7 %; Lymphocytes # (auto) 2.11 K/uL (1.20-3.40); Lymphocytes % (auto) 23.8 %; Mean Corpuscular Hemoglobin 31.1 pg (25.0-34.0); Mean Corpuscular Hgb Conc 32.2 g/dL (32.0-36.0); Mean Corpuscular Volume 96.6 fL (80.0-100.0); Mean Platelet Volume 11.2 fL (9.4-12.4); Monocytes # (auto) 0.72 K/uL (0.11-0.59); Monocytes % (auto) 8.1 %; Neutrophils # (auto) 5.78 K/uL (1.40-6.50); Platelet Count 272 K/uL (130-400); RDW Coefficient of Variation 15.2 % (11.5-14.5); RDW Standard Deviation 53.9 fL (36.4-46.3); Red Blood Count 3.86 M/uL (4.20-5.40); White Blood Count 8.88 K/ul (4.8-10.8)
[2023-11-08 22:12] LABS: Albumin Globulin Ratio 1.4 (0.9-2); Albumin Level 4.2 gm/dl (3.4-5.0); Bilirubin,Total 0.7 mg/dl (0.2-1.0); Calcium 9.3 mg/dl (8.6-10.3); Creatinine Clr Calc Pharmacy 27.5 ml/min; Est GFR (African American) 50.8 ml/min; Est GFR (Non-African American) 43.8 ml/min; Globulin 3.1 gm/dl (2.5-4.0); Potassium 3.3 mmol/L (3.5-5.1); Total Protein 7.3 gm/dl (6.0-8.3)
[2023-11-08] MEDS: SODIUM CHLORIDE 0.9% 1,000 ML IV SCH (22:29)
--- NOTE | 2023-11-09 00:11 | Emergency Department Note ---
Impression & Plan Lightheadedness, Headache, Fall, Hypomagnesemia, Elevated troponin ED Provider Note ED Provider Note NAME: JASPREET TOLENTINO AGE:88 SEX: Female : 1935 ARRIVES VIA: EMS INFORMANT: Patient ED PROVIDER(s): Zeina Noel DO CHIEF COMPLAINT: Lightheadedness, headache, fall HPI: This is a 88-year-old female presents emerged part via EMS after she states she felt lightheaded while standing in the kitchen making a sandwich and subsequently collapsed onto the floor. She states she did not lose consciousness. She states she had had a headache yesterday which improved with Tylenol and then again today but did not take anything. She states she does routinely get headaches and has a history of migraines. She states after being seated for a while she stood up to go and get something to eat in the kitchen. She states while standing preparing a sandwich she began to feel lightheaded and off balance, and began to feel weak in her legs and states she slowly fell to the floor. She states she landed on her side, denies any loss of consciousness. She states she then crawled back towards the bedroom. Patient does live with family however they were out of the house at the time of the fall. 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 She states she has been feeling well since that procedure. Patient denies any current headaches, lightheadedness, nausea, vision changes, chest pain, palpitations, abdominal pain, paresthesias, or concern for injury. She states she had no other preceding/prodromal symptoms with the lightheadedness additionally. She denies any recent fevers, chills, or illness. She states she is taking her medications as prescribed. Patient admits to poor water intake on a daily basis. Family also states she does not eat much. PAST MEDICAL HISTORY:See Below PAST SURGICAL HISTORY:See Below FAMILY HISTORY:See Below SOCIAL HISTORY:See Below HOME MEDICATIONS:See Below ALLERGIES:See Below VITALS:See Below PHYSICAL EXAMINATION: GENERAL: alert, well appearing, well nourished, no distress, non-toxic HEAD: nc/at EYE EXAM: normal conjunctiva, PERRL and EOM's grossly intact OROPHARYNX: no exudate, no erythema, lips, buccal mucosa, and tongue normal and mucous membranes are moist NECK: supple, no nuchal rigidity, no adenopathy, non-tender, FROM LUNGS: Clear to auscultation. Normal chest wall mechanics, no w/r/r HEART: no murmurs, S1 normal and S2 normal CHEST WALL: No crepitus, no step-off, nontender with palpation, pacemaker noted left anterior superior chest wall ABDOMEN: abdomen soft, non-tender, normo-active bowel sounds, no masses, no rebound or guarding. PELVIS: Stable to compression, nontender with palpation BACK: Back is symmetrical on inspection and there is no deformity, no midline tenderness, no CVA tenderness. No evidence of trauma. SKIN: no rashes, petechiae, orbruising UPPER EXTREMITIES: upper extremities are grossly normal. FROM, nml pulses b/l. No evidence of trauma or deformity. LOWER EXTREMITIES: No pitting edema. FROM, nml pulses b/l. No evidence of trauma or deformity. NEURO EXAM: Normal sensorium, cranial nerves II-XII grossly intact, normal speech, no facial droop,nogross weakness of arms, no gross weakness of legs. Gross sensation intact. No ataxia. Vital Signs: reviewed and remarkable Differential Diagnosis: benign positional vertigo, dehydration, hypovolemia, anemia, tumor, hypoglycemia, electrolyte abnormalities, ICH, CVA, dysrhythmia, as well as others were entertained. MEDICAL DECISION MAKING: This is an 88-year-old female presents emergency department due to family concern for a fall at home. Patient states she felt lightheaded and weak, but denies loss of consciousness. Patient afebrile vital signs stable on arrival. No evidence of trauma on exam, and she had a nonfocal neuroexam. Labs drawn and sent, IV established, EKG and x-rays performed at bedside interpreted me and patient sent for additional CT imaging. Patient noted to have hypomagnesemia as well as mildly elevated troponin. She was started on IV magnesium repletion while in the emergency room. No evidence of acute traumatic injury despite fall and use of Eliquis. Have a low suspicion for any additional occult trauma based on her exam. She was well-appearing throughout. Due to concern for low weakness, electrolyte abnormality, and need for trending of her troponin given her advanced age and comorbidities, the case was discussed with the [facility] hospitalist for additional evaluation and management. I have low suspicion for occult ACS, patient with no symptoms of chest pain or shortness of breath. I do not suspect cardiac contusion, dissection, CHF, PE, pericarditis/myocarditis. Consultation(s): 0138: Discussed with Dr. Vargas, [facility] hospitalist, for additional evaluation. ER Treatment Provided: See below Diagnostics Interpreted By Me: -ECG: Normal sinus at 62, normal axis, normal intervals, inverted T wave in lead III only, no other acute ischemic changes -Cardiac Monitoring: An order was placed for continuous cardiac monitoring. The monitor shows a rate of 64 with normal sinus rhythm. -Laboratory studies: As stated above and show below. -Imaging studies: X-ray Chest: A single view study of the chest was reviewed and was negative for cardiomegaly, focal infiltrate, effusion, pulmonary edema, or wide mediastinum. No evidence for fracture, or pneumothorax. Pacemaker noted. xr pelvis: No obvious fracture or dislocation Triage Nursing Note Reviewed Prior/Outside Records Reviewed Past Med/Surg History Medical History HTN (hypertension) Hyponatremia Hypomagnesemia Diarrhea Pacemaker CKD (chronic kidney disease) Palpitations Left-sided headache Thyroid disease Gout High blood pressure Social History Smoking Status: Never smoker Hx Alcohol Use: No Hx Substance Use: No Preferred Language: Greenlandic Communication Ability: Effective Buyer Internship Required: No Beliefs That Will Affect Care: None Current Living Situation: Alone Current Living Situation Comment: daughter lives next door Feels Safe at Home: Yes Safety Concerns: Feels Safe At This Time Assistive Devices: Walker Allergies Allergies Allergy/AdvReac Type Severity Reaction Status Date / Time No Known Allergies Allergy Verified 11/08/23 23:49 Home Meds Home Medications Medication Instructions Recorded Confirmed allopurinol 300 mg tablet 300 mg PO DAILY 09/11/23 11/08/23 atorvastatin 40 mg tablet 40 mg PO QAM 09/11/23 11/08/23 levothyroxine 50 mcg tablet 50 mcg PO Q2D 09/11/23 11/08/23 omeprazole 20 mg capsule,delayed 20 mg PO QAM 09/11/23 11/08/23 release amlodipine 5 mg tablet 5 mg PO QAM 11/08/23 11/08/23 cholecalciferol (vitamin D3) 50 50 mcg PO QAM 11/08/23 11/08/23 mcg (2,000 unit) capsule furosemide 20 mg tablet 20 mg PO QAM 11/08/23 11/08/23 meclizine 25 mg tablet 25 mg PO TID PRN Dizziness Or 11/08/23 11/08/23 Vertigo Previous Rx's Medication Instructions Recorded apixaban 5 mg tablet (Eliquis) 5 mg PO BID #60 tabs 09/22/23 lisinopril 20 mg tablet 20 mg PO DAILY #30 tabs 09/23/23 metoprolol succinate 25 mg 25 mg PO BID #60 tabs 09/23/23 tablet,extended release 24 hr magnesium oxide 400 mg (241.3 mg 400 mg PO BID #60 tabs 09/29/23 magnesium) tablet Results & Data (ED) Vital Signs Vital Signs - 24 hr 11/08/23 20:27 11/08/23 20:31 11/08/23 20:31 Temperature 36.8 C Temperature Source Oral Pulse Rate 61 61 61 Pulse Rate [Apical] Pulse Rate from SpO2 Sensor 62 Pulse Rhythm Regular Pulse Strength Normal Respiratory Rate 14 21 Respiratory Effort / Characteristics Non-Labored Respiratory Depth Normal Respiratory Pattern Regular Blood Pressure 190/89 H Blood Pressure [Right Arm] Blood Pressure Mean 122 Blood Pressure Mean [Right Arm] Blood Pressure Position Sitting Blood Pressure Position [Right Arm] Pulse Oximetry 94 93 Oxygen Delivery Method Room Air Sepsis Recent Fever Within 48 Hours No Sepsis New/Unexplained Change in Mental Status No Sepsis Action Taken by Nursing No Action Required 11/08/23 20:34 11/08/23 20:34 11/08/23 21:00 Temperature Temperature Source Pulse Rate 61 60 Pulse Rate [Apical] Pulse Rate from SpO2 Sensor 61 60 Pulse Rhythm Pulse Strength Respiratory Rate 20 18 Respiratory Effort / Characteristics Respiratory Depth Respiratory Pattern Blood Pressure 190/89 H Blood Pressure [Right Arm] Blood Pressure Mean 148 Blood Pressure Mean [Right Arm] Blood Pressure Position Blood Pressure Position [Right Arm] Pulse Oximetry 92 95 Oxygen Delivery Method Sepsis Recent Fever Within 48 Hours Sepsis New/Unexplained Change in Mental Status Sepsis Action Taken by Nursing 11/08/23 21:23 11/08/23 21:23 11/08/23 21:23 Temperature Temperature Source Pulse Rate 60 Pulse Rate [Apical] 60 Pulse Rate from SpO2 Sensor 60 Pulse Rhythm Pulse Strength Respiratory Rate 18 17 Respiratory Effort / Characteristics Non-Labored Respiratory Depth Normal Respiratory Pattern Regular Blood Pressure 182/73 H Blood Pressure [Right Arm] 182/73 H Blood Pressure Mean 116 Blood Pressure Mean [Right Arm] 109 Blood Pressure Position Blood Pressure Position [Right Arm] Sitting Pulse Oximetry 96 95 Oxygen Delivery Method Room Air Sepsis Recent Fever Within 48 Hours Sepsis New/Unexplained Change in Mental Status Sepsis Action Taken by Nursing 11/08/23 21:30 11/08/23 21:30 11/08/23 22:00 Temperature Temperature Source Pulse Rate 62 69 Pulse Rate [Apical] Pulse Rate from SpO2 Sensor 60 70 Pulse Rhythm Pulse Strength Respiratory Rate 14 13 Respiratory Effort / Characteristics Respiratory Depth Respiratory Pattern Blood Pressure 185/87 H Blood Pressure [Right Arm] Blood Pressure Mean 150 Blood Pressure Mean [Right Arm] Blood Pressure Position Blood Pressure Position [Right Arm] Pulse Oximetry 95 97 Oxygen Delivery Method Sepsis Recent Fever Within 48 Hours Sepsis New/Unexplained Change in Mental Status Sepsis Action Taken by Nursing 11/08/23 22:00 11/08/23 22:30 11/08/23 22:30 Temperature Temperature Source Pulse Rate 62 Pulse Rate [Apical] Pulse Rate from SpO2 Sensor 62 Pulse Rhythm Pulse Strength Respiratory Rate 18 Respiratory Effort / Characteristics Respiratory Depth Respiratory Pattern Blood Pressure 166/97 H 180/84 H Blood Pressure [Right Arm] Blood Pressure Mean 125 155 Blood Pressure Mean [Right Arm] Blood Pressure Position Blood Pressure Position [Right Arm] Pulse Oximetry 94 Oxygen Delivery Method Sepsis Recent Fever Within 48 Hours Sepsis New/Unexplained Change in Mental Status Sepsis Action Taken by Nursing 11/08/23 23:00 11/08/23 23:00 11/08/23 23:31 Temperature Temperature Source Pulse Rate 65 63 Pulse Rate [Apical] Pulse Rate from SpO2 Sensor 65 63 Pulse Rhythm Pulse Strength Respiratory Rate 17 14 Respiratory Effort / Characteristics Respiratory Depth Respiratory Pattern Blood Pressure 180/78 H Blood Pressure [Right Arm] Blood Pressure Mean 124 Blood Pressure Mean [Right Arm] Blood Pressure Position Blood Pressure Position [Right Arm] Pulse Oximetry 93 99 Oxygen Delivery Method Sepsis Recent Fever Within 48 Hours Sepsis New/Unexplained Change in Mental Status Sepsis Action Taken by Nursing 11/08/23 23:31 11/09/23 00:12 11/09/23 00:12 Temperature Temperature Source Pulse Rate 72 Pulse Rate [Apical] Pulse Rate from SpO2 Sensor 71 Pulse Rhythm Pulse Strength Respiratory Rate 21 Respiratory Effort / Characteristics Respiratory Depth Respiratory Pattern Blood Pressure 180/58 H 185/87 H Blood Pressure [Right Arm] Blood Pressure Mean 129 129 Blood Pressure Mean [Right Arm] Blood Pressure Position Blood Pressure Position [Right Arm] Pulse Oximetry 93 Oxygen Delivery Method Sepsis Recent Fever Within 48 Hours Sepsis New/Unexplained Change in Mental Status Sepsis Action Taken by Nursing 11/09/23 00:27 Temperature Temperature Source Pulse Rate 63 Pulse Rate [Apical] Pulse Rate from SpO2 Sensor Pulse Rhythm Pulse Strength Respiratory Rate Respiratory Effort / Characteristics Respiratory Depth Respiratory Pattern Blood Pressure Blood Pressure [Right Arm] Blood Pressure Mean Blood Pressure Mean [Right Arm] Blood Pressure Position Blood Pressure Position [Right Arm] Pulse Oximetry Oxygen Delivery Method Sepsis Recent Fever Within 48 Hours Sepsis New/Unexplained Change in Mental Status Sepsis Action Taken by Nursing Laboratory Data 11/10/23 06:04 11/10/23 06:04 Lab Results 11/08/23 Range/Units 20:38 WBC 8.88 (4.8-10.8) K/ul RBC 3.86 L (4.20-5.40) M/uL Hgb 12.0 (12.0-16.0) g/dl Hct 37.3 (37.0-47.0) % MCV 96.6 (80.0-100.0) fL MCH 31.1 (25.0-34.0) pg MCHC 32.2 (32.0-36.0) g/dL RDW Std Deviation 53.9 H (36.4-46.3) fL RDW Coeff of Adolfo 15.2 H (11.5-14.5) % Plt Count 272 (130-400) K/uL MPV 11.2 (9.4-12.4) fL Immature Gran % (Auto) 0.7 % Neut % (Auto) 65.0 % Lymph % (Auto) 23.8 % Smith % (Auto) 8.1 % Eos % (Auto) 1.8 % Baso % (Auto) 0.6 % Neut # (Auto) 5.78 (1.40-6.50) K/uL Lymph # (Auto) 2.11 (1.20-3.40) K/uL Smith # (Auto) 0.72 H (0.11-0.59) K/uL Eos # (Auto) 0.16 (0.00-0.50) K/uL Baso # (Auto) 0.05 (0.00-0.20) K/uL Immature Gran # (Auto) 0.06 (0.01-0.20) K/uL Sodium 136 (136-145) mmol/L Potassium 3.3 L (3.5-5.1) mmol/L Chloride 99 (98-107) mmol/L Carbon Dioxide 27 (21-32) mmol/L Anion Gap 10 (3-11) BUN 19 (6-23) mg/dl Creatinine 1.12 (0.6-1.2) mg/dl Est Cr Clr Drug Dosing 27.5 ml/min Est GFR ( Amer) 50.8 ml/min Est GFR (Non-Af Amer) 43.8 ml/min BUN/Creatinine Ratio 17.0 (10-20) Glucose 139 H (70-99(Fasting)) mg/dl Calcium 9.3 (8.6-10.3) mg/dl Magnesium 1.4 L (1.7-2.4) mg/dl Total Bilirubin 0.7 (0.2-1.0) mg/dl AST 19 (13-39) U/L ALT 12 (7-52) U/L Alkaline Phosphatase 56 (34-104) U/L Total Creatine Kinase 156 (26-192) U/L Troponin I High Sens 23.2 H (0-14) pg/ml Total Protein 7.3 (6.0-8.3) gm/dl Albumin 4.2 (3.4-5.0) gm/dl Globulin 3.1 (2.5-4.0) gm/dl Albumin/Globulin Ratio 1.4 (0.9-2) TSH 1.720 (0.300-4.500) uIu/ml Administered Medications Allopurinol (Allopurinol 300 Mg Tab) 300 mg PO DAILY [facility] Stop: 12/09/23 08:59 Last Admin: 11/10/23 08:36 Dose: 300 mg Documented By: Admin: 11/09/23 08:36 Dose: 300 mg Documented By: MONIE Amlodipine Besylate ([facility]odipine Besylate 5 Mg Tab) [facility] [place]: 12/10/23 08:59 Last Admin: 11/10/23 08:36 Dose: 5 mg Documented By: SHIRLEY Apixaban (Apixaban 2.5 Mg Tab) 2.5 mg PO BID [facility] Stop: 12/09/23 20:59 Last Admin: 11/10/23 08:46 Dose: Not Given Documented By: Admin: 11/09/23 21:08 Dose: 2.5 mg Documented By: SUSI Atorvastatin Calcium (Atorvastatin 40 Mg Tab) [facility] [place] Stop: 12/09/23 08:59 Last Admin: 11/10/23 08:35 Dose: 40 mg Documented By: Admin: 11/09/23 08:35 Dose: 40 mg Documented By: MONIE Insulin Aspart (Insulin Aspart Per Unit Charge) 0 units SC [facility] Stop: 12/09/23 03:09 Last Admin: 11/10/23 17:38 Dose: 2 units Documented By: SHIRLEY Co-signed By: JO Admin: 11/10/23 12:55 Dose: 2 units Documented By: SHIRLEY Co-signed By: MIKI Admin: 11/10/23 08:38 Dose: 2 units Documented By: SHIRLEY Co-signed By: MIKI Admin: 11/09/23 21:03 Dose: Not Given Documented By: Admin: 11/09/23 18:47 Dose: 1 units Documented By: RADHA Co-signed By: SHIRLEY(2) Admin: 11/09/23 13:23 Dose: 2 units Documented By: MONIE Co-signed By: BUSTER Admin: 11/09/23 04:48 Dose: Not Given Documented By: CARMITA Levothyroxine Sodium (Levothyroxine Sodium 50 Mcg Tablet) 50 mcg PO Q2D@0630 [facility] Stop: 12/09/23 06:29 Last Admin: 11/09/23 06:23 Dose: 50 mcg Documented By: CARMITA Metoprolol Succinate (Metoprolol Succ 25mg Ext Rel Tab) 25 mg PO BID [facility] Stop: 12/09/23 08:59 Last Admin: 11/10/23 08:35 Dose: 25 mg Documented By: Admin: 11/09/23 21:08 Dose: 25 mg Documented By: Admin: 11/09/23 08:35 Dose: 25 mg Documented By: MONIE Pantoprazole Sodium (Pantoprazole 40 Mg Tab) 40 mg PO [facility] Stop: 12/09/23 08:59 Last Admin: 11/10/23 08:35 Dose: 40 mg Documented By: Admin: 11/09/23 08:35 Dose: 40 mg Documented By: MONIE Discontinued Medications Acetaminophen (Acetaminophen 325 Mg Tab) 650 mg PO NOW [facility]A Stop: 11/09/23 02:19 Last Admin: 11/09/23 03:13 Dose: Not Given Documented By: CARMITA Amlodipine Besylate (Amlodipine Besylate 5 Mg Tab) 5 mg PO NOW STA Stop: 11/09/23 01:53 Last Admin: 11/09/23 01:58 Dose: 5 mg Documented By: CARMITA Apixaban (Apixaban 5 Mg Tablet) 5 mg PO BID [facility] Stop: 12/09/23 08:59 Last Admin: 11/09/23 08:35 Dose: 5 mg Documented By: MONIE Sodium Chloride (Nss) 1,000 mls @ 250 mls/hr IV .Q4H [facility] Stop: 12/08/23 22:29 Last Infusion: 11/09/23 02:32 Dose: Infused Documented By: Admin: 11/08/23 22:29 Dose: 250 mls/hr Documented By: CARMITA Magnesium Sulfate/Dextrose (Magnesium Sulfate / D5w) 1 gm in 100 mls @ 100 mls/hr IV Q1H [facility] Stop: 11/09/23 03:13 Last Infusion: 11/09/23 03:48 Dose: Infused Documented By: Admin: 11/09/23 02:29 Dose: 100 mls/hr Documented By: Infusion: 11/09/23 02:29 Dose: Infused Documented By: Admin: 11/09/23 01:26 Dose: 100 mls/hr Documented By: CARMITA Potassium Chloride/Sodium Chloride (Normal Saline W/20 Meq Kcl) 20 meq in 1,000 mls @ 40 mls/hr IV .Q24H [facility]; Protocol Stop: 11/10/23 02:13 Last Infusion: 11/09/23 11:20 Dose: 0 mls/hr Documented By: Admin: 11/09/23 03:28 Dose: 40 mls/hr Documented By: CARMITA Magnesium Sulfate/Dextrose (Magnesium Sulfate / D5w) 1 gm in 100 mls @ 50 mls/hr IV Q2H [facility] Stop: 11/10/23 14:44 Last Infusion: 11/10/23 15:02 Dose: Infused Documented By: Admin: 11/10/23 12:55 Dose: 50 mls/hr Documented By: Infusion: 11/10/23 12:55 Dose: Infused Documented By: Admin: 11/10/23 11:05 Dose: 50 mls/hr Documented By: SHIRLEY Lisinopril (Lisinopril 20 Mg Tab) 20 mg PO QAM [facility] Stop: 12/10/23 09:29 Last Admin: 11/10/23 09:53 Dose: 20 mg Documented By: SHIRLEY Potassium Chloride (Potassium Chloride Crtab 20 Meq Tabcr) 40 meq PO NOW STA Stop: 11/09/23 01:02 Last Admin: 11/09/23 01:26 Dose: 40 meq Documented By: CARMITA Imaging Data Radiologist's Impression: Head CT 11/08/23 23:36 Exam(s): CT HEAD Without Contrast EXAM: CT Head Without Intravenous Contrast CLINICAL HISTORY: Reason for exam: bee, dizziness, fall. TECHNIQUE: Axial computed tomography images of the head/brain without intravenous contrast. CTDI is 37.61 mGy and DLP is 546.36 mGy-cm. Automated exposure control was utilized for the study. A dose lowering technique was utilized adhering to the principles of ALARA. COMPARISON: CT Head dated 09/10/23 FINDINGS: Brain: Stable left parietal 5.5 x 4.1 x 4.4 cm extra-axial cystic lesion. Possible arachnoid cyst. Volume loss with prominent ventricles and sulci. Periventricular and subcortical white matter hypoattenuation likely reflects chronic small vessel disease. No hemorrhage. Ventricles: See above. Bones/joints: Unremarkable. No acute fracture. Soft tissues: Unremarkable. Sinuses: Unremarkable as visualized. No acute sinusitis. Mastoid air cells: Unremarkable as visualized. No mastoid effusion. IMPRESSION: No evidence of acute intracranial abnormality or skull fracture. Electronically signed by: Jv Bell M.D. 11/09/23 00:21 AM Discharge Plan Visit Data Chief Complaint: Fall Stated Complaint: FALL, DIZZY BEFORE FALL ED Provider: Zeina Noel Discharge Problem: Lightheadedness, Headache, Fall, Hypomagnesemia, Elevated troponin Patient Disposition: Admitted As Inpatient Discharge Instructions Interventions: ED Discharge Assessment Last Done: 11/09/23 03:10
--- NOTE | 2023-11-09 00:22 | CT Scan Report ---
Exam(s): CT HEAD Without Contrast EXAM: CT Head Without Intravenous Contrast CLINICAL HISTORY: Reason for exam: bee, dizziness, fall. TECHNIQUE: Axial computed tomography images of the head/brain without intravenous contrast. CTDI is 37.61 mGy and DLP is 546.36 mGy-cm. Automated exposure control was utilized for the study. A dose lowering technique was utilized adhering to the principles of ALARA. COMPARISON: CT Head dated 09/10/23 FINDINGS: Brain: Stable left parietal 5.5 x 4.1 x 4.4 cm extra-axial cystic lesion. Possible arachnoid cyst. Volume loss with prominent ventricles and sulci. Periventricular and subcortical white matter hypoattenuation likely reflects chronic small vessel disease. No hemorrhage. Ventricles: See above. Bones/joints: Unremarkable. No acute fracture. Soft tissues: Unremarkable. Sinuses: Unremarkable as visualized. No acute sinusitis. Mastoid air cells: Unremarkable as visualized. No mastoid effusion. IMPRESSION: No evidence of acute intracranial abnormality or skull fracture. Electronically signed by: Jv Bell M.D. 11/09/23 00:21 AM
[2023-11-09 01:14] LABS: Magnesium 1.4 mg/dl (1.7-2.4)
[2023-11-09 01:21] LABS: Troponin I High Sensitivity 23.2 pg/ml (0-14)
[2023-11-09] MEDS: POTASSIUM CHLORIDE CRTAB 20 MEQ TABCR PO STA (01:26)
[2023-11-09] MEDS: MAGNESIUM SULFATE / D5W 1 GM/100 ML BAG IV SCH (01:26)
[2023-11-09 01:30] LABS: Thyroid Stimulating Hormone 1.72 uIu/ml (0.300-4.500)
[2023-11-09 01:32] LABS: Appearance Urine Cloudy (Clear); Bacteria Urine Automated Negative (Negative); Bilirubin Urine Negative (Negative); Blood Urine Negative (Negative); Cast Urine Automated 0 /lpf (0-5); Color Urine Yellow; Epithelial Cell Urine Auto >30 /lpf (0-5); Glucose Urine UA Negative (Negative); Ketones Urine Negative (Negative); Leukocyte Esterase Urine 1+ (Negative); Nitrite Urine Negative (Negative); Protein Urine Negative (Negative); RBC Urine Automated 0-4 /hpf (0-4); Specific Gravity Urine 1.008 (1.000-1.030); Urobilinogen Urine Negative (Negative)
[2023-11-09] MEDS: amLODIPine BESYLATE 5 MG TAB PO STA (01:58)
--- NOTE | 2023-11-09 02:12 | History & Physical Report ---
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 Eliquis Full code Text document was generated using [employer] voice recognition software. It may contain grammatical or spelling errors. Kindly contact undersigned for clarification of any documentation item in question. History of Present Illness Chief Complaint: Lightheadedness, near syncope Primary Care Provider: Ricardo Guerra MD History obtained from patient and records. 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 Last confinement September 2023 for dizziness described as lightheadedness. Patient felt lightheaded while standing in the kitchen making a sandwich yesterday. [place] like she was going to pass out. Subsequent fall without syncope, chest pain, SOB. Compliant with home medications. SBP 190s upon arrival at the ER. 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 Allergies Allergy/AdvReac Type Severity Reaction Status Date / Time No Known Allergies Allergy Verified 11/08/23 23:49 Home Medications Medication Instructions Recorded Confirmed Type allopurinol 300 mg tablet 300 mg PO DAILY 09/11/23 11/08/23 History atorvastatin 40 mg tablet 40 mg PO QAM 09/11/23 11/08/23 History levothyroxine 50 mcg tablet 50 mcg PO Q2D 09/11/23 11/08/23 History omeprazole 20 mg capsule,delayed 20 mg PO QAM 09/11/23 11/08/23 History release apixaban 5 mg tablet (Eliquis) 5 mg PO BID #60 tabs 09/22/23 11/08/23 Rx lisinopril 20 mg tablet 20 mg PO DAILY #30 tabs 09/23/23 11/08/23 Rx metoprolol succinate 25 mg 25 mg PO BID #60 tabs 09/23/23 11/08/23 Rx tablet,extended release 24 hr magnesium oxide 400 mg (241.3 mg 400 mg PO BID #60 tabs 09/29/23 11/08/23 Rx magnesium) tablet amlodipine 5 mg tablet 5 mg PO QAM 11/08/23 11/08/23 History cholecalciferol (vitamin D3) 50 50 mcg PO QAM 11/08/23 11/08/23 History mcg (2,000 unit) capsule furosemide 20 mg tablet 20 mg PO QAM 11/08/23 11/08/23 History meclizine 25 mg tablet 25 mg PO TID PRN Dizziness Or 11/08/23 11/08/23 History Vertigo Past Med/Surg History Medical History Hyponatremia Hypomagnesemia Diarrhea Pacemaker CKD (chronic kidney disease) Palpitations Left-sided headache Thyroid disease Gout High blood pressure Social History Smoking Status: Never smoker Hx Alcohol Use: No Hx Substance Use: No Preferred Language: Argentine Communication Ability: Effective City Weighmaster Required: No Beliefs That Will Affect Care: None Current Living Situation: Alone Current Living Situation Comment: daughter lives next door Feels Safe at Home: Yes Safety Concerns: Feels Safe At This Time Assistive Devices: Walker Review of Systems Review of Systems: As per HPI, all other systems reviewed and negative Physical Exam Physical Exam: GENERAL: Comfortable, pleasant, slightly hard of hearing, dysarthric from being edentulous (chronic), no respiratory distress SKIN: Pallor, warm HEENT: Pale palpebral conjunctivae, no ptosis, dry buccal mucosa, edentulous NECK : Supple, no tenderness CHEST : CTA, no tenderness HEART : RRR, no obvious murmurs ABDOMEN: Some distention, nontender EXTREMITIES : No LE swelling/tenderness, no other conspicuous deformities noted NEUROLOGIC : Coherent, no facial asymmetry, slightly hard of hearing, gait and stance not assessed Results & Data Results & Data Vital Signs (Past 12 Hours) Vital Signs Temp Pulse Pulse Resp BP BP Pulse Ox 11/09/23 00:27 63 11/09/23 00:12 72 21 93 11/09/23 00:12 185/87 H 11/08/23 23:31 180/58 H 11/08/23 23:31 63 14 99 11/08/23 23:00 65 17 93 11/08/23 23:00 180/78 H 11/08/23 22:30 62 18 94 11/08/23 22:30 180/84 H 11/08/23 22:00 166/97 H 11/08/23 22:00 69 13 97 11/08/23 21:30 185/87 H 11/08/23 21:30 62 14 95 11/08/23 21:23 60 17 95 11/08/23 21:23 182/73 H 11/08/23 21:23 60 18 182/73 H 96 11/08/23 21:00 60 18 95 11/08/23 20:34 61 20 92 11/08/23 20:34 190/89 H 11/08/23 20:31 61 21 93 11/08/23 20:31 61 11/08/23 20:27 36.8 C 61 14 190/89 H 94 O2 Del Method 11/09/23 00:27 11/09/23 00:12 11/09/23 00:12 11/08/23 23:31 11/08/23 23:31 11/08/23 23:00 11/08/23 23:00 11/08/23 22:30 11/08/23 22:30 11/08/23 22:00 11/08/23 22:00 11/08/23 21:30 11/08/23 21:30 11/08/23 21:23 11/08/23 21:23 11/08/23 21:23 Room Air 11/08/23 21:00 11/08/23 20:34 11/08/23 20:34 11/08/23 20:31 11/08/23 20:31 11/08/23 20:27 Room Air Laboratory Results Laboratory Results WBC 8.88 K/ul (4.8-10.8) 11/08/23 20:38 RBC 3.86 M/uL (4.20-5.40) L 11/08/23 20:38 Hgb 12.0 g/dl (12.0-16.0) 11/08/23 20:38 Hct 37.3 % (37.0-47.0) 11/08/23 20:38 MCV 96.6 fL (80.0-100.0) 11/08/23 20:38 MCH 31.1 pg (25.0-34.0) 11/08/23 20:38 MCHC 32.2 g/dL (32.0-36.0) 11/08/23 20:38 RDW Std Deviation 53.9 fL (36.4-46.3) H 11/08/23 20:38 RDW Coeff of Adolfo 15.2 % (11.5-14.5) H 11/08/23 20:38 Plt Count 272 K/uL (130-400) 11/08/23 20:38 MPV 11.2 fL (9.4-12.4) 11/08/23 20:38 Immature Gran % (Auto) 0.7 % 11/08/23 20:38 Neut % (Auto) 65.0 % 11/08/23 20:38 Lymph % (Auto) 23.8 % 11/08/23 20:38 Cloud % (Auto) 8.1 % 11/08/23 20:38 Eos % (Auto) 1.8 % 11/08/23 20:38 Baso % (Auto) 0.6 % 11/08/23 20:38 Neut # (Auto) 5.78 K/uL (1.40-6.50) 11/08/23 20:38 Lymph # (Auto) 2.11 K/uL (1.20-3.40) 11/08/23 20:38 Cloud # (Auto) 0.72 K/uL (0.11-0.59) H 11/08/23 20:38 Eos # (Auto) 0.16 K/uL (0.00-0.50) 11/08/23 20:38 Baso # (Auto) 0.05 K/uL (0.00-0.20) 11/08/23 20:38 Immature Gran # (Auto) 0.06 K/uL (0.01-0.20) 11/08/23 20:38 Sodium 136 mmol/L (136-145) 11/08/23 20:38 Potassium 3.3 mmol/L (3.5-5.1) L 11/08/23 20:38 Chloride 99 mmol/L (98-107) 11/08/23 20:38 Carbon Dioxide 27 mmol/L (21-32) 11/08/23 20:38 Anion Gap 10 (3-11) 11/08/23 20:38 BUN 19 mg/dl (6-23) 11/08/23 20:38 Creatinine 1.12 mg/dl (0.6-1.2) 11/08/23 20:38 Est Cr Clr Drug Dosing 27.5 ml/min 11/08/23 20:38 Est GFR ( Amer) 50.8 ml/min 11/08/23 20:38 Est GFR (Non-Af Amer) 43.8 ml/min 11/08/23 20:38 BUN/Creatinine Ratio 17.0 (10-20) 11/08/23 20:38 Glucose 139 mg/dl (70-99(Fasting)) H 11/08/23 20:38 Calcium 9.3 mg/dl (8.6-10.3) 11/08/23 20:38 Magnesium 1.4 mg/dl (1.7-2.4) L 11/08/23 20:38 Total Bilirubin 0.7 mg/dl (0.2-1.0) 11/08/23 20:38 AST 19 U/L (13-39) 11/08/23 20:38 ALT 12 U/L (7-52) 11/08/23 20:38 Alkaline Phosphatase 56 U/L (34-104) 11/08/23 20:38 Total Creatine Kinase 156 U/L (26-192) 11/08/23 20:38 Troponin I High Sens 23.2 pg/ml (0-14) H 11/08/23 20:38 Total Protein 7.3 gm/dl (6.0-8.3) 11/08/23 20:38 Albumin 4.2 gm/dl (3.4-5.0) 11/08/23 20:38 Globulin 3.1 gm/dl (2.5-4.0) 11/08/23 20:38 Albumin/Globulin Ratio 1.4 (0.9-2) 11/08/23 20:38 TSH 1.720 uIu/ml (0.300-4.500) 11/08/23 20:38 Urine Color Yellow 11/09/23 Unknown Urine Appearance Cloudy (Clear) A 11/09/23 Unknown Urine pH 8.0 (4.5-7.5) H 11/09/23 Unknown Ur Specific [place] 1.008 (1.000-1.030) 11/09/23 Unknown Urine Protein Negative (Negative) 11/09/23 Unknown Urine Glucose (UA) Negative (Negative) 11/09/23 Unknown Urine Ketones Negative (Negative) 11/09/23 Unknown Urine Blood Negative (Negative) 11/09/23 Unknown Urine Nitrite Negative (Negative) 11/09/23 Unknown Urine Bilirubin Negative (Negative) 11/09/23 Unknown Urine Urobilinogen Negative (Negative) 11/09/23 Unknown Ur Leukocyte Esterase 1+ (Negative) H 11/09/23 Unknown Urine WBC (Auto) 1-5 /hpf (0-5) 11/09/23 Unknown Urine RBC (Auto) 0-4 /hpf (0-4) 11/09/23 Unknown U Hyaline Cast (Auto) 0 /lpf (0-5) 11/09/23 Unknown U Epithel Cells (Auto) >30 /lpf (0-5) H 11/09/23 Unknown Urine Bacteria (Auto) Negative (Negative) 11/09/23 Unknown Urine Yeast Not Reportable 11/09/[address] 11/08/23 23:36 Exam(s): CT HEAD Without Contrast EXAM: CT Head Without Intravenous Contrast CLINICAL HISTORY: Reason for exam: bee, dizziness, fall. TECHNIQUE: Axial computed tomography images of the head/brain without intravenous contrast. CTDI is 37.61 mGy and DLP is 546.36 mGy-cm. Automated exposure control was utilized for the study. A dose lowering technique was utilized adhering to the principles of ALARA. COMPARISON: CT Head dated 09/10/23 FINDINGS: Brain: Stable left parietal 5.5 x 4.1 x 4.4 cm extra-axial cystic lesion. Possible arachnoid cyst. Volume loss with prominent ventricles and sulci. Periventricular and subcortical white matter hypoattenuation likely reflects chronic small vessel disease. No hemorrhage. Ventricles: See above. Bones/joints: Unremarkable. No acute fracture. Soft tissues: Unremarkable. Sinuses: Unremarkable as visualized. No acute sinusitis. Mastoid air cells: Unremarkable as visualized. No mastoid effusion. IMPRESSION: No evidence of acute intracranial abnormality or skull fracture. Electronically signed by: Jv Bell M.D. 11/09/23 00:21 AM Diagnostic Findings EKG as per my interpretation : Rate 60, NSR, LAD, LAFB, T wave abnormalities inferior leads
[2023-11-09] MEDS ORDERED: ACETAMINOPHEN 325 MG TAB PO PRN (02:18)
[2023-11-09] MEDS ORDERED: PROMETHAZINE HCL 6.25 MG in SODIUM CHLORIDE 0.9% 50 ML IV PRN (02:19)
[2023-11-09] MEDS ORDERED: GLUCOSE 10 TAB/TUBE PO PRN (03:10)
[2023-11-09] MEDS ORDERED: CARBOHYDRATES FOR HYPOGLYCEMIA PO PRN (03:10)
[2023-11-09] MEDS ORDERED: DEXTROSE 50% 50 ML SYRINGE IV PRN (03:10)
[2023-11-09] MEDS ORDERED: GLUCAGON FOR INJ 1 MG VIAL SQ PRN (03:10)
[2023-11-09] MEDS ORDERED: GLUCOSE 40% GEL 15 GM TUBE PO PRN (03:10)
[2023-11-09] MEDS: ACETAMINOPHEN 325 MG TAB PO STA (03:13)
[2023-11-09] MEDS: NSS + 20MEQ KCL 20 MEQ/1,000 ML BAG IV STA (03:28)
[2023-11-09] MEDS: INSULIN ASPART PER UNIT CHARGE SC SCH (04:48)
[2023-11-09 05:03] LABS: Basophils # (auto) 0.05 K/uL (0.00-0.20); Basophils % (auto) 0.5 %; Eosinophils # (auto) 0.12 K/uL (0.00-0.50); Eosinophils % (auto) 1.3 %; Hematocrit (blood only) 32.7 % (37.0-47.0); Hemoglobin 11.1 g/dl (12.0-16.0); Immature Granulocytes # (auto) 0.03 K/uL (0.01-0.20); Immature Granulocytes % (auto) 0.3 %; Lymphocytes # (auto) 2.82 K/uL (1.20-3.40); Lymphocytes % (auto) 29.9 %; Mean Corpuscular Hemoglobin 31.9 pg (25.0-34.0); Mean Corpuscular Hgb Conc 33.9 g/dL (32.0-36.0); Mean Platelet Volume 10.5 fL (9.4-12.4); Monocytes # (auto) 0.87 K/uL (0.11-0.59); Monocytes % (auto) 9.2 %; Neutrophils # (auto) 5.55 K/uL (1.40-6.50); Neutrophils % (auto) 58.8 %; Platelet Count 234 K/uL (130-400); RDW Standard Deviation 52.1 fL (36.4-46.3); Red Blood Count 3.48 M/uL (4.20-5.40); White Blood Count 9.44 K/ul (4.8-10.8)
[2023-11-09 05:15] LABS: BUN Creatinine Ratio 17.6 (10-20); Calcium 8.6 mg/dl (8.6-10.3); Creatinine Clr Calc Pharmacy 33.8 ml/min; Est GFR (African American) 65.3 ml/min; Est GFR (Non-African American) 56.3 ml/min; Potassium 3.6 mmol/L (3.5-5.1)
[2023-11-09 05:22] LABS: Troponin I High Sensitivity 26.9 pg/ml (0-14)
[2023-11-09] MEDS: LEVOTHYROXINE SODIUM 50 MCG TABLET PO SCH (06:23)
--- NOTE | 2023-11-09 07:08 | XRay Report ---
XR chest 1V portable CLINICAL HISTORY: trauma TECHNIQUE: Single frontal radiograph of the chest was obtained. Comparison: Comparison is made to chest radiograph 09/24/2023 FINDINGS: An implanted pacemaker is seen. Cardiomegaly is noted. The aortic arch is calcified. The lungs are cl ear. No evidence of pleural effusion or pneumothorax. IMPRESSION: No acute chest disease. Cardiomegaly is noted. ACT 112: Negative or not required by law. Electronically signed by: Teddy Joaquin M.D. 11/09/2023 7:06 AM
--- NOTE | 2023-11-09 07:17 | XRay Report ---
XR pelvis 1-2V routine CLINICAL HISTORY: trauma TECHNIQUE: A single frontal view of the pelvis was obtained. Comparison: None available at the time of this dictation. FINDINGS: There is no evidence of an acute fracture. Joint spaces are well-preserved. No soft tissue abnormalit y is seen. IMPRESSION: No evidence of acute osseous injury. ACT 112: Negative or not required by law. Electronically signed by: Teddy Joaquin M.D. 11/09/2023 7:16 AM
[2023-11-09] MEDS: ATORVASTATIN 40 MG TAB PO SCH (08:35)
[2023-11-09] MEDS: PANTOprazole 40 MG TAB PO SCH (08:35)
[2023-11-09] MEDS: METOPROLOL SUCC 25MG EXT REL TAB PO SCH (08:35)
[2023-11-09] MEDS: APIXABAN 5 MG TABLET PO SCH (08:35)
[2023-11-09] MEDS: allopurinoL 300 MG TAB PO SCH (08:36)
--- NOTE | 2023-11-09 11:35 | Cardiology Consultation ---
Date of Consultation November 09, 2023 Assessment & Plan (1) Dizziness: (2) HTN (hypertension): (3) Paroxysmal atrial fibrillation: (4) Pacemaker: Plan Patient was seen/examined today in collaboration with Dr. Dumas. See attending dispersion mixer's documentation for recommendations and plan of care. Supervising Physician Co-Signing Physician Notes Attending Staff: Pt seen and evaluated with [facility] staff Concur with observations and plans 88 yo woman presenting with "lightheadedness/fall" + Hypertension Dx: fall + Hypertensive urgency Consult: "lightheadedness" Recent Pacemaker placement (09/2023) Was making sandwich Celina lightheaded Went to her knees Crawled to bedroom Found by daughter Brought into ED No head trauma No incontinence No preceding chest pain or pressure No clear syncope No mention of mechanical fall Walks with walker No known Parkinson's Recently had medication adjustment - started on Norvasc 5 mg po per day + Lasix 20 mg po per day - was also restarted on Lisinopril 10 mg po per day Upon arrival to ED - noted to be hypertensive + hypokalemic Pacer interrogation - no malfunctions. No reported bouts of afib Unclear that presenting sx were c/w vertigo (hx of mecliczine use) Plans: * SBP is gradually moving into normal range * Current SBP 138 mmHg * Goal SBP 120 mmHg * Continue Norvasc 5 mg po per day * Continue Toprol XL 25 mg po BID * Holding Lisinopril * Holding Lasix * Depending on BP trend, may consider escalating Norvasc to 10 mg po per day * Would aim for the most simple regimen possible * K+ goal 4.5-5 * Mag goal >2 * Check TSH * + HX of Afib * Continue Eliquis at reduced dose (weight <60kg, age >80) of 2.5 mg po BID * PT consult for stability * Check orthostatics - evaluate for autonomic dysfunction Sal Dumas History of Present Illness Reason for Consultation: Dizziness Requesting Physician: Dr. Hanley Attending Physician: Dr. Dumas History of Present Illness Patient is an 88 year old female known to [facility], Dr. Castrejon. Patient admitted to [facility] with complaints of dizziness, near syncope. She had recent pacemaker implantation in Sep 2023 due to bradycardia. Tolerated procedure and was apparently doing well in the last few months. Less dizziness or lightheadedness. More energy. She saw Dr. Castrejon on 11/02 and was found to be significantly hypertensive with BP > 200/100 in the clinic. She was asymptomatic. Norvasc was started on at 5 mg and low dose furosemide initiated at 20 mg daily. Upon arrival to ER, she was found to be significantly hypertensive with BP in the 190's. EKG demonstrated NSR without acute ischemic changes. HS troponin minimally elevated at 23-26 but flat. Device interrogated with appropriate function and no arrhythmias correlating with her spell yesterday Potassium was low on arrival. Supplemented. History includes: 1. Hypertension 2. PAF on metoprolol and Eliquis 3. SSS s/p dual lead pacemaker in Sep 2023 - [employer] device. 4. history of hyponatremia. 5. Dyslipidemia 6. DM At time of consult, patient resting in bed. Family at bedside. Denies dizziness or lightheadedness currently. No chest pain. Bp has been elevated since admission. Allergies Allergy/AdvReac Type Severity Reaction Status Date / Time No Known Allergies Allergy Verified 11/08/23 23:49 Home Medications Medication Instructions Recorded Confirmed Type allopurinol 300 mg tablet 300 mg PO DAILY 09/11/23 11/08/23 History atorvastatin 40 mg tablet 40 mg PO QAM 09/11/23 11/08/23 History levothyroxine 50 mcg tablet 50 mcg PO Q2D 09/11/23 11/08/23 History omeprazole 20 mg capsule,delayed 20 mg PO QAM 09/11/23 11/08/23 History release apixaban 5 mg tablet (Eliquis) 5 mg PO BID #60 tabs 09/22/23 11/08/23 Rx lisinopril 20 mg tablet 20 mg PO DAILY #30 tabs 09/23/23 11/08/23 Rx metoprolol succinate 25 mg 25 mg PO BID #60 tabs 09/23/23 11/08/23 Rx tablet,extended release 24 hr magnesium oxide 400 mg (241.3 mg 400 mg PO BID #60 tabs 09/29/23 11/08/23 Rx magnesium) tablet amlodipine 5 mg tablet 5 mg PO QAM 11/08/23 11/08/23 History cholecalciferol (vitamin D3) 50 50 mcg PO QAM 11/08/23 11/08/23 History mcg (2,000 unit) capsule furosemide 20 mg tablet 20 mg PO QAM 11/08/23 11/08/23 History meclizine 25 mg tablet 25 mg PO TID PRN Dizziness Or 11/08/23 11/08/23 History Vertigo Patient History Medical History (Updated 11/09/23 @ 13:59 by Trina Montero PA-C) HTN (hypertension) Hyponatremia Hypomagnesemia Diarrhea Pacemaker CKD (chronic kidney disease) Palpitations Left-sided headache Thyroid disease Gout High blood pressure Social History Smoking Status: Never smoker Hx Alcohol Use: No Hx Substance Use: No Preferred Language: Icelandic Communication Ability: Effective Lace Roller Required: No Beliefs That Will Affect Care: None Current Living Situation: Alone Current Living Situation Comment: daughter lives next door Feels Safe at Home: Yes Safety Concerns: Feels Safe At This Time Assistive Devices: Walker Review of Systems Review of Systems: All systems reviewed & are unremarkable except as noted in HPI & below Physical Exam Physical Exam: Overweight Glasses No elevation in JVP S1S2 2/6 systolic murmur CTA B No C/C/E Warm and perfused No visible trauma Results & Data Vital Signs (Past 12 Hours) Vital Signs Temp Pulse Pulse Resp BP BP Pulse Ox 11/09/23 07:30 60 14 138/72 97 11/09/23 07:06 36.8 C 78 14 148/78 H 94 11/09/23 06:54 11/09/23 05:00 151/80 H 11/09/23 05:00 60 18 96 11/09/23 04:51 152/78 H 11/09/23 04:30 144/74 H 11/09/23 04:30 60 18 94 11/09/23 04:00 152/78 H 11/09/23 04:00 64 19 11/09/23 03:30 149/87 H 11/09/23 03:30 60 19 11/09/23 03:10 11/09/23 03:00 62 19 11/09/23 03:00 164/74 H 11/09/23 02:30 161/77 H 11/09/23 02:30 60 17 11/09/23 02:01 67 19 11/09/23 02:01 187/81 H 11/09/23 02:00 72 24 11/09/23 01:31 179/86 H 11/09/23 01:31 71 20 11/09/23 01:00 65 25 H 94 11/09/23 01:00 179/92 H 11/09/23 00:30 71 22 11/09/23 00:30 170/89 H 11/09/23 00:27 63 11/09/23 00:12 72 21 93 11/09/23 00:12 185/87 H Pulse Ox O2 Del Method O2 Del Method 11/09/23 07:30 Room Air 11/09/23 07:06 Room Air 11/09/23 06:54 94 Room Air 11/09/23 05:00 11/09/23 05:00 11/09/23 04:51 11/09/23 04:30 11/09/23 04:30 11/09/23 04:00 11/09/23 04:00 11/09/23 03:30 11/09/23 03:30 11/09/23 03:10 94 Room Air 11/09/23 03:00 11/09/23 03:00 11/09/23 02:30 11/09/23 02:30 11/09/23 02:01 11/09/23 02:01 11/09/23 02:00 11/09/23 01:31 11/09/23 01:31 11/09/23 01:00 11/09/23 01:00 11/09/23 00:30 11/09/23 00:30 11/09/23 00:27 11/09/23 00:12 11/09/23 00:12 Laboratory Results Cardiac Enzymes 11/08/23 11/09/23 Range/Units 20:38 04:37 AST 19 (13-39) U/L Troponin I High Sens 23.2 H 26.9 H (0-14) pg/ml CBC 11/08/23 11/09/23 Range/Units 20:38 04:37 WBC 8.88 9.44 (4.8-10.8) K/ul RBC 3.86 L 3.48 L (4.20-5.40) M/uL Hgb 12.0 11.1 L (12.0-16.0) g/dl Hct 37.3 32.7 L (37.0-47.0) % Plt Count 272 234 (130-400) K/uL Neut # (Auto) 5.78 5.55 (1.40-6.50) K/uL Lymph # (Auto) 2.11 2.82 (1.20-3.40) K/uL [place] # (Auto) 0.72 H 0.87 H (0.11-0.59) K/uL Eos # (Auto) 0.16 0.12 (0.00-0.50) K/uL Baso # (Auto) 0.05 0.05 (0.00-0.20) K/uL Comprehensive Metabolic Panel 11/08/23 11/09/23 Range/Units 20:38 04:37 Sodium 136 135 L (136-145) mmol/L Potassium 3.3 L 3.6 (3.5-5.1) mmol/L Chloride 99 102 (98-107) mmol/L Carbon Dioxide 27 26 (21-32) mmol/L BUN 19 16 (6-23) mg/dl Creatinine 1.12 0.91 (0.6-1.2) mg/dl Glucose 139 H 113 H (70-99(Fasting)) mg/dl Calcium 9.3 8.6 (8.6-10.3) mg/dl AST 19 (13-39) U/L ALT 12 (7-52) U/L Alkaline Phosphatase 56 (34-104) U/L Total Protein 7.3 (6.0-8.3) gm/dl Albumin 4.2 (3.4-5.0) gm/dl Intake and Output 11/08/23 11/09/23 11/09/23 22:59 06:59 14:59 Intake Total 1200 / 1200 314.667 / 314.667 Balance 1200 / 1200 314.667 / 314.667 Intake: IV 1200 / 1200 314.667 / 314.667 Magnesium Sulfate / D5w 1 gm In 200 / 200 100 ml @ 100 mls/hr IV Q1H [facility] Rx#:[id number] Nss + 20Meq KCl 20 meq In 1,000 314.667 / 314.667 ml @ 40 mls/hr IV .Q24H [facility] Rx #:[id number] Sodium Chloride 0.9% 1,000 ml @ 1000 / 1000 250 mls/hr IV .Q4H [facility] Rx#: [id number] Other: # Unmeasured Voids 1 Weight 59.5 kg 59.5 kg Weight Measurement Method [facility] in [facility] Patient Weight 11/10/23 06:59 Weight 59.5 kg Diagnostic Findings Telemetry reviewed: Atrial paced, ventricular sensed. No arrhythmias Device interrogated and reviewed with [employer]bot rep: Normal function/battery life. no arrhythmias to correlate with her symptoms. Last afib episode on 10/16, resolved quickly. EKG dated 11/09/23: NSR at 62 bmp No significant ischemic changes Head CT: No acute process. Chest xray: No acute process Prior echo on 09/22/23: Compared to prior study dated 09/11/23 - right sided pacemaker lead visualized. EF 60-65% Normal LV wall thickness LA is mildly dilated Mild MR Mild TR Estimated systolic pressure 49 mmHg No pericardial effusion. Medications Administered Current Inpatient Medications Acetaminophen (Acetaminophen 325 Mg Tab) 650 mg PO QID PRN PRN Reason: pain/fever Stop: 12/09/23 02:17 Acetaminophen (Acetaminophen 325 Mg Tab) 650 mg PO Q4H PRN PRN Reason: Pain or Fever Stop: 12/09/23 03:09 Allopurinol (Allopurinol 300 Mg Tab) 300 mg PO DAILY [facility] Stop: 12/09/23 08:59 Last Admin: 11/09/23 08:36 Dose: 300 mg Amlodipine Besylate (Amlodipine Besylate 5 Mg Tab) 5 mg PO QAM [facility] Stop: 12/10/23 08:59 Apixaban (Apixaban 5 Mg Tablet) 5 mg PO BID [facility] Stop: 12/09/23 08:59 Last Admin: 11/09/23 08:35 Dose: 5 mg Atorvastatin Calcium (Atorvastatin 40 Mg Tab) 40 mg PO QAM [facility] Stop: 12/09/23 08:59 Last Admin: 11/09/23 08:35 Dose: 40 mg Dextrose (Dextrose 50% 50 Ml Syringe) 25 - 50 ml IV UD PRN; Protocol PRN Reason: Hypoglycemia Protocol Stop: 12/09/23 03:09 Glucagon (Glucagon For Inj 1 Mg Vial) 1 mg SQ UD PRN; Protocol PRN Reason: Hypoglycemia Protocol Stop: 12/09/23 03:09 Glucose (Glucose 10 Tab/Tube) 4 - 8 tab PO UD PRN; Protocol PRN Reason: Hypoglycemia Treatment Stop: 12/09/23 03:09 Glucose (Glucose 40% Gel 15 Gm Tube) 15 - 30 gm PO UD PRN; Protocol PRN Reason: Hypoglycemia Protocol Stop: 12/09/23 03:09 Potassium Chloride/Sodium Chloride (Normal Saline W/20 Meq Kcl) 20 meq in 1,000 mls @ 40 mls/hr IV .Q24H STA; Protocol Stop: 11/10/23 02:13 Last Infusion: 11/09/23 11:20 Dose: 0 mls/hr Promethazine HCl 6.25 mg/ (Sodium Chloride) 50.25 mls @ 201 mls/hr IV Q6H PRN PRN Reason: Nausea And Vomiting Stop: 12/09/23 02:18 Insulin Aspart (Insulin Aspart Per Unit Charge) 0 units SC ACHS [facility] Stop: 12/09/23 03:09 Last Admin: 11/09/23 04:48 Dose: Not Given Levothyroxine Sodium (Levothyroxine Sodium 50 Mcg Tablet) 50 mcg PO Q2D@0630 [facility] Stop: 12/09/23 06:29 Last Admin: 11/09/23 06:23 Dose: 50 mcg Metoprolol Succinate (Metoprolol Succ 25mg Ext Rel Tab) 25 mg PO BID [facility] Stop: 12/09/23 08:59 Last Admin: 11/09/23 08:35 Dose: 25 mg Miscellaneous (Carbohydrates For Hypoglycemia ) 15 - 30 gm PO UD PRN PRN Reason: Hypoglycemia Protocol Stop: 12/09/23 03:09 Pantoprazole Sodium (Pantoprazole 40 Mg Tab) 40 mg PO QAM [facility] Stop: 12/09/23 08:59 Last Admin: 11/09/23 08:35 Dose: 40 mg (2) HTN (hypertension) Hypertension type: primary hypertension Qualified Code(s): I10 - Essential (primary) hypertension
--- OUTSIDE RECORDS SUMMARY | 2023-11-09 13:02 | External Medical Summary ---
Author Name Unknown Address Unknown Organization [id number]:[facility] [place] [address] [place] [id number] Laboratory Report Ordering Provider Test Date Status SILVIO BATES 11/06/2023 13:39:59 Final Observation Date Value Abnormality Reference (Units ) Status MYCODE SPECIMEN-SST 11/06/2023 13:39:59 Freezing of extracted DNA, whole blood and/or serum. Final Performing Location LABORATORY [facility] - [address] [place] [id number]
--- OUTSIDE RECORDS SUMMARY | 2023-11-09 13:02 | External Medical Summary ---
Author Name Unknown Address Unknown Organization [id number][place] [place] [address] [place] [address] Laboratory Report Ordering Provider Test Date Status SILVIO BATES 11/06/2023 13:39:59 Final Observation Date Value Abnormality Reference (Units ) Status MYCODE SPECIMEN-SST 11/06/2023 13:39:59 Freezing of extracted DNA, whole blood and/or serum. Final Performing Location [facility]ATORY [facility] - [address] [place] [id number]
--- OUTSIDE RECORDS SUMMARY | 2023-11-09 13:02 | External Medical Summary | Summary of Care ---
Author Name Unknown Organization [facility] Address [address] [place] [address] Phone [phone] Care Team Providers Care Operations Research Director Name Role Phone Ricardo Guerra MD Primary Care Provider +1- [phone] Reason for Visit * Reason Comments Outpatient Testing Encounter Details Date Type Department Care Team ([facility] st Contact Info) Description 11/06/2023 1:40 PM EST Laboratory Laboratory, [place] [address] [place] [address] [place], Laboratory [address] [place] [address] [employer] Other*[id number]; HTN, goal below 150/90; Paroxysmal atrial fibrillation (HCC); SSS (sick sinus syndrome) (HCC); Dyslipidemia Allergies No known active allergiesdocumented as of this encounter (statuses as of 11/06/2023) Medications Medication Sig Dispensed Refills Start Date End Date Status Meclizine HCl 25 MG Oral Tablet (Antivert) Take 1 Tab by mouth 3 times a day as needed for Dizziness. 30 Tab 0 03/15/2021 Active Atorvastatin Calcium 40 MG Oral Tablet (Lipitor)Indication s:Dyslipidemia TAKE 1 TABLET BY MOUTH EVERY DAY IN THE MORNING 90 Tablet 1 05/21/2023 Active Levothyroxine Sodium 50 MCG Oral Tablet (Levoxyl) TAKE 1 TABLET BY MOUTH EVERY DAY AT LEAST 30 MIN BEFORE BREAKFAST OR OTHER MEDICATION 90 Tablet 1 06/30/2023 Active Omeprazole 20 MG Oral Capsule Delayed [...] THE MORNING 90 Tablet 1 08/21/2023 Active Metoprolol Succinate ER 25 MG Oral Tablet Extended Release 24 Hour (toPROL XL) Take 1 Tablet by mouth in the morning and 1 Tablet before bedtime. 60 Tablet 3 10/06/2023 Active Magnesium Oxide -Mg Supplement 400 (240 Mg) MG Oral Tablet (Mag-Ox) Take 1 Tablet by mouth in the morning and 1 Tablet before bedtime. 60 Tablet 3 10/06/2023 Active Apixaban 5 MG Oral Tablet (Eliquis) Take 1 Tablet by mouth in the morning and 1 Tablet before bedtime. 60 Tablet 3 10/06/2023 Active Vitamin D3 50 MCG (2000 UT) Oral Capsule Take 1 Capsule by mouth in the morning. 0 10/06/2023 Active Lisinopril 20 MG Oral Tablet (Prinivil)Indicatio ns:HTN, goal below 150/90 Take 1 Tablet by mouth in the morning. 0 11/01/2023 Active Furosemide 20 MG Oral Tablet (Lasix) Take 1 Tablet by mouth in the morning. 90 Tablet 3 11/03/2023 Active amLODIPine Besylate 5 MG Oral Tablet (Norvasc) Take 1 Tablet by mouth in the morning. 90 Tablet 3 11/03/2023 Active documented as of this encounter (statuses as of 11/06/2023) Active Problems Problem Noted Date Diagnosed Date Arachnoid cyst 10/06/2023 Last Assessment & Plan: Followed by neurosurgery Paroxysmal atrial fibrillation 10/04/2023 Last Assessment & Plan: Rate controlled on metoprolol Apixaban stroke prophylaxis SSS (sick sinus syndrome) 10/04/2023 S/P placement of cardiac pacemaker 10/04/2023 Type 2 diabetes mellitus wit h stage 3b chronic kidney disease, without long-term current use of insulin 09/19/2023 Last Assessment & Plan: "RED FLAG" Diabetic symptoms: Other: none Goal HgbA1c <8 Diabetic Complications Renal (example: CKD, Proteinuria, Dialysis) Medication Regimen Lifestyle Modification / Monitoring ONLY DM Secondary Prevention MARLON Inhibitor / ARB Moderate-High Intensity Statin Additional Comments She was unaware of DM dx. Discussed.Stable. hgba1c 6.9 Type 2 diabetes mellitus wit h hemoglobin A1c goal of less than 8.0% 02/05/2021 Benign hypertension with stage 3b chronic kidney disease 01/12/2021 Overview: Per CKD protocol Last Assessment & Plan: BP stable on lisinopril and metoprolol Primary open-angle glaucoma, bilateral, moderate stage 10/04/2019 Gastroesophageal reflux disease without esophagi tis 10/04/2019 Acquired hypothyroidism 07/04/2019 Last Assessment & Plan: Continue levoxyl History of nonmelanoma skin cancer 02/05/2018 Overview: BCC on the left nose 2016 Vitamin D deficiency 06/23/2017 High risk for fracture due to osteoporosis by DE XA scan 10/06/2015 HTN, goal below 150/90 09/08/2015 Dyslipidemia 09/08/2015 documented as of this encounter (statuses as of 11/06/2023) Resolved Problems Problem Noted Date Diagnosed Date Resolved Date Type 2 diabetes mellitus wit h stage 3b chronic kidney disease 09/21/2022 09/25/2023 Overview: duplicate Glaucoma 06/21/2022 01/23/2023 Chronic kidney disease, stage [...] as of this encounter (statuses as of 11/06/2023) Immunizations Name Administration Dates Next Due COVID-19 mRNA, LNP-s, No Pre serve, 2-Dose Series (ECS Tuning) 01/06/2021,12/16/2020 Pneumococcal Conjugate Vacc, 13 Valent (Prevnar) [...] the money to buy more. Never true 10/24/19 24 Within the past 12 months, t he food you bought just didn't last and you didn't have money to get more. Never true 10/24/2023 Sex and Gender Information Value Date Recorded [...] Care Team (Late st Contact Info) Description 11/15/2023 4:00 PM EDT Home Visit [facility] [address] [facility] [place] [address] America Red, RN [address] [facility] [place] [address] 03/12/2024 1:30 PM EDT Office Visit Cardiology, [facility] [address] [facility] [place] [address] Magalys Griffiths CRNP [address] [facility] [place] [phone] 05/14/2024 5:40 PM EDT Office Visit [facility] [address] [place] [facility] [place] [phone] Ricardo Guerra MD [address] [place] [address] Pending Results Name Type Priority Associated Diagnoses Date /Time MYCODE SUBSEQUENT ADULT Lab Routine [employer] Other*[id number] 11/06/2023 1:39 PM EST BASIC METABOLIC PANEL Lab Routine HTN, goal below 150/90 Paroxysmal atrial fibrillation (HCC) SSS (sick sinus syndrome) (HCC) Dyslipidemia 11/06/2023 1:39 PM EST MYCODE SST1 Lab Routine [employer] Other*[id number] 11/06/2023 1:39 PM EST MYCODE SST2 Lab Routine [employer] Other*[id number] 11/06/2023 1:39 PM EST Health Maintenance Due Date Last Done Comments DTaP,Tdap,and Td Vaccines (1 - Tdap) 03/31/2005 03/30/2005 *BISPHONATE OR OTHER ACCEPTABLE MEDICATION NEEDED FOR OSTEOPOROSIS (REFER TO SMARTSET #1146) 10/08/2015 DXA Scan 08/31/2022 08/31/2020, 0 02/2018, 09/11/2015 Diabetic Foot Exam 03/21/2023 03/21/2022, 10/04/2019 COVID-19 Vaccine ( season) 2023 01/06/2021, 12/16/2020 Influenza Vaccine (FLU shot) (#1) 2023 06/21/2022, 05/27/2021, 05/15/2020, Additional history exists HbA1c 08/18/2023 02/16/2023, 03/04, 10/25/2021, Additional history exists Depression Screening 09/21/2023 09/21/2022 *NEPHROLOGY REFERRAL DUE TO RESISTANT HTN 11/02/2023 CKD HGB USE SMARTSET 50748 02/17/202402/16, 03/21/2022, 02/05/2021, Additional history exists CKD PHOS USE SMARTSET 43757 02/17/202402/02, 03/21/2022, 02/05/2021, Additional history exists TSH 02/17/2024 02/16/2023, 01/2023, 10/25/2021, Additional history exists Albumin/Creatinine Ratio 02/18/2024 02/17/2023, 03/04 Diabetic Eye Exam 10/31/2024 10/31/2023, , 07/12/2011, Additional history exists Pneumococcal Vaccine: 65+ Years Completed 12/15/2015, 05/29/2001 Zoster Vaccines Completed 08/01/2018, 2 12/2017, 06/04/2010 VITAMIN D LEVEL ONCE IN A LIFETIME-USE SMARTSET# 81530 Completed 03/21/2022, 02/05/2021, 03/02/2020, Additional history exists [...] as of this encounter Visit Diagnoses Diagnosis [employer] Other*[id number] HTN, goal below 150/90 Paroxysmal atrial fibrillation (HCC) Atrial fibrillation SSS (sick sinus syndrome) (HCC) Sinoatrial node dysfunction Dyslipidemia Other and unspecified hyperlipidemia documented in this encounter Care Teams Operations Research Director Relationship Specialty Start Date End Date Ricardo Guerra MD [address] [place] [address] PCP - General Family Medicine 08/24/15 documented as of this encounter
--- OUTSIDE RECORDS SUMMARY | 2023-11-09 13:03 | External Medical Summary | Summary of Care ---
Author Name Unknown Organization [facility] Address [address] [place] [address] Phone [phone] Care Team Providers Care Asparagus Buncher Name Role Phone Ricardo Guerra MD Primary Care Provider +1- [phone] Encounter Details Date Type Department Care Team (Late st Contact Info) Description 10/24/2023 2:30 PM EST Home Visit [facility] [address] [place] [address] Ashleigh Mejia, Community Health Director Of Email Marketing [address], [place] [id number] Allergies No known active allergiesdocumented as of this encounter (statuses as of 10/24/2023) Medications Medication Sig Dispensed Refills Start Date [...] THE MORNING 90 Tablet 1 08/21/2023 Active Lisinopril 20 MG Oral Tablet (Prinivil) Take 1 Tablet by mouth in the morning. 0 09/23/2023 Active Metoprolol Succinate ER 25 MG Oral [...] mouth in the morning. 0 10/06/2023 Active documented as of this encounter (statuses as of 10/24/2023) Active Problems Problem Noted Date Diagnosed Date [...] as of this encounter (statuses as of 10/24/2023) Resolved Problems Problem Noted Date Diagnosed Date [...] as of this encounter (statuses as of 10/24/2023) Immunizations Name Administration Dates Next Due COVID-19 [...] Sign Reading Time Taken Comments Blood Pressure 138/80 10/24/2023 2:48 PM EST Pulse 73 10/24/2023 2:48 PM EST Temperature 36.4 C (97.5 F) 10/24/2023 2:48 PM ES T Respiratory Rate 20 10/24/2023 2:48 PM EST Oxygen Saturation 96% 10/24/2023 2:48 PM EST Inhaled Oxygen Concentration - - Weight - - Height - - Body Mass Index - - documented in this encounter Progress Notes * Ashleigh Mejia Community Health Director Of Email Marketing - 10/24/2023 2:51 PM EST Telemedicine visit: No Community Health Director Of Email Marketing (BRAYAN) documentation: BRAYAN f/u visit this date per THAO Duran Pt. Doing well no new complaints. Pt.'s daughter Diana present at visit. Pt reports that she would like to have more information on the MOM's MEALS, BRAYAN will get that to them NIKKO for them to decide if that is what they would like to do. Pt. Is scheduled to see her PCP next week and her principal bioinformatics specialist later next week for follow up. Pt. Is aware and has number to contact THAO Duran if needed. documented in this encounter Plan of Treatment Upcoming Encounters Date Type Department Care Team (Late st Contact Info) Description 10/31/2023 6:00 PM EST [facility] [address] [facility] [phone] Ricardo [facility]erra [facility] [address] [facility] [address] 11/03/2023 7:45 AM EST Office Visit Cardiology, [facility] [address] [facility] [place] [address] Stephany Castrejon, DO [address] [place] [address] [place] [address] 11/15/2023 4:00 PM EDT [facility] [address] [place] [address] America Red RN [address] [place] [address] Health Maintenance Due Date Last Done Comments DTaP,Tdap,and Td Vaccines (1 - Tdap) 03/31/2005 03/30/2005 *BISPHONATE OR OTHER ACCEPTABLE MEDICATION NEEDED FOR OSTEOPOROSIS (REFER TO SMARTSET #1146) 10/08/2015 DXA Scan 08/31/2022 08/31/2020, 02/2018, 09/11/2015 Diabetic Foot Exam 03/21/2023 03/21/2022, 10/04/2019 Diabetic Eye Exam 04/06/2023 04/06/2022, , 06/21/2011, Additional history exists COVID-19 Vaccine ( season) 2023 01/06/2021, 12/16/2020 Influenza Vaccine (FLU shot) (#1) 2023 06/21/2022, 05/27/2021, 05/15/2020, Additional history exists HbA1c 08/18/2023 02/16/2023, 03/04, 10/25/2021, Additional history exists Depression Screening 09/21/2023 09/21/2022 *NEPHROLOGY REFERRAL DUE TO RESISTANT HTN 10/13/2023 CKD HGB USE SMARTSET 20660 02/17/202402/16, 03/21/2022, 02/05/2021, Additional history exists CKD PHOS USE SMARTSET 85976 02/17/202402/02, 03/21/2022, 02/05/2021, Additional history exists TSH 02/17/2024 02/16/2023, 01/2023, 10/25/2021, Additional history exists Albumin/Creatinine Ratio 02/18/2024 02/17/2023, 03/04 Pneumococcal Vaccine: 65+ Years Completed 12/15/2015, 05/29/2001 Zoster Vaccines Completed 08/01/2018, 03/05, 06/04/2010 VITAMIN D LEVEL ONCE IN A LIFETIME-USE SMARTSET# 50059 Completed 03/21/2022, 02/05/2021, 03/02/2020, Additional history exists [...] filedocumented as of this encounter Care Teams Asparagus Buncher Relationship Specialty Start Date End Date Ricardo Guerra MD [address] [place] [address] PCP - General Family Medicine 08/24/15 documented as of this encounter
--- OUTSIDE RECORDS SUMMARY | 2023-11-09 13:03 | External Medical Summary | Summary of Care ---
Author Name Unknown Organization [facility] Address [address] [facility] [place] [address] Phone [phone] Care Team Providers Care Assistant Press Operator Name Role Phone Ricardo Guerra MD Primary Care Provider +1- [phone] Reason for Visit * Reason Onset Date Comments Advice 10/16/2023 Physical therapy order request Encounter Details Date Type Department Care Team (Late st Contact Info) Description 10/16/2023 Telephone [facility] [address] [place] [address] Ricardo Guerra MD [address] [place] [address] Advice (Physical therapy order request) Allergies No known active allergiesdocumented as of this encounter (statuses as of 10/17/2023) Medications Medication Sig Dispensed Refills Start Date [...] as of this encounter (statuses as of 10/17/2023) Active Problems Problem Noted Date Diagnosed Date [...] as of this encounter (statuses as of 10/17/2023) Resolved Problems Problem Noted Date Diagnosed Date [...] as of this encounter (statuses as of 10/17/2023) Immunizations Name Administration Dates Next Due COVID-19 [...] encounter Miscellaneous Notes * Telephone Encounter - Allegra Scott OSA - 10/17/2023 8:50 AM EST Spoke to Bianka and let her know that patient will be going to [facility]. Order faxed. 10/17/2023 * Telephone Encounter - Ricardo Guerra MD - 10/16/2023 4:48 PM EST I am fine with [facility]. Whatever she can get in the home. Can fax order from 09/19/23 to [facility] * Telephone Encounter - Sho Overton CCMA - 10/16/2023 3:44 PM EST Please advise as below. Thank you. * Telephone Encounter - Gunjan Roe OSA - 10/16/2023 3:22 PM EST Bianka with [facility] called stating that [facility] is [facility]. She provided the contact information for a facility that is in network. She would like an update if the provider is fine with the pt going to the In network location, or if the OON location is preferred. The order would need to be sent to [facility] (will travel to the pt's home) Fax. [phone] Ph. [phone] Attn: Jalyn documented in this encounter Plan of Treatment Upcoming Encounters Date Type Department Care Team (Late st Contact Info) Description 10/24/2023 2:30 PM EST Home Visit [facility] [address] [place] [facility] [place] [address] Ashleigh Mejia, Community Health Product Marketing Engineer [address] [place] [facility] [place] [address] 10/31/2023 6:00 PM EST Office Visit Family [facility] [place] [address] [place] [phone] Ricardo Guerra MD [address] [place] [address] 11/03/2023 7:45 AM EST Office Visit Cardiology, [facility] [address] [facility] [place] [address] Stephayn Castrejon, [address] [place] [address] 11/15/2023 4:00 PM EDT [facility] Visit [facility], [facility] [address] [facility] [place] [address] America Rde, RN [address] [facility] [place] [address] Health Maintenance Due Date Last Done Comments Hepatitis B (1 of 3 - Risk 3-dose series) 1995 DTaP,Tdap,and Td Vaccines (1 - Tdap) 03/31/2005 03/30/2005 *BISPHONATE OR OTHER ACCEPTABLE MEDICATION NEEDED FOR OSTEOPOROSIS (REFER TO SMARTSET #1146) 10/08/2015 DXA Scan 08/31/2022 08/31/2020, 06/0 02/2018, 09/11/2015 Diabetic Foot Exam 03/21/2023 03/21/2022, 10/04/2019 Diabetic Eye Exam 04/06/2023 04/06/2022, , 06/21/2011, Additional history exists COVID-19 Vaccine (3 - season) 2023 01/06/2021, 12/16/2020 Influenza Vaccine (FLU shot) (#1) 2023 06/21/2022, 05/27/2021, 05/15/2020, Additional history exists HbA1c 08/18/2023 02/16/2023, 03/04, 10/25/2021, Additional history exists Depression Screening 09/21/2023 09/21/2022 *NEPHROLOGY REFERRAL DUE TO RESISTANT HTN 10/13/2023 CKD HGB USE SMARTSET 16112 02/17/202402/16, 03/21/2022, 02/05/2021, Additional history exists CKD PHOS USE SMARTSET 13154 02/17/202402/02, 03/21/2022, 02/05/2021, Additional history exists TSH 02/17/2024 02/16/2023, 0601/2023, 10/25/2021, Additional history exists Albumin/Creatinine Ratio 02/18/2024 02/17/2023, 03/04 Pneumococcal Vaccine: 65+ Years Completed 12/15/2015, 05/29/2001 Zoster Vaccines Completed 08/01/2018, 03/05, 06/04/2010 VITAMIN D LEVEL ONCE IN A LIFETIME-USE SMARTSET# 96687 Completed 03/21/2022, 02/05/2021, 03/02/2020, Additional history exists GARDASIL-HPV IMMUNIZATION SERIES Aged Out No longer eligible based on patient's age to complete this topic MENINGOCOCCAL (MENACTRA/MENVEO) Aged Out No longer eligible based on patient's age to complete this topic documented as of this encounter Medical Devices Not on filedocumented as of this encounter Care Teams Assistant Press Operator Relationship Specialty Start Date End Date Ricardo Guerra MD [address] [place] [address] PCP - General Family Medicine 08/24/15 documented as of this encounter
--- OUTSIDE RECORDS SUMMARY | 2023-11-09 13:03 | External Medical Summary | Summary of Care ---
Author Name Unknown Organization [facility] Address [address] [place] [address] Phone [phone] Care Team Providers Care Stiff Leg Operator Name Role Phone Ricardo Guerra MD Primary Care Provider +1- [phone] Reason for Visit * Reason Onset Date Comments Referral 10/12/2023 Encounter Details Date Type Department Care Team (Late st Contact Info) Description 10/12/2023 New Patient Triage (ELECTRICAL WIRING LINEMAN USE ONLY) Cardiology, [facility] [address] [facility] [place] [address] Claire Abdi, HYDROELECTRIC COMPONENT MACHINIST [address] [place] [address] Referral Allergies No known active allergiesdocumented as of this encounter (statuses as of 10/12/2023) Medications Medication Sig Dispensed Refills Start Date [...] 3 10/06/2023 Active Vitamin D3 50 MCG (1999 UT) Oral Capsule Take 1 Capsule by mouth in the morning. 0 10/06/2023 Active documented as of this encounter (statuses as of 10/12/2023) Active Problems Problem Noted Date Diagnosed Date [...] as of this encounter (statuses as of 10/12/2023) Resolved Problems Problem Noted Date Diagnosed Date [...] as of this encounter (statuses as of 10/12/2023) Immunizations Name Administration Dates Next Due COVID-19 [...] as of this encounter Progress Notes * Dayana Alamo LPN - 10/12/2023 10:28 AM EST New Patient Triage What is the diagnosis/reason for referral?: Bradycardia [R00.1] - Primary S/P placement of cardiac pacemaker [Z95.0] Enter order ID here: [id number] Specialty specific documentation: Cardiology Structural Heart Discussed care plan with patient or proxy?: No n/a Stephany Castrejon DO performed this patient pacemaker implant as an inpatient and was seen inpatient by provider. Triage not needed. documented in this encounter Plan of Treatment Upcoming Encounters Date Type Department Care Team (Late st Contact Info) Description 10/24/2023 2:30 PM EST Home Visit [facility] [address] [place] [address] Ashleigh Mejia [facility] Health Sales Negotiator [address] [place] [address] 10/31/2023 6:00 PM EST Office Visit [facility] [address] [place] [address] Ricardo Guerra MD [address] [place] [address] 11/03/2023 7:45 AM EST Office Visit Cardiology, [facility] [address] [facility] [place] [address] tSephany Castrejon DO [address] [facility] [place] [address] 11/15/2023 4:00 PM EDT [facility] Visit [facility] [place], [facility] [address] [facility] [place] [address] America Red RN [address] [place] [address] Health Maintenance Due Date Last Done Comments [...] Screening 09/21/2023 09/21/2022 CKD HGB USE SMARTSET 29506 02/17/202402/16, 03/21/2022, 02/05/2021, Additional history exists CKD PHOS USE SMARTSET 92613 02/17/202402/02, 03/21/2022, 02/05/2021, Additional history exists TSH 02/17/2024 02/16/2023, 01/2023, 10/25/2021, Additional history exists Albumin/Creatinine Ratio 02/18/2024 02/17/2023, 03/04 Pneumococcal Vaccine: 65+ Years Completed 12/15/2015, 05/29/2001 Zoster Vaccines Completed 08/01/2018, 03/05, 06/04/2010 VITAMIN D LEVEL ONCE IN A LIFETIME-USE SMARTSET# 73192 Completed 03/21/2022, 02/05/2021, 03/02/2020, Additional history exists GARDASIL-HPV IMMUNIZATION SERIES Aged Out No longer eligible based on patient's age to complete this topic MENINGOCOCCAL (MENACTRA/MENVEO) Aged Out No longer eligible based on patient's age to complete this topic documented as of this encounter Medical Devices Not on filedocumented as of this encounter Care Teams Stiff Leg Operator Relationship Specialty Start Date End Date Ricardo Guerra MD [address] [place] [facility] [place] [address] PCP - General Family Medicine 08/24/15 documented as of this encounter
--- OUTSIDE RECORDS SUMMARY | 2023-11-09 13:03 | External Medical Summary | Summary of Care ---
Author Name Unknown Organization [facility] Address [address] [place] [address] Phone [phone] Care Team Providers Care Clinical Trial Data Manager Name Role Phone Ricardo Guerra MD Primary Care Provider +1- [phone] Encounter Details Date Type Department Care Team (Late st Contact Info) Description 10/24/2023 2:30 PM EST Home Visit [facility] [address] [place] [address] Ashleigh Mejia, Community Health Political Consultant [address] [place], [place] [id number] Allergies No known active allergiesdocumented as of [...] Progress Notes * Ashleigh Mejia Community Health Political Consultant - 10/24/2023 2:51 PM EST Telemedicine visit: No Community Health Political Consultant (BRAYAN) documentation: BRAYAN f/u visit this date [...] see her PCP next week and her pig casting machine operator later next week for follow up. Pt. Is aware and has number to contact THAO Duran if needed. documented in this encounter Plan of Treatment Upcoming Encounters Date Type Department Care Team (Late st Contact Info) Description 10/31/2023 6:00 PM EST [facility] [address] [facility] [phone] Ricardo [facility]erra [facility] [address] [facility] [address] 11/03/2023 7:45 AM EST Office Visit Cardiology, [facility] [address] [facility] [place] [address] Stephany Castrejon, DO [address] [place] [address] [place] [address] 11/15/2023 4:00 PM EDT [facility] [address] [place] [address] America Red RN [address] [place] [address] Health Maintenance Due Date Last Done Comments [...] RESISTANT HTN 10/13/2023 CKD HGB USE SMARTSET 29775 02/17/202402/16, 03/21/2022, 02/05/2021, Additional history exists CKD PHOS USE SMARTSET 28979 02/17/202402/02, 03/21/2022, 02/05/2021, Additional history exists TSH 02/17/2024 02/16/2023, 01/2023, 10/25/2021, Additional history exists Albumin/Creatinine Ratio 02/18/2024 02/17/2023, 03/04 Pneumococcal Vaccine: 65+ Years Completed 12/15/2015, 05/29/2001 Zoster Vaccines Completed 08/01/2018, 03/05, 06/04/2010 VITAMIN D LEVEL ONCE IN A LIFETIME-USE SMARTSET# 41945 Completed 03/21/2022, 02/05/2021, 03/02/2020, Additional history exists [...] filedocumented as of this encounter Care Teams Clinical Trial Data Manager Relationship Specialty Start Date End Date Ricardo Guerra MD [address] [place] [address] PCP - General Family Medicine 08/24/15 documented as of this encounter
--- OUTSIDE RECORDS SUMMARY | 2023-11-09 13:03 | External Medical Summary | Summary of Care ---
Author Name Unknown Organization [facility] Address [address] [place] [address] Phone [phone] Care Team Providers Care Systems Testing Laboratory Technician Name Role Phone Ricardo Guerra MD Primary Care Provider +1- [phone] Reason for Visit * Reason Comments [facility]: Enrollment Encounter Details Date Type Department Care Team (Late st Contact Info) Description 10/06/2023 9:30 AM EST Telemedicine [facility], [facility] [address] [facility] [place] [address] Lynne Blackman CRNP [address] [place] [address] Ashleigh Mejia, [facility] Hand [address] [place] [address] Type 2 diabetes mellitus with stage 3b chronic kidney disease, without long-term current use of insulin ([facility])*; SSS (sick sinus syndrome) ([facility]); S/P placement of cardiac pacemaker; Paroxysmal atrial fibrillation ([facility]); Acquired hypothyroidism; Benign hypertension with stage 3b chronic kidney disease ([facility]); Arachnoid cyst Allergies No known active allergiesdocumented as of this encounter (statuses as of 10/06/2023) Medications Medication Sig Dispensed Refills Start Date [...] mouth in the morning. 0 10/06/2023 Active Cholecalciferol (VITAMIN D) 1000 units TabletIndications :Vitamin D deficiency 2 per day 60 Tab 0 06/23/2017 4 Discontinue d(Medicatio n List Clean Up) Promethazine HCl 25 MG Oral Tablet (PHENERGAN) Take 1 tab by mouth every 12 hours as needed for nausea and headache 4 Tab 0 06/17/2020 4 Discontinue d(Medicatio n List Clean Up) Apixaban 5 MG Oral Tablet (Eliquis) Take 1 Tablet by mouth in the morning and 1 Tablet before bedtime. 0 09/22/2023 4 Discontinue d(Refill) Metoprolol Succinate ER 25 MG Oral Tablet Extended Release 24 Hour (toPROL XL) Take 1 Tablet by mouth in the morning and 1 Tablet before bedtime. 0 09/23/2023 4 Discontinue d(Refill) Magnesium Oxide -Mg Supplement 400 (240 Mg) MG Oral Tablet (Mag-Ox) Take 1 Tablet by mouth in the morning and 1 Tablet before bedtime. 0 09/29/2023 4 Discontinue d(Refill) documented as of this encounter (statuses as of 10/06/2023) Active Problems Problem Noted Date Diagnosed Date [...] as of this encounter (statuses as of 10/06/2023) Resolved Problems Problem Noted Date Diagnosed Date [...] as of this encounter (statuses as of 10/06/2023) Immunizations Name Administration Dates Next Due COVID-19 [...] Sign Reading Time Taken Comments Blood Pressure 115/60 10/06/2023 9:34 AM EST Pulse 61 10/06/2023 9:34 AM EST Temperature 36.3 C (97.3 F) 10/06/2023 9:34 AM ES T Respiratory Rate 18 10/06/2023 9:34 AM EST Oxygen Saturation 95% 10/06/2023 9:34 AM EST Inhaled Oxygen Concentration - - Weight - - Height - - Body Mass Index - - documented in this encounter Progress Notes * Ashleigh Mejia [facility] - 10/06/2023 9:39 AM EST Telemedicine visit: Yes Patient location: HOME. I was not in a hospital or clinic location. After connecting through [employer], patient was verified with two unique identifiers. 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 Methods to assure confidentiality were taken. Patient acknowledged consent and understanding of privacy and security of the Telemedicine visit. The patient agreed to participate. [facility] (BRAYAN) documentation: BRAYAN assisted with telehealth visit with MARIANO Meraz * Lynne Blackman CRNP - 10/06/2023 9:30 AM EST Images from the original note were not included. [facility] Problem Oriented Charting Provider Visit Date: 10/06/2023 Time: 9:40 AM [facility] Sub-Program: Focused Care Management (3-9 months) Assessment and Plan #1 Type 2 diabetes mellitus with stage 3b chronic kidney disease, without long- term current use of insulin ([facility]) (Primary) Assessment & Plan: "RED FLAG" Diabetic symptoms: Other: none Goal HgbA1c <8 Diabetic Complications Renal (example: CKD, Proteinuria, Dialysis) Medication Regimen Lifestyle Modification / Monitoring ONLY DM Secondary Prevention MARLON Inhibitor / ARB Moderate-High Intensity Statin Additional Comments She was unaware of DM dx. Discussed.Stable. hgba1c 6.9 #2 SSS (sick sinus syndrome) ([facility]) #3 S/P placement of cardiac pacemaker #4 Paroxysmal atrial fibrillation (HCC) Assessment & Plan: Rate controlled on metoprolol Apixaban stroke prophylaxis #5 Acquired hypothyroidism Assessment & Plan: Continue levoxyl #6 Advanced care planning/counseling discussion #7 Benign hypertension with stage 3b chronic kidney disease (HCC) Overview: Per CKD protocol Assessment & Plan: BP stable on lisinopril and metoprolol #8 Arachnoid cyst Assessment & Plan: Followed by neurosurgery Other orders - Metoprolol Succinate ER; Take 1 Tablet by mouth in the morning and 1 Tablet before bedtime. Dispense: 60 Tablet; Refill: 3 - Magnesium Oxide -Mg Supplement; Take 1 Tablet by mouth in the morning and 1 Tablet before bedtime. Dispense: 60 Tablet; Refill: 3 - Apixaban; Take 1 Tablet by mouth in the morning and 1 Tablet before bedtime. Dispense: 60 Tablet;Refill: 3 - Vitamin D3; Take 1 Capsule by mouth in the morning. Additional Medical Decision Making: Stable today. Keeping all scheduled appts. Sees pcp end of month and EP 11/03/23. Will recheck in 6 weeks. Given [facility] number to call in meantime with questions or concerns. RN scheduled next week. Check-out note: [facility] scheduling--please schedule 6 week telemedicine recheck Scheduled appointments in the next 60 days: Future Appointments-next 60 days Date/Time Provider Specialty Dept Phone 10/06/2023 9:30 AM Ashleigh Mejia, [facility] Cloth Hand; Lynne Blackman CRNP [facility] [phone] 10/10/2023 12:30 PM America Red RN [facility] [phone] 10/31/2023 6:00 PM (Arrive by 5:45 PM) Ricardo Guerra MD Family Medicine [phone] 11/03/2023 7:45 AM (Arrive by 7:30 AM) Stephany Castrejon DO Cardiology [phone] A total of 24 minutes was spent face to face (via video-based telemedicine if designated as a telemedicine visit) Subjective Subjective Is this a Telemedicine Visit? Yes, Patient location: HOME. I was not in a hospital or clinic location. After connecting through televideo, patient was verified with two unique identifiers. 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 Methods to assure confidentiality were taken. Patient acknowledged consent and understanding of privacy and security of the Telemedicine visit. The patient agreed to participate. Reason For [facility] Visit: Enrollment Current Concerns: Raquel Purcell is a 88 year old female seen today for a [facility] provider visit. PMH-dm 2, hyperlipidemia, hypothyroidism, CKD 3, hypertension, GERD, glaucoma [facility] 09/11-09/16/23-reported to ED with headaches. She was admitted with acute bradycardia and noted heart rate went down as low as 29. Echo showed EF 60-65% with PEEP 51 mmHg. Cardiology consult lamine garcia had a pacemaker placed 09/15. Atenolol discontinued. She had a CT of the head showed an arachnoid cyst. Was noted she would follow up with Neurosurgery and had an MRI scan 03/2023 that showed large left arachnoid cyst without significant change. It was also noted her creatinine was 1.9 and her baseline around 1. Given IV fluids and creatinine back to baseline. [facility]-09/21-09/23/23-reported to ED with dizziness and pain in her back. Also with liquid diarrhea. She evidently had some palpitations 2. She was diagnosed with P AFib-pacemaker interrogation showed episodes P AFib. Tropes were flat. She was started on metoprolol and also started on Eliquis 5 mg twice daily. Lisinopril/hydrochlorothiazide was DC because she was hyponatremic. A new prescription for lisinopril 20 was sent to the pharmacy. [facility] 09/24-09/29/23-reported to ED with lightheadedness. Chest x-ray negative for acute disease, headCT negative, pacemaker interrogated no repeat episodes of P AFib. Orthostatic vitals normal. Cardiology recommended continuing metoprolol and Eliquis and no further cardiac testing needed. She was discharged home provided PT script. It was noted she had some anemia-hemoglobin 09/10 was 11 and 10 on discharge. Anemia workup showed iron of 38 and normal folate and vitamin B12 levels. Sodium was 127 on admission. Mag was 1.6 on admission. She was discharged on Mag-Ox. Fluid restriction 1.5 L. She had follow-up with PCP office on 10/04. Repeat labs ordered including Mag and BMP. Also noted she is now on 3 times a week iron supplementation. Today's concerns are: None, feeling very good Lives in handicap accessible apartment. Dgt lives in same apartment. She feels her pill program services planner.Pt otherwise independent, Additional Review of Systems Constitutional: Negative for activity change, appetite change, chills and fever. Respiratory: Negative for cough, shortness of breath and wheezing. Cardiovascular: Negative for chest pain and leg swelling. Gastrointestinal: Negative for blood in stool, constipation, diarrhea and vomiting. Genitourinary: Negative for difficulty urinating and dysuria. Musculoskeletal: Negative for arthralgias, gait problem and myalgias. Denies any recent falls Neurological: Negative for dizziness and light-headedness. Objective Objective Vitals: 10/06/23 0934 Temp: 36.3 C (97.3 F) Pulse: 61 Resp: 18 SpO2: 95% BP: 115/60 Last Weights: Wt Readings from Last 3 Encounters: 02/20/23 65.8 kg (145 lb) 02/06/23 67.1 kg (148 lb) 01/31/23 68.9 kg (152 lb) Last BPs: BP Readings from Last 4 Encounters: 10/06/23 115/60 10/04/23 142/70 09/19/23 142/78 02/20/23 150/74 Physical Exam Vitals reviewed. Constitutional: General: She is not in acute distress. Appearance: She is not toxic-appearing. HENT: Head: Normocephalic. Cardiovascular: Rate and Rhythm: Normal rate and regular rhythm. Pulmonary: Effort: Pulmonary effort is normal. No respiratory distress. Breath sounds: Normal breath sounds. Skin: Coloration: Skin is pale. Neurological: General: No focal deficit present. Mental Status: She is alert. Psychiatric: Mood and Affect: Mood normal. Behavior: Behavior normal. Thought Content: Thought content normal. Judgment: Judgment normal. 09/24/23: WBC 9.02 Hgb 10.8 Plt 354 Cr 1.27 K 4.1 Lab Review: I have reviewed the following results: BMP results Recent Labs Units 10/04/23 1221 03/21/23 1134 02/16/23 1200 SODIUM - [facility] mmol/L 139 136 128* POTASSIUM - [facility] mmol/L 4.3 3.5 3.8 CHLORIDE - [facility] mmol/L 102 97* 88* CO2 - [facility] mmol/L 26 25 26 CREATININE - [facility] mg/dL 1.1* 1.4* 1.1* BUN - [facility] mg/dL 22* 47* 31* Lipid panel results Recent Labs Units 02/16/23 1200 CHOLESTEROL - [facility] mg/dL 120 HDL CHOLESTEROL - [facility] mg/dL 47* TRIGLYCERIDES - [facility] mg/dL 267* CBC results Recent Labs Units 02/16/23 1200 03/21/22 0900 WBC AUTO - [facility] K/uL 10.80 -- HGB - [facility] g/dL 12.7 12.5 HCT - [facility] % 38.5 -- PLATELET AUTO - [facility] K/uL 363 -- HbA1c results Recent Labs Units 02/16/23 1200 03/21/22 0900 10/25/21 0950 HEMOGLOBIN A1C - [facility] % 6.9* 7.2* 7.2* TSH results Recent Labs Units 02/16/23 1200 02/06/23 1019 10/25/21 0950 TSH - [facility] uIU/mL 5.20* 2.07 2.88 Vitamin D results Recent Labs Units 03/21/22 0900 25-HYDROXY VITAMIN D - [facility] ng/mL 42 Hepatic panel results Recent Labs Units 09/21/22 0851 03/21/22 0900 PROTEIN - [facility] g/dL -- 6.8 BILIRUBIN, TOTAL - [facility] mg/dL -- 0.5 ALKALINE PHOSPHATASE - [facility] U/L -- 60 AST - [facility] U/L -- 29 ALT - [facility] U/L 23 25 Protein/cr ratio results No results for input(s): "PROCRRATIO" in the last 72178 hours. Medication Review "Bottles Out" medication review performed today and medication list in EMR updated Mobility Evaluation: MAHC10 Assessment: Assistive Devices Used in the Home: Walker (standard or rollator) SDoH: NO SOCIAL DETERMINATE NEEDS IDENTIFIED Advance Care Planning Advance Care Planning Zhao Information: Aligning Care With What Matters Most: After reviewing the preceding "Discerning What Matters Most" conversation, the following decisions were discussed: Source: Content from Respecting Choices Program MARIANO Burrell 8:20 AM *Communication sent to PCP (via [facility]ofax if [facility]), [facility]/Population Health Care Team members,relevant Specialty Care Physicians* documented in this encounter Miscellaneous Notes * Assessment & Plan Note - Lynne Blackman CRNP - 10/06/2023 1:40 PM EST Associated Problem(s): Arachnoid cyst Followed by neurosurgery * Assessment & Plan Note - Lynne Blackman CRNP - 10/06/2023 1:35 PM EST Associated Problem(s): Benign hypertension with stage 3b chronic kidney disease (HCC) BP stable on lisinopril and metoprolol * ACP (Advance Care Planning) - Lynne Blackman CRNP - 10/06/2023 1:30 PM EST Images from the original note were not included. Patient-centered Communication 10/06/2023 The patient/surrogate voluntarily agreed to participate in advance care planning discussion. They were advised that this is a separate service which may incur out of pocket cost in the form of copayment and/or deductibles. Location: Home Individual(s) present for conversation: Patient Decisions Additional Comments Discerning What Matters Most to the Patient: Source: Content from Respecting Choices Program Aligning Care With What Matters Most: No data to display Rationale for Decisions Source: Content from [facility]pecting Choices Program 0 minutes spent in direct [id number] discussion Lynne mcnamara CRNP * Assessment & Plan Note - Lynne Blackman CRNP - 10/06/2023 1:30 PM EST Associated Problem(s): Acquired hypothyroidism Continue levoxyl * Assessment & Plan Note - Lynne Blackman CRNP - 10/06/2023 1:30 PM EST Associated Problem(s): Paroxysmal atrial fibrillation (HCC) Rate controlled on metoprolol Apixaban stroke prophylaxis * Assessment & Plan Note - Lynne Blackman CRNP - 10/06/2023 1:29 PM EST Associated Problem(s): Type 2 diabetes mellitus with stage 3b chronic kidney disease, without long-term current use of insulin (HCC) "RED FLAG" Diabetic symptoms: Other: none Goal HgbA1c <8 Diabetic Complications Renal (example: CKD, Proteinuria, Dialysis) Medication Regimen Lifestyle Modification / Monitoring ONLY DM Secondary Prevention MARLON Inhibitor / ARB Moderate-High Intensity Statin Additional Comments She was unaware of DM dx. Discussed.Stable. hgba1c 6.9 documented in this encounter Plan of Treatment Upcoming Encounters Date Type Department Care Team (Late st Contact Info) Description 10/10/2023 12:30 PM EST Home Visit [facility] [address] [facility] [place] [address] America Red RN [address] [facility] [place] [address] 10/31/2023 6:00 PM EST [facility] [address] [facility] [phone] Ricardo Guerra MD [address] [place] [address] 11/03/2023 7:45 AM EST Office Visit Cardiology, [facility] [address] [facility] [place] [address] [address] [place] [address] Health Maintenance Due Date Last Done Comments [...] Screening 09/21/2023 09/21/2022 CKD HGB USE SMARTSET 38102 02/17/202402/16, 03/21/2022, 02/05/2021, Additional history exists CKD PHOS USE SMARTSET 54162 02/17/202402/02, 03/21/2022, 02/05/2021, Additional history exists TSH 02/17/2024 02/16/2023, 06/0 01/2023, 10/25/2021, Additional history exists Albumin/Creatinine Ratio 02/18/2024 02/17/2023, 03/04 Pneumococcal Vaccine: 65+ Years Completed 12/15/2015, 05/29/2001 Zoster Vaccines Completed 08/01/2018, 03/05, 06/04/2010 VITAMIN D LEVEL ONCE IN A LIFETIME-USE SMARTSET# [id number] Completed 03/21/2022, 02/05/2021, 03/02/2020, Additional history exists GARDASIL-HPV IMMUNIZATION SERIES Aged Out No longer eligible based on patient's age to complete this topic MENINGOCOCCAL (MENACTRA/MENVEO) Aged Out No longer eligible based on patient's age to complete this topic documented as of this encounter Medical Devices Not on filedocumented as of this encounter Visit Diagnoses Diagnosis Type 2 diabetes mellitus with stage 3b chronic kidney disease, without long-term current use of insulin (HCC)- Primary SSS (sick sinus syndrome) (HCC) Sinoatrial node dysfunction S/P placement of cardiac pacemaker Cardiac pacemaker in situ Paroxysmal atrial fibrillation (HCC) Atrial fibrillation Acquired hypothyroidism Unspecified hypothyroidism Benign hypertension with stage 3b chronic kidney disease (HCC) Arachnoid cyst Cerebral cysts documented in this encounter Care Teams Systems Testing Laboratory Technician Relationship Specialty Start Date End Date Ricardo Guerra MD [address] [facility] [address] PCP - General Family Medicine 08/24/15 documented as of this encounter
--- OUTSIDE RECORDS SUMMARY | 2023-11-09 13:03 | External Medical Summary | Summary of Care ---
Author Name Unknown Organization [facility] Address [address] [place] [facility] [place] [address] Phone [phone] Care Team Providers Care Loans Officer Name Role Phone Ricardo Guerra MD Primary Care Provider +1- [phone] Reason for Visit * Reason Onset Date Comments Advice 10/16/2023 Physical therapy order request Encounter Details Date Type Department Care Team (Late st Contact Info) Description 10/16/2023 Telephone [facility] [address] [place] [address] Ricardo Guerra MD [address] [place] [address] Advice (Physical therapy order request) Allergies No [...] - 10/16/2023 3:22 PM EST Bianka with [facility] called stating that [facility] is OON. [...] (will travel to the pt's home) Fax. [phone] Ph. [phone] Attn: Jalyn documented in this encounter Plan of Treatment Upcoming Encounters Date Type Department Care Team (Late st Contact Info) Description 10/24/2023 2:30 PM EST Home Visit [facility] [address] [place] [facility] [place] [address] Ashleigh Mejia, [facility] Mother Baby Rn [address] [place] [place] [address] 10/31/2023 6:00 PM EST Office Visit Family [facility] [place] [address] [place] [phone] Ricardo Guerra MD [address] [place] [address] 11/03/2023 7:45 AM EST Office Visit Cardiology, [facility] [address] [facility] [place] [address] Stephany Castrejon, [address] [place] [address] 11/15/2023 4:00 PM EDT Home Visit [facility], [facility] [address] [facility] [place] [address] America Red, RN [address] [facility] [place] [address] Health Maintenance Due Date Last Done Comments [...] RESISTANT HTN 10/13/2023 CKD HGB USE SMARTSET 83111 02/17/202402/16, 03/21/2022, 02/05/2021, Additional history exists CKD PHOS USE SMARTSET 58137 02/17/202402/02, 03/21/2022, 02/05/2021, Additional history exists TSH 02/17/2024 02/16/2023, 0601/2023, 10/25/2021, Additional history exists Albumin/Creatinine Ratio 02/18/2024 02/17/2023, 03/04 Pneumococcal Vaccine: 65+ Years Completed 12/15/2015, 05/29/2001 Zoster Vaccines Completed 08/01/2018, 03/05, 06/04/2010 VITAMIN D LEVEL ONCE IN A LIFETIME-USE SMARTSET# [id number] Completed 03/21/2022, 02/05/2021, 03/02/2020, Additional history exists GARDASIL-HPV IMMUNIZATION SERIES Aged Out No longer eligible based on patient's age to complete this topic MENINGOCOCCAL (MENACTRA/MENVEO) Aged Out No longer eligible based on patient's age to complete this topic documented as of this encounter Medical Devices Not on filedocumented as of this encounter Care Teams Loans Officer Relationship Specialty Start Date End Date Ricardo Guerra MD [address] [place] [address] PCP - General Family Medicine 08/24/15 documented as of this encounter
--- OUTSIDE RECORDS SUMMARY | 2023-11-09 13:03 | External Medical Summary | Summary of Care ---
Author Name Unknown Organization [facility] Address [address] [place] [address] Phone [phone] Care Team Providers Care Occupational Therapy Assist Name Role Phone Ricardo Guerra MD Primary Care Provider +1- [phone] Encounter Details Date Type Department Care Team (Late st Contact Info) Description 10/24/2023 2:30 PM EST Home Visit Care Coordination and Integration [address] [place] [address] Ashleigh Mejia, [facility] Pipeline Operator [address] [place], [place] [id number] Allergies No known active allergiesdocumented as of [...] Progress Notes * Ashleigh Mejia [facility] - 10/24/2023 2:51 PM EST Telemedicine visit: No [facility] Operator (BRAYAN) documentation: BRAYAN f/u visit this date [...] see her PCP next week and her bus attendant later next week for follow up. Pt. Is aware and has number to contact THAO Duran if needed. documented in this encounter Plan of Treatment Upcoming Encounters Date Type Department Care Team (Late st Contact Info) Description 10/31/2023 6:00 PM EST Office Visit [facility] [address] [facility] [phone] Ricardo Guerra MD [address] [facility] [address] 11/03/2023 7:45 AM EST Office Visit Cardiology, [facility] [address] [facility] [place] [address] Stephany Castrejon, DO [address] [place] [address] [place] [address] 11/15/2023 4:00 PM EDT [facility] [address] [place] [address] America Red RN [address] [place] [address] Health Maintenance Due Date Last Done Comments [...] RESISTANT HTN 10/13/2023 CKD HGB USE SMARTSET 89539 02/17/202402/16, 03/21/2022, 02/05/2021, Additional history exists CKD PHOS USE SMARTSET 93111 02/17/202402/02, 03/21/2022, 02/05/2021, Additional history exists TSH 02/17/2024 02/16/2023, 01/2023, 10/25/2021, Additional history exists Albumin/Creatinine Ratio 02/18/2024 02/17/2023, 03/04 Pneumococcal Vaccine: 65+ Years Completed 12/15/2015, 05/29/2001 Zoster Vaccines Completed 08/01/2018, 03/05, 06/04/2010 VITAMIN D LEVEL ONCE IN A LIFETIME-USE SMARTSET# 51551 Completed 03/21/2022, 02/05/2021, 03/02/2020, Additional history exists [...] filedocumented as of this encounter Care Teams Occupational Therapy Assist Relationship Specialty Start Date End Date Ricardo Guerra MD [address] [place] [address] PCP - General Family Medicine 08/24/15 documented as of this encounter
--- OUTSIDE RECORDS SUMMARY | 2023-11-09 13:03 | External Medical Summary | Summary of Care ---
Author Name Unknown Organization [facility] Address [address] [place] [address] Phone [phone] Care Team Providers Care Gatekeeper Name Role Phone Ricardo Guerra MD Primary Care Provider [phone]- [phone] Reason for Visit * Reason Onset Date Comments Hospital Follow-Up Son and rosibel fox report she isn't walking at home and she is able Hospital Follow-Up 10/04/2023 Encounter Details Date Type Department Care Team (Late st Contact Info) Description 10/04/2023 11:20 AM EST Office Visit [facility] [address] [place] [id number] JanuaryMatt MD [address] [place] [address] Hyponatremia*; Hypomagnesemia; AVA (acute kidney injury) ([facility]); Paroxysmal atrial fibrillation ([facility]); HTN, goal below 150/90; Iron deficiency anemia, unspecified iron deficiency anemia type; SSS (sick sinus syndrome) ([facility]); S/P placement of cardiac pacemaker; Hospital discharge follow-up Allergies No known active allergiesdocumented as of this encounter (statuses as of 10/04/2023) Medications Medication Sig Dispensed Refills Start Date End Date Status Cholecalciferol (VITAMIN D) 1000 units TabletIndications :Vitamin [...] THE MORNING 90 Tablet 1 08/21/2023 Active Apixaban 5 MG Oral Tablet (Eliquis) Take 1 Tablet by mouth in the morning and 1 Tablet before bedtime. 0 09/22/2023 Active Lisinopril 20 MG Oral Tablet (Prinivil) Take 1 Tablet by mouth in the morning. 0 09/23/2023 Active Metoprolol Succinate ER 25 MG Oral Tablet Extended Release 24 Hour (toPROL XL) Take 1 Tablet by mouth in the morning and 1 Tablet before bedtime. 0 09/23/2023 Active Magnesium Oxide -Mg Supplement 400 (240 Mg) MG Oral Tablet (Mag-Ox) Take 1 Tablet by mouth in the morning and 1 Tablet before bedtime. 0 09/29/2023 Active ASPIRIN 81 MG PO TABS One tablet daily 0 4 Discontinued fish oil concentrate (OMEGA-3) 1000 MG CAPSIndications:P t states she is currently taking 500 mg daily Take 1 Capsule by mouth once. 60 Cap 5 03/15/2016 4 Discontinued Lisinopril-hydroC HLOROthiazide 20-25 MG Oral TabletIndications :HTN, goal below 150/90 TAKE 1 TABLET BY MOUTH EVERY DAY 90 Tablet 3 04/06/2023 4 Discontinued Potassium Chloride ER 10 MEQ Oral Capsule Extended Release TAKE 1 CAPSULE BY MOUTH EVERY MORNING 90 Capsule 1 07/28/2023 01/31/202 4 Discontinued Furosemide 20 MG Oral Tablet (Lasix) TAKE 1 TABLET BY MOUTH EVERY DAY IN THE MORNING 90 Tablet 1 07/28/2023 4 Discontinued documented as of this encounter (statuses as of 10/04/2023) Active Problems Problem Noted Date Diagnosed Date Paroxysmal atrial fibrillation 10/04/2023 SSS (sick sinus syndrome) 10/04/2023 S/P placement of cardiac pacemaker 10/04/2023 Type 2 diabetes mellitus wit h stage 3b chronic kidney disease, without long-term current use of insulin 09/19/2023 Type 2 diabetes mellitus wit h hemoglobin [...] as of this encounter (statuses as of 10/04/2023) Resolved Problems Problem Noted Date Diagnosed Date [...] as of this encounter (statuses as of 10/04/2023) Immunizations Name Administration Dates Next Due COVID-19 mRNA, LNP-s, No Pre serve, 2-Dose Series (TUKZ Undergarments) 01/06/2021,12/16/2020 Pneumococcal Conjugate Vacc, 13 Valent (Prevnar) [...] Sign Reading Time Taken Comments Blood Pressure 142/70 10/04/2023 11:26 AM EST Pulse 72 10/04/2023 11:26 AM EST Temperature 36.4 C (97.5 F) 10/04/2023 11:[address] Respiratory Rate 16 10/04/2023 11:26 AM EST Oxygen Saturation - - Inhaled Oxygen Concentration - - Weight - - Height - - Body Mass Index - - documented in this encounter Progress Notes * Matt Stanton MD - 10/04/2023 11:40 AM EST Images from the original note were not included. Assessment and Plan 1. Hyponatremia Hydrochlorothiazide discontinued. Fluid restrict to 1.5 L. 2. Hypomagnesemia Now on magnesium supplementation. Monitor levels. - MAGNESIUM; Future 3. AVA (acute kidney injury) (HCC) Creatinine baseline 1.1. AVA to 1.4 in hospital. Plan to restart lisinopril once renal function hasreturned to baseline. - BASIC METABOLIC PANEL; Future 4. Paroxysmal atrial fibrillation (HCC) Appropriately taking metoprolol for rate control and Eliquis for anticoagulation. Monitor renal function and weight to ensure reduced dose is not required. 5. HTN, goal below 150/90 Blood pressure reasonable 142/70. Restart lisinopril once renal function returns to baseline. 6. Iron deficiency anemia, unspecified iron deficiency anemia type Hemoglobin 10.0 on discharge. 3 times a week iron supplementation. 7. SSS (sick sinus syndrome) ([facility]) S/p pacemaker. Reschedule cardiology appt. 8. S/P placement of cardiac pacemaker 9. Hospital discharge follow-up - DISCH MED RECON CUR MED LIS Wrap-Up Follow up as scheduled with PCP. History of Present Illness The patient is an 88-year-old female with past medical history of type 2 diabetes, dyslipidemia, hypothyroidism, hypertension, CKD stage IIIB who presents for hospital follow up. The patient was admitted to [facility] from 09/24/2023 through 09/29/2023. Patient initially presented to the ED with complaints of lightheadedness. Of note she had recently been admitted from 09/21/2023 through 09/23/2023 and found to be in atrial fibrillation. She also had a recent dual-chamber pacemaker implanted without complication on 09/15/2023 after experiencing sick sinus syndrome and bradycardia. Workup in the ED showed no leukocytosis. She had a mild AVA. Troponin was negative. Sodium was 127. Chest x-ray was negative for cardiopulmonary disease. Pacemaker was interrogated this admission which showed no repeat paroxysmal atrial fibrillation. Recommendation was to continue metoprolol and Eliquis per Cardiology without further cardiac testing. She was noted to have chronic anemia with hemoglobin drop from 11-9.6 on admission. Low iron with normal B12 and folate. Recommendation to consider iron supplementation on an [id number] basis. She was hyponatremic on admission. Hydrochlorothiazide was discontinued per Nephrology at the prior admission. She was fluid restricted. Recommendation is for 1500 mL daily. She was no longer on salt tabs her Lasix. She should not be on hydrochlorothiazide moving forward. She does need a repeat BMP as she was currently off her lisinopril. If renal function has stabilized she can restart. She was started on magnesium supplementation. This should be repeated. Today the patient reports she is overall doing well. She has no pain. She was eating and drinking reasonably well. Swelling is minimal on the legs bilaterally. Extensive discussions with the patient and her 2 children who are present at the visit today about the hospital course. There were some disc repancies and admissions to their discussions in the hospital that we discussed. They were unaware of the recommendation for 1.5 L fluid restriction. They also were unaware of starting iron supplementation. Physical therapy is coming to evaluate the patient on Monday10/06/2023. [facility] we will also be following the patient moving forward. She missed her appointment with Cardiology on 09/29/2023 she was hospitalized. We will attempt to get this rescheduled today. Physical Exam Vitals: 10/04/23 1126 Temp: 36.4 C (97.5 F) Pulse: 72 Resp: 16 BP: 142/70 Physical Exam Physical Exam Vitals reviewed. Constitutional: General: She is not in acute distress. Cardiovascular: Rate and Rhythm: Normal rate and regular rhythm. Heart sounds: No murmur heard. Pulmonary: Effort: Pulmonary effort is normal. No respiratory distress. Breath sounds: Normal breath sounds. No wheezing. Musculoskeletal: Comments: Trace edema bilaterally. Neurological: Mental Status: She is alert. Time: I spent a total of 40-54 minutes (exact time 45 mins) on the date of service in preparation, delivery, and documentation of the care provided to the patient excluding any time spent in the performance of separately billed services. This note has been completed in part utilizing [employer] Speech Voice Recognition Software. Due to technical limitations of the software, grammatical errors, random word insertions, prounoun errors, and incomplete sentences may occur. Any formal questions or concerns about the content, text, or information contained within the body of this dictation should be directly addressed to the provider for clarification. documented in this encounter Nursing Notes * Karena Schmidt LPN - 10/04/2023 11:26 AM EST The patient has been properly identified by confirmation of name and date of . Chief Complaint Patient presents with Hospital Follow-Up Son and daughter report she isn't walking at home and she is able documented in this encounter Plan of Treatment Upcoming Encounters Date Type Department Care Team (Late st Contact Info) Description 10/06/2023 9:30 AM EST Telemedicine [facility], [facility] [address] [facility] [place] [address] Lynne Blackman CRNP [address] [facility] [place] [address] Ashleigh Mejia, Community [employer] Loan Secretary [address] [place] [address] 10/10/2023 12:30 PM EST Home Visit [facility], [facility] [address] [facility] [place] [address] America Red, RN [address] [facility] [place] [address] 10/31/2023 6:00 PM EST [facility] [address] [facility] [phone] Ric[facility]erra [facility] [address] [facility] [address] 11/03/2023 7:45 AM EST Office Visit Cardiology, [facility] [address] [facility] [place] [address] Stephany Castrejon, [address] [place] [address] Pending Results Name Type Priority Associated Diagnoses Date /Time BASIC METABOLIC PANEL Lab Routine AVA (acute kidney injury) (HCC) 10/04/2023 12:21 PM EST Scheduled Orders Name Type Priority Associated Diagnoses Orde r Schedule BASIC METABOLIC PANEL Lab Routine AVA (acute kidney injury) (HCC) Expected: 10/04/2023 (Approximate), Expires: 10/03/2024 Health Maintenance Due Date Last Done Comments [...] Screening 09/21/2023 09/21/2022 CKD HGB USE SMARTSET 53142 02/17/202402/16, 03/21/2022, 02/05/2021, Additional history exists CKD PHOS USE SMARTSET 17669 02/17/202402/02, 03/21/2022, 02/05/2021, Additional history exists TSH 02/17/2024 02/16/2023, 06/01/2023, 10/25/2021, Additional history exists Albumin/Creatinine Ratio 02/18/2024 02/17/2023, 03/04 Pneumococcal Vaccine: 65+ Years Completed 12/15/2015, 05/29/2001 Zoster Vaccines Completed 08/01/2018, 03/05, 06/04/2010 VITAMIN D LEVEL ONCE IN A LIFETIME-USE SMARTSET# [id number] Completed 03/21/2022, 02/05/2021, 03/02/2020, Additional history exists GARDASIL-HPV IMMUNIZATION SERIES Aged Out No longer eligible based on patient's age to complete this topic MENINGOCOCCAL (MENACTRA/MENVEO) Aged Out No longer eligible based on patient's age to complete this topic documented as of this encounter Medical Devices Not on filedocumented as of this encounter Visit Diagnoses Diagnosis Hyponatremia- Primary Hyposmolality and/or hyponatremia Hypomagnesemia Disorders of magnesium metabolism AVA (acute kidney injury) (HCC) Acute kidney failure, unspecified Paroxysmal atrial fibrillation (HCC) Atrial fibrillation HTN, goal below 150/90 Iron deficiency anemia, unspecified iron deficiency anemia type SSS (sick sinus syndrome) (HCC) Sinoatrial node dysfunction S/P placement of cardiac pacemaker Cardiac pacemaker in situ Hospital discharge follow-up Other follow-up examination documented in this encounter Care Teams Gatekeeper Relationship Specialty Start Date End Date Ricardo Guerra MD [address] [place] [address] PCP - General Family Medicine 08/24/15 documented as of this encounter
--- OUTSIDE RECORDS SUMMARY | 2023-11-09 13:03 | External Medical Summary ---
Author Name Unknown Address Unknown Organization K01:[facility] [place] [facility] [address] [facility] [address] [place] [address] Laboratory Report Ordering Provider Test Date Status SHAKIR ARCE 11/06/2023 13:39:59 Final Observation Date Value Abnormality Reference (Units ) Status BUN 11/06/2023 13:39:59 20 6-20 (mg/dL) Final Creatinine 11/06/2023 13:39:59 1.3 Above high normal 0.5-1.0 (mg/dL) Final Glomerular filtration rate/1.73 sq M.predicted [Volume Rate/Area] in Serum, Plasma or Blood by Creatinine-based formula (CKD-EPI) 11/06/2023 13:39:59 40 Below low normal >=60 (mL/min) Final eGFR is calculated based on the CKD-EPI 2020 equation SODIUM 11/06/2023 13:39:59 143 135-146 (m mol/L) Final Potassium 11/06/2023 13:39:59 4.3 3.5-5.1 (m mol/L) Final Cl 11/06/2023 13:39:59 103 98-107 (mm ol/L) Final CO2 11/06/2023 13:39:59 27 22-32 (mmo l/L) Final Anion gap 11/06/2023 13:39:59 13 7-15 (mmol /L) Final Glucose 11/06/2023 13:39:59 85 70-120 (mg /dL) Final Calcium 11/06/2023 13:39:59 9.4 8.4-10.2 ( mg/dL) Final Performing Location [facility] [place] - [address] [place] [address]
--- OUTSIDE RECORDS SUMMARY | 2023-11-09 13:03 | External Medical Summary | Summary of Care ---
Author Name Unknown Organization [facility] Address [address] [place] [facility] [place] [address] Phone [phone] Care Team Providers Care [employer]iconductor Wafers Etch Operator Name Role Phone Ricardo Guerra MD Primary Care Provider +1- [phone] Reason for Visit * Reason Onset Date Comments Scan To Read 10/31/2023 Encounter Details Date Type Department Care Team (Late st Contact Info) Description 10/31/2023 Telephone [facility] [address] [place] [address] Ricardo Guerra MD [address] [place] [address] Scan To Read Allergies No known active allergiesdocumented as of this encounter (statuses as of 11/04/2023) Medications Medication Sig Dispensed Refills Start Date [...] as of this encounter (statuses as of 11/04/2023) Active Problems Problem Noted Date Diagnosed Date [...] as of this encounter (statuses as of 11/04/2023) Resolved Problems Problem Noted Date Diagnosed Date [...] as of this encounter (statuses as of 11/04/2023) Immunizations Name Administration Dates Next Due COVID-19 [...] encounter Miscellaneous Notes * Telephone Encounter - Rajan Espinoza MD - 11/01/2023 9:57 AM EST Retinal Scan Imaging Raquel Purcell [id number] Retinal Scan Interpretation: There is no retinopathy in both eyes There is cupping in both eyes which should be evaluated. Diabetes Retinal Imaging Care Plan: The retinal scan results are abnormal - I will forward this encounter to the Ophthalmology DM Letter Pool [[id number]], they will send an abnormal retinal scan letter to the patient. I will forward thisencounter to the ordering provider. Patient prefers to be seen at [facility] for follow-up evaluation. This encounter will be sent to Ophthalmology scheduling services, please schedule the patient within 3 months. Rajan Espinoza MD 11/01/2023 9:57 AM * Telephone Encounter - Shital Franco LPN - 10/31/2023 6:02 PM EST A Diabetic Telemed Eye image was taken and requires your interpretation for Dr Guerra. Please check your inbasket for image. Patient prefers to be seen at [facility] if a follow-up appointment is needed. documented in this encounter Plan of Treatment Upcoming Encounters Date Type Department Care Team (Late st Contact Info) Description 11/15/2023 4:00 PM EDT Home Visit [facility] at [facility] [address] [place] [address] America Red, RN [address] [place] [address] 03/12/2024 1:30 PM EDT Office Visit Cardiology, [facility] [address] [place] [address] Magalys Griffiths CRNP [address] [place] [address] [place] [phone] 05/14/2024 5:40 PM EDT Office Visit [facility] [address] [place] [facility] [facility] [place] [address] Ricardo Guerra MD [address] [facility] [place] [address] Health Maintenance Due Date Last Done [...] RESISTANT HTN 11/02/2023 CKD HGB USE SMARTSET 64584 02/17/202402/16, 03/21/2022, 02/05/2021, Additional history exists CKD PHOS USE SMARTSET 34414 02/17/202402/02, 03/21/2022, 02/05/2021, Additional history exists TSH 02/17/2024 02/16/2023, 01/2023, 10/25/2021, Additional history exists Albumin/Creatinine Ratio 02/18/2024 02/17/2023, 03/04 Diabetic Eye Exam 10/31/2024 10/31/2023, , 07/12/2011, Additional history exists Pneumococcal Vaccine: 65+ Years Completed 12/15/2015, 05/29/2001 Zoster Vaccines Completed 08/01/2018, 03/05, 06/04/2010 VITAMIN D LEVEL ONCE IN A LIFETIME-USE SMARTSET# [id number] Completed 03/21/2022, 02/05/2021, 03/02/2020, Additional history exists [...] filedocumented as of this encounter Care Teams Semiconductor Wafers Etch Operator Relationship Specialty Start Date End Date Ricardo Guerra MD [address] [place] [address] PCP - General Family Medicine 08/24/15 documented as of this encounter
--- OUTSIDE RECORDS SUMMARY | 2023-11-09 13:03 | External Medical Summary | Summary of Care ---
Author Name Unknown Organization [facility] Address [address] [facility] [place] [address] Phone [phone] Care Team Providers Care Med Specialist Name Role Phone Ricardo Guerra MD Primary Care Provider +1- [phone] Reason for Visit * Reason Comments [facility]: Maintenance Encounter Details Date Type Department Care Team (Late st Contact Info) Description 10/10/2023 12:30 PM EST Home Visit [facility], [facility] [address] [place] [address] America Red, RN [address] [place] [address] Allergies No known active allergiesdocumented as of this encounter (statuses as of 10/10/2023) Medications Medication Sig Dispensed Refills Start Date [...] as of this encounter (statuses as of 10/10/2023) Active Problems Problem Noted Date Diagnosed Date [...] as of this encounter (statuses as of 10/10/2023) Resolved Problems Problem Noted Date Diagnosed Date [...] as of this encounter (statuses as of 10/10/2023) Immunizations Name Administration Dates Next Due COVID-19 [...] Sign Reading Time Taken Comments Blood Pressure 146/68 10/10/2023 12:13 PM EST Pulse 62 10/10/2023 12:13 PM EST Temperature 36.4 C (97.6 F) 10/10/2023 12:[address] Respiratory Rate 18 10/10/2023 12:13 PM EST Oxygen Saturation 96% 10/10/2023 12:13 PM EST Inhaled Oxygen Concentration - - Weight - - Height - - Body Mass Index - - documented in this encounter Progress Notes * America Red, RN - 10/10/2023 11:47 AM EST [facility] Phytopathologist Visit Date: 10/10/2023 Time: 11:48 AM Name: Raquel Purcell : 1935 Current Concerns: Pt seen for initial RNCM visit Admitted to [facility] 09/24 - 09/29/23 for c/o lightheadedness, afib, mild AVA, chronic anemia Other dx includes, type 2 DM, hypothyroidism, dyslipidemia, HTN, CKD state 3b, Sick Sinus Syndrome s/p pacemaker Has home health services for PT/OT thru [facility] Has appt with Dr. Castrejon on 11/02 Pt reports she has been feeling well States she has been walking the halls and feels like her strength is getting built back up Son and dtr present and they feel she could do more exercising and walking Pt reports she no longer has dizziness/lightheadedness since having pacemaker put In Also reports better energy States she feels better overall Vitals stable Lungs clear bilaterally Incision over pacemaker site almost completely healed - 2 small scabs noted - no s/s of infection Physical Exam: BP 146/68 | Pulse 62 | Temp 36.4 C (97.6 F) | Resp 18 | SpO2 96% Pain 0 Physical Exam Constitutional: General: She is not in acute distress. Cardiovascular: Rate and Rhythm: Normal rate and regular rhythm. Pulses: Normal pulses. Heart sounds: Normal heart sounds. Pulmonary: Effort: Pulmonary effort is normal. Breath sounds: Normal breath sounds. Abdominal: General: Bowel sounds are normal. Palpations: Abdomen is soft. Musculoskeletal: Right lower leg: Edema (trace) present. Left lower leg: Left lower leg edema: trace. Skin: General: Skin is warm and dry. Neurological: Mental Status: She is alert and oriented to person, place, and time. Problems/Symptoms: Review of Systems Constitutional: Negative. HENT: Positive for hearing loss (b/l hearing aids). Eyes: Positive for visual disturbance (poor vision right eye). Respiratory: Negative. Cardiovascular: Positive for leg swelling. Gastrointestinal: Negative. Genitourinary: Negative. Musculoskeletal: Positive for gait problem. Skin: Negative. Psychiatric/Behavioral: Negative. Medication Reconciliation: (See medication list) Does patient take medications as ordered: Yes Patient Well Being: PHQ2/9: No questionnaires available. No change in living situation Denies falls [facility]-10 Completed this Visit: Yes. [facility]-10: Reason Completed: Enrollment [facility]-10 ([facility]) Fall Risk Assessment Tool Age 65+: Yes (10/10/231199) Diagnosis (3 or more co-existing): Yes (10/10/231199) Prior history of falls within 3 months: No (10/10/231199) Incontinence: No (10/10/231199) Visual impairment: Yes (10/10/231199) Impaired functional mobility: Yes (10/10/231199) Environmental hazards: No (10/10/231199) Poly Pharmacy (4 or more prescriptions - any type): Yes (10/10/231199) Pain affecting level of function: No (10/10/231199) Cognitive impairment: No (10/10/231199) Score - a score of 4 or more is considered at risk for fallin (10/10/231199) [facility]-10 Interventions: Fall education provided, reviewed/provided Fall brochure Advanced Care Planning: No documentation, acp on file. Patient's Goals of Care: Stay out of hospital Get strength back Walk better Reinforcement/Education: Educated on home safety: Create a fall proof home Clear floors of clutter, loose wires, throw rugs, and cords. Make sure halls, stairways, and entrances are well lit. Install a nightlight in your bedroom, hallway and bathroom. Install grab bars or handrails in the bathroom and on stairs. Use a non-skid tub/shower mat. Avoid climbing on a chair; instead use a step stool with a high handrail. Keep sidewalks and steps in good repair Keep steps and sidewalks free of snow and ice. Using aids to support and prevent falls If you have poor balance or have fallen in the past, consider additional support such as a cane or walker. Use a cane with good support and that is the proper length for you. Use a walker if a cane doesnt provide enough support. Avoid medications that increase the risk of falling by causing dizziness, change in sensation or slowed reflexes. Certain medicines may cause falls - blood pressure pills, heart medicines, water pills, or sleepingpills. Be sure to understand each medicine that you are taking and any side effects that may occur. Improve your balance and flexibility with muscle strengthening exercises. Ask your health care provider for some exercises that will be right for you. Reinforced safety education and fall prevention. and Reinforced medication regimen. Timing., Dosing., and Purspose. Treatment/Plan: Continue meds as prescribed/reviewed PT/OT thru [facility] Fall precautions - use rollator at all time Life alert at all times Elevate LE as much as possible F/u with cardio 11/02 Home Interventions Provided: Home Intervention: Other; eval Reinforced current Plan of Care, including self-management and medication regimen Patient's 'Red Flags': Dizzy/lightheaded Increased fatigue/weakness SOB Patient Needs to Remember: Call [facility] at with any new or worsening health concerns or problems, red flag symptoms. Referrals Needed: Other none Follow Up: Is there cellular connectivity/connectivity in the home? Yes Does the patient have internet in the home? No Patient encouraged to call the intake phone number for all urgent but not emergent issues. Is the patient new to [facility] within the last 30 days? Yes, Is this a Transitions of Care visit? Yes, this is the 2nd visit or later, Yes cellular connectivity. Was their Readmission Risk Score less than 18%? No Provider is in agreement with Plan of Care: Yes Scheduled to follow up with patient in 3 weeks with BRAYAN, 3 weeks after with [facility] . America Red RN 10/10/2023 11:48 AM documented in this encounter Plan of Treatment Upcoming Encounters Date Type Department Care Team (Late st Contact Info) Description 10/24/2023 2:30 PM EST Home Visit [facility] Coordination [facility] Integration [address] [place] [facility] [place] [address] Ashleigh Mejia, [facility] [employer] Project Manager [address] [place] [address] 10/31/2023 6:00 PM EST Office Visit Family [facility] [address] [place] [id number] Ricardo Guerra MD [address] [place] [address] 11/03/2023 7:45 AM EST Office Visit Cardiology, [facility] [address] [facility] [place] [address] Stephany Castrejon, [address] [place] [address] 11/15/2023 4:00 PM EDT Home Visit [facility], [facility] [address] [facility] [place] [address] America Red, RN [address] [facility] [place] [place] [address] Health Maintenance Due Date Last Done Comments [...] Screening 09/21/2023 09/21/2022 CKD HGB USE SMARTSET 90140 02/17/202402/16, 03/21/2022, 02/05/2021, Additional history exists CKD PHOS USE SMARTSET 45865 02/17/202402/02, 03/21/2022, 02/05/2021, Additional history exists TSH 02/17/2024 02/16/2023, 01/2023, 10/25/2021, Additional history exists Albumin/Creatinine Ratio 02/18/2024 02/17/2023, 03/04 Pneumococcal Vaccine: 65+ Years Completed 12/15/2015, 05/29/2001 Zoster Vaccines Completed 08/01/2018, 03/05, 06/04/2010 VITAMIN D LEVEL ONCE IN A LIFETIME-USE SMARTSET# 61150 Completed 03/21/2022, 02/05/2021, 03/02/2020, Additional history exists GARDASIL-HPV IMMUNIZATION SERIES Aged Out No longer eligible based on patient's age to complete this topic MENINGOCOCCAL (MENACTRA/MENVEO) Aged Out No longer eligible based on patient's age to complete this topic documented as of this encounter Medical Devices Not on filedocumented as of this encounter Care Teams Med Specialist Relationship Specialty Start Date End Date Ricardo Guerra MD [address] [place] [address] PCP - General Family Medicine 08/24/15 documented as of this encounter
--- OUTSIDE RECORDS SUMMARY | 2023-11-09 13:04 | External Medical Summary ---
Author Name Unknown Address Unknown Organization K01:[facility] [address] [place] [address] Laboratory Report Ordering Provider Test Date Status JOSHUA AVILA 10/04/2023 12:21:59 Final Observation Date Value Abnormality Reference (Units ) Status Magnesium 10/04/2023 12:21:59 1.8 1.5-2.6 (m g/dL) Final Performing Location [facility] - [address] [place] [address]
--- OUTSIDE RECORDS SUMMARY | 2023-11-09 13:04 | External Medical Summary | Summary of Care ---
Author Name Unknown Organization [facility] Address [address] [place] [address] Phone [phone] Care Team Providers Care Oil Well Service Unit Operator Name Role Phone Ricardo Guerra MD Primary Care Provider +1- [phone] Reason for Visit * Reason Comments Outpatient Testing Encounter Details Date Type Department Care Team ([facility] st Contact Info) Description 10/04/2023 12:20 PM EST Laboratory Laboratory, [facility] [address] [place] [address] [facility] [address], [place] [phone] Hypomagnesemia; Gastroesophageal reflux disease without esophagitis; Encounter for long-term (current) use of medications; AVA (acute kidney injury) (HCC) Allergies No known active allergiesdocumented as of this encounter (statuses as of 10/04/2023) Medications Medication Sig Dispensed Refills Start Date End Date Status Cholecalciferol (VITAMIN D) 1000 units TabletIndications:V itamin [...] 1 Tablet before bedtime. 0 09/29/2023 Active documented as of this encounter (statuses [...] 9:30 AM EST Telemedicine [facility], [facility] [address] [facility] [place] [address] Lynne Blackman CRNP [address] [place] [address] Ashleigh Mejia, [facility] [address] [place] [address] 10/10/2023 12:30 PM EST Home Visit [facility], [facility] [address] [facility] [place] [address] America Red, RN [address] [place] [address] 10/31/2023 6:00 PM EST [facility] [address] [place] [address] Ricardo Guerra MD [address] [place] [address] 11/03/2023 7:45 AM EST Office Visit Cardiology, [facility] [address] [facility] [place] [address] Stephany Castrejon, [address] [facility] [phone] Pending Results Name Type Priority Associated Diagnoses Date /Time MAGNESIUM Lab Routine Hypomagnesemia Gastroesophageal reflux disease without esophagitis Encounter for long-term (current) use of medications 10/04/2023 12:21 PM EST BASIC METABOLIC PANEL Lab Routine AVA (acute kidney injury) (HCC) 10/04/2023 12:21 PM EST Health Maintenance Due Date Last [...] Screening 09/21/2023 09/21/2022 CKD HGB USE SMARTSET 63421 02/17/202402/16, 03/21/2022, 02/05/2021, Additional history exists CKD PHOS USE SMARTSET 40139 02/17/202402/02, 03/21/2022, 02/05/2021, Additional history exists TSH 02/17/2024 02/16/2023, 01/2023, 10/25/2021, Additional history exists Albumin/Creatinine Ratio 02/18/2024 02/17/2023, 03/04 Pneumococcal Vaccine: 65+ Years Completed 12/15/2015, 05/29/2001 Zoster Vaccines Completed 08/01/2018, 03/05, 06/04/2010 VITAMIN D LEVEL ONCE IN A LIFETIME-USE SMARTSET# 71556 Completed 03/21/2022, 02/05/2021, 03/02/2020, Additional history exists GARDASIL-HPV IMMUNIZATION SERIES Aged Out No longer eligible based on patient's age to complete this topic MENINGOCOCCAL (MENACTRA/MENVEO) Aged Out No longer eligible based on patient's age to complete this topic documented as of this encounter Medical Devices Not on filedocumented as of this encounter Visit Diagnoses Diagnosis Hypomagnesemia Disorders of magnesium metabolism Gastroesophageal reflux disease without esophagitis Esophageal reflux Encounter for long-term (current) use of medications Encounter for long-term (current) use of other medications AVA (acute kidney injury) (HCC) Acute kidney failure, unspecified documented in this encounter Care Teams Oil Well Service Unit Operator Relationship Specialty Start Date End Date Ricardo Guerra MD [address] [place] [address] PCP - General Family Medicine 08/24/15 documented as of this encounter
--- OUTSIDE RECORDS SUMMARY | 2023-11-09 13:04 | External Medical Summary | Summary of Care ---
Author Name Unknown Organization [facility] Address [address] [facility] [place] [address] Phone [phone] Care Team Providers Care Bowling Alley Attendant Name Role Phone Ricardo Guerra MD Primary Care Provider +1- [phone] Reason for Visit * Reason Onset Date Comments [facility]: Screening 09/28/2023 Encounter Details Date Type Department Care Team ([facility] Contact Info) Description 09/28/2023 Telephone [facility], [facility] [address] [facility] [place] [address] [facility], Nurse [facility] [address] [facility] [place] [address] [facility]: Screening Allergies No known active allergiesdocumented as of this encounter (statuses as of 09/28/2023) Medications Medication Sig Dispensed Refills Start Date [...] for Dizziness. 30 Tab 0 03/15/2021 Active Lisinopril-hydroCHL OROthiazide 20-25 MG Oral TabletIndications:H [...] as of this encounter (statuses as of 09/28/2023) Active Problems Problem Noted Date Diagnosed Date [...] as of this encounter (statuses as of 09/28/2023) Resolved Problems Problem Noted Date Diagnosed Date [...] as of this encounter (statuses as of 09/28/2023) Immunizations Name Administration Dates Next Due COVID-19 [...] encounter Miscellaneous Notes * Telephone Encounter - Stephany Campos LPN - 09/28/2023 11:04 AM EST Raquel Purcell was referred as a potential candidate for enrollment for [facility]. A review of this chart was completed and: Raquel meets criteria for [facility]. Jump to Initiation Referring care team was notified via : [employer] communication Currently in pt at [facility], will follow for dc. documented in this encounter Plan of Treatment Upcoming Encounters Date Type Department Care Team (Late st Contact Info) Description 09/29/2023 10:45 AM EST Office Visit Cardiology, [facility] [address] [place] [address] Stephany Castrejon, [address] [place] [address] 10/31/2023 6:00 PM EST Office Visit [facility] [address] [facility] [address] Ricardo Guerra MD [address] [facility] [address] Health Maintenance Due Date Last Done [...] Screening 09/21/2023 09/21/2022 CKD HGB USE SMARTSET 22196 02/17/202402/16, 03/21/2022, 02/05/2021, Additional history exists CKD PHOS USE SMARTSET 58621 02/17/202402/02, 03/21/2022, 02/05/2021, Additional history exists TSH 02/17/2024 02/16/2023, 01/2023, 10/25/2021, Additional history exists Albumin/Creatinine Ratio 02/18/2024 02/17/2023, 03/04 Pneumococcal Vaccine: 65+ Years Completed 12/15/2015, 05/29/2001 Zoster Vaccines Completed 08/01/2018, 03/05, 06/04/2010 VITAMIN D LEVEL ONCE IN A LIFETIME-USE SMARTSET# 66364 Completed 03/21/2022, 02/05/2021, 03/02/2020, Additional history exists GARDASIL-HPV IMMUNIZATION SERIES Aged Out No longer eligible based on patient's age to complete this topic MENINGOCOCCAL (MENACTRA/MENVEO) Aged Out No longer eligible based on patient's age to complete this topic documented as of this encounter Medical Devices Not on filedocumented as of this encounter Care Teams Bowling Alley Attendant Relationship Specialty Start Date End Date Ricardo Guerra MD [address] [place] [address] PCP - General Family Medicine 08/24/15 documented as of this encounter
--- OUTSIDE RECORDS SUMMARY | 2023-11-09 13:04 | External Medical Summary ---
Author Name Unknown Address Unknown Organization K01:[facility] - [address] [facility] [address] [place] [address] Laboratory Report Ordering Provider Test Date Status 10/04/2023 12:21:59 Final Observation Date Value Abnormality Reference (Units ) Status BUN 10/04/2023 12:21:59 22 Above high normal 6-20 (mg/dL) Final Creatinine 10/04/2023 12:21:59 1.1 Above high normal 0.5-1.0 (mg/dL) Final Glomerular filtration rate/1.73 sq M.predicted [Volume Rate/Area] in Serum, Plasma or Blood by Creatinine-based formula (CKD-EPI) 10/04/2023 12:21:59 51 Below low normal >=60 (mL/min) Final eGFR is calculated based on the CKD-EPI 2020 equation SODIUM 10/04/2023 12:21:59 139 135-146 (m mol/L) Final Potassium 10/04/2023 12:21:59 4.3 3.5-5.1 (m mol/L) Final Cl 10/04/2023 12:21:59 102 98-107 (mm ol/L) Final CO2 10/04/2023 12:21:59 26 22-32 (mmo l/L) Final Anion gap 10/04/2023 12:21:59 11 7-15 (mmol /L) Final Glucose 10/04/2023 12:21:59 98 70-120 (mg /dL) Final Calcium 10/04/2023 12:21:59 9.7 8.4-10.2 ( mg/dL) Final Performing Location [facility] - [address] [place] [address]
--- OUTSIDE RECORDS SUMMARY | 2023-11-09 13:04 | External Medical Summary | Summary of Care ---
Author Name Unknown Organization [facility] Address [address] [facility] [place] [address] Phone [phone] Care Team Providers Care Greens Planter Name Role Phone Ricardo Guerra MD Primary Care Provider +1- [phone] Encounter Details Date Type Department Care Team (Late st Contact Info) Description 09/24/2023 Result Scan Unspecified Department <No scans attached> Allergies No known active allergiesdocumented as of this encounter (statuses as of 09/26/2023) Medications Medication Sig Dispensed Refills Start Date [...] as of this encounter (statuses as of 09/26/2023) Active Problems Problem Noted Date Diagnosed Date [...] as of this encounter (statuses as of 09/26/2023) Resolved Problems Problem Noted Date Diagnosed Date [...] as of this encounter (statuses as of 09/26/2023) Immunizations Name Administration Dates Next Due COVID-19 mRNA, LNP-s, No Pre serve, 2-Dose Series ([employer]) 01/06/2021,12/16/2020 Pneumococcal Conjugate Vacc, 13 Valent (Prevnar) [...] Care Team (Late st Contact Info) Description 09/28/2023 11:20 AM EST Office Visit [place] [address] [facility] [id number] Ricardo Guerra MD [address] [facility] [address] 09/29/2023 10:45 AM EST Office Visit Cardiology, [facility] [address] [facility] [place] [address] Stephany Castrejon, [address] [place] [phone] 10/31/2023 6:00 PM EST Office Visit [place] [address] [address] [facility] [phone] Ricardo Guerra MD [address] [place] [address] Health Maintenance Due Date Last Done Comments [...] Screening 09/21/2023 09/21/2022 CKD HGB USE SMARTSET 56463 02/17/202402/16, 03/21/2022, 02/05/2021, Additional history exists CKD PHOS USE SMARTSET 25979 02/17/202402/02, 03/21/2022, 02/05/2021, Additional history exists TSH 02/17/2024 02/16/2023, 01/2023, 10/25/2021, Additional history exists Albumin/Creatinine Ratio 02/18/2024 02/17/2023, 03/04 Pneumococcal Vaccine: 65+ Years Completed 12/15/2015, 05/29/2001 Zoster Vaccines Completed 08/01/2018, 03/05, 06/04/2010 VITAMIN D LEVEL ONCE IN A LIFETIME-USE SMARTSET# 62593 Completed 03/21/2022, 02/05/2021, 03/02/2020, Additional history exists GARDASIL-HPV IMMUNIZATION SERIES Aged Out No longer eligible based on patient's age to complete this topic MENINGOCOCCAL (MENACTRA/MENVEO) Aged Out No longer eligible based on patient's age to complete this topic documented as of this encounter Medical Devices Not on filedocumented as of this encounter Procedures Procedure Name Priority Date/Time Associated Diagnosis Comments CARDIOLOGY SCANNED RESULT 09/24/2023 documented in this encounter Results * CARDIOLOGY SCANNED RESULT (09/24/2023) 09/24/2023 No Physician Data Unknown OTHER documented in this encounter Care Teams Greens Planter Relationship Specialty Start Date End Date Ricardo Guerra MD [address] [place] [address] PCP - General Family Medicine 08/24/15 documented as of this encounter
--- OUTSIDE RECORDS SUMMARY | 2023-11-09 13:04 | External Medical Summary | Summary of Care ---
Author Name Unknown Organization [facility] Address [address] [facility] [place] [address] Phone [phone] Care Team Providers Care Cement Crusher Operator Name Role Phone Ricardo Guerra MD Primary Care Provider [phone]- [phone] Encounter Details Date Type Department Care Team (Late st Contact Info) Description 09/22/2023 Result Scan Unspecified Department Laurent Allen PA-C [address] [place], [place] [id number] <No scans attached> Allergies No known active allergiesdocumented as of this encounter (statuses as of 09/25/2023) Medications Medication Sig Dispensed Refills Start Date [...] as of this encounter (statuses as of 09/25/2023) Active Problems Problem Noted Date Diagnosed Date [...] as of this encounter (statuses as of 09/25/2023) Resolved Problems Problem Noted Date Diagnosed Date [...] as of this encounter (statuses as of 09/25/2023) Immunizations Name Administration Dates Next Due COVID-19 [...] Description 09/28/2023 11:20 AM EST [facility] [place] [address] [facility] [address] Ricardo Guerra MD [address] [place] [facility] [place] [address] 09/29/2023 10:45 AM EST Office Visit Cardiology, [facility] [address] [facility] [place] [address] Stephany Castrejon, [address] [place] [address] 10/31/2023 6:00 PM EST Office Visit [place] [address] [place] [phone] Ricardo Guerra MD [address] [place] [address] Health Maintenance Due Date Last Done Comments [...] Screening 09/21/2023 09/21/2022 CKD HGB USE SMARTSET 67233 02/17/202402/16, 03/21/2022, 02/05/2021, Additional history exists CKD PHOS USE SMARTSET 74301 02/17/202402/02, 03/21/2022, 02/05/2021, Additional history exists TSH 02/17/2024 02/16/2023, 01/2023, 10/25/2021, Additional history exists Albumin/Creatinine Ratio 02/18/2024 02/17/2023, 03/04 Pneumococcal Vaccine: 65+ Years Completed 12/15/2015, 05/29/2001 Zoster Vaccines Completed 08/01/2018, 03/05, 06/04/2010 VITAMIN D LEVEL ONCE IN A LIFETIME-USE SMARTSET# [id number] Completed 03/21/2022, 02/05/2021, 03/02/2020, Additional history exists GARDASIL-HPV IMMUNIZATION SERIES Aged Out No longer eligible based on patient's age to complete this topic MENINGOCOCCAL (MENACTRA/MENVEO) Aged Out No longer eligible based on patient's age to complete this topic documented as of this encounter Medical Devices Not on filedocumented as of this encounter Procedures Procedure Name Priority Date/Time Associated Diagnosis Comments ECHOCARDIOLOGY SCANNED RESULT 09/22/2023 documented in this encounter Results * ECHOCARDIOLOGY SCANNED RESULT (09/22/2023) 09/22/2023 Laurent Allen PA-C ECHOCARDIOLOGY documented in this encounter Care Teams Cement Crusher Operator Relationship Specialty Start Date End Date Ricardo Guerra MD [address] [place] [facility] [place] [address] PCP - General Family Medicine 08/24/15 documented as of this encounter
--- OUTSIDE RECORDS SUMMARY | 2023-11-09 13:04 | External Medical Summary | Summary of Care ---
Author Name Unknown Organization [facility] Address [address] [place] [address] Phone [phone] Care Team Providers Care Paper Rewinder Name Role Phone Ricardo Guerra MD Primary Care Provider [phone]- [phone] Reason for Visit * Reason Onset Date Comments [facility]: Engagement 10/03/2023 Encounter Details Date Type Department Care Team ([facility] Contact Info) Description 10/03/2023 Telephone [facility], [address] [address] Services, Scheduling [address] [place] [address] [facility]: Engagement Allergies No known active allergiesdocumented as of this encounter (statuses as of 10/03/2023) Medications Medication Sig Dispensed Refills Start Date [...] as of this encounter (statuses as of 10/03/2023) Active Problems Problem Noted Date Diagnosed Date [...] as of this encounter (statuses as of 10/03/2023) Resolved Problems Problem Noted Date Diagnosed Date [...] as of this encounter (statuses as of 10/03/2023) Immunizations Name Administration Dates Next Due COVID-19 [...] encounter Miscellaneous Notes * Telephone Encounter - Gabriella Andrews OSA - 10/03/2023 8:28 AM EST [facility] Enrollment Form Screening: Referral Source: PCP/Specialty Primary Reason for Referral (Select most relevant): No data was found Engagement: Engagement Attempt 1: Contacted - Agreed to home-based services Scheduled appointment information: No data was found Home Information: No data was found Advance Care Planning (ACP): No data was found Has Living Will or Advance Directive: No Anticipated Sub-Program: Focused Care Management (3-9 months) Confirmation of Sub-Program Type (by care warehouse team member): No data was found Handoff Information: Current care team notified via: No data was found Current telemonitoring equipment: No data was found Called and spoke to mila who was agreeable and we got the following scheduled 10/06@930 w/Yehuda/Roberto and 10/10@1230 w/Teofilo documented in this encounter Plan of Treatment Upcoming Encounters Date Type Department Care Team (Late st Contact Info) Description 10/03/2023 9:00 AM EST Scheduled Telephone [facility], [facility] [address] [facility] [place] [address] Coordinator, [facility] [place] [address] 10/04/2023 11:20 AM EST Office Visit [place] [address] [place] [phone] Matt Stanton MD [address] [place] [address] 10/06/2023 9:30 AM EST Telemedicine [facility], [facility] [place] [address] Lynne Blackman CRNP [address] [facility] [place] [address] Ashleigh Mejia, [facility] [address] [place] [address] 10/10/2023 12:30 PM EST Home Visit [facility], [facility] [address] [facility] [place] [address] America Red, RN [address] [facility] [place] [address] 10/31/2023 6:00 PM EST Office Visit [facility] [address] [place] [phone] Ricardo Guerra MD [address] [place] [address] Health Maintenance Due Date Last Done Comments [...] Screening 09/21/2023 09/21/2022 CKD HGB USE SMARTSET 78135 02/17/202402/16, 03/21/2022, 02/05/2021, Additional history exists CKD PHOS USE SMARTSET 07649 02/17/202402/02, 03/21/2022, 02/05/2021, Additional history exists TSH 02/17/2024 02/16/2023, 01/2023, 10/25/2021, Additional history exists Albumin/Creatinine Ratio 02/18/2024 02/17/2023, 03/04 Pneumococcal Vaccine: 65+ Years Completed 12/15/2015, 05/29/2001 Zoster Vaccines Completed 08/01/2018, 2 12/2017, 06/04/2010 VITAMIN D LEVEL ONCE IN A LIFETIME-USE SMARTSET# [id number] Completed 03/21/2022, 02/05/2021, 03/02/2020, Additional history exists GARDASIL-HPV IMMUNIZATION SERIES Aged Out No longer eligible based on patient's age to complete this topic MENINGOCOCCAL (MENACTRA/MENVEO) Aged Out No longer eligible based on patient's age to complete this topic documented as of this encounter Medical Devices Not on filedocumented as of this encounter Care Teams Paper Rewinder Relationship Specialty Start Date End Date Ricardo Guerra MD [address] [place] [facility] [place] [address] PCP - General Family Medicine 08/24/15 documented as of this encounter
--- NOTE | 2023-11-09 17:02 | Electrocardiogram Report ---
Test Reason : Blood Pressure : / mmHG Vent. Rate : 062 BPM Atrial Rate : 062 BPM P-R Int : 142 ms QRS Dur : 090 ms QT Int : 466 ms P-R-T Axes : 034 -02 014 degrees QTc Int : 472 ms Normal sinus rhythm Possible Old Anteroseptal infarct Nonspecific T wave abnormality Anterior leads Abnormal ECG When compared with ECG of 24-SEP-2023 13:37, Nonspecific T wave abnormality now evident in Anterior leads Criteria for Inferior infarct no longer present Borderline Criteria for Anterior infarct now present Confirmed by Steven Rivera ([id number]) on 11/09/2023 5:01:56 PM Referred By: REFERRED SELF Confirmed By:Steven Rivera
[2023-11-09] MEDS: APIXABAN 2.5 MG TAB PO SCH (21:08)
[2023-11-10 06:34] LABS: Hematocrit (blood only) 31.8 % (37.0-47.0); Hemoglobin 10.5 g/dl (12.0-16.0); Mean Corpuscular Hemoglobin 31.3 pg (25.0-34.0); Mean Corpuscular Volume 94.6 fL (80.0-100.0); Mean Platelet Volume 10.7 fL (9.4-12.4); Platelet Count 227 K/uL (130-400); RDW Coefficient of Variation 14.8 % (11.5-14.5); RDW Standard Deviation 51.6 fL (36.4-46.3); Red Blood Count 3.36 M/uL (4.20-5.40); White Blood Count 7.35 K/ul (4.8-10.8)
[2023-11-10 07:03] LABS: BUN Creatinine Ratio 17.8 (10-20); Calcium 8.8 mg/dl (8.6-10.3); Creatinine Clr Calc Pharmacy 30.5 ml/min; Est GFR (African American) 57.6 ml/min; Est GFR (Non-African American) 49.7 ml/min; Magnesium 1.5 mg/dl (1.7-2.4); Phosphorus 3.8 mg/dl (2.5-4.9); Potassium 3.7 mmol/L (3.5-5.1)
[2023-11-10] MEDS: amLODIPine BESYLATE 5 MG TAB PO SCH (08:36)
[2023-11-10] MEDS: lisinopril 20 MG TAB PO SCH (09:53)
[2023-11-10] MEDS: MAGNESIUM SULFATE / D5W 1 GM/100 ML BAG IV SCH (11:05)
--- NOTE | 2023-11-10 12:09 | Cardiology Progress Note ---
Date of Service November 10, 2023 Assessment & Plan (1) Dizziness: (2) HTN (hypertension): (3) Paroxysmal atrial fibrillation: (4) Pacemaker: Plan Admitted after a spell of dizziness/weakness. Hypertensive on admission. Was taking amlodipine 5 mg, lisinopril 20 mg, metoprolol 25 mg, and furosemide 20 mg as outpatient. Potassium was low and supplemented. Patient was dehydrated. On admission, amlodipine and metoprolol were resumed. Furosemide held She remains hypertensive this morning. Lisinopril initially resumed at 20 mg (home dose) but due to concerns for dizziness, this was reduced to 5 mg. Would not resume lasix at this time. Monitor BP Eliquis reduced to 2.5 mg BID Given age > 80 and weight of 59 kg. Recommend PT/OT. Case discussed with Dr. Isaac Aguayo spent a total of 35 minutes on the date of service in preparation, delivery, and documentation of the care provided to this patient, excluding any time spent in the performance of separately billed services. Trina Montero PA-C Department of Cardiology, [facility] This chart was completed in part utilizing Speech Voice Recognition Software. Grammatical errors, random word insertions, pronoun errors, and incomplete sentences are an occasional consequence of this system due to software limitations, ambient noise, and hardware issues. Any formal questions or concerns about the content, text, or information contained within the body of this dictation should be directly addressed to the provider for clarification. Admission and Anticipated Discharge Date Admission Date: November 09, 2023 Supervising Physician Co-Signing Physician Notes Patient was seen and examined personally. Full assessment and plan as well outlined above. Case discussed in detail with advanced provider No further dizziness or lightheadedness though not ambulatory yet Plan as above resume lisinopril at lower dosing due to hypertension Hold furosemide for time being Eliquis dose adjusted appropriately Ambulate Subjective Patient resting in bed. Feeling "great". Denies acute cardiac complaints. No recurrent dizziness or lightheadedness. no chest pain or dyspnea. Review of Systems Review of Systems: All systems reviewed & are unremarkable except as noted in HPI & below Physical Exam Constitutional: well developed; no acute distress Neck: normal visual inspection Respiratory: normal respiratory effort Auscultation: lungs clear to auscultation bilaterally; no rales and no wheezes Cardiovascular: Rate/Rhythm: regular rate and regular rhythm Heart Sounds: + murmur (II/ systolic murmur) Vessels: no JVD Extremities: no edema Gastrointestinal (Abdomen): normal bowel sounds, soft, nontender, no hepatosplenomegaly Results & Data Vital Signs (Past 12 Hours) Vital Signs Temp Pulse Resp BP BP Pulse Ox O2 Del Method 11/10/23 11:28 36.7 C 60 20 183/71 H 97 Room Air 11/10/23 07:18 36 C L 60 19 163/72 H 96 Room Air 11/10/23 03:01 36.6 C 60 18 176/76 H 96 Room Air 11/10/23 02:25 O2 Del Method 11/10/23 11:28 11/10/23 07:18 11/10/23 03:01 11/10/23 02:25 Room Air Laboratory Results CBC 11/10/23 Range/Units 06:04 WBC 7.35 (4.8-10.8) K/ul RBC 3.36 L (4.20-5.40) M/uL Hgb 10.5 L (12.0-16.0) g/dl Hct 31.8 L (37.0-47.0) % Plt Count 227 (130-400) K/uL Comprehensive Metabolic Panel 11/10/23 Range/Units 06:04 Sodium 138 (136-145) mmol/L Potassium 3.7 (3.5-5.1) mmol/L Chloride 106 (98-107) mmol/L Carbon Dioxide 27 (21-32) mmol/L BUN 18 (6-23) mg/dl Creatinine 1.01 (0.6-1.2) mg/dl Glucose 96 (70-99(Fasting)) mg/dl Calcium 8.8 (8.6-10.3) mg/dl Intake and Output 11/09/23 11/10/23 11/10/23 22:59 06:59 14:59 Intake Total 170 / 484.667 Output Total 350 / 350 Balance 170 / 134.667 -350 / 134.667 Intake: Oral 170 / 170 Output: Urine 350 / 350 Other: # Unmeasured Voids 1 Diagnostic Findings Telemetry reviewed: Atrial paced, ventricular sensed. No arrhythmias Medications Administered Current Inpatient Medications Acetaminophen (Acetaminophen 325 Mg Tab) 650 mg PO QID PRN PRN Reason: pain/fever Stop: 12/09/23 02:17 Acetaminophen (Acetaminophen 325 Mg Tab) 650 mg PO Q4H PRN PRN Reason: Pain or Fever Stop: 12/09/23 03:09 Allopurinol (Allopurinol 300 Mg Tab) 300 mg PO DAILY [facility] Stop: 12/09/23 08:59 Last Admin: 11/10/23 08:36 Dose: 300 mg Amlodipine Besylate (Amlodipine Besylate 5 Mg Tab) 5 mg PO QAM [facility] Stop: 12/10/23 08:59 Last Admin: 11/10/23 08:36 Dose: 5 mg Apixaban (Apixaban 2.5 Mg Tab) 2.5 mg PO BID [facility] Stop: 12/09/23 20:59 Last Admin: 11/10/23 08:46 Dose: Not Given Atorvastatin Calcium (Atorvastatin 40 Mg Tab) 40 mg PO QAM [facility] Stop: 12/09/23 08:59 Last Admin: 11/10/23 08:35 Dose: 40 mg Dextrose (Dextrose 50% 50 Ml Syringe) 25 - 50 ml IV UD PRN; Protocol PRN Reason: Hypoglycemia Protocol Stop: 12/09/23 03:09 Glucagon (Glucagon For Inj 1 Mg Vial) 1 mg SQ UD PRN; Protocol PRN Reason: Hypoglycemia Protocol Stop: 12/09/23 03:09 Glucose (Glucose 10 Tab/Tube) 4 - 8 tab PO UD PRN; Protocol PRN Reason: Hypoglycemia Treatment Stop: 12/09/23 03:09 Glucose (Glucose 40% Gel 15 Gm Tube) 15 - 30 gm PO UD PRN; Protocol PRN Reason: Hypoglycemia Protocol Stop: 12/09/23 03:09 Promethazine HCl 6.25 mg/ (Sodium Chloride) 50.25 mls @ 201 mls/hr IV Q6H PRN PRN Reason: Nausea And Vomiting Stop: 12/09/23 02:18 Magnesium Sulfate/Dextrose (Magnesium Sulfate / D5w) 1 gm in 100 mls @ 50 mls/hr IV Q2H [facility] Stop: 11/10/23 14:44 Last Admin: 11/10/23 11:05 Dose: 50 mls/hr Insulin Aspart (Insulin Aspart Per Unit Charge) 0 units SC ACHS [facility] Stop: 12/09/23 03:09 Last Admin: 11/10/23 08:38 Dose: 2 units Levothyroxine Sodium (Levothyroxine Sodium 50 Mcg Tablet) 50 mcg PO Q2D@0630 [facility] Stop: 12/09/23 06:29 Last Admin: 11/09/23 06:23 Dose: 50 mcg Lisinopril (Lisinopril 5 Mg Tab) 5 mg PO QAM [facility] Stop: 12/11/23 06:59 Metoprolol Succinate (Metoprolol Succ 25mg Ext Rel Tab) 25 mg PO BID [facility] Stop: 12/09/23 08:59 Last Admin: 11/10/23 08:35 Dose: 25 mg Miscellaneous (Carbohydrates For Hypoglycemia ) 15 - 30 gm PO UD PRN PRN Reason: Hypoglycemia Protocol Stop: 12/09/23 03:09 Pantoprazole Sodium (Pantoprazole 40 Mg Tab) 40 mg PO [facility] Stop: 12/09/23 08:59 Last Admin: 11/10/23 08:35 Dose: 40 mg (2) HTN (hypertension) Hypertension type: primary hypertension Qualified Code(s): I10 - Essential (primary) hypertension
--- NOTE | 2023-11-10 13:57 | Hospitalist Progress Note ---
Date of Service November 10, 2023 Assessment & Plan (1) Dizziness: Plan: Pt is a 88yoF with PMHx significant for SSS status post PPM on Eliquis, valvular heart disease (mild MR/TR, TTE 2023), pulmonary hypertension, hypertension, hyperlipidemia, DM 2 diet-controlled, hypothyroidism, chronic anemia (baseline hemoglobin 10-11), GERD, gout, skin presenting after a fall at home without LOC. She was admitted with hypertensive urgency. Dizziness Described as lightheadedness Possibly from uncontrolled blood pressure Orthostatics negative rule out pacemaker dysfunction, hx SSS status post PPM on Eliquis -pacemaker interrogated-no acute issues IV fluids Currently resolved Hypertensive urgency Was on amlodipine 5 mg, lisinopril 20 mg, metoprolol succ 25 mg BID, and furosemide 20 mg as outpatient. BP significantly elevated on admission On admission, amlodipine and metoprolol were started Cardiology consulted -hold lasix -restart lisinopril at low dose 5mg Titrate home BP meds as needed Continue to monitor Troponin elevation hs trop elevated at 23.2 to 26.9 EKG with NSR likely secondary to uncontrolled blood pressure Doubt ACS hyperlipidemia on statin Rx, continue DM 2 diet-controlled reasonable control as of recent hemoglobin A1c of 7.06 September 2023 basal/bolus insulin hypothyroidism euthyroid as of recent TSH chronic anemia hemoglobin better than previous baseline in Sep Diet: DMII/HH soft bite sized DVT prophylaxis: Eliquis, dose reduced Full code Dispo: PT recommending home with daughter Admission and Anticipated Discharge Date Admission Date: November 09, 2023 Subjective Pt was seen with family in the room. Denied acute concerns. Review of Systems Review of Systems: All systems reviewed & are unremarkable except as noted in Subjective Physical Exam Physical Exam: General: Alert, oriented. Skin: No noted rashes or bruises Psych: Appropriate mood and affect Neuro: hearing loss HEENT: NC/AT, rolling mouth movement Chest: Nontender to palpation. CV: RRR, Normal s1, s2. No murmurs appreciated Resp: Breath sounds clear bilaterally, no increased effort of breathing. Abdomen: Soft, nontender, nondistended. Extremities: No edema in lower extremities bilaterally. Results & Data Results & Data Vital Signs (Past 12 Hours) Vital Signs Temp Pulse Resp BP BP Pulse Ox O2 Del Method 11/10/23 11:28 36.7 C 60 20 183/71 H 97 Room Air 11/10/23 07:18 36 C L 60 19 163/72 H 96 Room Air 11/10/23 03:01 36.6 C 60 18 176/76 H 96 Room Air 11/10/23 02:25 O2 Del Method 11/10/23 11:28 11/10/23 07:18 11/10/23 03:01 11/10/23 02:25 Room Air
[2023-11-10] MEDS: amLODIPine BESYLATE 5 MG TAB PO ONE (23:42)
--- OUTSIDE RECORDS SUMMARY | 2023-11-11 02:29 | External Medical Summary | Summary of Care ---
Author Name Unknown Organization [facility] Address [address] [facility] [place] [address] Phone [phone] Care Team Providers Care Income Tax Analyst Name Role Phone Ricardo Guerra MD Primary Care Provider +1- [phone] Reason for Visit * Reason Onset Date Comments Information 11/09/2023 DM eye Encounter Details Date Type Department Care Team (Late st Contact Info) Description 11/09/2023 Telephone [facility] [address] [place] [address] Ricardo Guerra MD [address] [place] [address] Information (DM eye) Allergies No known active allergiesdocumented as of this encounter (statuses as of 11/09/2023) Medications Medication Sig Dispensed Refills Start Date [...] as of this encounter (statuses as of 11/09/2023) Active Problems Problem Noted Date Diagnosed Date [...] as of this encounter (statuses as of 11/09/2023) Resolved Problems Problem Noted Date Diagnosed Date [...] as of this encounter (statuses as of 11/09/2023) Immunizations Name Administration Dates Next Due COVID-19 mRNA, LNP-s, No Pre serve, 2-Dose Series (3Jam) 01/06/2021,12/16/2020 Pneumococcal Conjugate Vacc, 13 Valent (Prevnar) [...] encounter Miscellaneous Notes * Telephone Encounter - Jenn Cordoba LPN - 11/09/2023 9:46 AM EST Patient with a positive Diabetic Retinopathy scan. There is no retinopathy in both eyes There is cupping in both eyes which should be evaluated. Outreach action taken: Left Message Jenn Cordoba LPN documented in this encounter Plan of Treatment Upcoming Encounters Date Type Department Care Team (Late st Contact Info) Description 11/15/2023 4:00 PM EDT Home Visit [facility] [address] [facility] [place] [address] America Red RN 132 [facility] [place] [address] 03/12/2024 1:30 PM EDT Office Visit Cardiology, [facility] [address] [facility] [place] [address] Magalys Griffiths CRNP [address] [place] [phone] 05/14/2024 5:40 PM EDT Office Visit [facility] [address] [facility] [phone] Ricardo Guerra MD [address] [place] [facility] [place] [address] Health Maintenance Due Date Last Done Comments [...] RESISTANT HTN 11/02/2023 CKD HGB USE SMARTSET 70614 02/17/202402/16, 03/21/2022, 02/05/2021, Additional history exists CKD PHOS USE SMARTSET 80741 02/17/202402/02, 03/21/2022, 02/05/2021, Additional history exists TSH 02/17/2024 02/16/2023, 01/2023, 10/25/2021, Additional history exists Albumin/Creatinine Ratio 02/18/2024 02/17/2023, 03/04 Diabetic Eye Exam 10/31/2024 10/31/2023, , 07/12/2011, Additional history exists Pneumococcal Vaccine: 65+ Years Completed 12/15/2015, 05/29/2001 Zoster Vaccines Completed 08/01/2018, 03/05, 06/04/2010 VITAMIN D LEVEL ONCE IN A LIFETIME-USE SMARTSET# 26626 Completed 03/21/2022, 02/05/2021, 03/02/2020, Additional history exists [...] filedocumented as of this encounter Care Teams Income Tax Analyst Relationship Specialty Start Date End Date Ricardo Guerra MD [address] [place] [address] PCP - General Family Medicine 08/24/15 documented as of this encounter
[2023-11-11] MEDS: lisinopril 5 MG TAB PO SCH (06:24)
[2023-11-11 08:56] LABS: Basophils # (auto) 0.03 K/uL (0.00-0.20); Basophils % (auto) 0.3 %; Eosinophils # (auto) 0.05 K/uL (0.00-0.50); Eosinophils % (auto) 0.4 %; Hematocrit (blood only) 32.6 % (37.0-47.0); Hemoglobin 11.1 g/dl (12.0-16.0); Immature Granulocytes # (auto) 0.04 K/uL (0.01-0.20); Immature Granulocytes % (auto) 0.4 %; Lymphocytes # (auto) 3.16 K/uL (1.20-3.40); Lymphocytes % (auto) 28.1 %; Mean Corpuscular Hemoglobin 31.5 pg (25.0-34.0); Mean Corpuscular Volume 92.6 fL (80.0-100.0); Mean Platelet Volume 10.3 fL (9.4-12.4); Monocytes % (auto) 7.1 %; Neutrophils # (auto) 7.16 K/uL (1.40-6.50); Neutrophils % (auto) 63.7 %; Platelet Count 259 K/uL (130-400); RDW Coefficient of Variation 14.9 % (11.5-14.5); Red Blood Count 3.52 M/uL (4.20-5.40); White Blood Count 11.24 K/ul (4.8-10.8)
[2023-11-11 09:08] LABS: BUN Creatinine Ratio 17.8 (10-20); Calcium 8.8 mg/dl (8.6-10.3); Creatinine Clr Calc Pharmacy 30.5 ml/min; Est GFR (African American) 57.6 ml/min; Est GFR (Non-African American) 49.7 ml/min; Magnesium 1.5 mg/dl (1.7-2.4); Phosphorus 4.3 mg/dl (2.5-4.9); Potassium 3.7 mmol/L (3.5-5.1)
[2023-11-11] MEDS: amLODIPine BESYLATE 5 MG TAB PO SCH (09:08)
--- NOTE | 2023-11-11 11:54 | CT Scan Report ---
CT head/brain wo con CLINICAL HISTORY: increased lethargy Technique: Contiguous axial CT images of the head were acquired from the base of the skull to the veronika waldemar without intravenous contrast administration. Images were viewed in brain, subdural and bone [facility]. Automated dose lowering techniques and/or adjustment according to patient size were utilized for this exam. Comparison: Comparison is made to CT head 11/08/2023 Findings: There is a cystic lesion in the left posterior cranial compatible with arachnoid cyst. No acute abnor malities are seen. Imaged portions of the paranasal sinuses and mastoid air cells are clear. The orbits appear normal. There are no acute fractures of the calvaria or scalp swelling. Impression: No acute intracranial hemorrhage, no evidence of acute territorial infarction or other acute intracra nial disease process. ACT 112: Negative or not required by law. Electronically signed by: Teddy Joaquin M.D. 11/11/2023 11:52 AM
--- NOTE | 2023-11-11 13:49 | Cardiology Progress Note ---
Date of Service November 11, 2023 Assessment & Plan (1) Dizziness: (2) HTN (hypertension): (3) Paroxysmal atrial fibrillation: (4) Pacemaker: Plan Admitted after a spell of dizziness/weakness. Hypertensive on admission. Continue metoprolol succinate 25 mg twice daily, lisinopril 5 mg daily, amlodipine titrated to 10 mg daily. Continue atorvastatin 40 mg daily. Continue Eliquis, dose reduced for age and renal function to 2.5 mg twice daily. Scott Brandt DO Admission and Anticipated Discharge Date Admission Date: November 09, 2023 Subjective Pt seen in follow up. Family at the bedside. Pt states dizziness and headache have resolved. Denies chest pain or shortness of breath. Telemetry reveals SR occasional pacing. Physical Exam Constitutional: well developed; no acute distress Neck: normal visual inspection Respiratory: normal respiratory effort Auscultation: lungs clear to auscultation bilaterally; no rales and no wheezes Cardiovascular: Rate/Rhythm: regular rate and regular rhythm Heart Sounds: + murmur (II/ systolic murmur) Vessels: no JVD Extremities: no edema Gastrointestinal (Abdomen): normal bowel sounds, soft, nontender, no hepatosplenomegaly Results & Data Vital Signs (Past 12 Hours) Vital Signs Temp Pulse Pulse Resp BP BP Pulse Ox 11/11/23 11:30 37.1 C 60 19 151/74 H 94 11/11/23 09:30 67 11/11/23 09:04 37.5 C 67 17 148/78 H 95 11/11/23 07:30 38.1 C H 65 16 161/66 H 93 11/11/23 06:26 66 159/75 H 11/11/23 02:39 72 18 170/78 H 97 O2 Del Method O2 Flow Rate 11/11/23 11:30 Room Air 11/11/23 09:30 11/11/23 09:04 Room Air 11/11/23 07:30 Room Air 11/11/23 06:26 11/11/23 02:39 Room Air 0 (2) HTN (hypertension) Hypertension type: primary hypertension Qualified Code(s): I10 - Essential (primary) hypertension
[2023-11-11 14:59] LABS: Appearance Urine Cloudy (Clear); Bilirubin Urine Negative (Negative); Blood Urine Negative (Negative); Color Urine Yellow; Epithelial Cell Urine Auto >30 /lpf (0-5); Glucose Urine UA Negative (Negative); Ketones Urine Negative (Negative); Leukocyte Esterase Urine 2+ (Negative); Nitrite Urine Negative (Negative); Protein Urine Trace (Negative); Specific Gravity Urine 1.015 (1.000-1.030); Urobilinogen Urine Negative (Negative)
[2023-11-11 15:32] LABS: Bacteria Urine Automated 1+ (Negative); RBC Urine Automated 0-4 /hpf (0-4)
[2023-11-11] MEDS: cefTRIAXone SODIUM 2,000 MG in DEXTROSE 5 % MINI-B 50 ML IV SCH (19:40)
--- NOTE | 2023-11-11 22:26 | Hospitalist Progress Note ---
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 She was admitted with hypertensive urgency. Dizziness Described as lightheadedness Possibly from uncontrolled blood pressure Orthostatics negative rule out pacemaker dysfunction, hx SSS status post PPM on Eliquis -pacemaker interrogated-no acute issues IV fluids Currently resolved Hypertensive urgency Was on amlodipine 5 mg, lisinopril 20 mg, metoprolol succ 25 mg BID, and furosemide 20 mg as outpatient. BP significantly elevated on admission On admission, amlodipine and metoprolol were started. Currently on amlodipine 10mg and Toprol XL 25mg BID. Cardiology consulted -hold lasix -restart lisinopril at low dose 5mg Titrate home BP meds as needed Continue to monitor- currently controlled. Troponin elevation hs trop elevated at 23.2 to 26.9 EKG with NSR likely secondary to uncontrolled blood pressure Doubt ACS hyperlipidemia on statin Rx, continue DM 2 diet-controlled reasonable control as of recent hemoglobin A1c of 7.06 September 2023 basal/bolus insulin hypothyroidism euthyroid as of recent TSH chronic anemia hemoglobin better than previous baseline in Sep Diet: DMII/HH soft bite sized DVT prophylaxis: Eliquis, dose reduced Full code Dispo: PT recommending home with daughter Admission and Anticipated Discharge Date Admission Date: November 09, 2023 Subjective Per nursing, pt more lethargic today. Per daughter when called with updates, pt's hearing aids had batteries. Review of Systems Review of Systems: All systems reviewed & are unremarkable except as noted in Subjective Physical Exam Physical Exam: General: Alert, oriented. Skin: No noted rashes or bruises Psych: Appropriate mood and affect Neuro: hearing loss HEENT: NC/AT, rolling mouth movement Chest: Nontender to palpation. CV: RRR, Normal s1, s2. No murmurs appreciated Resp: Breath sounds clear bilaterally, no increased effort of breathing. Abdomen: Soft, nontender, nondistended. Extremities: No edema in lower extremities bilaterally. Results & Data Results & Data Vital Signs (Past 12 Hours) Vital Signs Temp Pulse Pulse Resp BP BP Pulse Ox 11/11/23 09:30 67 11/11/23 09:04 37.5 C 67 17 148/78 H 95 11/11/23 07:30 38.1 C H 65 16 161/66 H 93 11/11/23 06:26 66 159/75 H 11/11/23 02:39 72 18 170/78 H 97 11/10/23 23:06 37.2 C 69 16 194/74 H 98 O2 Del Method O2 Flow Rate 11/11/23 09:30 11/11/23 09:04 Room Air 11/11/23 07:30 Room Air 11/11/23 06:26 11/11/23 02:39 Room Air 0 11/10/23 23:06 Room Air
[2023-11-12 07:02] LABS: Basophils # (auto) 0.04 K/uL (0.00-0.20); Basophils % (auto) 0.5 %; Eosinophils # (auto) 0.51 K/uL (0.00-0.50); Eosinophils % (auto) 6.3 %; Hematocrit (blood only) 32.2 % (37.0-47.0); Hemoglobin 10.8 g/dl (12.0-16.0); Immature Granulocytes # (auto) 0.02 K/uL (0.01-0.20); Immature Granulocytes % (auto) 0.2 %; Lymphocytes # (auto) 2.89 K/uL (1.20-3.40); Lymphocytes % (auto) 35.4 %; Mean Corpuscular Hemoglobin 31.3 pg (25.0-34.0); Mean Corpuscular Hgb Conc 33.5 g/dL (32.0-36.0); Mean Corpuscular Volume 93.3 fL (80.0-100.0); Mean Platelet Volume 10.9 fL (9.4-12.4); Monocytes # (auto) 0.86 K/uL (0.11-0.59); Monocytes % (auto) 10.5 %; Neutrophils # (auto) 3.84 K/uL (1.40-6.50); Neutrophils % (auto) 47.1 %; Platelet Count 256 K/uL (130-400); RDW Coefficient of Variation 14.7 % (11.5-14.5); RDW Standard Deviation 51.3 fL (36.4-46.3); Red Blood Count 3.45 M/uL (4.20-5.40); White Blood Count 8.16 K/ul (4.8-10.8)
[2023-11-12 07:20] LABS: Albumin Globulin Ratio 1.6 (0.9-2); Albumin Level 3.6 gm/dl (3.4-5.0); BUN Creatinine Ratio 21.7 (10-20); Bilirubin,Total 0.5 mg/dl (0.2-1.0); Calcium 8.6 mg/dl (8.6-10.3); Creatinine Clr Calc Pharmacy 31.6 ml/min; Est GFR (African American) 54.3 ml/min; Est GFR (Non-African American) 46.8 ml/min; Globulin 2.3 gm/dl (2.5-4.0); Magnesium 1.4 mg/dl (1.7-2.4); Phosphorus 4.8 mg/dl (2.5-4.9); Potassium 3.7 mmol/L (3.5-5.1); Total Protein 5.9 gm/dl (6.0-8.3)
[2023-11-12 07:26] LABS: Troponin I High Sensitivity 13.9 pg/ml (0-14)
[2023-11-12] MEDS: ACETAMINOPHEN 325 MG TAB PO PRN (11:09)
[2023-11-12] MEDS: MAGNESIUM OXIDE 400 MG TAB PO SCH (11:41)
[2023-11-12] MEDS: MAGNESIUM SULFATE / D5W 1 GM/100 ML BAG IV SCH (12:05)
[2023-11-12] MEDS: ACETAMINOPHEN 1,000 MG/100 ML VIAL IV STA (14:10)
--- NOTE | 2023-11-12 14:49 | Hospitalist Progress Note ---
Date of Service November 12, 2023 Assessment & Plan (1) Dizziness: Plan: Pt is a 88yoF with PMHx significant for SSS status post PPM on Eliquis, valvular heart disease (mild MR/TR, TTE 2023), pulmonary hypertension, hypertension, hyperlipidemia, DM 2 diet-controlled, hypothyroidism, chronic anemia (baseline hemoglobin 10-11), GERD, gout, skin presenting after a fall at home without LOC. She was admitted with hypertensive urgency. Dizziness Described as lightheadedness Possibly from uncontrolled blood pressure Orthostatics negative rule out pacemaker dysfunction, hx SSS status post PPM on Eliquis -pacemaker interrogated-no acute issues IV fluids Currently resolved UTI UA suggestive of infection Urine cx NGTD Second urine cx in 2 days Continue IV Rocephin Confusion Acute Likely in setting of UTI above Consider Delirium precautions. Frequent reorientation, avoid sedating medication Head CT on 11/07 and 11/10 with no acute abnormalities Consider brain MRI for persistence Hypertensive urgency Was on amlodipine 5 mg, lisinopril 20 mg, metoprolol succ 25 mg BID, and furosemide 20 mg as outpatient. BP significantly elevated on admission On admission, amlodipine and metoprolol were started. Currently on amlodipine 10mg and Toprol XL 25mg BID. Cardiology consulted -hold lasix -restart lisinopril at low dose 5mg Titrate home BP meds as needed Continue to monitor- currently controlled. Troponin elevation hs trop elevated at 23.2 to 26.9 EKG with NSR likely secondary to uncontrolled blood pressure Doubt ACS hyperlipidemia on statin Rx, continue DM 2 diet-controlled reasonable control as of recent hemoglobin A1c of 7.06 September 2023 basal/bolus insulin hypothyroidism euthyroid as of recent TSH chronic anemia hemoglobin better than previous baseline in Sep Diet: DMII/HH soft bite sized DVT prophylaxis: Eliquis, dose reduced Full code Dispo: PT recommending home with daughter Admission and Anticipated Discharge Date Admission Date: November 11, 2023 Subjective Pt alert, and knows she is in the hospital. Unsure which one. Knows year 2023. Per family more confused today. Review of Systems Review of Systems: All systems reviewed & are unremarkable except as noted in Subjective Physical Exam Physical Exam: General: Alert, oriented. Skin: No noted rashes or bruises Psych: Appropriate mood and affect Neuro: hearing loss HEENT: NC/AT, rolling mouth movement Chest: Nontender to palpation. CV: RRR, Normal s1, s2. No murmurs appreciated Resp: Breath sounds clear bilaterally, no increased effort of breathing. Abdomen: Soft, nontender, nondistended. Extremities: No edema in lower extremities bilaterally. Results & Data Results & Data Vital Signs (Past 12 Hours) Vital Signs Temp Pulse Resp BP BP Pulse Ox O2 Del Method 11/12/23 11:22 36.5 C 60 18 136/73 Room Air 11/12/23 07:12 36.8 C 50 L 18 112/66 95 Room Air 11/12/23 03:31 36.6 C 60 16 124/69 94 Room Air
--- NOTE | 2023-11-12 15:46 | Cardiology Progress Note ---
Date of Service November 12, 2023 Assessment & Plan (1) Dizziness: (2) HTN (hypertension): (3) Paroxysmal atrial fibrillation: (4) Pacemaker: Plan Admitted after a spell of dizziness/weakness. Hypertensive on admission. Continue metoprolol succinate 25 mg twice daily, lisinopril 5 mg daily, amlodipine titrated to 10 mg daily. Continue atorvastatin 40 mg daily. Continue Eliquis, dose reduced for age and renal function to 2.5 mg twice daily. Scott Brandt DO Admission and Anticipated Discharge Date Admission Date: November 11, 2023 Subjective Patient seen in cardiology follow-up. She is resting comfortably. Notes requested today. Most recent blood pressure improved to 141/59. Afebrile. Telemetry reveals sinus rhythm in the 70s. Physical Exam Constitutional: well developed; no acute distress Neck: normal visual inspection Respiratory: normal respiratory effort Auscultation: lungs clear to auscultation bilaterally; no rales and no wheezes Cardiovascular: Rate/Rhythm: regular rate and regular rhythm Heart Sounds: + murmur (II/ systolic murmur) Vessels: no JVD Extremities: no edema Gastrointestinal (Abdomen): normal bowel sounds, soft, nontender, no hepatosplenomegaly Results & Data Vital Signs (Past 12 Hours) Vital Signs Temp Pulse Resp BP BP Pulse Ox O2 Del Method 11/12/23 15:13 36.7 C 66 18 141/59 H 99 Room Air 11/12/23 11:22 36.5 C 60 18 136/73 Room Air 11/12/23 07:12 36.8 C 50 L 18 112/66 95 Room Air Laboratory Results Cardiac Enzymes 11/12/23 Range/Units 06:13 AST 15 (13-39) U/L Troponin I High Sens 13.9 (0-14) pg/ml CBC 11/12/23 Range/Units 06:13 WBC 8.16 (4.8-10.8) K/ul RBC 3.45 L (4.20-5.40) M/uL Hgb 10.8 L (12.0-16.0) g/dl Hct 32.2 L (37.0-47.0) % Plt Count 256 (130-400) K/uL Neut # (Auto) 3.84 (1.40-6.50) K/uL Lymph # (Auto) 2.89 (1.20-3.40) K/uL [place] # (Auto) 0.86 H (0.11-0.59) K/uL Eos # (Auto) 0.51 H (0.00-0.50) K/uL Baso # (Auto) 0.04 (0.00-0.20) K/uL Comprehensive Metabolic Panel 11/12/23 Range/Units 06:13 Sodium 134 L (136-145) mmol/L Potassium 3.7 (3.5-5.1) mmol/L Chloride 102 (98-107) mmol/L Carbon Dioxide 24 (21-32) mmol/L BUN 23 (6-23) mg/dl Creatinine 1.06 (0.6-1.2) mg/dl Glucose 95 (70-99(Fasting)) mg/dl Calcium 8.6 (8.6-10.3) mg/dl AST 15 (13-39) U/L ALT 9 (7-52) U/L Alkaline Phosphatase 50 (34-104) U/L Total Protein 5.9 L (6.0-8.3) gm/dl Albumin 3.6 (3.4-5.0) gm/dl Intake and Output 11/12/23 11/12/23 11/12/23 06:59 14:59 22:59 Intake Total 77.5 / 697.5 620 / 697.5 Output Total Balance 76.5 / 696.5 620 / 696.5 Intake: IV 77.5 / 77.5 Magnesium Sulfate / D5w 1 gm In 77.5 / 77.5 100 ml @ 50 mls/hr IV Q2H [facility] Rx#:[id number] Oral 620 / 620 Output: Urine # Bowel Movements Other: Other Intake Source # Unmeasured Voids Weight Weight Measurement Method Diagnostic Findings CT of the brain as performed on 11/11/2023 revealed no acute intracranial hemorrhage or acute intracranial process (2) HTN (hypertension) Hypertension type: primary hypertension Qualified Code(s): I10 - Essential (primary) hypertension
[2023-11-13 07:40] LABS: Basophils # (auto) 0.04 K/uL (0.00-0.20); Basophils % (auto) 0.4 %; Eosinophils # (auto) 0.34 K/uL (0.00-0.50); Eosinophils % (auto) 3.2 %; Hematocrit (blood only) 34.8 % (37.0-47.0); Hemoglobin 11.6 g/dl (12.0-16.0); Immature Granulocytes # (auto) 0.04 K/uL (0.01-0.20); Immature Granulocytes % (auto) 0.4 %; Lymphocytes # (auto) 3.46 K/uL (1.20-3.40); Lymphocytes % (auto) 32.8 %; Mean Corpuscular Hemoglobin 31.1 pg (25.0-34.0); Mean Corpuscular Hgb Conc 33.3 g/dL (32.0-36.0); Mean Corpuscular Volume 93.3 fL (80.0-100.0); Mean Platelet Volume 10.3 fL (9.4-12.4); Monocytes # (auto) 0.84 K/uL (0.11-0.59); Neutrophils # (auto) 5.83 K/uL (1.40-6.50); Neutrophils % (auto) 55.2 %; Platelet Count 313 K/uL (130-400); RDW Coefficient of Variation 14.6 % (11.5-14.5); Red Blood Count 3.73 M/uL (4.20-5.40); White Blood Count 10.55 K/ul (4.8-10.8)
[2023-11-13 07:51] LABS: Albumin Globulin Ratio 1.5 (0.9-2); Albumin Level 3.8 gm/dl (3.4-5.0); BUN Creatinine Ratio 21.3 (10-20); Bilirubin,Total 0.5 mg/dl (0.2-1.0); Calcium 8.8 mg/dl (8.6-10.3); Creatinine Clr Calc Pharmacy 31.6 ml/min; Est GFR (African American) 53.1 ml/min; Est GFR (Non-African American) 45.8 ml/min; Globulin 2.5 gm/dl (2.5-4.0); Magnesium 1.8 mg/dl (1.7-2.4); Phosphorus 4.7 mg/dl (2.5-4.9); Potassium 3.8 mmol/L (3.5-5.1); Total Protein 6.3 gm/dl (6.0-8.3)
[2023-11-13] MEDS: FUROSEMIDE 20 MG TAB PO ONE (09:08)
[2023-11-13] MEDS: SUMAtriptan succinate 50 MG TAB PO ONE (13:42)
--- NOTE | 2023-11-13 17:58 | Hospitalist Progress Note ---
Date of Service November 13, 2023 Assessment & Plan (1) Dizziness: Plan: Pt is a 88yoF with PMHx significant for SSS status post PPM on Eliquis, valvular heart disease (mild MR/TR, TTE 2023), pulmonary hypertension, hypertension, hyperlipidemia, DM 2 diet-controlled, hypothyroidism, chronic anemia (baseline hemoglobin 10-11), GERD, gout, skin presenting after a fall at home without LOC. She was admitted with hypertensive urgency. Dizziness Described as lightheadedness Possibly from uncontrolled blood pressure Orthostatics negative rule out pacemaker dysfunction, hx SSS status post PPM on Eliquis -pacemaker interrogated-no acute issues IV fluids Currently resolved UTI UA suggestive of infection Urine cx NGTD Second urine cx in 2 days Continue IV Rocephin Confusion Acute Likely in setting of UTI above Consider Delirium precautions. Frequent reorientation, avoid sedating medication Head CT on 11/07 and 11/10 with no acute abnormalities Consider brain MRI for persistence Headache Treated prn with tylenol One dose of imitrex given on 11/12 Family declining MRI, state pt was almost a code due to anxiety last time an MRI was attempted. Continue to monitor Hypertensive urgency Was on amlodipine 5 mg, lisinopril 20 mg, metoprolol succ 25 mg BID, and furosemide 20 mg as outpatient. BP significantly elevated on admission On admission, amlodipine and metoprolol were started. Currently on amlodipine 10mg and Toprol XL 25mg BID. Cardiology consulted -hold lasix -restart lisinopril at low dose 5mg Titrate home BP meds as needed Continue to monitor- currently controlled. Troponin elevation hs trop elevated at 23.2 to 26.9 EKG with NSR likely secondary to uncontrolled blood pressure Doubt ACS hyperlipidemia on statin Rx, continue DM 2 diet-controlled reasonable control as of recent hemoglobin A1c of 7.06 September 2023 basal/bolus insulin hypothyroidism euthyroid as of recent TSH chronic anemia hemoglobin better than previous baseline in Sep Diet: DMII/HH soft bite sized DVT prophylaxis: Eliquis, dose reduced Full code Dispo: PT recommending home with daughter Admission and Anticipated Discharge Date Admission Date: November 11, 2023 Subjective pt alert. Has headache, notes it is 5/10 family at bedside, concerned Review of Systems Review of Systems: All systems reviewed & are unremarkable except as noted in Subjective Physical Exam Physical Exam: General: Alert, oriented. Skin: No noted rashes or bruises Psych: Appropriate mood and affect Neuro: hearing loss HEENT: NC/AT, rolling mouth movement Chest: Nontender to palpation. CV: RRR, Normal s1, s2. No murmurs appreciated Resp: Breath sounds clear bilaterally, no increased effort of breathing. Abdomen: Soft, nontender, nondistended. Extremities: No edema in lower extremities bilaterally. Results & Data Results & Data Vital Signs (Past 12 Hours) Vital Signs Temp Pulse Pulse Resp BP Pulse Ox O2 Del Method 11/13/23 15:45 36.5 C 59 L 19 134/70 98 Room Air 11/13/23 15:00 60 11/13/23 11:48 36.4 C L 59 L 19 134/74 96 Room Air 11/13/23 09:11 66 11/13/23 07:19 58 L 11/13/23 07:08 36.6 C 60 18 123/63 93 Room Air
[2023-11-13] MEDS ORDERED: SUMAtriptan succinate 25 MG TAB PO PRN (21:51)
[2023-11-14 06:48] LABS: Basophils # (auto) 0.04 K/uL (0.00-0.20); Basophils % (auto) 0.5 %; Eosinophils # (auto) 0.37 K/uL (0.00-0.50); Eosinophils % (auto) 4.6 %; Hematocrit (blood only) 32.4 % (37.0-47.0); Hemoglobin 10.6 g/dl (12.0-16.0); Immature Granulocytes # (auto) 0.02 K/uL (0.01-0.20); Immature Granulocytes % (auto) 0.2 %; Lymphocytes # (auto) 2.75 K/uL (1.20-3.40); Lymphocytes % (auto) 34.1 %; Mean Corpuscular Hgb Conc 32.7 g/dL (32.0-36.0); Mean Corpuscular Volume 94.7 fL (80.0-100.0); Mean Platelet Volume 10.6 fL (9.4-12.4); Monocytes # (auto) 0.96 K/uL (0.11-0.59); Monocytes % (auto) 11.9 %; Neutrophils # (auto) 3.92 K/uL (1.40-6.50); Neutrophils % (auto) 48.7 %; Platelet Count 261 K/uL (130-400); RDW Coefficient of Variation 14.5 % (11.5-14.5); RDW Standard Deviation 50.1 fL (36.4-46.3); Red Blood Count 3.42 M/uL (4.20-5.40); White Blood Count 8.06 K/ul (4.8-10.8)
[2023-11-14 07:11] LABS: Albumin Globulin Ratio 1.6 (0.9-2); Albumin Level 3.5 gm/dl (3.4-5.0); BUN Creatinine Ratio 19.8 (10-20); Bilirubin,Total 0.4 mg/dl (0.2-1.0); Calcium 8.8 mg/dl (8.6-10.3); Creatinine Clr Calc Pharmacy 30.6 ml/min; Est GFR (African American) 51.3 ml/min; Est GFR (Non-African American) 44.3 ml/min; Globulin 2.2 gm/dl (2.5-4.0); Magnesium 1.6 mg/dl (1.7-2.4); Phosphorus 4.5 mg/dl (2.5-4.9); Potassium 4.4 mmol/L (3.5-5.1); Total Protein 5.7 gm/dl (6.0-8.3)
[2023-11-14] MEDS: MAGNESIUM SULFATE / D5W 1 GM/100 ML BAG IV SCH (10:01)
--- NOTE | 2023-11-14 14:07 | Discharge Summary ---
Discharge Summary Date of Service November 14, 2023 Notes For Next Care Provider Please ensure follow up with Cardiology Please ensure follow up with Nephrology Medication Changes From Visit - Lisinopril dose was decreased to 5mg - amlodipine dose was increased to 10mg -Eliquis dose was decreased to 2.5mg twice a day -Continue home metoprolol succinate dose of 25mg twice a day -sumatriptan NEEDED for headaches -cefdinir 300mg twice a day for four more days to complete treatment for urinary tract infection -STOP taking home Lasix/furosemide Admission HPI Per Admitting Provider History obtained from patient and records. 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 Last confinement September 2023 for dizziness described as lightheadedness. Patient felt lightheaded while standing in the kitchen making a sandwich yesterday. [place] like she was going to pass out. Subsequent fall without syncope, chest pain, SOB. Compliant with home medications. SBP 190s upon arrival at the ER. 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 Admission Exam Per Admitting Provider GENERAL: Comfortable, pleasant, slightly hard of hearing, dysarthric from being edentulous (chronic), no respiratory distress SKIN: Pallor, warm HEENT: Pale palpebral conjunctivae, no ptosis, dry buccal mucosa, edentulous NECK : Supple, no tenderness CHEST : CTA, no tenderness HEART : RRR, no obvious murmurs ABDOMEN: Some distention, nontender EXTREMITIES : No LE swelling/tenderness, no other conspicuous deformities noted NEUROLOGIC : Coherent, no facial asymmetry, slightly hard of hearing, gait and stance not assessed Principal Dx & Hospital Course #1 = Principal Diagnosis (1) Dizziness: Pt is a 88yoF with PMHx significant for SSS status post PPM on Eliquis, valvular heart disease (mild MR/TR, TTE 2023), pulmonary hypertension, hypertension, hyperlipidemia, DM 2 diet-controlled, hypothyroidism, chronic anemia (baseline hemoglobin 10-11), GERD, gout, skin presenting after a fall at home without LOC. She was admitted with hypertensive urgency. Dizziness Described as lightheadedness Possibly from uncontrolled blood pressure Orthostatics negative rule out pacemaker dysfunction, hx SSS status post PPM on Eliquis -pacemaker interrogated-no acute issues IV fluids Resolved on discharge. UTI UA suggestive of infection Urine cx NGTD Treated with IV Rocephin and transitioned to po cefdinir for 4 more days on discharge. PCP follow up Confusion Acute Metabolic Encephalopathy Likely in setting of UTI above Possible hospital delirium Delirium precautions. Frequent reorientation, avoid sedating medications Head CT on 11/07 and 11/10 with no acute abnormalities Treated with IV Rocephin and transitioned to po cefdinir for 4 more days on discharge as noted above for UTI. PCP follow up/continued monitoring Headache Treated prn with tylenol One dose of imitrex given on 11/12 Family declining MRI, state pt was almost a code due to anxiety last time an MRI was attempted. Improvement with imitrex, discharged with the same for prn use Hyponatremia Pt with known hyponatremia Sodium range of 130-138 Previously seen by Nephrology during last admission Recommended fluid restriction-1500ml Continue after discharge, Na 133 Continue with nephrology follow up after d/c Hypertensive urgency Was on amlodipine 5 mg, lisinopril 20 mg, metoprolol succ 25 mg BID, and furosemide 20 mg as outpatient. BP significantly elevated on admission On admission, amlodipine and metoprolol were re-started. Cardiology was consulted, and medication changes made: -discontinued lasix -amlodipine 10mg and Toprol XL 25mg BID. -Lisinopril dose was decreased to 5mg Titrate home BP meds as needed Continue to monitor- currently controlled on discharge Troponin elevation Demand Ischemia hs trop elevated at 23.2 to 26.9 EKG with NSR likely secondary to uncontrolled blood pressure Doubt ACS PAF On metoprolol succinate 25mg BID Eliquis decreased to 2.5mg BID hyperlipidemia on statin Rx, continue DM 2 diet-controlled reasonable control as of recent hemoglobin A1c of 7.06 September 2023 basal/bolus insulin PCP follow up on discharge hypothyroidism euthyroid as of recent TSH PCP followup chronic anemia hemoglobin better than previous baseline in Sep Stable Discharge Exam General: Alert, oriented. Skin: No noted rashes or bruises Psych: Appropriate mood and affect Neuro: hearing loss HEENT: NC/AT, rolling mouth movement Chest: Nontender to palpation. CV: RRR, Normal s1, s2. No murmurs appreciated Resp: Breath sounds clear bilaterally, no increased effort of breathing. Abdomen: Soft, nontender, nondistended. Extremities: No edema in lower extremities bilaterally. Updated Medication List Medication Instructions Recorded Confirmed Type allopurinol 300 mg tablet 300 mg PO DAILY 09/11/23 11/08/23 History atorvastatin 40 mg tablet 40 mg PO QAM 09/11/23 11/08/23 History levothyroxine 50 mcg tablet 50 mcg PO Q2D 09/11/23 11/08/23 History omeprazole 20 mg capsule,delayed 20 mg PO QAM 09/11/23 11/08/23 History release metoprolol succinate 25 mg 25 mg PO BID #60 tabs 09/23/23 11/08/23 Rx tablet,extended release 24 hr magnesium oxide 400 mg (241.3 mg 400 mg PO BID #60 tabs 09/29/23 11/08/23 Rx magnesium) tablet cholecalciferol (vitamin D3) 50 50 mcg PO QAM 11/08/23 11/08/23 History mcg (2,000 unit) capsule meclizine 25 mg tablet 25 mg PO TID PRN Dizziness Or 11/08/23 11/08/23 History Vertigo amlodipine 10 mg tablet 10 mg PO DAILY #30 tabs 11/14/23 Rx apixaban 2.5 mg tablet (Eliquis) 2.5 mg PO BID #60 tabs 11/14/23 Rx cefdinir 300 mg capsule 300 mg PO BID #8 caps 11/14/23 Rx lisinopril 5 mg tablet (Zestril) 5 mg PO QAM #30 tabs 11/14/23 Rx sumatriptan succinate 25 mg tablet 25 mg PO ONCE PRN migraine 11/14/23 Rx headache #14 tabs Hospital Stay Data Consultations 11/09/23 01:37 ED Decision to Admit Stat 11/09/23 10:56 Consult Cardiology Routine Diagnostic Imagining Performed 11/08/23 23:36 CT head/brain wo con Stat 11/11/23 10:[address] [CT head/brain wo con] Urgent Chest X-Ray 11/08/23 23:36 XR chest 1V portable CLINICAL HISTORY: trauma TECHNIQUE: Single frontal radiograph of the chest was obtained. Comparison: Comparison is made to chest radiograph 09/24/2023 FINDINGS: An implanted pacemaker is seen. Cardiomegaly is noted. The aortic arch is ca lcified. The lungs are clear. No evidence of pleural effusion or pneumothorax. IMPRESSION: No acute chest disease. Cardiomegaly is noted. ACT 112: Negative or not required by law. Electronically signed by: Teddy Joaquin M.D. 11/09/2023 7:[address] 11/08/23 23:36 Exam(s): CT HEAD Without Contrast EXAM: CT Head Without Intravenous Contrast CLINICAL HISTORY: Reason for exam: bee, dizziness, fall. TECHNIQUE: Axial computed tomography images of the head/brain without intravenous contrast. CTDI is 37.61 mGy and DLP is 546.36 mGy-cm. Automated exposure control was utilized for the study. A dose lowering technique was utilized adhering to the principles of ALARA. COMPARISON: CT Head dated 09/10/23 FINDINGS: Brain: Stable left parietal 5.5 x 4.1 x 4.4 cm extra-axial cystic lesion. Possible arachnoid cyst. Volume loss with prominent ventricles and sulci. Periventricular and subcortical white matter hypoattenuation likely reflects chronic small vessel disease. No hemorrhage. Ventricles: See above. Bones/joints: Unremarkable. No acute fracture. Soft tissues: Unremarkable. Sinuses: Unremarkable as visualized. No acute sinusitis. Mastoid air cells: Unremarkable as visualized. No mastoid effusion. IMPRESSION: No evidence of acute intracranial abnormality or skull fracture. Electronically signed by: Jv Bell M.D. 11/09/23 00:21 AM Pelvis X-Ray 11/08/23 23:36 XR pelvis 1-2V routine CLINICAL HISTORY: trauma TECHNIQUE: A single frontal view of the pelvis was obtained. Comparison: None available at the time of this dictation. FINDINGS: There is no evidence of an acute fracture. Joint spaces are well-preserved. No soft tissue abnormality is seen. IMPRESSION: No evidence of acute osseous injury. ACT 112: Negative or not required by law. Electronically signed by: Teddy Joaquin M.D. 11/09/2023 7:[address] 11/11/23 10:11 CT head/brain wo con CLINICAL HISTORY: increased lethargy Technique: Contiguous axial CT images of the head were acquired from the base of the skull to the vertex without intravenous contrast administration. Images were viewed in brain, subdural and bone windows. Automated dose lowering techniques and/or adjustment according to patient size were utilized for this exam. Comparison: Comparison is made to CT head 11/08/2023 Findings: There is a cystic lesion in the left posterior cranial compatible with arachnoid cyst. No acute abnormalities are seen. Imaged portions of the paranasal sinuses and mastoid air cells are clear. The orbits appear normal. There are no acute fractures of the calvaria or scalp swelling. Impression: No acute intracranial hemorrhage, no evidence of acute territorial infarction or other acute intracranial disease process. ACT 112: Negative or not required by law. Electronically signed by: Teddy Joaquin M.D. 11/11/2023 11:52 AM Pending Results Patient Have Any Pending Studies at Discharge: No Discharge Instructions Given to Patient (Per Discharging Provider) Ms. Purcell, You were admitted with concerns about dizziness and your blood pressure. Along with your broom builder, we made some changes to your medications: -Your Lisinopril dose was decreased to 5mg -Your amlodipine dose was increased to 10mg -Your Eliquis dose was decreased to 2.5mg twice a day -Continue with your home metoprolol succinate dose of 25mg twice a day -STOP taking your home Lasix/furosemide We started you on new medications: -Take the sumatriptan NEEDED for your headaches -Take the cefdinir 300mg twice a day for four more days to complete treatment for your urinary tract infection Please keep close follow up with your broom builder and arboriculture teacher after discharge. In addition, please keep close follow up with your primary care provider as well after discharge. Please do not hesitate to come back to the emergency room if your symptoms worsen or return. It was a pleasure taking care of you while you were here. Total Time Total Time Spent Total Time Spent (In Minutes): > 30 minutes
== END 2023-11-14 15:55 | disposition home or self-care (01) | DRG 304 ==
LOC: ED 20:27 → EDINP 20:27 → SUATTDRO 11-09 02:17 → 2S 11-09 03:10

== ENCOUNTER 2024-02-12 11:22 | Inpatient (IN) ==
--- NOTE | 2024-02-12 11:44 | Emergency Department Note ---
Impression & Plan Weakness, Acute confusion, Hypoxia ED Provider Note Name: JASPREET TOLENTINO Age: 88 Sex: Female Arrives Via: Ambulance Informant: Patient (poor historian), daughter at bedside ED Provider: Alberto Belcher MD Chief Complaint: Confusion Impression: As per impressions above Medical Decision Makin-year-old female arrives for evaluation of confusion and generalized weakness. Patient lives alone at home and was found this morning to be confused and not acting herself. Brought in by EMS. Nursing did note concern for possible facial droop versus weakness versus leaning to the right. On examination though no real neurologic deficits appreciated. She is on Eliquis a CT of the head was obtained which is unremarkable. She has no neurodeficits that would be suspicious for large vessel occlusion. Given symptoms since yesterday not a TNKase candidate. Laboratory workup is essentially unremarkable there is no clear evidence of infection urinalysis is clear. CT head looks good. She does have some mild hypoxia of uncertain etiology. I thought maybe she looks a bit dry given some fluids without really any change in her mental status. Discussed with hospitalist given symptoms and they will further evaluate her for possible hospitalization. Triage/Nursing Notes reviewed by Me Differential:Infection, dehydration, metabolic abnormality, hypo/hyperglycemia, electrolyte disturbance, anemia, hypoxia, cardiac sources, intracerebral event, toxicologic, neurologic, as well as other pathologies. Vital Signs: reviewed and remarkable for use of hypertension Interventions: Normal saline bolus Labs:ED labs Reviewed by me and remarkable for no significant abnormalities Imaging:CT of the head without contrast no acute intracranial hemorrhage appreciated per my informal interpretation. Confirmed by radiologist. 1 view chest x-ray as per my interpretation no infiltrate or effusion. Mild congestive findings no overt fluid overload. EKG:As per my interpretation. Indication weakness. Atrial paced 60 bpm with no ectopy nor ischemia. Compared to EKG February 04, 2024 she is now atrial paced Cardiac/Tele Monitoring: Cardiac Monitoring: An Order was placed for continuous cardiac monitoring. The monitor shows a rate of 60 with a paced rhythm. Consults:Dr Pastor hospitalist discussed and will bring in for further evaluation/management Plan: Disposition:Hospitalization. Condition: Good History of Present Illness: 88-year-old female arrives for evaluation of confusion. Patient was found by her daughter this morning at home alone confused and not acting herself. Slowed speech questionable left facial weakness and leaning to the right. She was her normal self yesterday reportedly. No reported falls, trauma, injuries. Patient is on Eliquis. Patient denies any pain. Nursing notes some weakness in the left arm. No interventions prior to arrival as patient arrived by EMS. Per nursing staff EMS had reported patient had diarrhea 2 days ago Past Medical History:See Below Home Medications:See Below Allergies:See Below Vitals:Blood Pressure: 197/95, Pulse 64, RR 20, T 36.3C, O2 88% on RA Physical Exam: GENERAL: Patient is tired/elderly/dry appearing and in minimal distress. RESPIRATORY: No dyspnea. Clear to auscultation and equal bilaterally. CARDIOVASCULAR: Regular rate and rhythm.No murmur appreciated. GASTROINTESTINAL: Abdomen soft, non-tender, no peritonitis. EXTREMITIES: Normal motion all extremities, no cyanosis, no edema. NEUROLOGIC: Alert and oriented to place though does appear a bit slow to answer some questions. No focal neurologic deficits appreciated SKIN: No rash, no jaundice, no diaphoresis. PSYCH: Appropriate GCS: 15 ED Course: Times/Reassessments: Minimal improvement with any IV fluids sats continued to run a bit on the low side. Alberto Belcher MD Past Med/Surg History Problem List (Updated 02/12/24 @ 15:13 by Alberto Belcher MD) Hypoxia (Acute) Acute confusion (Acute) Weakness (Acute) Asymptomatic hypertension (Acute) Hypertension (Acute) HTN (hypertension) Dizziness Elevated troponin (Acute) Hypomagnesemia (Acute) Fall (Acute) Headache (Acute) Lightheadedness (Acute) Ambulatory dysfunction SSS (sick sinus syndrome) Weakness (Acute) A-fib (Acute) Acute hyponatremia (Acute) Hyponatremia Hypomagnesemia Paroxysmal atrial fibrillation Diarrhea Chest pain (Acute) Pacemaker CKD (chronic kidney disease) Palpitations (Acute) MRI safe cardiac pacemaker in situ Bradycardia Headache (Acute) AVA (acute kidney injury) (Acute) Thyroid disease Gout High blood pressure Medical History HTN (hypertension) Hyponatremia Hypomagnesemia Diarrhea Pacemaker CKD (chronic kidney disease) Palpitations Left-sided headache Thyroid disease Gout High blood pressure Social History Smoking Status: Never smoker Hx Alcohol Use: No Hx Substance Use: No Preferred Language: [place]atian Communication Ability: Effective [employer] Required: No Beliefs That Will Affect Care: None Current Living Situation: Alone Current Living Situation Comment: daughter lives next door Feels Safe at Home: Yes Assistive Devices: Walker Allergies Allergies Allergy/AdvReac Type Severity Reaction Status Date / Time No Known Allergies Allergy Verified 02/05/24 01:32 Home Meds Home Medications Medication Instructions Recorded Confirmed allopurinol 300 mg tablet 300 mg PO QAM 09/11/23 02/12/24 atorvastatin 40 mg tablet 40 mg PO QAM 09/11/23 02/12/24 levothyroxine 50 mcg tablet 50 mcg PO DAILYBB 09/11/23 02/12/24 omeprazole 20 mg capsule,delayed 20 mg PO QAM 09/11/23 02/12/24 release cholecalciferol (vitamin D3) 50 50 mcg PO QAM 11/08/23 02/12/24 mcg (2,000 unit) capsule apixaban 2.5 mg tablet (Eliquis) 2.5 mg PO AMHS 01/30/24 02/12/24 furosemide 20 mg tablet 20 mg PO QAM 01/30/24 02/12/24 magnesium oxide 400 mg (241.3 mg 400 mg PO AMHS 01/30/24 02/12/24 magnesium) tablet carvedilol 25 mg tablet 25 mg PO BID 02/05/24 02/12/24 hydralazine 25 mg tablet 25 mg PO BID PRN .high bp 02/05/24 02/12/24 meclizine 25 mg tablet 25 mg PO TID PRN dizzyness 02/05/24 02/12/24 sumatriptan succinate 25 mg tablet 25 mg PO UD PRN Migraine Headache 02/05/24 02/12/24 lisinopril 5 mg tablet (Zestril) 5 mg PO BID 02/12/24 02/12/24 Results & Data (ED) Vital Signs Vital Signs - 24 hr 02/12/24 11:12 02/12/24 11:25 02/12/24 11:33 Temperature 36.3 C L Temperature Source Oral Pulse Rate 64 60 Pulse Rate from SpO2 Sensor 60 Pulse Rhythm Regular Pulse Strength Normal Respiratory Rate 20 25 H Respiratory Effort / Characteristics Non-Labored Spontaneous Respiratory Depth Normal Respiratory Pattern Regular Blood Pressure 197/95 H Blood Pressure Mean 129 Blood Pressure Position Sitting Pulse Oximetry 97 94 Oxygen Delivery Method Room Air Room Air Sepsis Recent Fever Within 48 Hours No Sepsis New/Unexplained Change in Mental Status No Sepsis Action Taken by Nursing No Action Required 02/12/24 11:42 02/12/24 12:00 02/12/24 12:15 Temperature Temperature Source Pulse Rate 61 79 63 Pulse Rate from SpO2 Sensor Pulse Rhythm Pulse Strength Respiratory Rate 15 16 Respiratory Effort / Characteristics Respiratory Depth Respiratory Pattern Blood Pressure Blood Pressure Mean Blood Pressure Position Pulse Oximetry Oxygen Delivery Method Sepsis Recent Fever Within 48 Hours Sepsis New/Unexplained Change in Mental Status Sepsis Action Taken by Nursing 02/12/24 12:30 02/12/24 12:33 02/12/24 13:15 Temperature Temperature Source Pulse Rate 67 71 Pulse Rate from SpO2 Sensor 71 Pulse Rhythm Pulse Strength Respiratory Rate 12 19 Respiratory Effort / Characteristics Respiratory Depth Respiratory Pattern Blood Pressure 197/89 H Blood Pressure Mean 143 Blood Pressure Position Pulse Oximetry 88 L Oxygen Delivery Method Sepsis Recent Fever Within 48 Hours Sepsis New/Unexplained Change in Mental Status Sepsis Action Taken by Nursing 02/12/24 13:36 02/12/24 14:00 Temperature Temperature Source Pulse Rate 63 63 Pulse Rate from SpO2 Sensor 63 63 Pulse Rhythm Pulse Strength Respiratory Rate 15 19 Respiratory Effort / Characteristics Respiratory Depth Respiratory Pattern Blood Pressure 189/84 H Blood Pressure Mean 119 Blood Pressure Position Pulse Oximetry 97 97 Oxygen Delivery Method Sepsis Recent Fever Within 48 Hours Sepsis New/Unexplained Change in Mental Status Sepsis Action Taken by Nursing Laboratory Data 02/12/24 11:29 02/12/24 11:29 Lab Results 02/12/24 02/12/24 02/12/24 Range/Units 11:29 12:45 Unknown WBC 9.19 (4.8-10.8) K/ul RBC 3.72 L (4.20-5.40) M/uL Hgb 11.2 L (12.0-16.0) g/dl Hct 34.8 L (37.0-47.0) % MCV 93.5 (80.0-100.0) fL MCH 30.1 (25.0-34.0) pg MCHC 32.2 (32.0-36.0) g/dL RDW Std Deviation 52.8 H (36.4-46.3) fL RDW Coeff of Adolfo 15.3 H (11.5-14.5) % Plt Count 237 (130-400) K/uL MPV 11.0 (9.4-12.4) fL Immature Gran % (Auto) 0.3 % Neut % (Auto) 61.8 % Lymph % (Auto) 26.3 % Wirt % (Auto) 6.7 % Eos % (Auto) 4.5 % Baso % (Auto) 0.4 % Neut # (Auto) 5.67 (1.40-6.50) K/uL Lymph # (Auto) 2.42 (1.20-3.40) K/uL Wirt # (Auto) 0.62 H (0.11-0.59) K/uL Eos # (Auto) 0.41 (0.00-0.50) K/uL Baso # (Auto) 0.04 (0.00-0.20) K/uL Immature Gran # (Auto) 0.03 (0.01-0.20) K/uL Sodium 140 (136-145) mmol/L Potassium 3.8 (3.5-5.1) mmol/L Chloride 104 (98-107) mmol/L Carbon Dioxide 29 (21-32) mmol/L Anion Gap 7 (3-11) BUN 35 H (6-23) mg/dl Creatinine 1.23 H (0.6-1.2) mg/dl Est Cr Clr Drug Dosing 27.8 ml/min Est GFR ( Amer) 45.4 ml/min Est GFR (Non-Af Amer) 39.1 ml/min BUN/Creatinine Ratio 28.5 H (10-20) Glucose 160 H (70-99(Fasting)) mg/dl Calcium 9.5 (8.6-10.3) mg/dl Magnesium 1.8 (1.7-2.4) mg/dl Total Bilirubin 0.5 (0.2-1.0) mg/dl Direct Bilirubin 0.1 (0-0.2) mg/dl AST 20 (13-39) U/L ALT 13 (7-52) U/L Alkaline Phosphatase 48 (34-104) U/L Troponin I High Sens 7.8 (0-14) pg/ml Total Protein 7.1 (6.0-8.3) gm/dl Albumin 4.0 (3.4-5.0) gm/dl Procalcitonin 0.02 (0-0.5) ng/ml Urine Color Yellow Urine Appearance Clear (Clear) Urine pH 7.0 (4.5-7.5) Ur Specific [place] 1.007 (1.000-1.030) Urine Protein Negative (Negative) Urine Glucose (UA) Negative (Negative) Urine Ketones Negative (Negative) Urine Blood Negative (Negative) Urine Nitrite Negative (Negative) Urine Bilirubin Negative (Negative) Urine Urobilinogen Negative (Negative) Ur Leukocyte Esterase Trace H (Negative) Urine WBC (Auto) 0-5 (0-5) /hpf Urine RBC (Auto) 0-2 (0-2) /hpf U Hyaline Cast (Auto) 0-2 (0-2) /lpf U Epithel Cells (Auto) 0-2 (0-2) /hpf Urine Bacteria (Auto) None Seen (None Seen) SARS-CoV-2 (PCR) NEGATIVE (Negative) Influenza Type A (PCR) Negative (Neg) Influenza Type B (PCR) Negative (Neg) RSV (RT-PCR) Negative (Neg) Administered Medications Discontinued Medications Sodium Chloride (Nss) 500 mls @ 999 mls/hr IV .Q31M ONE Stop: 02/12/24 12:11 Last Infusion: 02/12/24 13:41 Dose: Infused Documented By: Admin: 02/12/24 12:58 Dose: 999 mls/hr Documented By: BRANDI Imaging Data Radiologist's Impression: Chest X-Ray 02/12/24 11:41 XR chest 1V portable HISTORY: 88 years-old Female confusion acutely altered mental status COMPARISON: 2023 TECHNIQUE: AP view of the chest FINDINGS: Cardiac silhouette is enlarged. Dual-lead left subclavian pacer. No pneumothorax, pleural effusion, airspace consolidation or pulmonary edema. Bones of the chest appear grossly intact. IMPRESSION: Cardiomegaly without acute process of the chest. ACT 112: Negative or not required by law. The above report was generated using voice recognition software. It may contain grammatical, syntax or spelling errors. Electronically signed by: Jovanni Alan M.D. 02/12/2024 12:[address] 02/12/24 11:41 CT OF THE HEAD WITHOUT CONTRAST CLINICAL HISTORY: Confusion. COMPARISON STUDY: Head CT November 11, 2023. CT DOSE: 547.75 mGy.cm TECHNIQUE: Helical axial images of the head were obtained without IV contrast. Automated exposure control was utilized for the study. A dose lowering technique was utilized adhering to the principles of ALARA. FINDINGS: No acute intracranial hemorrhage is present. 5.9 cm CSF attenuation density overlying the left frontoparietal convexity is unchanged from earlier exams and favors an arachnoid cyst. White matter hypodensity suggests small vessel disease. The ventricular system is unremarkable. The basal cisterns are patent. No extra-axial collections are present. There are no findings to suggest acute dural sinus thrombosis or acute territorial infarct. No significant calvarial abnormalities are present. Visualized portions of the sinuses and mastoid air cells are clear. IMPRESSION: No acute intracranial findings. No change in appearance of the brain. ACT 112: Negative or not required by law. Electronically signed by: Dre Arceo M.D. 02/12/2024 12:41 PM Discharge Plan Visit Data Chief Complaint: Confusion ED Provider: Alberto Belcher Discharge Problem: Weakness, Acute confusion, Hypoxia Forms Stand Alone Forms: [facility] Prescriptions Prescriptions: No Action atorvastatin 40 mg tablet 40 mg PO QAM levothyroxine 50 mcg tablet 50 mcg PO DAILYBB omeprazole 20 mg capsule,delayed release(DR/EC) 20 mg PO QAM allopurinol 300 mg tablet 300 mg PO QAM cholecalciferol (vitamin D3) 50 mcg (2,000 unit) Capsule 50 mcg PO QAM carvedilol 25 mg tablet 25 mg PO BID sumatriptan succinate 25 mg Tablet 25 mg PO UD PRN (Reason: Migraine Headache) Rx Instructions: take 1 tab at onset of headache; if no relief may repeat 1 tab after at least 2 hrs; max = 4 tabs/24 hr hydralazine 25 mg tablet 25 mg PO BID PRN (Reason: .high bp) meclizine 25 mg Tablet 25 mg PO TID PRN (Reason: dizzyness) lisinopril [Zestril] 5 mg tablet 5 mg PO BID furosemide 20 mg tablet 20 mg PO QAM Eliquis 2.5 mg tablet 2.5 mg PO AMHS magnesium oxide 400 mg (241.3 mg magnesium) tablet 400 mg PO AMHS Referrals Referrals: Ricardo Guerra MD [Primary Care Provider] -
[2024-02-12 12:03] LABS: Basophils # (auto) 0.04 K/uL (0.00-0.20); Basophils % (auto) 0.4 %; Eosinophils # (auto) 0.41 K/uL (0.00-0.50); Eosinophils % (auto) 4.5 %; Hematocrit (blood only) 34.8 % (37.0-47.0); Hemoglobin 11.2 g/dl (12.0-16.0); Immature Granulocytes # (auto) 0.03 K/uL (0.01-0.20); Immature Granulocytes % (auto) 0.3 %; Lymphocytes # (auto) 2.42 K/uL (1.20-3.40); Lymphocytes % (auto) 26.3 %; Mean Corpuscular Hemoglobin 30.1 pg (25.0-34.0); Mean Corpuscular Hgb Conc 32.2 g/dL (32.0-36.0); Mean Corpuscular Volume 93.5 fL (80.0-100.0); Monocytes # (auto) 0.62 K/uL (0.11-0.59); Monocytes % (auto) 6.7 %; Neutrophils # (auto) 5.67 K/uL (1.40-6.50); Neutrophils % (auto) 61.8 %; Platelet Count 237 K/uL (130-400); RDW Coefficient of Variation 15.3 % (11.5-14.5); RDW Standard Deviation 52.8 fL (36.4-46.3); Red Blood Count 3.72 M/uL (4.20-5.40); White Blood Count 9.19 K/ul (4.8-10.8)
--- NOTE | 2024-02-12 12:04 | XRay Report ---
XR chest 1V portable HISTORY: 88 years-old Female confusion acutely altered mental status COMPARISON: 2023 TECHNIQUE: AP view of the chest FINDINGS: Cardiac silhouette is enlarged. Dual-lead left subclavian pacer. No pneumothorax, pleural effusion, a irspace consolidation or pulmonary edema. Bones of the chest appear grossly intact. IMPRESSION: Cardiomegaly without acute process of the chest. ACT 112: Negative or not required by law. The above report was generated using voice recognition software. It may contain grammatical, syntax o r spelling errors. Electronically signed by: Jovanni Alan M.D. 02/12/2024 12:03 PM
[2024-02-12 12:19] LABS: BUN Creatinine Ratio 28.5 (10-20); Bilirubin Direct 0.1 mg/dl (0-0.2); Bilirubin,Total 0.5 mg/dl (0.2-1.0); Calcium 9.5 mg/dl (8.6-10.3); Creatinine Clr Calc Pharmacy 27.8 ml/min; Est GFR (African American) 45.4 ml/min; Est GFR (Non-African American) 39.1 ml/min; Magnesium 1.8 mg/dl (1.7-2.4); Potassium 3.8 mmol/L (3.5-5.1); Total Protein 7.1 gm/dl (6.0-8.3)
[2024-02-12 12:24] LABS: Troponin I High Sensitivity 7.8 pg/ml (0-14)
--- NOTE | 2024-02-12 12:42 | CT Scan Report ---
CT OF THE HEAD WITHOUT CONTRAST CLINICAL HISTORY: Confusion. COMPARISON STUDY: Head CT November 11, 2023. CT DOSE: 547.75 mGy.cm TECHNIQUE: Helical axial images of the head were obtained without IV contrast. Automated exposure con trol was utilized for the study. A dose lowering technique was utilized adhering to the principles o f ALARA. FINDINGS: No acute intracranial hemorrhage is present. 5.9 cm CSF attenuation density overlying the l eft frontoparietal convexity is unchanged from earlier exams and favors an arachnoid cyst. [place] hypodensity suggests small vessel disease. The ventricular system is unremarkable. The basal ciste rns are patent. No extra-axial collections are present. There are no findings to suggest acute dural sinus thrombosis or acute territorial infarct. No significant calvarial abnormalities are present. Vi sualized portions of the sinuses and mastoid air cells are clear. IMPRESSION: No acute intracranial findings. No change in appearance of the brain. ACT 112: Negative or not required by law. Electronically signed by: Dre Arceo M.D. 02/12/2024 12:41 PM
[2024-02-12] MEDS: SODIUM CHLORIDE 0.9% 500 ML IV ONE (12:58)
[2024-02-12 13:25] LABS: Appearance Urine Clear (Clear); Bacteria Urine Automated None Seen (None Seen); Bilirubin Urine Negative (Negative); Blood Urine Negative (Negative); Cast Urine Automated 0-2 /lpf (0-2); Color Urine Yellow; Epithelial Cell Urine Auto 0-2 /hpf (0-2); Glucose Urine UA Negative (Negative); Ketones Urine Negative (Negative); Leukocyte Esterase Urine Trace (Negative); Nitrite Urine Negative (Negative); Protein Urine Negative (Negative); RBC Urine Automated 0-2 /hpf (0-2); Specific Gravity Urine 1.007 (1.000-1.030); Urobilinogen Urine Negative (Negative); WBC Urine Automated 0-5 /hpf (0-5)
[2024-02-12 14:15] LABS: Influenza A virus by PCR Negative (Neg); Influenza B virus by PCR Negative (Neg); RSV by PCR Negative (Neg); SARS CoV2 RNA(COVID-19) Ceph NEGATIVE (Negative)
--- NOTE | 2024-02-12 14:29 | History & Physical Report ---
Date of Service February 12, 2024 Assessment & Plan (1) Acute confusion: Plan: This is an 88 y/o female with hx sick sinus syndrome s/p PPM, pulmonary HTN, hyperlipidemia, diet-controlled DM, hypothyroidism, chronic anemia, GERD, and other history as outlined below who presents with episodic confusion and generalized weakness. BP in the ED was elevated with SBP initially > 200. Pt was also noted to be hypoxic on initial evaluation though no clear etiology identified - she has since been weaned to room air. Initial CT head was negative for stroke. Pt declines MRI to more definitively evaluate at this time. - Admit to PCU - Give dose of Coreg now then resume home osing - Add prn hydralazine IV for SBP >185 - If recurrent confusion or change in neurologic status overnight, consider repeat CT head since pt refuses MRI - PT/OT evaluations - Labs in the AM including B12 and folate, CBC, BMP. Blood cultures today to be complete. (2) Hypertensive urgency: Plan: BP has been labile and difficult to control per pt's family and review of the outpatient records. Multiple medication changes in the last month. Holding lisinopril and furosemide at present due to mild creatinine elevation, clinical mild dehydration Labs in the AM Consult cardiology for assistance with managing BP as they have been adjusting pt's medications as outpatient (3) Diarrhea: Plan: Single episode this morning. Pt is afebrile, no leukocytosis If recurrent, consider stool studies (4) Hypothyroidism: Plan: Chronic, stable Check TSH Continue levothyroxine (5) GERD without esophagitis: Plan: Chronic, stable Continue PPI (6) Paroxysmal atrial fibrillation: Plan: Chronic, stable Continue beta edita Continue chronic AC with apixaban Plan Pt seen and reviewed with collaborating physician, Dr. Pastor. Plan of care discussed and as outlined above. Code Status: Full code but no prolonged measures DVT Prophylaxis: on apixaban Dispo: PCU Tucker Yates PA-C History of Present Illness Chief Complaint: confusion Primary Care Provider: Ricardo Guerra MD This is an 88 y/o female with hx sick sinus syndrome s/p PPM, pulmonary HTN, hyperlipidemia, diet-controlled DM, hypothyroidism, chronic anemia, GERD, and other history as outlined below who presents with episodic confusion and generalized weakness. History obtained from the patient, the pt's daughter and son at the bedside, and from review of her outpatient records with [facility]. Family reports that last night, pt was in her usual state of health. However, when her daughter came over this morning, she found pt more confused than usual, which she describes as pt being "out of it" and disoriented but still able to recognize her family. She also noted that patient had an episode of diarrhea this morning. No recent fevers, chills, vomiting, cough, congestion, runny nose, or urinary symptoms. Pt and family deny any recent falls. Pt has been taking her medications as prescribed (her daughter manages these). She lives alone but her daughter lives in the same building and spends most of her time with the patient. Her family has no concerns with her living situation at present. Of note, her BP over the last several weeks has been difficult to control. Home readings have varied with a systolic BP as high as 215 on 02/04/24. Her medications have been adjust multiple times with Coreg increased to 25 mg BID, prn hydralazine added for SBP >170, and lisinopril increased to 5 mg BID. Pt's daughter does not feel like the hydralazine helped at all. Lisinopril was just increased a few days ago so unsure if this has helped. Family does note that pt's grandson surprised her with a visit two days ago and spent time with her this weekend. They are concerned about the excitement of the weekend potentially affecting her health. Currently, the patient's only complaint is a headache. Her Blood Pressures from Home Health were: Allergies Allergy/AdvReac Type Severity Reaction Status Date / Time No Known Allergies Allergy Verified 02/05/24 01:32 Home Medications Medication Instructions Recorded Confirmed Type allopurinol 300 mg tablet 300 mg PO QAM 09/11/23 02/12/24 History atorvastatin 40 mg tablet 40 mg PO QA 09/11/23 02/12/24 History levothyroxine 50 mcg tablet 50 mcg PO DAILYBB 09/11/23 02/12/24 History omeprazole 20 mg capsule,delayed 20 mg PO QAM 09/11/23 02/12/24 History release cholecalciferol (vitamin D3) 50 50 mcg PO QAM 11/08/23 02/12/24 History mcg (2,000 unit) capsule apixaban 2.5 mg tablet (Eliquis) 2.5 mg PO [facility] 01/30/24 02/12/24 History furosemide 20 mg tablet 20 mg PO QAM 01/30/24 02/12/24 History magnesium oxide 400 mg (241.3 mg 400 mg PO [facility] 01/30/24 02/12/24 History magnesium) tablet carvedilol 25 mg tablet 25 mg PO BID 02/05/24 02/12/24 History hydralazine 25 mg tablet 25 mg PO BID PRN .high bp 02/05/24 02/12/24 History lisinopril 5 mg tablet (Zestril) 5 mg PO BID 02/12/24 02/12/24 History Past Med/Surg History Problem List (Updated 02/12/24 @ 20:36 by Mahsa Yates PA-C) GERD without esophagitis Hypothyroidism Hypertensive urgency Hypoxia (Acute) Acute confusion (Acute) Weakness (Acute) Asymptomatic hypertension (Acute) Elevated troponin (Acute) Headache (Acute) Ambulatory dysfunction Paroxysmal atrial fibrillation Diarrhea Pacemaker Palpitations (Acute) Headache (Acute) Gout Medical History SSS (sick sinus syndrome) A-fib HTN (hypertension) CKD (chronic kidney disease) MRI safe cardiac pacemaker in situ Thyroid disease Left-sided headache Surgical History History of permanent cardiac pacemaker placement Family History (Updated 02/12/24 @ 20:30 by Mahsa Yates PA-C) Other Family history non-contributory Social History Smoking Status: Never smoker Hx Alcohol Use: No Hx Substance Use: No Preferred Language: Ecuadorean Communication Ability: Effective [employer] Required: No Beliefs That Will Affect Care: None Current Living Situation: Alone Current Living Situation Comment: daughter lives next door Feels Safe at Home: Yes Assistive Devices: Walker Review of Systems 2 Review of Systems: Limited secondary to intermittent confusion - see HPI Physical Exam 2 Physical Exam: General: awake, alert, NAD, Ox1. +hard of hearing Eyes: PERRL, EOMI Mouth: edentulous, tongue midline, uvula rises symmetrically with phonation Neck: supple Heart: RRR Lungs: CTA bilaterally on the anterior Abdomen: soft, NT, +BS Extremities: no pedal edema, radial pulses 2+ and equal, set up mechanic automatic line strength equal bilaterally Skin: no jaundice Neurologic: oriented to person, moving all extremities equally, no facial droop Results & Data Results & Data Vital Signs (Past 12 Hours) Vital Signs Temp Pulse Resp BP Pulse Ox O2 Del Method 02/12/24 14:00 63 19 189/84 H 97 02/12/24 13:36 63 15 97 02/12/24 13:15 71 19 88 L 02/12/24 12:33 67 12 02/12/24 12:30 197/89 H 02/12/24 12:15 63 16 02/12/24 12:00 79 15 02/12/24 11:42 61 02/12/24 11:33 60 25 H 94 02/12/24 11:25 Room Air 02/12/24 11:12 36.3 C L 64 20 197/95 H 97 Room Air Laboratory Results Lab Results 02/12/24 02/12/24 02/12/24 Range/Units 11:29 12:45 Unknown WBC 9.19 (4.8-10.8) K/ul RBC 3.72 L (4.20-5.40) M/uL Hgb 11.2 L (12.0-16.0) g/dl Hct 34.8 L (37.0-47.0) % MCV 93.5 (80.0-100.0) fL MCH 30.1 (25.0-34.0) pg MCHC 32.2 (32.0-36.0) g/dL RDW Std Deviation 52.8 H (36.4-46.3) fL RDW Coeff of Adolfo 15.3 H (11.5-14.5) % Plt Count 237 (130-400) K/uL MPV 11.0 (9.4-12.4) fL Immature Gran % (Auto) 0.3 % Neut % (Auto) 61.8 % Lymph % (Auto) 26.3 % Barren % (Auto) 6.7 % Eos % (Auto) 4.5 % Baso % (Auto) 0.4 % Neut # (Auto) 5.67 (1.40-6.50) K/uL Lymph # (Auto) 2.42 (1.20-3.40) K/uL Barren # (Auto) 0.62 H (0.11-0.59) K/uL Eos # (Auto) 0.41 (0.00-0.50) K/uL Baso # (Auto) 0.04 (0.00-0.20) K/uL Immature Gran # (Auto) 0.03 (0.01-0.20) K/uL Sodium 140 (136-145) mmol/L Potassium 3.8 (3.5-5.1) mmol/L Chloride 104 (98-107) mmol/L Carbon Dioxide 29 (21-32) mmol/L Anion Gap 7 (3-11) BUN 35 H (6-23) mg/dl Creatinine 1.23 H (0.6-1.2) mg/dl Est Cr Clr Drug Dosing 27.8 ml/min Est GFR ( Amer) 45.4 ml/min Est GFR (Non-Af Amer) 39.1 ml/min BUN/Creatinine Ratio 28.5 H (10-20) Glucose 160 H (70-99(Fasting)) mg/dl Calcium 9.5 (8.6-10.3) mg/dl Magnesium 1.8 (1.7-2.4) mg/dl Total Bilirubin 0.5 (0.2-1.0) mg/dl Direct Bilirubin 0.1 (0-0.2) mg/dl AST 20 (13-39) U/L ALT 13 (7-52) U/L Alkaline Phosphatase 48 (34-104) U/L Troponin I High Sens 7.8 (0-14) pg/ml Total Protein 7.1 (6.0-8.3) gm/dl Albumin 4.0 (3.4-5.0) gm/dl Procalcitonin 0.02 (0-0.5) ng/ml Urine Color Yellow Urine Appearance Clear (Clear) Urine pH 7.0 (4.5-7.5) Ur Specific [place] 1.007 (1.000-1.030) Urine Protein Negative (Negative) Urine Glucose (UA) Negative (Negative) Urine Ketones Negative (Negative) Urine Blood Negative (Negative) Urine Nitrite Negative (Negative) Urine Bilirubin Negative (Negative) Urine Urobilinogen Negative (Negative) Ur Leukocyte Esterase Trace H (Negative) Urine WBC (Auto) 0-5 (0-5) /hpf Urine RBC (Auto) 0-2 (0-2) /hpf U Hyaline Cast (Auto) 0-2 (0-2) /lpf U Epithel Cells (Auto) 0-2 (0-2) /hpf Urine Bacteria (Auto) None Seen (None Seen) SARS-CoV-2 (PCR) NEGATIVE (Negative) Influenza Type A (PCR) Negative (Neg) Influenza Type B (PCR) Negative (Neg) RSV (RT-PCR) Negative (Neg) Diagnostic Findings Chest X-Ray 02/12/24 11:41 XR chest 1V portable HISTORY: 88 years-old Female confusion acutely altered mental status COMPARISON: 2023 TECHNIQUE: AP view of the chest FINDINGS: Cardiac silhouette is enlarged. Dual-lead left subclavian pacer. No pneumothorax, pleural effusion, airspace consolidation or pulmonary edema. Bones of the chest appear grossly intact. IMPRESSION: Cardiomegaly without acute process of the chest. ACT 112: Negative or not required by law. The above report was generated using voice recognition software. It may contain grammatical, syntax or spelling errors. Electronically signed by: Jovanni Alan M.D. 02/12/2024 12:[address] 02/12/24 11:41 CT OF THE HEAD WITHOUT CONTRAST CLINICAL HISTORY: Confusion. COMPARISON STUDY: Head CT November 11, 2023. CT DOSE: 547.75 mGy.cm TECHNIQUE: Helical axial images of the head were obtained without IV contrast. Automated exposure control was utilized for the study. A dose lowering technique was utilized adhering to the principles of ALARA. FINDINGS: No acute intracranial hemorrhage is present. 5.9 cm CSF attenuation density overlying the left frontoparietal convexity is unchanged from earlier exams and favors an arachnoid cyst. White matter hypodensity suggests small vessel disease. The ventricular system is unremarkable. The basal cisterns are patent. No extra-axial collections are present. There are no findings to suggest acute dural sinus thrombosis or acute territorial infarct. No significant calvarial abnormalities are present. Visualized portions of the sinuses and mastoid air cells are clear. IMPRESSION: No acute intracranial findings. No change in appearance of the brain. ACT 112: Negative or not required by law. Electronically signed by: Dre Arceo M.D. 02/12/2024 12:41 PM Medications Administered Discontinued Medications Sodium Chloride (Nss) 500 mls @ 999 mls/hr IV .Q31M ONE Stop: 02/12/24 12:11 Last Infusion: 02/12/24 13:41 Dose: Infused Documented By: Admin: 02/12/24 12:58 Dose: 999 mls/hr Documented By: BRANDI Supervising Physician Co-Signing Physician Notes I have seen and discussed the case with the collaborating advanced practitioner. I agree with the above H&P. I have reviewed and confirmed the patients medical history, the findings on physical examination, and the patients diagnosis and treatment plan with Trudy CROCKER and agree with the information documented. In short, is a sick sinus syndrome s/p PPM, pulmonary HTN, hyperlipidemia, diet-controlled DM, hypothyroidism, chronic anemia, GERD who is admitted for evaluation of episodic confusion. Patient has been in usual state of health, but as of this morning has been confused per son and daughter. Patient is unable to recall episode stating she has a headache on her right scientology. She denies vision changes. She answers questions seemingly appropriate; however, daughter and son at bedside refute the answers--example, patient states headache last 1 week, children state she has only mentioned this morning. Patient is otherwise negative for ROS out side of intermittent confusion and weakness, as well as headache. When discussing MRI, patient adamantly declined. Daughter manages all medications. Reports frustration with multiple changes over last year. Pressures persist in 190s-200s GENERAL APPEARANCE: AxOx 1, aware of self, generally well-appearing , very hard of hearing HEENT: NC, AT. MMM. EOMI,edentulous NECK: Supple without lymphadenopathy. No stiffness or restricted ROM. HEART: Normal rate and regular rhythm, normal S1/S1, no m/r/g LUNGS: CTAB, moving air well. No crackles or wheezes are heard. ABDOMEN: Soft, nontender, nondistended with good bowel sounds heard. BACK: No CVAT, no obvious deformity. EXTREMITIES: Without cyanosis, clubbing or edema. NEUROLOGICAL: Grossly nonfocal. Alert and oriented, moving all 4 extremities. CN not formally tested but appear grossly intact. Observed to ambulate with normal gait. Skin: Warm and dry without any rash. #Hypertensive Urgency #liable BP -Pressures trending in the 190s-200s persistently s/p home coreg with pressure to 160s Hydralazine 5mg IV prn SBP 185 holding lisinopril iso AVA Given age, will puruse more liberal control at this time, however, as cardiology managing and making majority adjustments/per request of family, will consult for med optimization #Headache Given temporal area, ESR/CRP ordered: negative, low concern for GCA Tylenol, analgesia prn BP management #AVA on ckd repeat BMP in am s/p IVF hold lisinopril #Acute encephalopathy Unclear etiology, UA negative, potentially related to dehydration/AVA s/p IVF CT head negative, however patient declined MRI No focal deficits on exam if no improvement would repeat CT head in 24-48 hours rest of plan as above I spent a total of 35 minutes coordinating, documenting, and providing care for this patient excluding time spent in the performance of separately billed services. All of the aforementioned completed outside of collaborating with the assigned advanced practitioner for a full treatment plan. I have reviewed the advanced practitioner's documentation, and I agree with, and take responsibility for the plan of care (3) Diarrhea Diarrhea type: unspecified type Qualified Code(s): R19.7 - Diarrhea, unspecified (4) Hypothyroidism Hypothyroidism type: unspecified Qualified Code(s): E03.9 - Hypothyroidism, unspecified
[2024-02-12 15:42] LABS: Thyroid Stimulating Hormone 1.819 uIu/ml (0.300-4.500)
[2024-02-12] MEDS: hydrALAZINE HCL 20 MG/ML VIAL IV PRN (16:00)
[2024-02-12] MEDS: ACETAMINOPHEN 500 MG TAB PO STA (16:00)
[2024-02-12] MEDS: carvediloL 25 MG TAB PO ONE (16:23)
[2024-02-12] MEDS ORDERED: ACETAMINOPHEN 325 MG TAB PO PRN (17:14)
--- NOTE | 2024-02-12 17:32 | Electrocardiogram Report ---
Test Reason : Blood Pressure : / mmHG Vent. Rate : 060 BPM Atrial Rate : 060 BPM P-R Int : 198 ms QRS Dur : 094 ms QT Int : 434 ms P-R-T Axes : 026 -02 035 degrees QTc Int : 434 ms Atrial-paced rhythm Cannot rule out Inferior infarct , age undetermined Abnormal ECG When compared with ECG of 04-FEB-2024 23:55, Electronic atrial pacemaker has replaced Sinus rhythm Incomplete right bundle branch block is no longer Present Minimal criteria for Inferior infarct are now Present Confirmed by Ronny Yeh ([id number]) on 02/12/2024 5:32:07 PM Referred By: Confirmed By:Ian Yeh
--- OUTSIDE RECORDS SUMMARY | 2024-02-12 19:34 | External Medical Summary | Summary of Care ---
Author Name Unknown Organization [facility] Address [address] [facility] [place] [address] Phone [phone] Care Team Providers Care Accounting Office Manager Name Role Phone Ricardo Guerra MD Primary Care Provider +1- [phone] Encounter Details Date Type Department Care Team (Late st Contact Info) Description 02/12/2024 Population Health External Data Unspecified Department Allergies No known active allergiesdocumented as of this encounter (statuses as of 02/12/2024) Medications Medication Sig Dispensed Refills Start Date End Date Status Omeprazole 20 MG Oral Capsule Delayed Release (PriLOSEC)Indicatio ns:Encounter for long-term (current) use of medications,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 TAKE 1 CAPSULE BY MOUTH EVERY DAY IN THE MORNING 90 Capsule 1 08/21/2023 Active Allopurinol 300 MG Oral Tablet (Zyloprim)Indicatio ns:Gout, unspecified cause, unspecified chronicity, unspecified site TAKE 1 TABLET BY MOUTH EVERY DAY IN THE MORNING 90 Tablet 1 08/21/2023 Active Magnesium Oxide -Mg Supplement 400 (240 Mg) MG Oral Tablet (Mag-Ox) Take 1 Tablet by mouth in the morning and 1 Tablet before bedtime. 60 Tablet 3 10/06/2023 Active Vitamin D3 50 MCG (2000 UT) Oral Capsule Take 1 Capsule by mouth in the morning. 10/06/2023 Active Levothyroxine Sodium 50 MCG Oral Tablet (Levoxyl) TAKE 1 TABLET BY MOUTH EVERY DAY AT LEAST 30 MIN BEFORE BREAKFAST OR OTHER MEDICATION 90 Tablet 1 12/01/2023 Active Lisinopril 5 MG Oral Tablet (Prinivil) Take 1 Tablet by mouth in the morning. 90 Tablet 3 12/08/2023 Active Apixaban 2.5 MG Oral Tablet (Eliquis) Take 1 Tablet by mouth in the morning and 1 Tablet before bedtime. 180 Tablet 3 12/15/2023 Active Ferrous Sulfate 325 (65 Fe) MG Oral Tablet Delayed Release Take 1 Tablet by mouth every other day. Active Atorvastatin Calcium 40 MG Oral Tablet (Lipitor)Indication s:Dyslipidemia TAKE 1 TABLET BY MOUTH EVERY DAY IN THE MORNING 90 Tablet 3 01/23/2024 Active Furosemide 20 MG Oral Tablet (Lasix) Take 1 Tablet by mouth in the morning. 01/29/2024 Active Carvedilol 25 MG Oral Tablet (Coreg) Take 1 Tablet by mouth in the morning and 1 Tablet before bedtime. 180 Tablet 3 02/02/2024 Active hydrALAZINE HCl 25 MG Oral Tablet (Apresoline) Take 1 Tablet by mouth 2 times a day as needed for Hypertension. 60 Tablet 11 02/02/2024 Active documented as of this encounter (statuses as of 02/12/2024) Active Problems Problem Noted Date Diagnosed Date Migraine without status migrainosus, not intract able 11/20/2023 Sick sinus syndrome 11/16/2023 Chronic kidney disease, stage 3b 11/16/2023 Hypothyroidism 11/16/2023 Age-related osteoporosis wit hout current pathological fracture 11/16/2023 Hyperlipidemia 11/16/2023 Arachnoid cyst 10/06/2023 Last Assessment & Plan: Followed by neurosurgery Paroxysmal atrial fibrillation 10/04/2023 Last Assessment & Plan: Rate controlled on metoprolol Apixaban stroke prophylaxis S/P placement of cardiac pacemaker 10/04/2023 Overview: Dual chamber pacemaker placed 09/15/23 Type 2 diabetes mellitus wit h stage [...] A1c goal of less than 8.0% 02/05/2021 Last Assessment & Plan: "RED FLAG" Diabetic symptoms: Vision Changes and Nausea / Vomiting Goal HgbA1c <8 Diabetic Complications Renal (example: CKD, Proteinuria, Dialysis) Medication Regimen Lifestyle Modification / Monitoring ONLY DM Secondary Prevention MARLON Inhibitor / ARB Moderate-High Intensity Statin Additional Comments Most recent A1c at goal (6.9) Benign hypertension with stage 3b chronic kidney disease 01/12/2021 Overview: Per CKD protocol Last Assessment & Plan: BP stable today Recent adjustments made in meds Lisinopril decreased to 5mg Amlodipine increased to 10mg Lasix d/c Will monitor leg swelling and report if continues to increase Primary open-angle glaucoma, bilateral, moderate stage 10/04/2019 Gastroesophageal reflux disease without esophagi tis 10/04/2019 History of nonmelanoma skin cancer 02/05/2018 Overview: BCC on the left nose 2015 Vitamin D deficiency 06/23/2017 HTN, goal below 150/90 09/08/2015 documented as of this encounter (statuses as of 02/12/2024) Resolved Problems Problem Noted Date Diagnosed Date Resolved Date SSS (sick sinus syndrome) 10/04/2023 Type 2 diabetes mellitus wit h [...] disease 07/16/2019 07/16/2020 Overview: Per CKD protocol Acquired hypothyroidism 07/04/201912/03 Last Assessment & Plan: Continue levoxyl Benign hypertension with chr onic kidney disease, stage III 06/23/2017 01/14/2021 Overview: Per CKD protocol History of gout 06/23/2017 10/29/2018 Primary open-angle glaucoma, moderate stage 06/23/2017 02/20/2020 Overview: history Acute gout involving toe of left foot 12/20/2016 06/23/2017 Kidney disease, chronic, sta ge III (GFR 30-59 ml/min) 09/12/2016 12/15/2017 Overview: Per CKD protocol #1 High risk for fracture due t o osteoporosis by DEXA scan 10/06/2015 12/19/2023 Dyslipidemia 09/08/2015 12/19/2023 documented as of this encounter (statuses as of 02/12/2024) Immunizations Name Administration Dates Next Due COVID-19 mRNA, LNP-s, No Pre serve, 2-Dose Series ([employer]) 01/06/2021,12/16/2020 Pneumococcal Conjugate Vacc, 13 Valent (Prevnar) [...] Packs/Day Years Used Date Smoking Tobacco: Never Passive Smoke Exposure: Past Smokeless Tobacco: Never Alcohol Use Standard Drinks/Week Comments No 0 (1 standard drink = 0.6 oz pur e alcohol) PHQ-2 Answer Date Recorded PHQ Adult Total Score 0 12/28/2023 Hunger Vital Sign Answer Date Recorded Within the past 12 months, y ou worried that your food would run out before you got the money to buy more. Patient declined Within the past 12 months, t he food you bought just didn't last and you didn't have money to get more. Patient declined Sex and Gender Information Value Date Recorded [...] Care Team (Late st Contact Info) Description 02/12/2024 2:20 PM EDT Office Visit [place] [address] [place] [phone] Ricardo Guerra MD [address] [place] [address] 02/15/2024 8:00 AM EDT Home Visit [facility] [address] [place] [address] [facility] Interior Block Wirer [address] [place] [address] 02/20/2024 12:50 PM EDT Laboratory Laboratory, [place] [address] [place] [phone] [facility] [address] [place] [address] 02/29/2024 3:40 PM EDT Office Visit [place] [address] [facility] [place] [phone] Chano Guo MD [address] [facility] [place] [address] 03/04/2024 12:30 PM EDT Home Visit [facility], [facility] 132 [facility] [place] [address] America Red, RN 132 [facility] [place] [address] 03/11/2024 2:00 PM EDT [address], [address] [address] 03/12/2024 1:30 PM EDT Office Visit Cardiology, [facility] 132 [facility] [place] [address] Magalys Griffiths CRNP 400 [facility] [place] [address] 05/14/2024 5:40 PM EDT Office Visit [place] [address] [facility] [place] [address] Ricardo Guerra MD [address] [place] [address] 06/06/2024 12:30 PM EDT Office Visit Ophthalmology, [facility] 132 [facility] [place] [address] Kwan Robb DO 21 [facility] [place] [address] Health Maintenance Due Date Last Done Comments *BISPHONATE OR OTHER ACCEPTABLE MEDICATION NEEDED FOR OSTEOPOROSIS (REFER TO SMARTSET #1146) 10/08/2015 DXA Scan 08/31/2022 08/31/2020, 06/02/2018, 09/11/2015 COVID-19 Vaccine ( season) 2023 08/18/2021, 01/06/2021, 12/16/2020 *NEPHROLOGY REFERRAL DUE TO RESISTANT HTN 02/04/2024 Influenza Vaccine (FLU shot) (Season Ended) 2024 06/21/2022, 05/27/2021, 05/15/2020, Additional history exists HbA1c 06/29/2024 12/29/2023, 02/02, 03/21/2022, Additional history exists Diabetic Eye Exam 10/31/2024 10/31/2023, , 07/12/2011, Additional history exists Diabetic Foot Exam 11/15/2024 11/16/2023, 0 03/21/2022, 10/04/2019 Depression Screening 12/27/2024 12/28/2023 Albumin/Creatinine Ratio 12/28/2024 024, 02/17/2023, 03/21/2022 CKD HGB USE SMARTSET 63789 12/28/202412/28, 12/29/2023, 02/16/2023, Additional history exists CKD PHOS USE SMARTSET 14754 12/28/202412/04, 02/16/2023, 03/21/2022, Additional history exists TSH 12/28/2024 12/29/2023, 02/02, 02/06/2023, Additional history exists DTaP,Tdap,and Td Vaccines Discontinued 03/30/2005 Pneumococcal Vaccine: 65+ Years Completed 12/15/2015, 05/29/2001 Zoster Vaccines Completed 08/01/2018, 03/05, 06/04/2010 VITAMIN D LEVEL ONCE IN A LIFETIME-USE SMARTSET# [id number] Completed 03/21/2022, 02/05/2021, 03/02/2020, Additional history exists [...] filedocumented as of this encounter Care Teams Accounting Office Manager Relationship Specialty Start Date End Date Ricardo Guerra MD [address] [place] [address] PCP - General Family Medicine 08/24/15 documented as of this encounter
--- OUTSIDE RECORDS SUMMARY | 2024-02-12 19:34 | External Medical Summary | Summary of Care ---
Author Name Unknown Organization [facility] Address [address] [place] [address] Phone [phone] Care Team Providers Care Wood Strip Block Floor Installer Name Role Phone Ricardo Guerra MD Primary Care Provider [phone]- [phone] Encounter Details Date Type Department Care Team (Late st Contact Info) Description 02/09/2024 Population Health External Data Unspecified Department Allergies No known active allergiesdocumented as of this encounter (statuses as of 02/09/2024) Medications Medication Sig Dispensed Refills Start Date [...] as of this encounter (statuses as of 02/09/2024) Active Problems Problem Noted Date Diagnosed Date [...] as of this encounter (statuses as of 02/09/2024) Resolved Problems Problem Noted Date Diagnosed Date [...] as of this encounter (statuses as of 02/09/2024) Immunizations Name Administration Dates Next Due COVID-19 mRNA, LNP-s, No Pre serve, 2-Dose Series ([employer]) 01/06/2021,12/16/2020 Pneumococcal Conjugate Vacc, 13 Valent (Prevnar) [...] Description 02/12/2024 2:20 PM EDT Office Visit [place] [address] [place] [phone] Ricardo Guerra MD [address] [place] [address] 02/15/2024 8:00 AM EDT Home Visit [facility] [address] [place] [address] [facility] [address] [place] [address] 02/20/2024 12:50 PM EDT Laboratory Laboratory, [place] [address] [place] [phone] [facility] [address] [place] [address] 02/29/2024 3:40 PM EDT Office Visit [place] [address] [place] [facility] [place] [place] [phone] Chano Guo MD [address] [place] [facility] [place] [place] [address] 03/04/2024 12:30 PM EDT Home Visit [facility], [facility] 132 [facility] [place] [address] America Red, RN 132 [facility] [place] [address] 03/11/2024 2:00 PM EDT Imaging Radiology, [address] [address] 03/12/2024 1:30 PM EDT Office Visit Cardiology, [facility] 132 [facility] [place] [address] Magalys Griffiths CRNP 400 [facility] [place] [address] 05/14/2024 5:40 PM EDT Office Visit [place] [address] [place] [facility] [place] [phone] Ricardo Guerra MD [address] [place] [address] 06/06/2024 12:30 PM EDT Office Visit Ophthalmology, [facility] 132 [facility] [place] [address] Kwan Robb DO 21 [facility] [place] [address] Health Maintenance Due Date Last Done Comments [...] 024, 02/17/2023, 03/21/2022 CKD HGB USE SMARTSET 02742 12/28/202412/28, 12/29/2023, 02/16/2023, Additional history exists CKD PHOS USE SMARTSET 85171 12/28/202412/04, 02/16/2023, 03/21/2022, Additional history exists TSH 12/28/2024 12/29/2023, 02/02, 02/06/2023, Additional history exists DTaP,Tdap,and Td Vaccines Discontinued 03/30/2005 Pneumococcal Vaccine: 65+ Years Completed 12/15/2015, 05/29/2001 Zoster Vaccines Completed 08/01/2018, 03/05, 06/04/2010 VITAMIN D LEVEL ONCE IN A LIFETIME-USE SMARTSET# [id number] Completed 03/21/2022, 02/05/2021, 03/02/2020, Additional history exists [...] filedocumented as of this encounter Care Teams Wood Strip Block Floor Installer Relationship Specialty Start Date End Date Ricardo Guerra MD [address] [place] [address] PCP - General Family Medicine 08/24/15 documented as of this encounter
--- OUTSIDE RECORDS SUMMARY | 2024-02-12 19:34 | External Medical Summary | Summary of Care ---
Author Name Unknown Organization [facility] Address [address] [facility] [place] [address] Phone [phone] Care Team Providers Care Welder Apprentice Arc Name Role Phone Ricardo Guerra MD Primary Care Provider +1- [phone] Reason for Visit * Reason Onset Date Comments Advice 02/08/2024 Encounter Details Date Type Department Care Team ([facility] st Contact Info) Description 02/08/2024 Telephone [facility], [facility] 132 [facility] [place] [address] America Red, RN [address] [place] [address] Advice Allergies No known active allergiesdocumented as of this encounter (statuses as of 02/08/2024) Medications Medication Sig Dispensed Refills Start Date [...] for Hypertension. 60 Tablet 11 02/02/2024 Active Meclizine HCl 25 MG Oral Tablet (Antivert) Take 1 Tab by mouth 3 times a day as needed for Dizziness. 30 Tab 03/15/2021 4 Discontinue d(Medicatio n List Clean Up) SUMAtriptan Succinate 25 MG Oral Tablet (Imitrex) Take 1 Tablet by mouth as needed. 11/14/2023 4 Discontinue d(Medicatio n List Clean Up) documented as of this encounter (statuses as of 02/08/2024) Active Problems Problem Noted Date Diagnosed Date [...] as of this encounter (statuses as of 02/08/2024) Resolved Problems Problem Noted Date Diagnosed Date [...] as of this encounter (statuses as of 02/08/2024) Immunizations Name Administration Dates Next Due COVID-19 [...] encounter Miscellaneous Notes * Telephone Encounter - America Red RN - 02/08/2024 4:41 PM EDT Noted. Called dtr Diana and notified her of recommendations. She verbalizes understanding. * Telephone Encounter - Ricardo Guerra MD - 02/08/2024 12:54 PM EDT Suggest increase lisinopril to 10 mg daily (can take 2 of the 5 mg until follow up visit). Agree with extra dose of hydralazine and can continue with prn doses of that as suggested by cardiology. Consider making Dr Castrejon aware as well since she has made last several med changes. * Telephone Encounter - America Red RN - 02/08/2024 11:48 AM EDT Pt seen for home visit Had ED visit on 02/03 and was given IV Lebatalol after htn at home not relieved with hydralazine. Today bp is 170/74 manually and 189 /77 is [facility] bp reading of left arm 178/74 manually and 176/78 with [facility] cuff of right arm She is going to take a prn dose of Hydralazine today to hopefully keep bp down but dtr concerned that it did not help day that she went to ED. Do you have any further recommendations? She will continue to monitor and is asymptomatic. I do see that a lot of her readings are later at night between 9 and 10 pm. She reports she takes her meds around 10 am and 10 pm. I asked that she try to wait 2-3 hours after she takes her morning meds to get a reading and she isgoing to see if there is any change. Thank you! documented in this encounter Plan of Treatment Upcoming Encounters Date Type Department Care Team (Late st Contact Info) Description 02/12/2024 2:20 PM EDT Office Visit [facility] [address] [place] [address] Ricardo Guerra MD [address] [place] [facility] [place] [address] 02/15/2024 8:00 AM EDT [facility] [address] [facility] [place] [address] Ashleigh Mjeia, [facility] Chemist Instrumentation [address] [place] [facility] [place] [address] 02/20/2024 12:50 PM EDT Laboratory Laboratory, [place] [address] [place] [phone] [facility] [address] [place] [address] 02/29/2024 3:40 PM EDT Office Visit [facility], [place] [address] [place] [address] Chano Guo MD [address] [place] [address] 03/04/2024 12:30 PM EDT Home Visit [facility] 132 [facility] [place] [address] America Red, RN 132 [facility] [place] [address] 03/11/2024 2:00 PM EDT Imaging Radiology, [address] [place] [address] 03/12/2024 1:30 PM EDT Office Visit Cardiology, [facility] 132 [facility] [place] [address] Magalys Griffiths CRNP 400 [facility] [place] [address] 05/14/2024 5:40 PM EDT Office Visit [facility], [place] [address] [place] [phone] Ricardo Guerra MD [address] [place] [address] 06/06/2024 12:30 PM EDT Office Visit Ophthalmology, [facility] 132 [facility] [place] [address] Kwan Robb, DO [facility] [place] [address] Health Maintenance Due Date Last Done Comments *BISPHONATE OR OTHER ACCEPTABLE MEDICATION NEEDED FOR OSTEOPOROSIS (REFER TO SMARTSET #1146) 10/08/2015 DXA Scan 08/31/2022 08/31/2020, 02/2018, 09/11/2015 COVID-19 Vaccine ( season) 2023 08/18/2021, 01/06/2021, 12/16/2020 *NEPHROLOGY REFERRAL DUE TO RESISTANT HTN 02/04/2024 Influenza Vaccine (FLU shot) (Season Ended) 2024 06/21/2022, 05/27/2021, 05/15/2020, Additional history exists HbA1c 06/29/2024 12/29/2023, 02/02, 03/21/2022, Additional history exists Diabetic Eye Exam 10/31/2024 10/31/2023, , 07/12/2011, Additional history exists Diabetic Foot Exam 11/15/2024 11/16/2023, 0 03/21/2022, 10/04/2019 Depression Screening 12/27/2024 12/28/2023 Albumin/Creatinine Ratio 12/28/20242 024, 02/17/2023, 03/21/2022 CKD HGB USE SMARTSET 58561 12/28/202412/28, 12/29/2023, 02/16/2023, Additional history exists CKD PHOS USE SMARTSET 20849 12/28/2024 04/2 02/2024, 02/16/2023, 03/21/2022, Additional history exists TSH 12/28/2024 12/29/2023, 02/02, 02/06/2023, Additional history exists DTaP,Tdap,and Td Vaccines Discontinued 03/30/2005 Pneumococcal Vaccine: 65+ Years Completed 12/15/2015, 05/29/2001 Zoster Vaccines Completed 08/01/2018, 03/05, 06/04/2010 VITAMIN D LEVEL ONCE IN A LIFETIME-USE SMARTSET# 32858 Completed 03/21/2022, 02/05/2021, 03/02/2020, Additional history exists [...] filedocumented as of this encounter Care Teams Welder Apprentice Arc Relationship Specialty Start Date End Date Ricardo Guerra MD [address] [place] [address] PCP - General Family Medicine 08/24/15 documented as of this encounter
--- OUTSIDE RECORDS SUMMARY | 2024-02-12 19:35 | External Medical Summary | Summary of Care ---
Author Name Unknown Organization [facility] Address [address] [place] [address] Phone [phone] Care Team Providers Care Environmental Technology Professor Name Role Phone Ricardo Guerra MD Primary Care Provider +1- [phone] Encounter Details Date Type Department Care Team (Late st Contact Info) Description 02/05/2024 Population Health External Data Unspecified Department Allergies No known active allergiesdocumented as of this encounter (statuses as of 02/05/2024) Medications Medication Sig Dispensed Refills Start Date End Date Status Meclizine HCl 25 MG Oral Tablet (Antivert) Take 1 Tab by mouth 3 times a day as needed for Dizziness. 30 Tab 03/15/2021 Active Additional Information Patient not taking.Reported on 01/08/2024 Omeprazole 20 MG Oral Capsule Delayed Release [...] by mouth in the morning. 10/06/2023 Active SUMAtriptan Succinate 25 MG Oral Tablet (Imitrex) Take 1 Tablet by mouth as needed. 11/14/2023 Active Levothyroxine Sodium 50 MCG Oral Tablet [...] as of this encounter (statuses as of 02/05/2024) Active Problems Problem Noted Date Diagnosed Date [...] as of this encounter (statuses as of 02/05/2024) Resolved Problems Problem Noted Date Diagnosed Date [...] as of this encounter (statuses as of 02/05/2024) Immunizations Name Administration Dates Next Due COVID-19 [...] Care Team (Late st Contact Info) Description 02/08/2024 2:30 PM EDT Home Visit [facility] [address] [facility] [place] [address] America Red RN 132 [facility] [place] [address] 02/20/2024 12:50 PM EDT Laboratory Laboratory, [place] [address] [place] [address] [place] [address] [place] [address] 02/29/2024 3:40 PM EDT Office Visit [place] [address] [place] [phone] Chano Guo MD [address] [place] [address] 03/11/2024 2:00 PM EDT Imaging Radiology, [address] [place] [address] 03/12/2024 1:30 PM EDT Office Visit Cardiology, [facility] [address] [place] [address] Magalys Griffiths CRNP [address] [place] [address] [place] [address] 05/14/2024 5:40 PM EDT Office Visit [facility] [address] [place] [address] Ricadro Guerra MD [address] [place] [address] 06/06/2024 12:30 PM EDT Office Visit Ophthalmology, [facility] 132 [place] [address] Kwan Robb, DO 21 [facility] [place] [address] Health Maintenance Due Date Last Done Comments [...] 024, 02/17/2023, 03/21/2022 CKD HGB USE SMARTSET 21914 12/28/202412/28, 12/29/2023, 02/16/2023, Additional history exists CKD PHOS USE SMARTSET 05796 12/28/202412/04, 02/16/2023, 03/21/2022, Additional history exists TSH 12/28/2024 12/29/2023, 02/02, 02/06/2023, Additional history exists DTaP,Tdap,and Td Vaccines Discontinued 03/30/2005 Pneumococcal Vaccine: 65+ Years Completed 12/15/2015, 05/29/2001 Zoster Vaccines Completed 08/01/2018, 03/05, 06/04/2010 VITAMIN D LEVEL ONCE IN A LIFETIME-USE SMARTSET# 06671 Completed 03/21/2022, 02/05/2021, 03/02/2020, Additional history exists [...] filedocumented as of this encounter Care Teams Environmental Technology Professor Relationship Specialty Start Date End Date Ricardo Guerra MD [address] [place] [address] PCP - General Family Medicine 12/21/15 documented as of this encounter
--- OUTSIDE RECORDS SUMMARY | 2024-02-12 19:35 | External Medical Summary | Summary of Care ---
Author Name Unknown Organization [facility] Address [address] [facility] [place] [place] [address] Phone [phone] Care Team Providers Care Milled Rice Broker Name Role Phone Ricardo Guerra MD Primary Care Provider +1- [phone] Reason for Visit * Reason Onset Date Comments [facility]: Maintenance 01/25/2024 Encounter Details Date Type Department Care Team ([facility] Contact Info) Description 01/25/2024 Telephone [facility], [facility] [address] [facility] [place] [address] [facility], Nurse [address] [place] [address] [facility]: Maintenance Allergies No known active allergiesdocumented as of this encounter (statuses as of 02/05/2024) Medications Medication Sig Dispensed Refills Start Date End Date Status Meclizine HCl 25 MG Oral Tablet (Antivert) Take 1 Tab by mouth 3 times a day as needed for Dizziness. 30 Tab 03/15/2021 Active Additional Information Patient not taking.Reported on 01/08/2024 Omeprazole 20 MG Oral Capsule Delayed Release (PriLOSEC)Indica tions:Encounter for long-term (current) use of medications,Danelle roesophageal reflux disease without esophagitis TAKE 1 CAPSULE BY MOUTH EVERY DAY IN THE MORNING 90 Capsule 1 08/21/2023 Active Allopurinol 300 MG Oral Tablet (Zyloprim)Indica tions:Gout, unspecified cause, unspecified chronicity, unspecified site TAKE [...] Active Atorvastatin Calcium 40 MG Oral Tablet (Lipitor)Indicat ions:Dyslipidemi a TAKE 1 TABLET BY MOUTH EVERY DAY IN THE MORNING 90 Tablet 3 01/23/2024 Active Cefdinir 300 MG Oral Capsule (Omnicef) Take 1 Capsule by mouth in the morning and 1 Capsule before bedtime. 11/15/2023 4 Discontinued Carvedilol 12.5 MG Oral Tablet (Coreg) Take 1 Tablet by mouth in the morning and 1 Tablet before bedtime. 60 Tablet 3 01/05/2024 4 Discontinued documented as of this encounter [...] left nose 2016 Vitamin D deficiency 06/23/2017 HTN, goal below [...] encounter Miscellaneous Notes * Telephone Encounter - Ricrado Guerra MD - 01/31/2024 2:09 PM EDT Will defer to cardiology - they are scheduled to see pt in 2 days * Telephone Encounter - Sis Hsu RN - 01/25/2024 11:12 AM EDT Images from the original note were not included. Received call from pt's Physical therapist Milton who is at the pt's home at this time. He states that the pt has a home BP cuff device monitoring her BP/P and her numbers have been high for 2 weeks. He is inquiring if there is someone who monitors these vital signs, do the BP/P numbers get sent tothe Provider? Advised that the pt does have an [facility] device for BP and P, with set limits which would flag for a nurse to be notified if numbers are outside of the set parameters. Advised that the pt did have a PCP appt on 01/17/24 and it is documented in the Provider note that they are aware of the elevated BP: As documented by Dr Lisa Horton: "here today with son for elevated readings on her BP machine at home. Looks like [facility] follows her. And her readings have been from 180-160 systolic over 70-80. Today her BP is stable. Sage recently dced norvasc 10 mg due to edema in her legs. And stopped metoprolol and she has been taking Coreg 12.5 mg bid. She is feeling well. No headaches, no shortness of breath. Edema in herlegs is better." This linux unix administrator assessed pt at time of the call. She denies having a headache. She denies being lightheaded or dizzy. She denies chest pain. She denies SOB. She reports some MCCONNELL, only with exertion, worsening over the past few weeks. She states that her edema is a lot better. She does not do daily weights.She is taking all of her medications as prescribed. Advised this linux unix administrator will send the [facility] readings since 01/11/24 to the [facility] care team, the pt's PCP and the pt's Court Orderly. Both Milton and the pt verbalized understanding of same. Sis PAIZ, RN [facility] Intake Triage Coordinator [phone] documented in this encounter Plan of Treatment Upcoming Encounters Date Type Department Care Team (Late st Contact Info) Description 02/08/2024 2:30 PM EDT Home Visit [facility], [address] [place] [address] America Red, RN 132 [place] [address] 02/20/2024 12:50 PM EDT Laboratory Laboratory, [place] [address] [place] [facility] [place] [facility] [phone] [facility] [address] [place] [address] 02/29/2024 3:40 PM EDT Office Visit [facility], [place] [address] [place] [facility] [phone] Chano Guo MD [address] [place] [address] 03/11/2024 2:00 PM EDT Imaging Radiology, [address] [place] [address] 03/12/2024 1:30 PM EDT Office Visit Cardiology, [facility] 132 [place] [address] Magalys Griffiths [address] [place] [address] 05/14/2024 5:40 PM EDT Office Visit [facility], [place] [address] [place] [address] Ricardo Guerra MD [address] [place] [address] 06/06/2024 12:30 PM EDT Office Visit Ophthalmology, [facility] 132 [facility] [address] Kwan Robb, DO [address] [place] [address] Health Maintenance Due Date Last Done Comments [...] 024, 02/17/2023, 03/21/2022 CKD HGB USE SMARTSET 15725 12/28/202412/28, 12/29/2023, 02/16/2023, Additional history exists CKD PHOS USE SMARTSET 54120 12/28/202412/04, 02/16/2023, 03/21/2022, Additional history exists TSH 12/28/2024 12/29/2023, 02/02, 02/06/2023, Additional history exists DTaP,Tdap,and Td Vaccines Discontinued 03/30/2005 Pneumococcal Vaccine: 65+ Years Completed 12/15/2015, 05/29/2001 Zoster Vaccines Completed 08/01/2018, 03/05, 06/04/2010 VITAMIN D LEVEL ONCE IN A LIFETIME-USE SMARTSET# 33504 Completed 03/21/2022, 02/05/2021, 03/02/2020, Additional history exists [...] filedocumented as of this encounter Care Teams Milled Rice Broker Relationship Specialty Start Date End Date Ricardo Guerra MD [address] [place] [address] PCP - General Family Medicine 08/24/15 documented as of this encounter
--- OUTSIDE RECORDS SUMMARY | 2024-02-12 19:35 | External Medical Summary | Summary of Care ---
Author Name Unknown Organization [facility] Address [address] [place] [address] Phone [phone] Care Team Providers Care Disc Sander Name Role Phone Ricardo Guerra MD Primary Care Provider +1- [phone] Encounter Details Date Type Department Care Team (Late st Contact Info) Description 02/06/2024 Population Health External Data Unspecified Department Allergies No known active allergiesdocumented as of this encounter (statuses as of 02/06/2024) Medications Medication Sig Dispensed Refills Start Date [...] as of this encounter (statuses as of 02/06/2024) Active Problems Problem Noted Date Diagnosed Date [...] as of this encounter (statuses as of 02/06/2024) Resolved Problems Problem Noted Date Diagnosed Date [...] as of this encounter (statuses as of 02/06/2024) Immunizations Name Administration Dates Next Due COVID-19 [...] Description 02/08/2024 2:30 PM EDT Home Visit [facility] [address] [facility] [place] [address] America Red RN 132 [facility] [place] [address] 02/12/2024 2:20 PM EDT Office Visit [facility] [address] [facility] [phone] Ricardo Guerra MD [address] [place] [address] 02/20/2024 12:50 PM EDT Laboratory Laboratory, [place] [address] [facility] [phone] [facility] [address] [place] [address] 02/29/2024 3:40 PM EDT Office Visit [facility] [address] [place] [phone] Chano Guo MD [address] [place] [address] 03/11/2024 2:00 PM EDT Imaging Radiology, [address] [address] 03/12/2024 1:30 PM EDT Office Visit Cardiology, [facility] [address] [facility] [address] Magalys Griffiths, MARIANO [address] [place] [address] [place] [address] 05/14/2024 5:40 PM EDT Office Visit [facility], [place] [address] [place] [phone] Ricardo Guerra MD [address] [place] [address] 06/06/2024 12:30 PM EDT Office Visit Ophthalmology, [facility] [address] [facility] [place] [address] Kwan Robb, [address] [place] [address] [place] [address] Health Maintenance Due Date Last Done Comments [...] 024, 02/17/2023, 03/21/2022 CKD HGB USE SMARTSET 56829 12/28/202412/28, 12/29/2023, 02/16/2023, Additional history exists CKD PHOS USE SMARTSET 47840 12/28/202412/04, 02/16/2023, 03/21/2022, Additional history exists TSH 12/28/2024 12/29/2023, 02/02, 02/06/2023, Additional history exists DTaP,Tdap,and Td Vaccines Discontinued 03/30/2005 Pneumococcal Vaccine: 65+ Years Completed 12/15/2015, 05/29/2001 Zoster Vaccines Completed 08/01/2018, 03/05, 06/04/2010 VITAMIN D LEVEL ONCE IN A LIFETIME-USE SMARTSET# 34160 Completed 03/21/2022, 02/05/2021, 03/02/2020, Additional history exists [...] filedocumented as of this encounter Care Teams Disc Sander Relationship Specialty Start Date End Date Ricardo Guerra MD [address] [place] [address] PCP - General Family Medicine 08/24/15 documented as of this encounter
--- OUTSIDE RECORDS SUMMARY | 2024-02-12 19:35 | External Medical Summary | Summary of Care ---
Author Name Unknown Organization [facility] Address [address] [facility] [address] Phone [phone] Care Team Providers Care Freelance Recruiter Name Role Phone Ricardo Guerra MD Primary Care Provider +1- [phone] Reason for Visit * Reason Onset Date Comments Fax Refill 01/30/2024 Encounter Details Date Type Department Care Team (Late st Contact Info) Description 01/30/2024 Telephone Cardiology, [facility] [address] [facility] [place] [address] Stephany Castrejon, DO [address] [facility] [place] [address] Fax Refill Allergies No known active allergiesdocumented as of [...] mRNA, LNP-s, No Pre serve, 2-Dose Series (Ropatec) 01/06/2021,12/16/2020 Pneumococcal Conjugate Vacc, 13 Valent (Prevnar) [...] encounter Miscellaneous Notes * Telephone Encounter - Blanca Diop CMA - 01/30/2024 10:53 AM EDT Request for 90-day RX. documented in this encounter Plan of Treatment Upcoming Encounters Date Type Department Care Team (Late st Contact Info) Description 02/08/2024 2:30 PM EDT Home Visit [facility] [place], [address] [place] [address] America Red, RN 132 [facility] [place] [address] 02/20/2024 12:50 PM EDT Laboratory Laboratory, [place] [address] [place] [facility] [place] [phone] [facility] [address] [place] [facility] [place] [address] 02/29/2024 3:40 PM EDT Office Visit [facility], [place] [address] [place] [facility] [place] [phone] Chano Guo MD [address] [place] [address] 03/11/2024 2:00 PM EDT Imaging Radiology, [address] [place] [address] 03/12/2024 1:30 PM EDT Office Visit Cardiology, [facility] 132 [place] [address] Magalys Griffiths [address] [place] [address] 05/14/2024 5:40 PM EDT Office Visit [place] [address] [place] [phone] Ricardo Guerra MD [address] [place] [address] 06/06/2024 12:30 PM EDT Office Visit Ophthalmology, [facility] [address] [facility] [place] [address] Kwan Robb, DO [address] [place], [place] [address] [address] Health Maintenance Due Date Last Done Comments *BISPHONATE OR OTHER ACCEPTABLE MEDICATION NEEDED FOR OSTEOPOROSIS (REFER TO SMARTSET #1146) 10/08/2015 DXA Scan 08/31/2022 08/31/2020, 0602/2018, 09/11/2015 COVID-19 Vaccine ( season) 2023 08/18/2021, [...] 024, 02/17/2023, 03/21/2022 CKD HGB USE SMARTSET 53844 12/28/202412/28, 12/29/2023, 02/16/2023, Additional history exists CKD PHOS USE SMARTSET 25558 12/28/202412/04, 02/16/2023, 03/21/2022, Additional history exists TSH 12/28/2024 12/29/2023, 02/02, 02/06/2023, Additional history exists DTaP,Tdap,and Td Vaccines Discontinued 03/30/2005 Pneumococcal Vaccine: 65+ Years Completed 12/15/2015, 05/29/2001 Zoster Vaccines Completed 08/01/2018, 03/05, 06/04/2010 VITAMIN D LEVEL ONCE IN A LIFETIME-USE SMARTSET# [id number] Completed 03/21/2022, 02/05/2021, 03/02/2020, Additional history exists [...] as of this encounter Visit Diagnoses Diagnosis Paroxysmal atrial fibrillation (HCC)- Primary Atrial fibrillation SSS (sick sinus syndrome) (HCC) Sinoatrial node dysfunction HTN, goal below 150/90 documented in this encounter Care Teams Freelance Recruiter Relationship Specialty Start Date End Date Ricardo Guerra MD [address] [place] [address] PCP - General Family Medicine 08/24/15 documented as of this encounter
--- OUTSIDE RECORDS SUMMARY | 2024-02-12 19:35 | External Medical Summary | Summary of Care ---
Author Name Unknown Organization [facility] Address [address] [place] [address] Phone [phone] Care Team Providers Care Technician'S Helper Name Role Phone Ricardo Guerra MD Primary Care Provider +1- [phone] Encounter Details Date Type Department Care Team (Late st Contact Info) Description 02/07/2024 Population Health External Data Unspecified Department Allergies No known active allergiesdocumented as of this encounter (statuses as of 02/07/2024) Medications Medication Sig Dispensed Refills Start Date [...] as of this encounter (statuses as of 02/07/2024) Active Problems Problem Noted Date Diagnosed Date [...] as of this encounter (statuses as of 02/07/2024) Resolved Problems Problem Noted Date Diagnosed Date [...] as of this encounter (statuses as of 02/07/2024) Immunizations Name Administration Dates Next Due COVID-19 [...] Description 02/08/2024 2:30 PM EDT [facility] Visit [facility] 132 [facility] [place] [address] America Red RN 132 [facility] [place] [address] 02/12/2024 2:20 PM EDT Office Visit [facility] [address] [facility] [phone] Ricardo Guerra MD [address] [place] [address] 02/20/2024 12:50 PM EDT Laboratory Laboratory, [place] [address] [facility] [phone] [facility] [address] [place] [address] 02/29/2024 3:40 PM EDT Office Visit [facility] [address] [place] [facility] [place] [phone] Chano Guo MD [address] [place] [address] 03/11/2024 2:00 PM EDT Imaging Radiology, [address] [address] 03/12/2024 1:30 PM EDT Office Visit Cardiology, [facility] 132 [facility] [address] Magalys Griffiths, MARIANO [address] [place] [address] [place] [address] 05/14/2024 5:40 PM EDT Office Visit [facility], [place] [address] [facility] [place] [phone] Ricardo Guerra MD [address] [place] [address] 06/06/2024 12:30 PM EDT Office Visit Ophthalmology, [facility] 132 [facility] [place] [address] Kwan Robb, [address] [place] [address] [place] [address] Health Maintenance Due Date Last Done Comments [...] 024, 02/17/2023, 03/21/2022 CKD HGB USE SMARTSET 15983 12/28/202412/28, 12/29/2023, 02/16/2023, Additional history exists CKD PHOS USE SMARTSET 20494 12/28/202412/04, 02/16/2023, 03/21/2022, Additional history exists TSH 12/28/2024 12/29/2023, 02/02, 02/06/2023, Additional history exists DTaP,Tdap,and Td Vaccines Discontinued 03/30/2005 Pneumococcal Vaccine: 65+ Years Completed 12/15/2015, 05/29/2001 Zoster Vaccines Completed 08/01/2018, 03/05, 06/04/2010 VITAMIN D LEVEL ONCE IN A LIFETIME-USE SMARTSET# [id number] Completed 03/21/2022, 02/05/2021, 03/02/2020, Additional history exists [...] filedocumented as of this encounter Care Teams Technician'S Helper Relationship Specialty Start Date End Date Ricardo Guerra MD [address] [place] [address] PCP - General Family Medicine 08/24/15 documented as of this encounter
[2024-02-12] MEDS: APIXABAN 2.5 MG TAB PO SCH (21:06)
[2024-02-12] MEDS: MAGNESIUM OXIDE 400 MG TAB PO SCH (21:06)
[2024-02-12] MEDS: carvediloL 25 MG TAB PO SCH (21:07)
[2024-02-13] MEDS: LEVOTHYROXINE SODIUM 50 MCG TABLET PO SCH (05:47)
[2024-02-13 06:33] LABS: Basophils # (auto) 0.05 K/uL (0.00-0.20); Basophils % (auto) 0.6 %; Eosinophils # (auto) 0.25 K/uL (0.00-0.50); Hematocrit (blood only) 31.1 % (37.0-47.0); Hemoglobin 10.1 g/dl (12.0-16.0); Immature Granulocytes # (auto) 0.02 K/uL (0.01-0.20); Immature Granulocytes % (auto) 0.2 %; Lymphocytes # (auto) 2.95 K/uL (1.20-3.40); Lymphocytes % (auto) 35.1 %; Mean Corpuscular Hemoglobin 30.2 pg (25.0-34.0); Mean Corpuscular Hgb Conc 32.5 g/dL (32.0-36.0); Mean Corpuscular Volume 93.1 fL (80.0-100.0); Mean Platelet Volume 11.1 fL (9.4-12.4); Monocytes % (auto) 9.5 %; Neutrophils # (auto) 4.33 K/uL (1.40-6.50); Neutrophils % (auto) 51.6 %; Platelet Count 220 K/uL (130-400); RDW Coefficient of Variation 15.2 % (11.5-14.5); RDW Standard Deviation 51.8 fL (36.4-46.3); Red Blood Count 3.34 M/uL (4.20-5.40)
[2024-02-13 06:49] LABS: BUN Creatinine Ratio 26.9 (10-20); Calcium 8.7 mg/dl (8.6-10.3); Creatinine Clr Calc Pharmacy 32.5 ml/min; Est GFR (African American) 55.6 ml/min; Est GFR (Non-African American) 47.9 ml/min; Potassium 3.4 mmol/L (3.5-5.1)
[2024-02-13 07:12] LABS: Folate (Folic Acid),Ser orPlas 14.53 ng/ml (>5.38)
[2024-02-13] MEDS: POTASSIUM CHLORIDE CRTAB 20 MEQ TABCR PO STA (08:46)
[2024-02-13] MEDS: CHOLECALCIFEROL 25 MCG (1000 UNITS) TAB PO SCH (08:46)
[2024-02-13] MEDS: allopurinoL 300 MG TAB PO SCH (08:47)
[2024-02-13] MEDS: ATORVASTATIN 40 MG TAB PO SCH (08:47)
[2024-02-13] MEDS: PANTOprazole 40 MG TAB PO SCH (08:47)
--- NOTE | 2024-02-13 08:57 | Cardiology Consultation ---
Date of Consultation February 13, 2024 Assessment & Plan (1) Hypertensive urgency: (2) MRI safe cardiac pacemaker in situ: (3) Paroxysmal atrial fibrillation: (4) Acute confusion: Plan Patient admitted for confusion and hypertensive urgency with mild AVA with dehydration. Head CT negative for acute findings. Patient declined Brain MRI. Lasix and lisinopril held on admission due to creatinine 1.23 on admission with BUN of 35. Creatinine improved this morning. Back to baseline. HS troponin unremarkable. EKG without acute changes. BP trended down with oral carvedilol 25 mg BID (home dose) and one dose IV hydralazine. BP controlled this morning. Family reports mentation is back to baseline. Strong situational component contributing to BP at home. Also significant sodium intake noted by family. Lifestyle changes recommended. Remain off amlodipine as her edema has improved. Continue carvedilol 25 mg BID. Would resume low dose lisinopril if needed for BP. Furosemide 20 mg PRN only No further cardiac testing warranted or recommended at this time. Case discussed with Dr. Horton. Call paraprofessional aide provider with additional questions or concerns. Case discussed with Dr. Horton I spent a total of 60 minutes on the date of service in preparation, delivery, and documentation of the care provided to this patient, excluding any time spent in the performance of separately billed services. Trina Montero PA-C Department of Cardiology, [facility] This chart was completed in part utilizing Speech Voice Recognition Software. Grammatical errors, random word insertions, pronoun errors, and incomplete sentences are an occasional consequence of this system due to software limitations, ambient noise, and hardware issues. Any formal questions or concerns about the content, text, or information contained within the body of this dictation should be directly addressed to the provider for clarification. Supervising Physician Co-Signing Physician Notes I have personally performed a history and physical examination on the patient. I have reviewed the advance practitioner's documentation, and I agree with, and take responsibility for the plan of care. 88-year-old female presenting with confusion in the setting of hypertensive urgency, mild AVA, and volume depletion. Blood pressure improved with dose of oral carvedilol and 1 dose of IV hydralazine. Currently normotensive. CT of the head negative. Cultures pending at this time. Continue to hold MARLON inhibitor and diuretic. Repeat labs in AM. Consider restarting furosemide at reduced dosing schedule, Monday, Monday, Monday only, pending review of a.m. labs and clinical course. Encouraged oral hydration. All questions answered to patient and family's satisfaction. I spent a total of 25 minutes on the date of service in preparation, delivery, and documentation of the care provided to this patient, excluding any time spent in the performance of separately billed services. History of Present Illness Reason for Consultation: HTN Urgency Requesting Physician: Dr. Santana Attending Physician: Dr. Horton History of Present Illness Patient is an 88 year old female, known to [facility] Cardiology, Dr. Castrejon History includes: 1. 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 HTN 3. HLD 4. DM 5. CKD stage III 6. History of hyponatremia 7. History of PAF, on Eliquis Recent issues with persistently elevated BP readings. Multiple hospitalizations and ER visits for uncontrolled readings. Most recently amlodipine was discontinued due to LE edema, which aided her fluid status. Toprol was transitioned to carvedilol and dose increased to 25 mg BID. Lisinopril resumed and increased to 5 mg BID. Per outpatient charts, she was previously on 20-40 mg daily. Hydralazine added 25 mg BID PRN. Yesterday, patient was found to be more confused by family. Brought to the ER. Head CT unremarkable. Patient declined MRI. BP uncontrolled with readings initially > 200. Lisinopril and furosemide were placed on hold during admission due to mild rise in creatinine. PRN hydralazine added. Cardiology consulted to aid with HTN management. At time of consult patient out of bed, family at bedside. She reports feeling "great". Family reports her mental status has normalized, returned to baseline. BP remains well controlled this morning despite holding lasix and lisinopril since admission. She admits to poor PO intake of water at home. She also admits to significant salt/sodium intake. Family trying to limit salt. She denies chest pain or dyspnea. No dizziness. Headache improved. Voices no concerns. Edema resolved since stopping amlodipine. Allergies Allergy/AdvReac Type Severity Reaction Status Date / Time No Known Allergies Allergy Verified 02/05/24 01:32 Home Medications Medication Instructions Recorded Confirmed Type allopurinol 300 mg tablet 300 mg PO QAM 09/11/23 02/12/24 History atorvastatin 40 mg tablet 40 mg PO QAM 09/11/23 02/12/24 History levothyroxine 50 mcg tablet 50 mcg PO DAILYBB 09/11/23 02/12/24 History omeprazole 20 mg capsule,delayed 20 mg PO QAM 09/11/23 02/12/24 History release cholecalciferol (vitamin D3) 50 50 mcg PO QAM 11/08/23 02/12/24 History mcg (2,000 unit) capsule apixaban 2.5 mg tablet (Eliquis) 2.5 mg PO [facility] 01/30/24 02/12/24 History furosemide 20 mg tablet 20 mg PO QAM 01/30/24 02/12/24 History magnesium oxide 400 mg (241.3 mg 400 mg PO [facility] 01/30/24 02/12/24 History magnesium) tablet carvedilol 25 mg tablet 25 mg PO BID 02/05/24 02/12/24 History hydralazine 25 mg tablet 25 mg PO BID PRN .high bp 02/05/24 02/12/24 History lisinopril 5 mg tablet (Zestril) 5 mg PO BID 02/12/24 02/12/24 History Patient History Medical History SSS (sick sinus syndrome) A-fib HTN (hypertension) CKD (chronic kidney disease) MRI safe cardiac pacemaker in situ Thyroid disease Left-sided headache Surgical History History of permanent cardiac pacemaker placement Family History (Updated 02/12/24 @ 20:30 by Mahsa Yates PA-C) Other Family history non-contributory Social History Smoking Status: Never smoker Second Hand Exposure: No; Do You Dip or Chew Tobacco: No; Tobacco Cessation Education Requested by Patient: No Hx Alcohol Use: No Hx Substance Use: No Preferred Language: Latvian Communication Ability: Effective Electrical Engineering Designer Required: No Beliefs That Will Affect Care: None Current Living Situation: Alone Current Living Situation Comment: daughter lives next door Other Information That Helps Us Care for You: No Feels Safe at Home: Yes Safety Concerns: Feels Safe At This Time Assistive Devices: Raised Toilet Seat and Walker Review of Systems Review of Systems: All systems reviewed & are unremarkable except as noted in HPI & below Physical Exam Constitutional: WD/WN, vitals as above well developed Neck: normal visual inspection Respiratory: normal respiratory effort; no labored breathing Auscultation: lungs clear to auscultation bilaterally; no crackles and no rales Cardiovascular: Rate/Rhythm: regular rate and regular rhythm Heart Sounds: no murmur Vessels: no JVD Extremities: no edema Gastrointestinal (Abdomen): normal bowel sounds, soft, nontender, no hepatosplenomegaly Skin: no rashes, warm and dry Neurologic: PERRL, EOMI, accommodation nl, no face palsy, no dysarthria Results & Data Vital Signs (Past 12 Hours) Vital Signs Temp Pulse Pulse Resp BP BP BP 02/13/24 07:42 37.2 C 62 19 157/72 H 02/13/24 03:30 37.0 C 64 18 122/58 L 02/13/24 01:24 67 02/13/24 01:10 37.2 C 68 18 180/72 H 02/13/24 01:00 02/12/24 23:07 66 02/12/24 23:00 63 17 154/72 H 02/12/24 22:15 71 12 02/12/24 22:00 148/70 H 02/12/24 21:36 73 20 02/12/24 21:12 77 17 02/12/24 21:00 138/68 02/12/24 20:54 71 15 Pulse Ox O2 Del Method O2 Flow Rate 02/13/24 07:42 93 Room Air 02/13/24 03:30 97 Nasal Cannula 1 02/13/24 01:24 02/13/24 01:10 97 Nasal Cannula 2 02/13/24 01:00 Nasal Cannula 2 02/12/24 23:07 02/12/24 23:00 96 Nasal Cannula 2 02/12/24 22:15 02/12/24 22:00 02/12/24 21:36 96 02/12/24 21:12 97 02/12/24 21:00 02/12/24 20:54 95 Laboratory Results Cardiac Enzymes 02/12/24 02/12/24 Range/Units 11:29 15:12 AST 20 (13-39) U/L Troponin I High Sens 7.8 (0-14) pg/ml B-Natriuretic Peptide 70 (0-100) pg/ml Coagulation 02/12/24 Range/Units 15:12 B-Natriuretic Peptide 70 (0-100) pg/ml CBC 02/12/24 02/13/24 Range/Units 11:29 05:41 WBC 9.19 8.40 (4.8-10.8) K/ul RBC 3.72 L 3.34 L (4.20-5.40) M/uL Hgb 11.2 L 10.1 L (12.0-16.0) g/dl Hct 34.8 L 31.1 L (37.0-47.0) % Plt Count 237 220 (130-400) K/uL Neut # (Auto) 5.67 4.33 (1.40-6.50) K/uL Lymph # (Auto) 2.42 2.95 (1.20-3.40) K/uL [place] # (Auto) 0.62 H 0.80 H (0.11-0.59) K/uL Eos # (Auto) 0.41 0.25 (0.00-0.50) K/uL Baso # (Auto) 0.04 0.05 (0.00-0.20) K/uL Comprehensive Metabolic Panel 02/12/24 02/13/24 Range/Units 11:29 05:41 Sodium 140 140 (136-145) mmol/L Potassium 3.8 3.4 L (3.5-5.1) mmol/L Chloride 104 106 (98-107) mmol/L Carbon Dioxide 29 27 (21-32) mmol/L BUN 35 H 28 H (6-23) mg/dl Creatinine 1.23 H 1.04 (0.6-1.2) mg/dl Glucose 160 H 106 H (70-99(Fasting)) mg/dl Calcium 9.5 8.7 (8.6-10.3) mg/dl Direct Bilirubin 0.1 (0-0.2) mg/dl AST 20 (13-39) U/L ALT 13 (7-52) U/L Alkaline Phosphatase 48 (34-104) U/L Total Protein 7.1 (6.0-8.3) gm/dl Albumin 4.0 (3.4-5.0) gm/dl Intake and Output 02/12/24 02/13/24 02/13/24 22:59 06:59 14:59 Other: Other Intake Source sips # Unmeasured Voids 1 Weight 62.7 kg Weight Measurement Method Built in [facility] Diagnostic Findings Telemetry reviewed: Atrial paced, ventricular sensed. EKG reviewed on admission: Atrial paced, ventricular sensed rhythm. Possible old inferior infarct Compared with prior EKG, Atrial paced rhythm has replaced NSR Chest X-Ray 02/12/24 11:41 Cardiac silhouette is enlarged. Dual-lead left subclavian pacer. No pneumothorax, pleural effusion, airspace consolidation or pulmonary edema. Bones of the chest appear grossly intact. IMPRESSION: Cardiomegaly without acute process of the chest. Electronically signed by: Jovanni Alan M.D. 02/12/2024 12:[address] 02/12/24 11:41 CT OF THE HEAD WITHOUT CONTRAST FINDINGS: No acute intracranial hemorrhage is present. 5.9 cm CSF attenuation density overlying the left frontoparietal convexity is unchanged from earlier exams and favors an arachnoid cyst. White matter hypodensity suggests small vessel disease. The ventricular system is unremarkable. The basal cisterns are patent. No extra-axial collections are present. There are no findings to suggest acute dural sinus thrombosis or acute territorial infarct. No significant calvarial abnormalities are present. Visualized portions of the sinuses and mastoid air cells are clear. IMPRESSION: No acute intracranial findings. No change in appearance of the brain. Electronically signed by: Dre Arceo M.D. 02/12/2024 12:41 PM Prior outside data: Device interrogation reviewed dated January 2024: Appropriate function and battery longevity of 7.4 years 53% atrial pacing, 1% V pacing; 1% burden of afib Echo report reviewed from [facility] dated Sep 2023: LVEF 60-65% Normal LV wall thickness LA is mildly dilated Mild MR Mild TR Estimated pulm pressure is 49 mmHg No pericardial effusion Medications Administered Current Inpatient Medications Acetaminophen (Acetaminophen 325 Mg Tab) 650 mg PO Q4H PRN PRN Reason: Pain or Fever Stop: 03/13/24 17:13 Allopurinol (Allopurinol 300 Mg Tab) 300 mg PO QAM [facility] Stop: 03/14/24 08:59 Last Admin: 02/13/24 08:47 Dose: 300 mg Apixaban (Apixaban 2.5 Mg Tab) 2.5 mg PO [facility] Stop: 03/13/24 20:59 Last Admin: 02/12/24 21:06 Dose: 2.5 mg Atorvastatin Calcium (Atorvastatin 40 Mg Tab) 40 mg PO [facility] Stop: 03/14/24 08:59 Last Admin: 02/13/24 08:47 Dose: 40 mg Carvedilol (Carvedilol 25 Mg Tab) 25 mg PO BID [facility] Stop: 03/13/24 20:59 Last Admin: 02/12/24 21:07 Dose: 25 mg Hydralazine HCl (Hydralazine Hcl 20 Mg/Ml Vial) 5 mg IV Q8H PRN PRN Reason: Hypertension Stop: 03/13/24 15:38 Last Admin: 02/12/24 16:00 Dose: 5 mg Levothyroxine Sodium (Levothyroxine Sodium 50 Mcg Tablet) [facility] Stop: 03/14/24 06:29 Last Admin: 02/13/24 05:47 Dose: 50 mcg Magnesium Oxide (Magnesium Oxide 400 Mg Tab) 400 mg PO [facility] Stop: 03/13/24 20:59 Last Admin: 02/12/24 21:06 Dose: 400 mg Pantoprazole Sodium (Pantoprazole 40 Mg Tab) 40 mg PO [facility]; Protocol Stop: 03/14/24 08:59 Last Admin: 02/13/24 08:47 Dose: 40 mg Vitamin D (Cholecalciferol 25 Mcg (1000 Units) Tab) 50 mcg PO [facility] Stop: 03/14/24 08:59 Last Admin: 02/13/24 08:46 Dose: 50 mcg
--- NOTE | 2024-02-13 10:27 | Hospitalist Progress Note ---
Date of Service February 13, 2024 Assessment & Plan (1) Acute confusion: Plan: This is an 88 y/o female with hx sick sinus syndrome s/p PPM, pulmonary HTN, hyperlipidemia, diet-controlled DM, hypothyroidism, chronic anemia, GERD, and other history as outlined below who presents with episodic confusion and generalized weakness. BP in the ED was elevated with SBP initially > 200. Pt was also noted to be hypoxic on initial evaluation though no clear etiology identi fied - she has since been weaned to room air. Initial CT head was negative for stroke. Pt declines MRI to more definitively evaluate at this time. -Hypertensive encephalopathy - Give dose of Coreg now then resume home osing - Add prn hydralazine IV for SBP >185 - If recurrent confusion or change in neurologic status overnight, consider repeat CT head since pt refuses MRI - PT/OT evaluations -B12 was noted to be minimally low at 162-will give cyanocobalamin 1 g IM daily for 7 days then monthly -Folate level is normal and TSH is normal Vitamin B12 deficiency Will give supplement as above (2) Hypertensive urgency: Plan: BP has been labile and difficult to control per pt's family and review of the outpatient records. Multiple medication changes in the last month. Holding lisinopril and furosemide at present due to mild creatinine elevation, clinical mild dehydration Labs in the AM Consult cardiology for assistance with managing BP as they have been adjusting pt's medications as outpatient Blood pressure is controlled with current regimen Appreciate cardiology input and recommendation Will have PT OT evaluation Likely discharge tomorrow (3) Diarrhea: Plan: Single episode this morning. Pt is afebrile, no leukocytosis If recurrent, consider stool studies (4) Hypothyroidism: Plan: Chronic, stable Check TSH-normal at 1.819 Continue levothyroxine (5) GERD without esophagitis: Plan: Chronic, stable Continue PPI (6) Paroxysmal atrial fibrillation: Plan: Chronic, stable Continue beta edita Continue chronic AC with apixaban Plan Pt seen and reviewed with collaborating physician, Dr. Pastor. Plan of care discussed and as outlined above. Code Status: Full code but no prolonged measures DVT Prophylaxis: on apixaban Dispo: PCU Admission and Anticipated Discharge Date Admission Date: February 12, 2024 Subjective 02/13/2024 The patient was seen and examined in telemetry unit She was admitted with acute confusion and dizziness likely secondary to hypertensive urgency No chest pain or palpitation Denies any other symptoms and confusion is resolved She will be observed and likely discharge tomorrow Review of Systems Review of Systems: All systems reviewed and are unremarkable except as noted below Physical Exam Physical Exam: Sitting on a chair without any acute distress Constitutional: well developed and well nourished; not ill appearing Eyes: PERRL, conjunctivae normal, anicteric sclerae ENMT: external ear and nose normal, oropharynx normal Neck: trachea midline, no thyromegaly Respiratory: no respiratory distress Auscultation: lungs clear to auscultation bilaterally Cardiovascular: Rate/Rhythm: regular rate and regular rhythm; not tachycardic Heart Sounds: normal S1 and normal S2; no murmur Extremities: no edema Gastrointestinal (Abdomen): Inspection/Auscultation: normal bowel sounds; abdomen not distended Percussion/Palpation: abdomen soft; abdomen nontender Musculoskeletal: No acute arthritis involving any of the joints Neurologic: normal touch/pain/proprioception and moves all extremities; no focal motor deficits Psychiatric: A+Ox3, euthymic affect Lymphatic: no cervical or axillary lymphadenopathy Results & Data Results & Data Vital Signs (Past 12 Hours) Vital Signs Temp Pulse Pulse Resp BP BP Pulse Ox 02/13/24 07:42 37.2 C 62 19 157/72 H 93 02/13/24 07:00 60 02/13/24 03:30 37.0 C 64 18 122/58 L 97 02/13/24 01:24 67 02/13/24 01:10 37.2 C 68 18 180/72 H 97 02/13/24 01:00 02/12/24 23:07 66 02/12/24 23:00 63 17 154/72 H 96 O2 Del Method O2 Flow Rate 02/13/24 07:42 Room Air 02/13/24 07:00 02/13/24 03:30 Nasal Cannula 1 02/13/24 01:24 02/13/24 01:10 Nasal Cannula 2 02/13/24 01:00 Nasal Cannula 2 02/12/24 23:07 02/12/24 23:00 Nasal Cannula 2 Laboratory Results Short CBC 02/13/24 Range/Units 05:41 WBC 8.40 (4.8-10.8) K/ul Hgb 10.1 L (12.0-16.0) g/dl Hct 31.1 L (37.0-47.0) % Plt Count 220 (130-400) K/uL BMP 02/13/24 05:41 Sodium 140 Potassium 3.4 L Chloride 106 Carbon Dioxide 27 BUN 28 H Creatinine 1.04 Glucose 106 H Calcium 8.7 Medications Administered Current Inpatient Medications Acetaminophen (Acetaminophen 325 Mg Tab) 650 mg PO Q4H PRN PRN Reason: Pain or Fever Stop: 03/13/24 17:13 Allopurinol (Allopurinol 300 Mg Tab) 300 mg PO [facility] Stop: 03/14/24 08:59 Last Admin: 02/13/24 08:47 Dose: 300 mg Apixaban (Apixaban 2.5 Mg Tab) 2.5 mg PO [facility] Stop: 03/13/24 20:59 Last Admin: 02/13/24 09:31 Dose: 2.5 mg Atorvastatin Calcium (Atorvastatin 40 Mg Tab) 40 mg PO [facility] Stop: 03/14/24 08:59 Last Admin: 02/13/24 08:47 Dose: 40 mg Carvedilol (Carvedilol 25 Mg Tab) 25 mg PO BID [facility] Stop: 03/13/24 20:59 Last Admin: 02/13/24 09:31 Dose: 25 mg Hydralazine HCl (Hydralazine Hcl 20 Mg/Ml Vial) 5 mg IV Q8H PRN PRN Reason: Hypertension Stop: 03/13/24 15:38 Last Admin: 02/12/24 16:00 Dose: 5 mg Levothyroxine Sodium (Levothyroxine Sodium 50 Mcg Tablet) [facility] Stop: 03/14/24 06:29 Last Admin: 02/13/24 05:47 Dose: 50 mcg Magnesium Oxide (Magnesium Oxide 400 Mg Tab) 400 mg PO [facility] Stop: 03/13/24 20:59 Last Admin: 02/13/24 09:31 Dose: 400 mg Pantoprazole Sodium (Pantoprazole 40 Mg Tab) 40 mg PO [facility]; Protocol Stop: 03/14/24 08:59 Last Admin: 02/13/24 08:47 Dose: 40 mg Vitamin D (Cholecalciferol 25 Mcg (1000 Units) Tab) 50 mcg PO [facility] Stop: 03/14/24 08:59 Last Admin: 02/13/24 08:46 Dose: 50 mcg (3) Diarrhea Diarrhea type: unspecified type Qualified Code(s): R19.7 - Diarrhea, unspecified (4) Hypothyroidism Hypothyroidism type: unspecified Qualified Code(s): E03.9 - Hypothyroidism, unspecified
[2024-02-13] MEDS: CYANOCOBALAMIN 1000 MCG/ML VIAL IM SCH (15:31)
[2024-02-14 06:30] LABS: BUN Creatinine Ratio 26.2 (10-20); Calcium 8.8 mg/dl (8.6-10.3); Creatinine Clr Calc Pharmacy 31.6 ml/min; Est GFR (African American) 53.7 ml/min; Est GFR (Non-African American) 46.3 ml/min; Magnesium 1.7 mg/dl (1.7-2.4); Potassium 4.1 mmol/L (3.5-5.1)
[2024-02-14 06:32] LABS: Basophils # (auto) 0.05 K/uL (0.00-0.20); Basophils % (auto) 0.8 %; Eosinophils # (auto) 0.48 K/uL (0.00-0.50); Eosinophils % (auto) 7.7 %; Hematocrit (blood only) 30.4 % (37.0-47.0); Hemoglobin 9.9 g/dl (12.0-16.0); Immature Granulocytes # (auto) 0.01 K/uL (0.01-0.20); Immature Granulocytes % (auto) 0.2 %; Lymphocytes # (auto) 2.53 K/uL (1.20-3.40); Lymphocytes % (auto) 40.6 %; Mean Corpuscular Hemoglobin 29.7 pg (25.0-34.0); Mean Corpuscular Hgb Conc 32.6 g/dL (32.0-36.0); Mean Corpuscular Volume 91.3 fL (80.0-100.0); Mean Platelet Volume 11.2 fL (9.4-12.4); Monocytes % (auto) 9.6 %; Neutrophils # (auto) 2.56 K/uL (1.40-6.50); Neutrophils % (auto) 41.1 %; Platelet Count 207 K/uL (130-400); RDW Standard Deviation 50.7 fL (36.4-46.3); Red Blood Count 3.33 M/uL (4.20-5.40); White Blood Count 6.23 K/ul (4.8-10.8)
[2024-02-14] MEDS: FUROSEMIDE 20 MG TAB PO SCH (10:10)
[2024-02-14] MEDS: lisinopril 5 MG TAB PO SCH (10:10)
--- NOTE | 2024-02-14 12:25 | Cardiology Progress Note ---
Date of Service February 14, 2024 Assessment & Plan (1) Hypertensive urgency: (2) MRI safe cardiac pacemaker in situ: (3) Paroxysmal atrial fibrillation: (4) Acute confusion: Plan Patient admitted for confusion and hypertensive urgency with mild AVA with dehydration. Head CT negative for acute findings. Patient declined Brain MRI. Lasix and lisinopril held on admission due to creatinine 1.23 on admission with BUN of 35. Creatinine improved this morning. Back to baseline. HS troponin unremarkable. EKG without acute changes. BP trended down with oral carvedilol 25 mg BID (home dose) and one dose IV hydralazine. BP controlled this morning. Family reports mentation is back to baseline. Strong situational component contributing to BP at home. Also significant sodium intake noted by family. Lifestyle changes recommended. Remain off amlodipine as her edema has improved. Continue carvedilol 25 mg BID. Would resume low dose lisinopril if needed for BP. 02/14/24 Resume lisinopril 5 mg BID (home dose) Resume furosemide 10 mg // Mental status at baseline. Recheck BP 2 hours after AM meds. If BP controlled, anticipate discharge later today. Blood cultures negative after 24 hours. Stable cardiac symptoms Anticipate discharge today, 02/13. Cardiology will sign off. If there are additional questions/concerns, please notify laborer construction or leak gang cardiology provider. Case discussed with Dr. Horton I spent a total of 30 minutes on the date of service in preparation, delivery, and documentation of the care provided to this patient, excluding any time spent in the performance of separately billed services. Trina Montero PA-C Department of Cardiology, [facility] This chart was completed in part utilizing Speech Voice Recognition Software. Grammatical errors, random word insertions, pronoun errors, and incomplete sentences are an occasional consequence of this system due to software limitations, ambient noise, and hardware issues. Any formal questions or concerns about the content, text, or information contained within the body of this dictation should be directly addressed to the provider for clarification. Admission and Anticipated Discharge Date Admission Date: February 12, 2024 Supervising Physician Co-Signing Physician Notes I have reviewed the advance practitioner's documentation, and I agree with, and take responsibility for the plan of care. Subjective Patient hard of hearing. Sitting in chair. Feeling "great". Denies acute cardiac complaints. BP trended slightly higher last night and this morning. Denies headache or symptoms. No chest pain or dyspnea. Mental status appears at baseline. Review of Systems Review of Systems: All systems reviewed & are unremarkable except as noted in HPI & below Physical Exam Constitutional: WD/WN, vitals as above well developed Neck: normal visual inspection Respiratory: normal respiratory effort; no labored breathing Auscultation: lungs clear to auscultation bilaterally; no crackles and no rales Cardiovascular: Rate/Rhythm: regular rate and regular rhythm Heart Sounds: no murmur Vessels: no JVD Extremities: no edema Gastrointestinal (Abdomen): normal bowel sounds, soft, nontender, no hepatosplenomegaly Skin: no rashes, warm and dry Neurologic: PERRL, EOMI, accommodation nl, no face palsy, no dysarthria Results & Data Vital Signs (Past 12 Hours) Vital Signs Temp Pulse Pulse Resp BP Pulse Ox O2 Del Method 02/14/24 11:27 36.8 C 60 18 127/63 97 Room Air 02/14/24 08:00 Room Air 02/14/24 07:45 36.9 C 60 18 164/95 H 95 Room Air 02/14/24 07:00 60 02/14/24 03:07 36.9 C 60 20 149/76 H 92 Room Air Laboratory Results CBC 02/14/24 Range/Units 05:32 WBC 6.23 (4.8-10.8) K/ul RBC 3.33 L (4.20-5.40) M/uL Hgb 9.9 L (12.0-16.0) g/dl Hct 30.4 L (37.0-47.0) % Plt Count 207 (130-400) K/uL Neut # (Auto) 2.56 (1.40-6.50) K/uL Lymph # (Auto) 2.53 (1.20-3.40) K/uL [place] # (Auto) 0.60 H (0.11-0.59) K/uL Eos # (Auto) 0.48 (0.00-0.50) K/uL Baso # (Auto) 0.05 (0.00-0.20) K/uL Comprehensive Metabolic Panel 02/14/24 Range/Units 05:32 Sodium 140 (136-145) mmol/L Potassium 4.1 D (3.5-5.1) mmol/L Chloride 107 (98-107) mmol/L Carbon Dioxide 26 (21-32) mmol/L BUN 28 H (6-23) mg/dl Creatinine 1.07 (0.6-1.2) mg/dl Glucose 106 H (70-99(Fasting)) mg/dl Calcium 8.8 (8.6-10.3) mg/dl Intake and Output 02/13/24 02/14/24 02/14/24 22:59 06:59 14:59 Intake Total 400 / 1420 300 / 1420 Balance 400 / 1420 300 / 1420 Intake: Oral 400 / 1420 300 / 1420 Other: # Unmeasured Voids 1 2 Weight 62.5 kg Weight Measurement Method Built in [facility] Diagnostic Findings Telemetry reviewed: Blood cultures - Prelim report negative after 24 hours Medications Administered Current Inpatient Medications Acetaminophen (Acetaminophen 325 Mg Tab) 650 mg PO Q4H PRN PRN Reason: Pain or Fever Stop: 03/13/24 17:13 Allopurinol (Allopurinol 300 Mg Tab) [facility] Stop: 03/14/24 08:59 Last Admin: 02/14/24 08:51 Dose: 300 mg Apixaban (Apixaban 2.5 Mg Tab) 2.5 mg PO AMHS [facility] Stop: 03/13/24 20:59 Last Admin: 02/14/24 08:51 Dose: 2.5 mg Atorvastatin Calcium (Atorvastatin 40 Mg Tab) 40 mg PO QAM [facility] Stop: 03/14/24 08:59 Last Admin: 02/14/24 08:50 Dose: 40 mg Carvedilol (Carvedilol 25 Mg Tab) 25 mg PO BID [facility] Stop: 03/13/24 20:59 Last Admin: 02/14/24 08:51 Dose: 25 mg Cyanocobalamin (Cyanocobalamin 1000 Mcg/Ml Vial) 1,000 mcg IM QAM [facility] Stop: 02/19/24 09:01 Last Admin: 02/14/24 10:10 Dose: 1,000 mcg Furosemide (Furosemide 20 Mg Tab) 10 mg PO MoWeFr@0900 [facility] Stop: 03/15/24 09:29 Last Admin: 02/14/24 10:10 Dose: 10 mg Hydralazine HCl (Hydralazine Hcl 20 Mg/Ml Vial) 5 mg IV Q8H PRN PRN Reason: Hypertension Stop: 03/13/24 15:38 Last Admin: 02/12/24 16:00 Dose: 5 mg Levothyroxine Sodium (Levothyroxine Sodium 50 Mcg Tablet) 50 mcg PO DAILYBB [facility] Stop: 03/14/24 06:29 Last Admin: 02/14/24 06:09 Dose: 50 mcg Lisinopril (Lisinopril 5 Mg Tab) 5 mg PO BID [facility] Stop: 03/15/24 08:59 Last Admin: 02/14/24 10:10 Dose: 5 mg Magnesium Oxide (Magnesium Oxide 400 Mg Tab) 400 mg PO AMHS [facility] Stop: 03/13/24 20:59 Last Admin: 02/14/24 08:51 Dose: 400 mg Pantoprazole Sodium (Pantoprazole 40 Mg Tab) 40 mg PO [facility] [place] [facility]; Protocol Stop: 03/14/24 08:59 Last Admin: 02/14/24 08:51 Dose: 40 mg Vitamin D (Cholecalciferol 25 Mcg (1000 Units) Tab) 50 mcg PO QAM[facility] Stop: 03/14/24 08:59 Last Admin: 02/14/24 08:51 Dose: 50 mcg
--- NOTE | 2024-02-14 14:10 | Hospitalist Progress Note ---
Date of Service February 14, 2024 Assessment & Plan (1) Acute confusion: Plan: Patient is an 88 y/o female with hx sick sinus syndrome s/p PPM, pulmonary HTN, hyperlipidemia, diet-controlled DM, hypothyroidism, chronic anemia, GERD, and other history as outlined below who presents with episodic confusion and generalized weakness. BP in the ED was elevated with SBP initially > 200. Pt was also noted to be hypoxic on initial evaluation though no clear etiology id entified - she has since been weaned to room air. Initial CT head was negative for stroke. Pt declines MRI to more definitively evaluate at this time. Hypertensive Encephalopathy --CT Head:No acute intracranial findings. No change in appearance of the brain. Patient refused MRI Mental status back to baseline Continue Coreg 25 mg twice a day, lisinopril 5 mg twice a day IV hydralazine as needed Resume Lasix at reduced dose 10 mg on Monday only Appreciate Cardiology input PT/OT evaluations: recommends return home Vitamin B12 deficiency Started on vitamin B12 supplements (2) Hypertensive urgency: Plan: Management as above (3) Diarrhea: Plan: No recurrence of diarrhea while hospitalized resolved (4) Hypothyroidism: Plan: Normal TSH Continue levothyroxine (5) GERD without esophagitis: Plan: Chronic, stable Continue PPI (6) Paroxysmal atrial fibrillation: Plan: Continue Coreg Continue chronic AC with apixaban Plan Code Status: Full code DVT Px Apixaban Disposition home Admission and Anticipated Discharge Date Admission Date: February 12, 2024 Subjective Patient is seen and examined at bedside States feeling well today No diarrhea today Denies any chest pain, dyspnea, dizziness, nausea, vomiting, abdominal pain Blood pressure much better Plan to be discharged home today Review of Systems Review of Systems: All systems reviewed & are unremarkable except as noted in Subjective Physical Exam Physical Exam: Physical Exam: Vitals signs as noted above General Appearance:Moderately built and nourished, no apparent distress Head: normocephalic, Atraumatic Eyes: normal inspection, EOMI Neck: supple, Trachea midline Respiratory/Chest: Normal breath sounds, CTA, No accessory muscle use Cardiovascular: S1, S2, No murmur Abdomen/GI:Soft, Non tender, Bowel sounds present Extremities/Musculoskeletal:normal inspection,1+ edema Neurologic/Psych:AAOX3, grossly no focal neurological deficits, decreased hearing Skin: normal color, warm Results & Data Results & Data Vital Signs (Past 12 Hours) Vital Signs Temp Pulse Pulse Resp BP Pulse Ox O2 Del Method 02/14/24 11:27 36.8 C 60 18 127/63 97 Room Air 02/14/24 08:00 Room Air 02/14/24 07:45 36.9 C 60 18 164/95 H 95 Room Air 02/14/24 07:00 60 02/14/24 03:07 36.9 C 60 20 149/76 H 92 Room Air Laboratory Results Short CBC 02/14/24 Range/Units 05:32 WBC 6.23 (4.8-10.8) K/ul Hgb 9.9 L (12.0-16.0) g/dl Hct 30.4 L (37.0-47.0) % Plt Count 207 (130-400) K/uL [facility] 02/14/24 05:32 Sodium 140 Potassium 4.1 D Chloride 107 Carbon Dioxide 26 BUN 28 H Creatinine 1.07 Glucose 106 H Calcium 8.8 (3) Diarrhea Diarrhea type: unspecified type Qualified Code(s): R19.7 - Diarrhea, unspecified (4) Hypothyroidism Hypothyroidism type: unspecified Qualified Code(s): E03.9 - Hypothyroidism, unspecified
--- NOTE | 2024-02-14 14:25 | Discharge Summary ---
Date of Service February 14, 2024 Admission HPI Per Admitting Provider This is an 88 y/o female with hx sick sinus syndrome s/p PPM, pulmonary HTN, hyperlipidemia, diet-controlled DM, hypothyroidism, chronic anemia, GERD, and other history as outlined below who presents with episodic confusion and generalized weakness. History obtained from the patient, the pt's daughter and son at the bedside, and from review of her outpatient records with [facility]. Family reports that last night, pt was in her usual state of health. However, when her daughter came over this morning, she found pt more confused than usual, which she describes as pt being "out of it" and disoriented but still able to recognize her family. She also noted that patient had an episode of diarrhea this morning. No recent fevers, chills, vomiting, cough, congestion, runny nose, or urinary symptoms. Pt and family deny any recent falls. Pt has been taking her medications as prescribed (her daughter manages these). She lives alone but her daughter lives in the same building and spends most of her time with the patient. Her family has no concerns with her living situation at present. Of note, her BP over the last several weeks has been difficult to control. Home readings have varied with a systolic BP as high as 215 on 02/04/24. Her medications have been adjust multiple times with Coreg increased to 25 mg BID, prn hydralazine added for SBP >170, and lisinopril increased to 5 mg BID. Pt's daughter does not feel like the hydralazine helped at all. Lisinopril was just increased a few days ago so unsure if this has helped. Family does note that pt's grandson surprised her with a visit two days ago and spent time with her this weekend. They are concerned about the excitement of the weekend potentially affecting her health. Currently, the patient's only complaint is a headache. Her Blood Pressures from Home Health were: Admission Exam Per Admitting Provider General: awake, alert, NAD, Ox1. +hard of hearing Eyes: PERRL, EOMI Mouth: edentulous, tongue midline, uvula rises symmetrically with phonation Neck: supple Heart: RRR Lungs: CTA bilaterally on the anterior Abdomen: soft, NT, +BS Extremities: no pedal edema, radial pulses 2+ and equal, square shear operator strength equal bilaterally Skin: no jaundice Neurologic: oriented to person, moving all extremities equally, no facial droop Principal Diagnosis Hypertensive Encephalopathy Vitamin B12 deficiency Discharge Data Allergies Allergy/AdvReac Type Severity Reaction Status Date / Time No Known Allergies Allergy Verified 02/05/24 01:32 Consultations 02/12/24 13:49 ED Decision to Admit Stat 02/12/24 18:20 Consult Cardiology Routine Procedures Performed Laboratory Results WBC 6.23 K/ul (4.8-10.8) 02/14/24 05:32 RBC 3.33 M/uL (4.20-5.40) L 02/14/24 05:32 Hgb 9.9 g/dl (12.0-16.0) L 02/14/24 05:32 Hct 30.4 % (37.0-47.0) L 02/14/24 05:32 MCV 91.3 fL (80.0-100.0) 02/14/24 05:32 MCH 29.7 pg (25.0-34.0) 02/14/24 05:32 MCHC 32.6 g/dL (32.0-36.0) 02/14/24 05:32 RDW Std Deviation 50.7 fL (36.4-46.3) H 02/14/24 05:32 RDW Coeff of Adolfo 15.0 % (11.5-14.5) H 02/14/24 05:32 Plt Count 207 K/uL (130-400) 02/14/24 05:32 MPV 11.2 fL (9.4-12.4) 02/14/24 05:32 Immature Gran % (Auto) 0.2 % 02/14/24 05:32 Neut % (Auto) 41.1 % 02/14/24 05:32 Lymph % (Auto) 40.6 % 02/14/24 05:32 [place] % (Auto) 9.6 % 02/14/24 05:32 Eos % (Auto) 7.7 % 02/14/24 05:32 Baso % (Auto) 0.8 % 02/14/24 05:32 Neut # (Auto) 2.56 K/uL (1.40-6.50) 02/14/24 05:32 Lymph # (Auto) 2.53 K/uL (1.20-3.40) 02/14/24 05:32 [place] # (Auto) 0.60 K/uL (0.11-0.59) H 02/14/24 05:32 Eos # (Auto) 0.48 K/uL (0.00-0.50) 02/14/24 05:32 Baso # (Auto) 0.05 K/uL (0.00-0.20) 02/14/24 05:32 Immature Gran # (Auto) 0.01 K/uL (0.01-0.20) 02/14/24 05:32 ESR 23 mm/hr (0-30) 02/12/24 11:29 Sodium 140 mmol/L (136-145) 02/14/24 05:32 Potassium 4.1 mmol/L (3.5-5.1) D 02/14/24 05:32 Chloride 107 mmol/L (98-107) 02/14/24 05:32 Carbon Dioxide 26 mmol/L (21-32) 02/14/24 05:32 Anion Gap 7 (3-11) 02/14/24 05:32 BUN 28 mg/dl (6-23) H 02/14/24 05:32 Creatinine 1.07 mg/dl (0.6-1.2) 02/14/24 05:32 Est Cr Clr Drug Dosing 31.6 ml/min 02/14/24 05:32 Est GFR ( Amer) 53.7 ml/min 02/14/24 05:32 Est GFR (Non-Af Amer) 46.3 ml/min 02/14/24 05:32 BUN/Creatinine Ratio 26.2 (10-20) H 02/14/24 05:32 Glucose 106 mg/dl (70-99(Fasting)) H 02/14/24 05:32 Calcium 8.8 mg/dl (8.6-10.3) 02/14/24 05:32 Magnesium 1.7 mg/dl (1.7-2.4) 02/14/24 05:32 Total Bilirubin 0.5 mg/dl (0.2-1.0) 02/12/24 11:29 Direct Bilirubin 0.1 mg/dl (0-0.2) 02/12/24 11:29 AST 20 U/L (13-39) 02/12/24 11:29 ALT 13 U/L (7-52) 02/12/24 11:29 Alkaline Phosphatase 48 U/L (34-104) 02/12/24 11:29 Troponin I High Sens 7.8 pg/ml (0-14) 02/12/24 11:29 C-Reactive Protein < 0.50 mg/dl (0-0.5) 02/12/24 15:12 B-Natriuretic Peptide 70 pg/ml (0-100) 02/12/24 15:12 Total Protein 7.1 gm/dl (6.0-8.3) 02/12/24 11:29 Albumin 4.0 gm/dl (3.4-5.0) 02/12/24 11:29 Vitamin B12 162 pg/ml (180-914) L 02/13/24 05:41 Folate 14.53 ng/ml (>5.38) 02/13/24 05:41 Procalcitonin 0.02 ng/ml (0-0.5) 02/12/24 11:29 TSH 1.819 uIu/ml (0.300-4.500) 02/12/24 11:29 Urine Color Yellow 02/12/24 12:45 Urine Appearance Clear (Clear) 02/12/24 12:45 Urine pH 7.0 (4.5-7.5) 02/12/24 12:45 Ur Specific [place] 1.007 (1.000-1.030) 02/12/24 12:45 Urine Protein Negative (Negative) 02/12/24 12:45 Urine Glucose (UA) Negative (Negative) 02/12/24 12:45 Urine Ketones Negative (Negative) 02/12/24 12:45 Urine Blood Negative (Negative) 02/12/24 12:45 Urine Nitrite Negative (Negative) 02/12/24 12:45 Urine Bilirubin Negative (Negative) 02/12/24 12:45 Urine Urobilinogen Negative (Negative) 02/12/24 12:45 Ur Leukocyte Esterase Trace (Negative) H 02/12/24 12:45 Urine WBC (Auto) 0-5 /hpf (0-5) 02/12/24 12:45 Urine RBC (Auto) 0-2 /hpf (0-2) 02/12/24 12:45 U Hyaline Cast (Auto) 0-2 /lpf (0-2) 02/12/24 12:45 U Epithel Cells (Auto) 0-2 /hpf (0-2) 02/12/24 12:45 Urine Bacteria (Auto) None Seen (None Seen) 02/12/24 12:45 SARS-CoV-2 (PCR) NEGATIVE (Negative) 02/12/24 Unknown Influenza Type A (PCR) Negative (Neg) 02/12/24 Unknown Influenza Type B (PCR) Negative (Neg) 02/12/24 Unknown RSV (RT-PCR) Negative (Neg) 02/12/24 Unknown Impressions Chest X-Ray 02/12/24 11:41 XR chest 1V portable HISTORY: 88 years-old Female confusion acutely altered mental status COMPARISON: 2023 TECHNIQUE: AP view of the chest FINDINGS: Cardiac silhouette is enlarged. Dual-lead left subclavian pacer. No pneumothorax, pleural effusion, airspace consolidation or pulmonary edema. Bones of the chest appear grossly intact. IMPRESSION: Cardiomegaly without acute process of the chest. ACT 112: Negative or not required by law. The above report was generated using voice recognition software. It may contain grammatical, syntax or spelling errors. Electronically signed by: Jovanni Alan M.D. 02/12/2024 12:[address] 02/12/24 11:41 CT OF THE HEAD WITHOUT CONTRAST CLINICAL HISTORY: Confusion. COMPARISON STUDY: Head CT November 11, 2023. CT DOSE: 547.75 mGy.cm TECHNIQUE: Helical axial images of the head were obtained without IV contrast. Automated exposure control was utilized for the study. A dose lowering technique was utilized adhering to the principles of ALARA. FINDINGS: No acute intracranial hemorrhage is present. 5.9 cm CSF attenuation density overlying the left frontoparietal convexity is unchanged from earlier exams and favors an arachnoid cyst. White matter hypodensity suggests small vessel disease. The ventricular system is unremarkable. The basal cisterns are patent. No extra-axial collections are present. There are no findings to suggest acute dural sinus thrombosis or acute territorial infarct. No significant calvarial abnormalities are present. Visualized portions of the sinuses and mastoid air cells are clear. IMPRESSION: No acute intracranial findings. No change in appearance of the brain. ACT 112: Negative or not required by law. Electronically signed by: Dre Arceo M.D. 02/12/2024 12:41 PM Ordered Studies 02/12/24 11:41 CT head/brain wo con Stat Hospital Course (1) Acute confusion: Patient is an 88 y/o female with hx sick sinus syndrome s/p PPM, pulmonary HTN, hyperlipidemia, diet-controlled DM, hypothyroidism, chronic anemia, GERD, and other history as outlined below who presents with episodic confusion and generalized weakness. BP in the ED was elevated with SBP initially > 200. Pt was also noted to be hypoxic on initial evaluation though no clear etiology identified - she has since been weaned to room air. Initial CT head was negative for stroke. Pt declines MRI to more definitively evaluate at this time. Hypertensive Encephalopathy --CT Head:No acute intracranial findings. No change in appearance of the brain. Patient refused MRI Mental status back to baseline Continue Coreg 25 mg twice a day, lisinopril 5 mg twice a day IV hydralazine as needed Resume Lasix at reduced dose 10 mg on Monday only Appreciate Cardiology input PT/OT evaluations: recommends return home Vitamin B12 deficiency Started on vitamin B12 supplements (2) Hypertensive urgency: Management as above (3) Diarrhea: No recurrence of diarrhea while hospitalized resolved (4) Hypothyroidism: Normal TSH Continue levothyroxine (5) GERD without esophagitis: Chronic, stable Continue PPI (6) Paroxysmal atrial fibrillation: Continue Coreg Continue chronic AC with apixaban Plan Code Status: Full code DVT Px Apixaban Disposition home Total Time Total Time Spent Total Time Spent (In Minutes): 59 minutes Discharge Plan Discharge Items Patient Disposition: Home - Self-Care Reason For Visit: HYPERTENSIVE URGENCY Discharge Diagnosis: Hypertensive Encephalopathy Vitamin B12 deficiency Activity: Per Instructions section Exercise/Sports: Gradually increase as tolerated Non-emergency contact: Primary Care Provider and Point Of Care Specialist Call non-emergency contact if: you have any medication questions, your symptoms worsen, your pain is concerning for you and you have a fever Follow-up/Referrals: Ricardo Guerra MD [Primary Care Provider] - (Date & Time 02/21/2024 12:40 PM Provider Matt Stanton MD [facility] ) Diet: Heart Healthy Addtl Attending Provider Instructions: Follow-up with your primary care physician on 02/21/2024 12:40 PM Follow-up with your set up person Dr. Horton as needed --Monitor your blood pressure regularly at home. Discuss with your physician for adjustment of medications as needed. Seek immediate medical attention if your symptoms reoccur or worsen Please take all medications as instructed on discharge list below. Please call if you have any questions or problems. You can reach a [facility] hospitalist on duty at [facility] 24 hours a day by calling [phone] Pending Studies at Discharge: Yes Studies:: Blood Cultures Stand-Alone Forms: My [facility], Smoking Cessation Medications and DC Order Prescriptions: New furosemide 20 mg Tablet 10 mg PO MoWeFr@0900 Qty: 30 0RF cyanocobalamin (vitamin B-12) 500 mcg Tablet 1,000 mcg PO QAM Qty: 30 0RF Continued atorvastatin 40 mg tablet 40 mg PO QAM levothyroxine 50 mcg tablet 50 mcg PO DAILYBB omeprazole 20 mg capsule,delayed release(DR/EC) 20 mg PO QAM allopurinol 300 mg tablet 300 mg PO QAM cholecalciferol (vitamin D3) 50 mcg (2,000 unit) Capsule 50 mcg PO QAM hydralazine 25 mg tablet 25 mg PO BID PRN (Reason: .high bp) carvedilol 25 mg tablet 25 mg PO BID Qty: 60 0RF Eliquis 2.5 mg tablet 2.5 mg PO AMHS magnesium oxide 400 mg (241.3 mg magnesium) tablet 400 mg PO AMHS Changed lisinopril [Zestril] 5 mg tablet 5 mg PO BID Qty: 60 0RF Discontinued furosemide 20 mg tablet 20 mg PO QAM Discharge Orders: Discharge Order (Routine); Ordered 02/14/24 Ordered By: Donnie Albert Admission Data Admit Date/Time: 02/12/24 14:36 Attending Provider: Donnie Albert Admit Provider: Debra Pastor Primary Care Provider: Ricardo Guerra Other Providers: Debra Pastor; Jack Horton
[2024-02-15] MEDS ORDERED: CYANOCOBALAMIN (B-12) 500 MCG TABLET PO SCH (09:00)
== END 2024-02-14 17:05 | disposition home or self-care (01) | DRG 305 ==
LOC: ED 11:22 → SUATTDRO 14:36 → EDINP 14:36 → 2E 17:15
DX: N17.9 Acute kidney failure, unspecified; Z11.52 Encounter for screening for COVID-19; I48.0 Paroxysmal atrial fibrillation; K21.9 Gastro-esophageal reflux disease without esophagitis; E11.9 Type 2 diabetes mellitus without complications; I27.20 Pulmonary hypertension, unspecified; Z79.899 Other long term (current) drug therapy; N18.30 Chronic kidney disease, stage 3 unspecified; R19.7 Diarrhea, unspecified; I16.0 Hypertensive urgency; D64.9 Anemia, unspecified; Z79.890 Hormone replacement therapy; I67.4 Hypertensive encephalopathy; I49.5 Sick sinus syndrome; E11.22 Type 2 diabetes mellitus with diabetic chronic kidney disease; Z95.0 Presence of cardiac pacemaker; E03.9 Hypothyroidism, unspecified; I12.9 Hypertensive chronic kidney disease with stage 1 through stage 4 chronic kidney disease, or unspecified chronic kidney disease; Z79.01 Long term (current) use of anticoagulants; E86.0 Dehydration; E78.5 Hyperlipidemia, unspecified